=== PATIENT | female | born 1990 | race Caucasian/White ===

== ENCOUNTER 2016-12-23 19:40 | Emergency (ER) | payer OTHER ==
[2016-12-23 19:43] VITALS: BP 126/73; PULSE 89; RESP 18; TEMP 98.2
[2016-12-23] MEDS ORDERED: IBUPROFEN 600 MG TAB PO STA (19:48)
--- NOTE | 2016-12-23 19:53 | ED ---
Lower Extremity Injury HPI - General Chief Complaint: Extremity Injury, Lower Stated Complaint: lt foot injury Time Seen by Provider: 12/23/16 19:42 Source: patient, RN notes reviewed Mode of arrival: wheelchair Limitations: no limitations - History of Present Illness Initial Comments: Patient is a 26-year-old female presents to the emergency room for evaluation of left foot pain. Patient states she was moving a TV speaker and the corner of it hit the top of her left foot. Patient states she had immediate pain. Patient states that she has been applying ice over the area with no relief of symptoms. Patient denies taking anything for pain. Patient states her left dorsal foot is very tender to touch and she cannot put weight on it without pain. Patient states the lateral portion of her dorsal foot feels numb. Patient denies ankle pain. Patient denies any other injuries. - Related Data Home Medications Medication Instructions Recorded Confirmed Loratadine [Claritin] 10 mg PO DAILY PRN 11/04/16 12/23/16 clonazePAM [KlonoPIN] 0.5 mg PO DAILY PRN 11/04/16 12/23/16 Acetaminophen-Codeine 300-30mg 1 tab PO DAILY PRN 12/23/16 12/23/16 [Tylenol #3] Albuterol Inhaler [Ventolin Hfa 1 - 2 puff INHALATION RT-Q6H PRN 12/23/16 Inhaler] Pnv with Ca,No.72/Iron/FA 1 tab PO DAILY 12/23/16 12/23/16 [ Plus Tablet] Allergies Allergy/AdvReac Type Severity Reaction Status Date / Time buspirone HCl [From BuSpar] Allergy Rash/Hives Verified 12/23/16 19:58 latex Allergy Rash/Hives Verified 12/23/16 19:58 Latex, Natural Rubber Allergy Rash/Hives Verified 12/23/16 19:58 morphine Allergy Anaphylaxis Verified 12/23/16 19:58 tramadol Allergy Rash/Hives Verified 12/23/16 19:58 venom-honey bee Allergy Swelling Verified 12/23/16 19:58 [bee venom (honey bee)] Review of Systems ROS Statement: Those systems with pertinent positive or pertinent negative responses have been documented in the HPI. ROS Other: All systems not noted in ROS Statement are negative. Past Medical History Past Medical History: Asthma, Fibromyalgia, Seizure Disorder Additional Past Medical History / Comment(s): scoliosis and arthritis; back pain , "Stress Seziures" History of Any Multi-Drug Resistant Organisms: None Reported Past Surgical History: Appendectomy, Section Additional Past Surgical History / Comment(s): d & c Past Anesthesia/Blood Transfusion Reactions: No Reported Reaction Past Psychological History: ADD/ADHD, Bipolar Smoking Status: Never smoker Past Alcohol Use History: None Reported Past Drug Use History: None Reported, Marijuana Additional Drug Use History / Comment(s): Patient states no current use, but approximately 10 months ago was smoking marijuana - Past Family History Mother Family Medical History: Fibromyalgia General Exam - General Exam Comments Initial Comments: Sitting in exam room in no acute distress. Limitations: no limitations General appearance: alert, in no apparent distress Head exam: Present: atraumatic, normocephalic, normal inspection Eye exam: Present: normal appearance ENT exam: Present: normal exam Neck exam: Present: normal inspection Respiratory exam: Absent: respiratory distress Left Foot/Toe exam: Present: normal inspection, tenderness (Mid dorsal portion of the foot between the third and fourth metatarsal bones). Absent: swelling, abrasion, ecchymosis, deformity, crepitus Neurovascular tendon exam: Present: no vascular compromise. Absent: pulse deficit (2+ dorsal pedal posterior tibial pulses), abnormal cap refill ( Capillary refill less than 2 seconds) Back exam: Present: normal inspection Neurological exam: Present: alert, oriented X3, CN II-XII intact, normal gait Psychiatric exam: Present: normal affect, normal mood Skin exam: Present: warm, dry, intact, normal color. Absent: rash Course Vital Signs 12/23/16 19:41 Temperature 98.2 F Pulse Rate 89 Respiratory 18 Rate Blood Pressure 126/73 O2 Sat by Pulse 99 Oximetry Medical Decision Making - Medical Decision Making Patient is a 26-year-old female presents to the emergency room for evaluation of left foot pain. Left foot x-ray shows no acute fractures or dislocations. Patient also states she's experiencing some numbness on top of her foot where the injury happened. Discussed with patient that this is temporary. Discussed with patient that if symptoms do not improve in 7-10 days to follow-up with her primary care provider. Patient states she understands everything that was discussed with her. Return parameters discussed. Case discussed with Dr. Farias. - Radiology Data Radiology results: report reviewed, image reviewed Disposition Clinical Impression: Contusion of left foot Disposition: HOME SELF-CARE Condition: Good Instructions: Foot Contusion (ED), Neurapraxia (ED) Additional Instructions: Rest, elevate and ice on and off for 10-15 minutes for the next 24-48 hours. Take ibuprofen as needed for pain. Please follow-up with primary care provider if symptoms are not improving in 7-10 days. If new symptoms develop or symptoms worsen, please return to the ER. Referrals: Lizzy Edwards MD [Primary Care Provider] - 1-2 days Time of Disposition: 20:07
--- NOTE | 2016-12-23 19:59 | XR ---
EXAMINATION TYPE: XR foot complete LT DATE OF EXAM: 12/23/2016 7:55 PM COMPARISON: NONE HISTORY: Metatarsal pain TECHNIQUE: 3 views FINDINGS: I see no fracture nor dislocation. Metatarsals appear intact. Joint spaces are normal. IMPRESSION: Negative left foot exam.
== END 2016-12-23 20:24 | disposition home or self-care (01) ==
LOC: EC 19:40
DX: S90.32XA Contusion of left foot, initial encounter (principal); S94.92XA Injury of unspecified nerve at ankle and foot level, left leg, initial encounter; J45.909 Unspecified asthma, uncomplicated; M79.7 Fibromyalgia; G40.909 Epilepsy, unspecified, not intractable, without status epilepticus; Z79.899 Other long term (current) drug therapy; Z91.040 Latex allergy status; Z88.5 Allergy status to narcotic agent; Z91.030 Bee allergy status; Z88.6 Allergy status to analgesic agent; Z88.8 Allergy status to other drugs, medicaments and biological substances; W22.8XXA Striking against or struck by other objects, initial encounter; Y93.89 Activity, other specified
CPT/HCPCS: 99283

== ENCOUNTER 2016-12-26 22:06 | Emergency (ER) | payer OTHER ==
[2016-12-26 23:36] VITALS: RESP 18
--- NOTE | 2016-12-26 23:40 | ED ---
General Adult HPI - General Chief complaint: Seizure Stated complaint: Seizure Time Seen by Provider: 12/26/16 23:03 Source: patient, RN notes reviewed Mode of arrival: wheelchair Limitations: no limitations - History of Present Illness Initial comments: This is a 26-year-old female who states she had a seizure today. Patient states she had a flu shot around 9:45 AM and was feeling tired after this. Patient states around 10 PM this evening she had a seizure. Patient describes her seizures with shaking and jerking movements. Patient states the seizure lasted a few minutes. Patient has history of grand mal seizures. Patient takes Klonopin for her seizures. Patient states she feels tired and has headaches after seizures and feels back to baseline now. Patient states she has a history of seizures and the last one was about 6 months ago. Patient states she had another smaller seizure around 11 PM today. Patient also complains of a mild cough that is dry that started today. Patient has never had seizures after vaccinations before. Patient is taking Motrin for her headache today. Patient states her headache symptoms are normal for her after she has a seizure. Patient is unsure if she could be . Patient denies any recent fever, chills, shortness breath, chest pain, abdominal pain, nausea/ vomiting/diarrhea, back pain, numbness, tingling, hematuria, or visual changes , or any other complaints. - Related Data Home Medications Medication Instructions Recorded Confirmed Loratadine [Claritin] 10 mg PO DAILY PRN 11/04/16 12/26/16 clonazePAM [KlonoPIN] 0.5 mg PO DAILY PRN 11/04/16 12/26/16 Acetaminophen-Codeine 300-30mg 1 tab PO DAILY PRN 12/23/16 12/26/16 [Tylenol #3] Albuterol Inhaler [Ventolin Hfa 1 - 2 puff INHALATION RT-Q6H PRN 12/23/16 Inhaler] Pnv with Ca,No.72/Iron/FA 1 tab PO DAILY 12/23/16 12/26/16 [ Plus Tablet] Allergies Allergy/AdvReac Type Severity Reaction Status Date / Time buspirone HCl [From BuSpar] Allergy Rash/Hives Verified 12/26/16 22:58 latex Allergy Rash/Hives Verified 12/26/16 22:58 Latex, Natural Rubber Allergy Rash/Hives Verified 12/26/16 22:58 morphine Allergy Anaphylaxis Verified 12/26/16 22:58 tramadol Allergy Rash/Hives Verified 12/26/16 22:58 venom-honey bee Allergy Swelling Verified 12/26/16 22:58 [bee venom (honey bee)] Review of Systems ROS Statement: Those systems with pertinent positive or pertinent negative responses have been documented in the HPI. ROS Other: All systems not noted in ROS Statement are negative. Past Medical History Past Medical History: Asthma, Fibromyalgia, Seizure Disorder Additional Past Medical History / Comment(s): scoliosis and arthritis; back pain , "Stress Seziures" History of Any Multi-Drug Resistant Organisms: None Reported Past Surgical History: Appendectomy, Section Additional Past Surgical History / Comment(s): d & c Past Anesthesia/Blood Transfusion Reactions: No Reported Reaction Past Psychological History: ADD/ADHD, Anxiety, Bipolar, Depression Smoking Status: Never smoker Past Alcohol Use History: None Reported Past Drug Use History: None Reported Additional Drug Use History / Comment(s): Patient states no current use, but approximately 10 months ago was smoking marijuana - Past Family History Mother Family Medical History: Fibromyalgia General Exam - General Exam Comments Initial Comments: General: The patient is awake and alert, in no distress, and does not appear acutely ill. Eye: Pupils are equal, round and reactive to light, extra-ocular movements are intact. No nystagmus. There is normal conjunctiva bilaterally. No signs of icterus. Ears: TMs pink and pearly with intact cone of light bilaterally. Normal external ear canals Nose: Nasal turbinates pink and moist Mouth and throat: There are moist mucous membranes and no oral lesions. Neck: The neck is supple, there is no tenderness or JVD. Cardiovascular: There is a regular rate and rhythm. No murmur, rub or gallop is appreciated. Respiratory: Lungs are clear to auscultation, respirations are non-labored, breath sounds are equal. No wheezes, stridor, rales, or rhonchi. No cough during exam. Musculoskeletal: Normal ROM, no tenderness. Strength 5/5. Sensation intact. Radial pulses equal bilaterally 2+. Neurological: A&O x 3. CN II-XII intact, There are no obvious motor or sensory deficits. Coordination appears grossly intact. Speech is normal. Skin: Skin is warm and dry and no rashes or lesions are noted. Psychiatric: Cooperative, appropriate mood & affect, normal judgment. Limitations: no limitations Course Vital Signs 12/26/16 12/26/16 12/27/16 22:36 23:34 01:34 Temperature 97.9 F 98.5 F 98.4 F Pulse Rate 89 66 84 Respiratory 20 18 18 Rate Blood Pressure 144/80 118/66 127/72 O2 Sat by Pulse 98 100 99 Oximetry Medical Decision Making - Medical Decision Making This is a 26-year-old female presents after a seizure around 10 PM tonight. Patient complains of headache and tiredness but states these are her normal symptoms after her seizures. On physical exam patient is neurologically intact. Patient is back to baseline. Lungs are clear to auscultation bilaterally. Patient is afebrile in the EC. Urine test was done and came back negative. Basic labs were drawn and reviewed. A drug screen came back negative. I discussed the results with patient. Discussed return parameters. Discussed that patient should not drive for the next 6 months. I discussed the patient should follow-up with her neurologist and primary care physician in the next 1-2 days or return to the EC for any worsening symptoms or for any further concerns. I discussed this case with attending physician Dr. Crowder who agrees with plan as stated above. - Lab Data Result diagrams: 12/27/16 00:25 12/27/16 00:25 Lab Results 12/26/16 12/26/16 12/26/16 Range/Units 23:38 23:38 23:38 WBC (3.8-10.6) k/uL RBC (3.80-5.40) m/uL Hgb (11.4-16.0) gm/dL Hct (34.0-46.0) % MCV (80.0-100.0) fL MCH (25.0-35.0) pg MCHC (31.0-37.0) g/dL RDW (11.5-15.5) % Plt Count (150-450) k/uL Neutrophils % % Lymphocytes % % Monocytes % % Eosinophils % % Basophils % % Neutrophils # (1.3-7.7) k/uL Lymphocytes # (1.0-4.8) k/uL Monocytes # (0-1.0) k/uL Eosinophils # (0-0.7) k/uL Basophils # (0-0.2) k/uL Sodium (137-145) mmol/L Potassium (3.5-5.1) mmol/L Chloride (98-107) mmol/L Carbon Dioxide (22-30) mmol/L Anion Gap mmol/L BUN (7-17) mg/dL Creatinine (0.52-1.04) mg/dL Est GFR (MDRD) Af Amer (>60 ml/min/1.73 sqM) Est GFR (MDRD) Non-Af (>60 ml/min/1.73 sqM) Glucose (74-99) mg/dL Calcium (8.4-10.2) mg/dL Total Bilirubin (0.2-1.3) mg/dL AST (14-36) U/L ALT (9-52) U/L Alkaline Phosphatase (38-126) U/L Total Protein (6.3-8.2) g/dL Albumin (3.5-5.0) g/dL Urine Color Yellow Urine Appearance Cloudy H (Clear) Urine pH 7.0 (5.0-8.0) Ur Specific [place] 1.012 (1.001-1.035) Urine Protein Negative (Negative) Urine Glucose (UA) Negative (Negative) Urine Ketones Negative (Negative) Urine Blood Trace H (Negative) Urine Nitrate Negative (Negative) Urine Bilirubin Negative (Negative) Urine Urobilinogen <2.0 (<2.0) mg/dL Ur Leukocyte Esterase Negative (Negative) Urine RBC 1 (0-5) /hpf Urine WBC 3 (0-5) /hpf Ur Squamous Epith Cells 12 H (0-4) /hpf Urine Bacteria Rare H (None) /hpf Urine Mucus Rare H (None) /hpf Urine HCG, Qual Not Detected (Not Detectd) Urine Opiates Screen Not Detected (NotDetected) Ur Oxycodone Screen Not Detected (NotDetected) Urine Methadone Screen Not Detected (NotDetected) Ur Propoxyphene Screen Not Detected (NotDetected) Ur Barbiturates Screen Not Detected (NotDetected) U Tricyclic Antidepress Not Detected (NotDetected) Ur Phencyclidine Scrn Not Detected (NotDetected) Ur Amphetamines Screen Not Detected (NotDetected) U Methamphetamines Scrn Not Detected (NotDetected) U Benzodiazepines Scrn Not Detected (NotDetected) Urine Cocaine Screen Not Detected (NotDetected) U Marijuana (THC) Screen Not Detected (NotDetected) 12/27/16 12/27/16 Range/Units 00:25 00:25 WBC 6.5 (3.8-10.6) k/uL RBC 4.38 (3.80-5.40) m/uL Hgb 12.0 (11.4-16.0) gm/dL Hct 36.8 (34.0-46.0) % MCV 84.0 (80.0-100.0) fL MCH 27.4 (25.0-35.0) pg MCHC 32.6 (31.0-37.0) g/dL RDW 15.3 (11.5-15.5) % Plt Count 253 (150-450) k/uL Neutrophils % 73 % Lymphocytes % 15 % Monocytes % 4 % Eosinophils % 6 % Basophils % 1 % Neutrophils # 4.8 (1.3-7.7) k/uL Lymphocytes # 0.9 L (1.0-4.8) k/uL Monocytes # 0.3 (0-1.0) k/uL Eosinophils # 0.4 (0-0.7) k/uL Basophils # 0.0 (0-0.2) k/uL Sodium 140 (137-145) mmol/L Potassium 4.4 (3.5-5.1) mmol/L Chloride 104 (98-107) mmol/L Carbon Dioxide 25 (22-30) mmol/L Anion Gap 11 mmol/L BUN 14 (7-17) mg/dL Creatinine 0.70 (0.52-1.04) mg/dL Est GFR (MDRD) Af Amer >60 (>60 ml/min/1.73 sqM) Est GFR (MDRD) Non-Af >60 (>60 ml/min/1.73 sqM) Glucose 89 (74-99) mg/dL Calcium 9.4 (8.4-10.2) mg/dL Total Bilirubin 0.6 (0.2-1.3) mg/dL AST 24 (14-36) U/L ALT 35 (9-52) U/L Alkaline Phosphatase 59 (38-126) U/L Total Protein 6.3 (6.3-8.2) g/dL Albumin 3.6 (3.5-5.0) g/dL Urine Color Urine Appearance (Clear) Urine pH (5.0-8.0) Ur Specific [place] (1.001-1.035) Urine Protein (Negative) Urine Glucose (UA) (Negative) Urine Ketones (Negative) Urine Blood (Negative) Urine Nitrate (Negative) Urine Bilirubin (Negative) Urine Urobilinogen (<2.0) mg/dL Ur Leukocyte Esterase (Negative) Urine RBC (0-5) /hpf Urine WBC (0-5) /hpf Ur Squamous Epith Cells (0-4) /hpf Urine Bacteria (None) /hpf Urine Mucus (None) /hpf Urine HCG, Qual (Not Detectd) Urine Opiates Screen (NotDetected) Ur Oxycodone Screen (NotDetected) Urine Methadone Screen (NotDetected) Ur Propoxyphene Screen (NotDetected) Ur Barbiturates Screen (NotDetected) U Tricyclic Antidepress (NotDetected) Ur Phencyclidine Scrn (NotDetected) Ur Amphetamines Screen (NotDetected) U Methamphetamines Scrn (NotDetected) U Benzodiazepines Scrn (NotDetected) Urine Cocaine Screen (NotDetected) U Marijuana (THC) Screen (NotDetected) Disposition Clinical Impression: Seizure Disposition: HOME SELF-CARE Condition: Good Instructions: Epilepsy (ED) Additional Instructions: Please do not drive. Please continue your normal seizure medications. Please follow-up with your neurologist and her primary care physician in the next 1-2 days. Please return to the EC for any worsening symptoms or for any further concerns. Referrals: Lizzy Edwards MD [Primary Care Provider] - 1-2 days Time of Disposition: 01:36
[2016-12-26 23:58] LABS: Appearance,Urine Cloudy (Clear); Bacteria,Urine Rare /hpf; Bilirubin,Urine Negative (Negative); Glucose,Urine (UA) Negative (Negative); Ketones,Urine Negative (Negative); Leukocyte Esterase,Urine Negative (Negative); Mucus,Urine Rare /hpf; Nitrite,Urine Negative (Negative); Particle Count 5909; Protein,Urine Negative (Negative); RBC,Urine 1 /hpf (0-5); Specific Gravity,Urine 1.012 (1.001-1.035); Squamous Epithelial Cell,Urine 12 /hpf (0-4); UA Billing (MACRO vs. MICRO) MICRO; Urobilinogen,Urine <2.0 mg/dL (<2.0); WBC,Urine 3 /hpf (0-5)
[2016-12-27 00:44] LABS: Basophils % (A) 1 %; CH 28.2; CHCM 33.6; Eosinophils # (A) 0.4 k/uL (0-0.7); Eosinophils % (A) 6 %; HCT 36.8 % (34.0-46.0); HDW 3.21; Luc # (Auto) 0.12; Luc % (Auto) 2; Lymphocytes # (A) 0.9 k/uL (1.0-4.8); Lymphocytes % (A) 15 %; MCH 27.4 pg (25.0-35.0); MCHC 32.6 g/dL (31.0-37.0); Mean Platelet Volume 7.1; Monocytes # (A) 0.3 k/uL (0-1.0); Monocytes % (A) 4 %; Neutrophils # (A) 4.8 k/uL (1.3-7.7); Neutrophils % (A) 73 %; RBC 4.38 m/uL (3.80-5.40); RDW 15.3 % (11.5-15.5); WBC 6.5 k/uL (3.8-10.6); WBC (Perox) 6.67
[2016-12-27 00:55] LABS: ALT 35 U/L (9-52); AST 24 U/L (14-36); Alkaline Phosphatase 59 U/L (38-126); Anion Gap 11 mmol/L; Blood Urea Nitrogen 14 mg/dL (7-17); Calcium 9.4 mg/dL (8.4-10.2); Carbon Dioxide 25 mmol/L (22-30); Chloride 104 mmol/L (98-107); Glucose 89 mg/dL (74-99); Non-African American GFR(MDRD) >60 (>60 ml/min/1.73 sqM); Potassium 4.4 mmol/L (3.5-5.1); Sodium 140 mmol/L (137-145); Total Bilirubin 0.6 mg/dL (0.2-1.3); Total Protein 6.3 g/dL (6.3-8.2)
[2016-12-27 01:35] VITALS: BP 127/72; PULSE 84; TEMP 98.4
== END 2016-12-27 01:47 | disposition home or self-care (01) ==
LOC: EC 22:06
DX: G40.909 Epilepsy, unspecified, not intractable, without status epilepticus (principal); J45.909 Unspecified asthma, uncomplicated; Z88.8 Allergy status to other drugs, medicaments and biological substances; Z88.0 Allergy status to penicillin; Z91.030 Bee allergy status; Z91.040 Latex allergy status; Z88.5 Allergy status to narcotic agent; Z79.899 Other long term (current) drug therapy
CPT/HCPCS: 36415; 80053; 80306; 81001; 81025; 85025; 87077; 87086; 87186; 99284

== ENCOUNTER 2017-01-15 17:35 | Emergency (ER) | payer OTHER ==
[2017-01-15 18:26] VITALS: RESP 18
--- NOTE | 2017-01-15 19:15 | ED ---
General Adult HPI - General Chief complaint: Extremity Injury, Lower Stated complaint: Shoulder injury Time Seen by Provider: 01/15/17 18:54 Source: patient, RN notes reviewed Mode of arrival: ambulatory Limitations: no limitations - History of Present Illness Initial comments: 26-year-old female presents emergency Department chief complaint of right shoulder. Patient states she has a history of seizures. Patient states that she did have a seizure yesterday. Patient states she woke up this morning with some right shoulder pain and some limited range of motion. Patient states that it hurts when you touch the back of the shoulder. Patient states she is able to move it but only so far. Patient states any fever chills cough cold runny nose. They were concerned due to the continued pain so she thought that she should be evaluated. Patient states her seizures were very mild much like her typical seizures. Patient states that she is not currently having any other problems.Patient denies any recent fever, chills, shortness of breath, chest pain, back pain, abdominal pain, nausea vomiting, numbness or tingling, dysuria or hematuria, constipation or diarrhea, headaches or visual changes, or any other current symptoms. - Related Data Home Medications Medication Instructions Recorded Confirmed clonazePAM [KlonoPIN] 0.5 mg PO DAILY PRN 11/04/16 01/15/17 Acetaminophen-Codeine 300-30mg 1 tab PO DAILY PRN 12/23/16 01/15/17 [Tylenol #3] Albuterol Inhaler [Ventolin Hfa 1 - 2 puff INHALATION RT-Q6H PRN 12/23/16 Inhaler] Pnv with Ca,No.72/Iron/FA 1 tab PO DAILY 12/23/16 01/15/17 [ Plus Tablet] Allergies Allergy/AdvReac Type Severity Reaction Status Date / Time buspirone HCl [From BuSpar] Allergy Rash/Hives Verified 12/26/16 22:58 latex Allergy Rash/Hives Verified 12/26/16 22:58 Latex, Natural Rubber Allergy Rash/Hives Verified 12/26/16 22:58 morphine Allergy Anaphylaxis Verified 12/26/16 22:58 tramadol Allergy Rash/Hives Verified 12/26/16 22:58 venom-honey bee Allergy Swelling Verified 12/26/16 22:58 [bee venom (honey bee)] Review of Systems ROS Statement: Those systems with pertinent positive or pertinent negative responses have been documented in the HPI. ROS Other: All systems not noted in ROS Statement are negative. Past Medical History Past Medical History: Asthma, Fibromyalgia, Seizure Disorder Additional Past Medical History / Comment(s): scoliosis and arthritis; back pain , "Stress Seziures" History of Any Multi-Drug Resistant Organisms: None Reported Past Surgical History: Appendectomy, Section Additional Past Surgical History / Comment(s): d & c Past Anesthesia/Blood Transfusion Reactions: No Reported Reaction Past Psychological History: ADD/ADHD, Anxiety, Bipolar, Depression Smoking Status: Never smoker Past Alcohol Use History: None Reported Past Drug Use History: None Reported Additional Drug Use History / Comment(s): Patient states no current use, but approximately 10 months ago was smoking marijuana - Past Family History Mother Family Medical History: Fibromyalgia General Exam - General Exam Comments Initial Comments: General: The patient is awake and alert, in no distress, and does not appear acutely ill. Neck: The neck is supple, there is no tenderness. Cardiovascular: There is a regular rate and rhythm. No murmur, rub or gallop is appreciated. Respiratory: Lungs are clear to auscultation, respirations are non-labored, breath sounds are equal. No wheezes, stridor, rales, or rhonchi. Musculoskeletal: Sensation to have a 2+ pulses that her upper joint. Full range of motion of the right elbow and wrist. Patient has pain on extremes of range of motion of the right shoulder will not abduct more than 90. There is suspicion posterior aspect of the shoulder. Neurological: CN II-XII intact, There are no obvious motor or sensory deficits. Coordination appears grossly intact. Speech is normal. Skin: Skin is warm and dry and no rashes or lesions are noted. Psychiatric: Normal mood and affect. Limitations: no limitations Course Vital Signs 01/15/17 18:22 Temperature 97.0 F L Pulse Rate 99 Respiratory 18 Rate Blood Pressure 141/81 O2 Sat by Pulse 99 Oximetry Procedures - Orthopedic Splinting/Casting Injury #1 Side: right Upper Extremity Injury Location: shoulder Upper Extremity Immobilizer: sling/shoulder immobilizer Medical Decision Making - Medical Decision Making 26 patricia fe male presents emergency Department chief complaint of right shoulder pain. Patient x-ray was concerning for some mild subluxation. Patient did have changes in range of motion to the shoulder. Patient was given pain medication and range of motion was performed and the patient is feeling better. Patient has full range of motion however pain on extremes still. This time patient most likely has a right shoulder sprain due to the fact that she does have full range of motion. We did discuss will place her and explained to for follow-up towards. She was given information. Patient stated that she understood since she has seen and plan options have been answered. She will be discharged. Disposition Clinical Impression: Sprain of right shoulder Disposition: HOME SELF-CARE Condition: Stable Instructions: Shoulder Sprain (ED) Additional Instructions: Please use medication as discussed. Please follow up with family doctor if symptoms have not improved over the next two days. Please return to the emergency room if your symptoms increase or worsen or for any other concerns. You receive Dilaudid and Valium injections here in the emergency department. Referrals: Lizzy Edwards MD [Primary Care Provider] - 1-2 days Monty Petersen DO [Doctor of Osteopathic Medicine] - 1-2 days Time of Disposition: 20:45
--- NOTE | 2017-01-15 19:50 | XR ---
EXAMINATION TYPE: XR shoulder complete RT DATE OF EXAM: 01/15/2017 7:21 PM COMPARISON: NONE HISTORY: Pain after seizure TECHNIQUE: 3 views FINDINGS: The glenohumeral joint appears widened on the AP view, and the humeral head is centered mor e posteriorLY than expected on the scapular Y view. These findings suggest the possibility of posteri or subluxation of the humeral head with respect to the bony glenoid. Would therefore recommend either CT imaging or additional x-ray transaxillary shoulder view. Would advise the former if there is high clinical suspicion for dislocation/injury, and the latter if there is not. The bones and joints and soft tissues are otherwise unremarkable. No incidental findings. IMPRESSION: FINDINGS SUSPICIOUS FOR POSTERIOR SUBLUXATION OF THE HUMERAL HEAD, DISCUSSED.
[2017-01-15] MEDS ORDERED: HYDROmorphone 1 MG/ML 1 ML SYRINGE IM STA (20:12)
[2017-01-15] MEDS ORDERED: DIAZEPAM 5 MG/ML 2 ML SYRINGE IM ONE (20:13)
[2017-01-15 20:54] VITALS: BP 138/93; PULSE 62; TEMP 98
== END 2017-01-15 20:54 | disposition home or self-care (01) ==
LOC: EC 17:35
DX: S43.401A Unspecified sprain of right shoulder joint, initial encounter (principal); Z79.899 Other long term (current) drug therapy; Z91.040 Latex allergy status; Z88.5 Allergy status to narcotic agent; Z88.6 Allergy status to analgesic agent; Z91.030 Bee allergy status; Z88.8 Allergy status to other drugs, medicaments and biological substances; W19.XXXA Unspecified fall, initial encounter
CPT/HCPCS: 73030; 99283; 96372 ×2; J3360; J1170

== ENCOUNTER 2017-02-04 19:07 | Emergency (ER) | payer OTHER ==
[2017-02-04 19:32] VITALS: RESP 18
[2017-02-04] MEDS ORDERED: clonazePAM 0.5 MG TAB PO STA (19:47)
[2017-02-04] MEDS ORDERED: SODIUM CHLORIDE 0.9% 1,000 ML IV ONE (19:47)
[2017-02-04] MEDS ORDERED: levETIRAcetam IV 1,500 MG in SALINE 1 100ML.BAG IVPB STA (19:47)
--- NOTE | 2017-02-04 19:47 | ED ---
General Adult HPI - General Chief complaint: Seizure Stated complaint: Seizure Time Seen by Provider: 02/04/17 19:37 Source: patient, RN notes reviewed, old records reviewed Mode of arrival: wheelchair Limitations: no limitations - History of Present Illness Initial comments: 26-year-old female with history of seizures presenting for seizure. Patient states she currently takes Klonopin for seizures. She states she ran out of this medication yesterday. She states she had a small seizure last evening that she does not remember. She also states she had a seizure just prior to arrival. She does not remember this. She states she is having headache at this time. She does state she has previously been on medications such as Keppra but is no longer taking these. She has not recently followed up with her primary doctor or neurologist regarding her seizures. She does state that she was recommended to have any EEG which she has not had done yet. She denies any nausea or vomiting. She denies any fevers or chills. - Related Data Home Medications Medication Instructions Recorded Confirmed clonazePAM [KlonoPIN] 0.5 mg PO DAILY PRN 11/04/16 02/04/17 Albuterol Inhaler [Ventolin Hfa 1 - 2 puff INHALATION RT-Q6H PRN 12/23/16 Inhaler] Fluticasone Nasal [place] [Flonase 2 spr EA NOSTRIL DAILY PRN 02/04/17 02/04/17 Nasal [place]] Loratadine [Claritin] 10 mg PO DAILY PRN 02/04/17 02/04/17 [id number] Acid 1 cap PO DAILY 02/04/17 02/04/17 [-U Capsule (formulary)] Previous Rx's Medication Instructions Recorded Ibuprofen [Motrin] 800 mg PO Q8HR PRN #21 tab 02/04/17 Prochlorperazine [Compazine] 10 mg PO Q8H PRN #12 tab 02/04/17 diphenhydrAMINE [Benadryl] 25 mg PO TID PRN #12 capsule 02/04/17 levETIRAcetam [Keppra] 500 mg PO Q12HR 30 Days 02/04/17 Allergies Allergy/AdvReac Type Severity Reaction Status Date / Time buspirone HCl [From BuSpar] Allergy Rash/Hives Verified 02/04/17 20:57 Latex, Natural Rubber Allergy Rash/Hives Verified 02/04/17 20:57 morphine Allergy Anaphylaxis Verified 02/04/17 20:57 tramadol Allergy Rash/Hives Verified 02/04/17 20:57 venom-honey bee Allergy Swelling Verified 02/04/17 20:57 [bee venom (honey bee)] Review of Systems ROS Statement: Those systems with pertinent positive or pertinent negative responses have been documented in the HPI. ROS Other: All systems not noted in ROS Statement are negative. Past Medical History Past Medical History: Asthma, Fibromyalgia, Seizure Disorder Additional Past Medical History / Comment(s): scoliosis and arthritis; back pain , "Stress Seziures" History of Any Multi-Drug Resistant Organisms: None Reported Past Surgical History: Appendectomy, Section Additional Past Surgical History / Comment(s): d & c Past Anesthesia/Blood Transfusion Reactions: No Reported Reaction Past Psychological History: ADD/ADHD, Anxiety, Bipolar, Depression Smoking Status: Never smoker Past Alcohol Use History: None Reported Past Drug Use History: None Reported Additional Drug Use History / Comment(s): Patient states no current use, but approximately 10 months ago was smoking marijuana - Past Family History Mother Family Medical History: Fibromyalgia General Exam - General Exam Comments Initial Comments: General: Awake and Alert. No acute distress. Does not appear acutely ill. Obese. Eyes: MARY ANNE, EOM intact. No nystagmus. No scleral icterus. HENT: Atraumatic, normocephalic. Mucous membranes moist. Trachea midline. Neck: The neck is supple, there is no tenderness or JVD. Cardiovascular: Regular rate and rhythm. No murmur, rub, or gallop is appreciated. Distal pulses intact. Respiratory: Lungs are clear to auscultation bilaterally. No wheezes, rales, rhonchi. No respiratory distress. Gastrointestinal: Soft, Nontender. No rebound or guarding. Non-distended. No masses or organomegaly noted. No CVA tenderness. Musculoskeletal: No tenderness. Normal ROM. No gross deformity. No strength deficits. Neurological: A&Ox3. CN II-XII grossly intact, There are no obvious motor or sensory deficits. Coordination appears grossly intact. Speech is normal. Skin: Skin is warm and dry and no rashes or lesions are noted. Psychiatric: Cooperative, appropriate mood & affect, normal judgment. Limitations: no limitations Course Vital Signs 02/04/17 19:30 Temperature 100.4 F H Pulse Rate 80 Respiratory 18 Rate Blood Pressure 135/77 O2 Sat by Pulse 98 Oximetry EKG Findings - EKG Comments: EKG Findings:: 21:24. Normal sinus rhythm. Rate 61. MA 154. QRS 90. QT/QTc 418/420. Normal axis. No STEMI. Normal EKG. Medical Decision Making - Medical Decision Making 26-year-old female presenting for seizures. On initial exam patient appears mildly postictal. Had discussion about her medication. Patient is previously been on antiepileptics, but is currently only on Klonopin. Patient has had multiple seizures over the past few months. She is currently poorly compliant with medications and outpatient follow-up. She states that she had a change in her neurologist and is uncertain who it is. On initial exam patient appears stable with no focal neurological deficits. Medication ordered for headache. Lab workup grossly stable. UA without infection, negative. Patient was loaded with IV Keppra in the ED. on reevaluation she remained stable. No further seizures during course in the ED after several hour observation. was able to come to the ED and can take her home. Discussed recommendation to continue this medication and Rx provided. Discussed absolute importance of neurology follow-up for further management of her seizures. Patient does have a refill of her Klonopin which she has not filled yet. Discussed filling this medication and continuing it. Discussed concerning signs symptoms or may return to the ED. Patient and are agreeable with plan discharge home. - Lab Data Result diagrams: 02/04/17 20:15 02/04/17 20:15 Lab Results 02/04/17 02/04/17 02/04/17 Range/Units 20:05 20:05 20:15 WBC (3.8-10.6) k/uL RBC (3.80-5.40) m/uL Hgb (11.4-16.0) gm/dL Hct (34.0-46.0) % MCV (80.0-100.0) fL MCH (25.0-35.0) pg MCHC (31.0-37.0) g/dL RDW (11.5-15.5) % Plt Count (150-450) k/uL Neutrophils % % Lymphocytes % % Monocytes % % Eosinophils % % Basophils % % Neutrophils # (1.3-7.7) k/uL Lymphocytes # (1.0-4.8) k/uL Monocytes # (0-1.0) k/uL Eosinophils # (0-0.7) k/uL Basophils # (0-0.2) k/uL Sodium 140 (137-145) mmol/L Potassium 4.1 (3.5-5.1) mmol/L Chloride 105 (98-107) mmol/L Carbon Dioxide 24 (22-30) mmol/L Anion Gap 11 mmol/L BUN 12 (7-17) mg/dL Creatinine 0.70 (0.52-1.04) mg/dL Est GFR (MDRD) Af Amer >60 (>60 ml/min/1.73 sqM) Est GFR (MDRD) Non-Af >60 (>60 ml/min/1.73 sqM) Glucose 80 (74-99) mg/dL Plasma Lactic Acid [place] (0.7-2.0) mmol/L Calcium 9.3 (8.4-10.2) mg/dL Creatine Kinase 65 (30-135) U/L Urine Color Light Yellow Urine Appearance Clear (Clear) Urine pH 5.5 (5.0-8.0) Ur Specific [place] 1.008 (1.001-1.035) Urine Protein Negative (Negative) Urine Glucose (UA) Negative (Negative) Urine Ketones Negative (Negative) Urine Blood Negative (Negative) Urine Nitrite Negative (Negative) Urine Bilirubin Negative (Negative) Urine Urobilinogen <2.0 (<2.0) mg/dL Ur Leukocyte Esterase Negative (Negative) Urine HCG, Qual Not Detected (Not Detectd) 02/04/17 02/04/17 Range/Units 20:15 20:15 WBC 9.2 (3.8-10.6) k/uL RBC 4.82 (3.80-5.40) m/uL Hgb 13.6 (11.4-16.0) gm/dL Hct 40.8 (34.0-46.0) % MCV 84.6 (80.0-100.0) fL MCH 28.2 (25.0-35.0) pg MCHC 33.3 (31.0-37.0) g/dL RDW 15.6 H (11.5-15.5) % Plt Count 302 (150-450) k/uL Neutrophils % 66 % Lymphocytes % 23 % Monocytes % 4 % Eosinophils % 4 % Basophils % 1 % Neutrophils # 6.1 (1.3-7.7) k/uL Lymphocytes # 2.2 (1.0-4.8) k/uL Monocytes # 0.4 (0-1.0) k/uL Eosinophils # 0.4 (0-0.7) k/uL Basophils # 0.1 (0-0.2) k/uL Sodium (137-145) mmol/L Potassium (3.5-5.1) mmol/L Chloride (98-107) mmol/L Carbon Dioxide (22-30) mmol/L Anion Gap mmol/L BUN (7-17) mg/dL Creatinine (0.52-1.04) mg/dL Est GFR (MDRD) Af Amer (>60 ml/min/1.73 sqM) Est GFR (MDRD) Non-Af (>60 ml/min/1.73 sqM) Glucose (74-99) mg/dL Plasma Lactic Acid [place] 1.0 (0.7-2.0) mmol/L Calcium (8.4-10.2) mg/dL Creatine Kinase (30-135) U/L Urine Color Urine Appearance (Clear) Urine pH (5.0-8.0) Ur Specific [place] (1.001-1.035) Urine Protein (Negative) Urine Glucose (UA) (Negative) Urine Ketones (Negative) Urine Blood (Negative) Urine Nitrite (Negative) Urine Bilirubin (Negative) Urine Urobilinogen (<2.0) mg/dL Ur Leukocyte Esterase (Negative) Urine HCG, Qual (Not Detectd) - EKG Data -: EKG Interpreted by Al EKG shows normal: sinus rhythm Rate: normal Disposition Clinical Impression: Seizure, Headache Disposition: HOME SELF-CARE Condition: Stable Instructions: Recurrent Seizures in Adults (ED), Acute Headache (ED) Additional Instructions: Please take Keppra and follow up with Neurology as soon as possible. Prescriptions: Ibuprofen [Motrin] 800 mg PO Q8HR PRN #21 tab PRN Reason: Pain Prochlorperazine [Compazine] 10 mg PO Q8H PRN #12 tab PRN Reason: with benadryl for headache diphenhydrAMINE [Benadryl] 25 mg PO TID PRN #12 capsule PRN Reason: with compazine for headache levETIRAcetam [Keppra] 500 mg PO Q12HR 30 Days Referrals: Lizzy Edwards MD [Primary Care Provider] - 1-2 days Kentrell Jefferson MD [STAFF PHYSICIAN] - 1-2 days Time of Disposition: 22:30
[2017-02-04 20:34] LABS: Appearance,Urine Clear (Clear); Bilirubin,Urine Negative (Negative); Glucose,Urine (UA) Negative (Negative); Ketones,Urine Negative (Negative); Leukocyte Esterase,Urine Negative (Negative); Nitrite,Urine Negative (Negative); PH, Urine 5.5 (5.0-8.0); Protein,Urine Negative (Negative); Specific Gravity,Urine 1.008 (1.001-1.035); UA Billing (MACRO vs. MICRO) CHEM; Urobilinogen,Urine <2.0 mg/dL (<2.0)
[2017-02-04 20:41] LABS: Basophils # (A) 0.1 k/uL (0-0.2); Basophils % (A) 1 %; CH 28.5; CHCM 33.8; Eosinophils # (A) 0.4 k/uL (0-0.7); Eosinophils % (A) 4 %; HCT 40.8 % (34.0-46.0); HGB 13.6 gm/dL (11.4-16.0); Luc # (Auto) 0.22; Luc % (Auto) 2; Lymphocytes # (A) 2.2 k/uL (1.0-4.8); Lymphocytes % (A) 23 %; MCH 28.2 pg (25.0-35.0); MCHC 33.3 g/dL (31.0-37.0); MCV 84.6 fL (80.0-100.0); Mean Platelet Volume 6.5; Monocytes # (A) 0.4 k/uL (0-1.0); Monocytes % (A) 4 %; Neutrophils # (A) 6.1 k/uL (1.3-7.7); Neutrophils % (A) 66 %; RBC 4.82 m/uL (3.80-5.40); RDW 15.6 % (11.5-15.5); WBC 9.2 k/uL (3.8-10.6); WBC (Perox) 9.33
[2017-02-04 20:56] LABS: Anion Gap 11 mmol/L; Blood Urea Nitrogen 12 mg/dL (7-17); Calcium 9.3 mg/dL (8.4-10.2); Carbon Dioxide 24 mmol/L (22-30); Chloride 105 mmol/L (98-107); Creatine Kinase 65 U/L (30-135); Glucose 80 mg/dL (74-99); Non-African American GFR(MDRD) >60 (>60 ml/min/1.73 sqM); Potassium 4.1 mmol/L (3.5-5.1); Sodium 140 mmol/L (137-145)
[2017-02-04] MEDS ORDERED: KETOROLAC 30 MG/ML 1 ML VIAL IVP STA (20:57)
[2017-02-04] MEDS ORDERED: diphenhydrAMINE 50 MG/ML 1 ML VIAL IVP STA (21:56)
[2017-02-04] MEDS ORDERED: PROMETHAZINE INJ 25 MG in SODIUM CHLORIDE 0.9% 50 ML IVPB STA (21:56)
[2017-02-04 23:05] VITALS: BP 111/55; PULSE 60; TEMP 97.8
== END 2017-02-04 23:07 | disposition home or self-care (01) ==
LOC: EC 19:07
DX: R56.9 Unspecified convulsions (principal); R51 Headache; E66.9 Obesity, unspecified; Z68.34 Body mass index [BMI] 34.0-34.9, adult; Z79.899 Other long term (current) drug therapy; Z88.5 Allergy status to narcotic agent; Z91.030 Bee allergy status; Z91.040 Latex allergy status; Z88.8 Allergy status to other drugs, medicaments and biological substances; Z88.6 Allergy status to analgesic agent
CPT/HCPCS: 36415; 93005; 80048; 82550; 83605; 85025; 81003; 81025; 99284; 96365; 96366; 96368; J1200; J2550; J1885; J1953

== ENCOUNTER 2017-02-10 17:07 | Emergency (ER) | payer OTHER ==
--- NOTE | 2017-02-10 17:29 | ED ---
General Adult HPI - General Chief complaint: Abdominal Pain Stated complaint: Abd Pain Time Seen by Provider: 02/10/17 17:19 Source: patient, RN notes reviewed Mode of arrival: wheelchair Limitations: no limitations - History of Present Illness Initial comments: Patient was 27-year-old female who presents emergency room today with a chief complaint of lower abdominal pain. She does admit that she is on her menstrual cycle. She states that pain is sharper than usual. She states she is concerned about possible miscarriage. Describes sharp pain in the lower abdomen midline. States friend gave her one Chester yesterday, which did relieve her symptoms. States pain came back today. Patient denies any other complaints or symptoms at this time. Patient denies any recent fever, chills, shortness of breath, chest pain, back pain, abdominal pain, nausea or vomiting, numbness or tingling, dysuria or hematuria, constipation or diarrhea, headaches or visual changes, or any other complaints. - Related Data Home Medications Medication Instructions Recorded Confirmed clonazePAM [KlonoPIN] 0.5 mg PO DAILY PRN 11/04/16 02/10/17 Vfa-Afza-Trxqz Acid 1 cap PO DAILY 02/04/17 02/10/17 [-U Capsule (formulary)] Acetaminophen [Tylenol] 325 mg PO Q4H PRN 02/10/17 02/10/17 Cetirizine HCl 10 mg PO DAILY 02/10/17 02/10/17 [place] Unknown Strength 1 tab PO DAILY PRN 02/10/17 02/10/17 Sertraline [Zoloft] 50 mg PO HS 02/10/17 02/10/17 Previous Rx's Medication Instructions Recorded Ibuprofen [Motrin] 800 mg PO Q8HR PRN #21 tab 02/04/17 Prochlorperazine [Compazine] 10 mg PO Q8H PRN #12 tab 02/04/17 diphenhydrAMINE [Benadryl] 25 mg PO TID PRN #12 capsule 02/04/17 levETIRAcetam [Keppra] 500 mg PO Q12HR 30 Days 02/04/17 Allergies Allergy/AdvReac Type Severity Reaction Status Date / Time buspirone HCl [From BuSpar] Allergy Rash/Hives Verified 02/10/17 17:28 Latex, Natural Rubber Allergy Rash/Hives Verified 02/10/17 17:28 morphine Allergy Anaphylaxis Verified 02/10/17 17:28 tramadol Allergy Rash/Hives Verified 02/10/17 17:28 venom-honey bee Allergy Swelling Verified 02/10/17 17:28 [bee venom (honey bee)] Review of Systems ROS Statement: Those systems with pertinent positive or pertinent negative responses have been documented in the HPI. ROS Other: All systems not noted in ROS Statement are negative. Past Medical History Past Medical History: Asthma, Fibromyalgia, Seizure Disorder Additional Past Medical History / Comment(s): scoliosis and arthritis; back pain , "Stress Seziures". Headaches History of Any Multi-Drug Resistant Organisms: None Reported Past Surgical History: Appendectomy, Section Additional Past Surgical History / Comment(s): d & c Past Anesthesia/Blood Transfusion Reactions: No Reported Reaction Past Psychological History: ADD/ADHD, Anxiety, Bipolar, Depression Smoking Status: Never smoker Past Alcohol Use History: None Reported Past Drug Use History: None Reported Additional Drug Use History / Comment(s): Patient states no current use, but approximately 10 months ago was smoking marijuana - Past Family History Mother Family Medical History: Fibromyalgia General Exam - General Exam Comments Initial Comments: General: The patient is awake and alert, in no distress, and does not appear acutely ill. Eye: Pupils are equal, round and reactive to light, extra-ocular movements are intact. No nystagmus. There is normal conjunctiva bilaterally. No signs of icterus. Ears, nose, mouth and throat: There are moist mucous membranes and no oral lesions. Neck: The neck is supple, there is no tenderness or JVD. Cardiovascular: There is a regular rate and rhythm. No murmur, rub or gallop is appreciated. Respiratory: Lungs are clear to auscultation, respirations are non-labored, breath sounds are equal. No wheezes, stridor, rales, or rhonchi. Gastrointestinal: Normal appearance abdomen. Normal bowel sounds. Abdomen soft on palpation. Patient does have tenderness midline suprapubic over the bladder. No Rebound tenderness. No guarding. No CVA tenderness. Musculoskeletal: Normal ROM, no tenderness. Strength 5/5. Sensation intact. Pulses equal bilaterally 2+. Neurological: A&O x 3. CN II-XII intact, There are no obvious motor or sensory deficits. Coordination appears grossly intact. Speech is normal. Skin: Skin is warm and dry and no rashes or lesions are noted. Psychiatric: Cooperative, appropriate mood & affect, normal judgment. Limitations: no limitations External exam: Present: normal external exam ([employer] Nicolas present for exam. ) Speculum exam: Present: normal speculum exam, vaginal bleeding (Mild vaginal bleeding (patient on menstrual cycle)) Course Vital Signs 02/10/17 02/10/17 17:13 17:56 Temperature 98.1 F 98.2 F Pulse Rate 90 Respiratory 20 Rate Blood Pressure 113/65 O2 Sat by Pulse 97 Oximetry Medical Decision Making - Medical Decision Making His vital stable here in emergency room. Patient does admit to menstrual cycle. Her urinalysis is negative for any sign of infection. Negative test. Patient did have pelvic exam cultures currently pending. Patient complaining about tooth pain as well to the left upper tooth #14. She states she's been ongoing over the last 4 months. There is no sign of abscess. Patient is advised follow-up dentist given information of the [employer] [facility] to follow-up with that she states that her dentist locally that she's been able to get into. Patient requesting repeatedly for Chester. At this time patient is advised that pain is due to her menstrual cycle we will not prescribe a narcotic for this that it would have to come from family doctor. Patient is advised follow-up the family physician. Advised return if any symptoms increase or worsen. - Lab Data Lab Results 02/10/17 02/10/17 Range/Units 17:40 17:40 Urine Color Yellow Urine Appearance Clear (Clear) Urine pH 5.0 (5.0-8.0) Ur Specific [place] 1.020 (1.001-1.035) Urine Protein Negative (Negative) Urine Glucose (UA) Negative (Negative) Urine Ketones Negative (Negative) Urine Blood Negative (Negative) Urine Nitrite Negative (Negative) Urine Bilirubin Negative (Negative) Urine Urobilinogen <2.0 (<2.0) mg/dL Ur Leukocyte Esterase Negative (Negative) Urine HCG, Qual Not Detected (Not Detectd) Disposition Clinical Impression: Dysmenorrhea Disposition: HOME SELF-CARE Condition: Good Instructions: Dysmenorrhea (ED) Additional Instructions: Please use medication as discussed. Please follow-up with family doctor in the next 2 days of symptoms have not improved. Please return to emergency room if the symptoms increase or worsen or for any other concerns. Time of Disposition: 18:22
[2017-02-10 17:57] VITALS: TEMP 98.2
[2017-02-10 18:05] LABS: Appearance,Urine Clear (Clear); Bilirubin,Urine Negative (Negative); Glucose,Urine (UA) Negative (Negative); Ketones,Urine Negative (Negative); Leukocyte Esterase,Urine Negative (Negative); Nitrite,Urine Negative (Negative); Protein,Urine Negative (Negative); UA Billing (MACRO vs. MICRO) CHEM; Urobilinogen,Urine <2.0 mg/dL (<2.0)
[2017-02-10 18:47] VITALS: BP 116/68; PULSE 87; RESP 18
== END 2017-02-10 18:46 | disposition home or self-care (01) ==
LOC: EC 17:07
DX: N94.6 Dysmenorrhea, unspecified (principal); K08.89 Other specified disorders of teeth and supporting structures; G40.909 Epilepsy, unspecified, not intractable, without status epilepticus; F41.9 Anxiety disorder, unspecified; F32.9 Major depressive disorder, single episode, unspecified; Z87.891 Personal history of nicotine dependence; Z79.899 Other long term (current) drug therapy; Z88.5 Allergy status to narcotic agent; Z88.6 Allergy status to analgesic agent; Z88.8 Allergy status to other drugs, medicaments and biological substances; Z91.030 Bee allergy status; Z91.040 Latex allergy status; Z90.49 Acquired absence of other specified parts of digestive tract
CPT/HCPCS: 81003; 81025; 87070; 87205; 87491; 87591; 87808; 99284

== ENCOUNTER 2017-03-14 15:56 | Emergency (ER) | payer OTHER ==
[2017-03-14 16:05] VITALS: TEMP 97.5
[2017-03-14] MEDS ORDERED: SODIUM CHLORIDE 0.9% 1,000 ML IV ONE (16:30)
--- NOTE | 2017-03-14 16:41 | ED ---
Female Urogenital HPI - General Chief complaint: Vaginal Bleeding Stated complaint: Female Time Seen by Provider: 03/14/17 16:07 Source: patient, RN notes reviewed, old records reviewed Mode of arrival: wheelchair Limitations: no limitations - History of Present Illness Initial comments: This is a 27-year-old female presents to emergency department with chief complaint of abnormal vaginal bleeding today. Patient reports that she has been on different control for the past month related to regulate her periods. Patient reports earlier today when she was removing a tampon she noticed a very large clot and is concerned that she may be miscarrying. She also reports that 2 days ago she was evaluated at [facility] for possible seizure. She reports that she was feeling well and fine signs as lower abdominal pain and the vaginal bleeding. Patient denies any chest pain shortness breath, nausea or vomiting changes stool. She reports that she's had frequent urination and is concerned she may be dehydrated. - Related Data Home Medications Medication Instructions Recorded Confirmed clonazePAM [KlonoPIN] 0.5 mg PO DAILY PRN 11/04/16 03/14/17 Mem-Nbbe-Xtcon Acid 1 cap PO DAILY 02/04/17 03/14/17 [-U Capsule (formulary)] Sertraline [Zoloft] 50 mg PO HS 02/10/17 03/14/17 Acetaminophen-Codeine 300-30mg 1 tab PO DAILY PRN 03/14/17 03/14/17 [Tylenol #3] Albuterol Inhaler [Ventolin Hfa 2 puff INHALATION RT-Q6H PRN 03/14/17 03/14/17 Inhaler] Hydrocortisone Cream 1 applic TOPICAL TID PRN 03/14/17 03/14/17 [Hydrocortisone 1% Cream] Norgestimate-Ethinyl Estradiol 1 tab PO DAILY 03/14/17 03/14/17 [Sprintec 28 Day Tablet] diphenhydrAMINE [Benadryl] 25 mg PO TID PRN 03/14/17 03/14/17 Previous Rx's Medication Instructions Recorded Ibuprofen [Motrin] 800 mg PO Q8HR PRN #21 tab 02/04/17 levETIRAcetam [Keppra] 500 mg PO Q12HR 30 Days 02/04/17 Allergies Allergy/AdvReac Type Severity Reaction Status Date / Time buspirone HCl [From BuSpar] Allergy Rash/Hives Verified 03/14/17 17:20 Latex, Natural Rubber Allergy Rash/Hives Verified 03/14/17 17:20 morphine Allergy Anaphylaxis Verified 03/14/17 17:20 onion Allergy Anaphylaxis Verified 03/14/17 17:20 tramadol Allergy Rash/Hives Verified 03/14/17 17:20 venom-honey bee Allergy Swelling Verified 03/14/17 17:20 [bee venom (honey bee)] Review of Systems ROS Statement: Those systems with pertinent positive or pertinent negative responses have been documented in the HPI. ROS Other: All systems not noted in ROS Statement are negative. Past Medical History Past Medical History: Asthma, Fibromyalgia, Seizure Disorder Additional Past Medical History / Comment(s): scoliosis and arthritis; back pain , "Stress Seziures". Headaches History of Any Multi-Drug Resistant Organisms: None Reported Past Surgical History: Appendectomy, Section Additional Past Surgical History / Comment(s): d & c Past Anesthesia/Blood Transfusion Reactions: No Reported Reaction Past Psychological History: ADD/ADHD, Anxiety, Bipolar, Depression Smoking Status: Never smoker Past Alcohol Use History: None Reported Past Drug Use History: None Reported Additional Drug Use History / Comment(s): Patient states no current use, but approximately 10 months ago was smoking marijuana - Past Family History Mother Family Medical History: Fibromyalgia General Exam Limitations: no limitations General appearance: alert, in no apparent distress Head exam: Present: atraumatic, normocephalic, normal inspection Eye exam: Present: normal appearance, PERRL, EOMI. Absent: scleral icterus, conjunctival injection, periorbital swelling ENT exam: Present: normal exam, mucous membranes moist Neck exam: Present: normal inspection. Absent: tenderness, meningismus, lymphadenopathy Respiratory exam: Present: normal lung sounds bilaterally. Absent: respiratory distress, wheezes, rales, rhonchi, stridor Cardiovascular Exam: Present: regular rate, normal rhythm, normal heart sounds. Absent: systolic murmur, diastolic murmur, rubs, gallop, clicks GI/Abdominal exam: Present: soft, normal bowel sounds. Absent: distended, tenderness, guarding, rebound, rigid External exam: Present: normal external exam. Absent: erythema, swelling Speculum exam: Present: normal speculum exam, vaginal bleeding. Absent: erythema, vaginal discharge, cervical discharge By manual exam: Present: normal by manual exam. Absent: cervical motion tenderness, adnexal tenderness Extremities exam: Present: normal inspection, full ROM, normal capillary refill. Absent: tenderness, pedal edema, joint swelling, calf tenderness Back exam: Present: normal inspection Neurological exam: Present: alert, oriented X3, CN II-XII intact Psychiatric exam: Present: normal affect, normal mood Skin exam: Present: warm, dry, intact, normal color. Absent: rash Course Vital Signs 03/14/17 16:02 Temperature 97.5 F L Pulse Rate 74 Respiratory 20 Rate Blood Pressure 127/88 O2 Sat by Pulse 99 Oximetry Medical Decision Making - Medical Decision Making This is a 27-year-old female presents to emergency department with chief complaint of abnormal vaginal bleeding today. Patient reports that she has been on different control for the past month related to regulate her periods. Patient reports earlier today when she was removing a tampon she noticed a very large clot and is concerned that she may be miscarrying. She also reports that 2 days ago she was evaluated at [facility] for possible seizure. She reports that she was feeling well and fine signs as lower abdominal pain and the vaginal bleeding. Patient denies any chest pain shortness breath, nausea or vomiting changes stool. She reports that she's had frequent urination and is concerned she may be dehydrated. Laboratories are reviewed and is benign. Patient has a. Patient's vaginal bleeding that she has some vaginal bleeding. No significant clots. No cervical motion tenderness. Uterine size is within normal limits. Patient does test positive for Trichomonas. Patient will be treated with 2 g of Flagyl. With concern of other STDs and also treat the patient for Chlamydia and gonorrhea with Rocephin and azithromycin. Patient was informed of all these results. Was given IV fluids and Toradol. Patient reports her pain is diminished at this time. Patient will be discharged and advised follow-up with her primary care provider. Return parameters were discussed. - Lab Data Result diagrams: 03/14/17 16:40 03/14/17 16:40 Lab Results 03/14/17 03/14/17 03/14/17 Range/Units 16:40 16:40 16:40 WBC 5.0 (3.8-10.6) k/uL RBC 4.24 (3.80-5.40) m/uL Hgb 12.4 (11.4-16.0) gm/dL Hct 36.6 (34.0-46.0) % MCV 86.3 (80.0-100.0) fL MCH 29.3 (25.0-35.0) pg MCHC 33.9 (31.0-37.0) g/dL RDW 15.2 (11.5-15.5) % Plt Count 273 (150-450) k/uL Neutrophils % 52 % Lymphocytes % 32 % Monocytes % 6 % Eosinophils % 5 % Basophils % 0 % Neutrophils # 2.6 (1.3-7.7) k/uL Lymphocytes # 1.6 (1.0-4.8) k/uL Monocytes # 0.3 (0-1.0) k/uL Eosinophils # 0.3 (0-0.7) k/uL Basophils # 0.0 (0-0.2) k/uL Sodium 141 (137-145) mmol/L Potassium 4.2 (3.5-5.1) mmol/L Chloride 111 H (98-107) mmol/L Carbon Dioxide 22 (22-30) mmol/L Anion Gap 8 mmol/L BUN 12 (7-17) mg/dL Creatinine 0.70 (0.52-1.04) mg/dL Est GFR (MDRD) Af Amer >60 (>60 ml/min/1.73 sqM) Est GFR (MDRD) Non-Af >60 (>60 ml/min/1.73 sqM) Glucose 71 L (74-99) mg/dL Calcium 9.1 (8.4-10.2) mg/dL HCG, Quant <2.4 mIU/mL Urine Color Urine Appearance (Clear) Urine pH (5.0-8.0) Ur Specific [place] (1.001-1.035) Urine Protein (Negative) Urine Glucose (UA) (Negative) Urine Ketones (Negative) Urine Blood (Negative) Urine Nitrite (Negative) Urine Bilirubin (Negative) Urine Urobilinogen (<2.0) mg/dL Ur Leukocyte Esterase (Negative) Urine RBC (0-5) /hpf Urine WBC (0-5) /hpf Ur Squamous Epith Cells (0-4) /hpf Urine HCG, Qual Not Detected (Not Detectd) Trichomonas Ag (Rapid) (Negative) 03/14/17 03/14/17 Range/Units 16:40 16:46 WBC (3.8-10.6) k/uL RBC (3.80-5.40) m/uL Hgb (11.4-16.0) gm/dL Hct (34.0-46.0) % MCV (80.0-100.0) fL MCH (25.0-35.0) pg MCHC (31.0-37.0) g/dL RDW (11.5-15.5) % Plt Count (150-450) k/uL Neutrophils % % Lymphocytes % % Monocytes % % Eosinophils % % Basophils % % Neutrophils # (1.3-7.7) k/uL Lymphocytes # (1.0-4.8) k/uL Monocytes # (0-1.0) k/uL Eosinophils # (0-0.7) k/uL Basophils # (0-0.2) k/uL Sodium (137-145) mmol/L Potassium (3.5-5.1) mmol/L Chloride (98-107) mmol/L Carbon Dioxide (22-30) mmol/L Anion Gap mmol/L BUN (7-17) mg/dL Creatinine (0.52-1.04) mg/dL Est GFR (MDRD) Af Amer (>60 ml/min/1.73 sqM) Est GFR (MDRD) Non-Af (>60 ml/min/1.73 sqM) Glucose (74-99) mg/dL Calcium (8.4-10.2) mg/dL HCG, Quant mIU/mL Urine Color Yellow Urine Appearance Clear (Clear) Urine pH 5.5 (5.0-8.0) Ur Specific [place] 1.018 (1.001-1.035) Urine Protein Negative (Negative) Urine Glucose (UA) Negative (Negative) Urine Ketones Negative (Negative) Urine Blood Moderate H (Negative) Urine Nitrite Negative (Negative) Urine Bilirubin Negative (Negative) Urine Urobilinogen <2.0 (<2.0) mg/dL Ur Leukocyte Esterase Negative (Negative) Urine RBC 12 H (0-5) /hpf Urine WBC 4 (0-5) /hpf Ur Squamous Epith Cells 1 (0-4) /hpf Urine HCG, Qual (Not Detectd) Trichomonas Ag (Rapid) Positive H (Negative) Disposition Clinical Impression: Trichomonas infection Disposition: HOME SELF-CARE Condition: Good Instructions: Trichomoniasis (ED), Menstruation (ED) Additional Instructions: Patient advised to increase fluids. Follow with her primary care provider. Avoid sexual intercourse for the next 2 weeks. Referrals: Lizzy Edwards MD [Primary Care Provider] - 1-2 days Time of Disposition: 17:34
[2017-03-14] MEDS ORDERED: KETOROLAC 30 MG/ML 1 ML VIAL IVP STA (16:50)
[2017-03-14 17:02] LABS: Basophils % (A) 0 %; CH 29.2; Eosinophils # (A) 0.3 k/uL (0-0.7); Eosinophils % (A) 5 %; HCT 36.6 % (34.0-46.0); HDW 3.08; HGB 12.4 gm/dL (11.4-16.0); Luc # (Auto) 0.21; Luc % (Auto) 4; Lymphocytes # (A) 1.6 k/uL (1.0-4.8); Lymphocytes % (A) 32 %; MCH 29.3 pg (25.0-35.0); MCHC 33.9 g/dL (31.0-37.0); MCV 86.3 fL (80.0-100.0); Mean Platelet Volume 6.2; Monocytes # (A) 0.3 k/uL (0-1.0); Monocytes % (A) 6 %; Neutrophils # (A) 2.6 k/uL (1.3-7.7); Neutrophils % (A) 52 %; RBC 4.24 m/uL (3.80-5.40); RDW 15.2 % (11.5-15.5); WBC (Perox) 5.42
[2017-03-14 17:09] LABS: Anion Gap 8 mmol/L; Blood Urea Nitrogen 12 mg/dL (7-17); Calcium 9.1 mg/dL (8.4-10.2); Carbon Dioxide 22 mmol/L (22-30); Chloride 111 mmol/L (98-107); Glucose 71 mg/dL (74-99); Non-African American GFR(MDRD) >60 (>60 ml/min/1.73 sqM); Potassium 4.2 mmol/L (3.5-5.1); Sodium 141 mmol/L (137-145)
[2017-03-14 17:12] LABS: Appearance,Urine Clear (Clear); Bilirubin,Urine Negative (Negative); Glucose,Urine (UA) Negative (Negative); Ketones,Urine Negative (Negative); Leukocyte Esterase,Urine Negative (Negative); Nitrite,Urine Negative (Negative); PH, Urine 5.5 (5.0-8.0); Particle Count 919; Protein,Urine Negative (Negative); RBC,Urine 12 /hpf (0-5); Specific Gravity,Urine 1.018 (1.001-1.035); Squamous Epithelial Cell,Urine 1 /hpf (0-4); UA Billing (MACRO vs. MICRO) MICRO; Urobilinogen,Urine <2.0 mg/dL (<2.0); WBC,Urine 4 /hpf (0-5)
[2017-03-14 17:26] LABS: HCG,Quantitative Serum <2.4 mIU/mL
[2017-03-14] MEDS ORDERED: metroNIDAZOLE 500 MG TAB PO STA (17:31)
[2017-03-14] MEDS ORDERED: AZITHROMYCIN 500 MG TAB PO STA (17:33)
[2017-03-14] MEDS ORDERED: cefTRIAXone 250 MG VIAL IM STA (17:33)
[2017-03-14 18:32] VITALS: BP 131/70; PULSE 90; RESP 16
== END 2017-03-14 18:40 | disposition home or self-care (01) ==
LOC: EC 15:56
DX: A59.9 Trichomoniasis, unspecified (principal); R10.30 Lower abdominal pain, unspecified; N93.9 Abnormal uterine and vaginal bleeding, unspecified; F31.9 Bipolar disorder, unspecified; F41.9 Anxiety disorder, unspecified; Z79.3 Long term (current) use of hormonal contraceptives; Z79.899 Other long term (current) drug therapy; Z91.040 Latex allergy status; Z88.6 Allergy status to analgesic agent; Z91.018 Allergy to other foods; Z91.030 Bee allergy status; Z88.5 Allergy status to narcotic agent; Z88.8 Allergy status to other drugs, medicaments and biological substances
CPT/HCPCS: 99284; 96374; 96361; 96372; 36415; 80048; 87591; 87491; 85025; 81001; 81025; 84702; 87808; 87070; J0696; J1885; 87205

== ENCOUNTER 2017-04-02 15:01 | Emergency (ER) | payer OTHER ==
[2017-04-02 15:22] VITALS: BP 129/91; PULSE 83; RESP 20; TEMP 99
[2017-04-02] MEDS ORDERED: HYDROcodone/APAP 5-325MG 1 EACH TAB PO STA (15:54)
--- NOTE | 2017-04-02 15:55 | ED ---
Back Pain HPI - General Chief Complaint: Back Pain/Injury Stated Complaint: back & hip pain Time Seen by Provider: 04/02/17 15:43 Source: patient, RN notes reviewed Limitations: no limitations - History of Present Illness Initial Comments: 27-year-old female presents emergency Department chief complaint low back pain. Patient states she seen at the [facility] 2 days ago had a CAT scan which showed bulging disks L4-L5. Patient states she's not having trauma. Patient states she says low back pain worse with movement. Denies any bowel bladder incontinence or retention. Patient states that they also told her she had a urinary tract infection placed on antibiotics. She denies any flank pain denies fever or chills. She states she has no abdominal pain started no nausea vomiting. Patient states that the antibiotics occasionally make her nauseated but states not nauseated at this time. - Related Data Home Medications Medication Instructions Recorded Confirmed clonazePAM [KlonoPIN] 0.5 mg PO DAILY PRN 11/04/16 03/14/17 Txr-Bjhy-Tcsar Acid 1 cap PO DAILY 02/04/17 03/14/17 [-U Capsule (formulary)] Sertraline [Zoloft] 50 mg PO HS 02/10/17 03/14/17 Acetaminophen-Codeine 300-30mg 1 tab PO DAILY PRN 03/14/17 03/14/17 [Tylenol #3] Albuterol Inhaler [Ventolin Hfa 2 puff INHALATION RT-Q6H PRN 03/14/17 03/14/17 Inhaler] Hydrocortisone Cream 1 applic TOPICAL TID PRN 03/14/17 03/14/17 [Hydrocortisone 1% Cream] Norgestimate-Ethinyl Estradiol 1 tab PO DAILY 03/14/17 03/14/17 [Sprintec 28 Day Tablet] diphenhydrAMINE [Benadryl] 25 mg PO TID PRN 03/14/17 03/14/17 Previous Rx's Medication Instructions Recorded Ibuprofen [Motrin] 800 mg PO Q8HR PRN #21 tab 02/04/17 levETIRAcetam [Keppra] 500 mg PO Q12HR 30 Days 02/04/17 Hydrocodone/Acetaminophen [[place] 1 tab PO Q6HR PRN #15 tab 04/02/17 5-325] Methocarbamol [Robaxin] 500 mg PO TID PRN #15 tab 04/02/17 Ondansetron Odt [Zofran Odt] 4 mg PO Q8HR PRN #10 tab 04/02/17 Allergies Allergy/AdvReac Type Severity Reaction Status Date / Time buspirone HCl [From BuSpar] Allergy Rash/Hives Verified 04/02/17 15:22 Latex, Natural Rubber Allergy Rash/Hives Verified 04/02/17 15:22 morphine Allergy Anaphylaxis Verified 04/02/17 15:22 onion Allergy Anaphylaxis Verified 04/02/17 15:22 tramadol Allergy Rash/Hives Verified 04/02/17 15:22 venom-honey bee Allergy Swelling Verified 04/02/17 15:22 [bee venom (honey bee)] Review of Systems ROS Statement: Those systems with pertinent positive or pertinent negative responses have been documented in the HPI. ROS Other: All systems not noted in ROS Statement are negative. Past Medical History Past Medical History: Asthma, Fibromyalgia, Seizure Disorder Additional Past Medical History / Comment(s): scoliosis and arthritis; back pain , "Stress Seziures". Headaches History of Any Multi-Drug Resistant Organisms: None Reported Past Surgical History: Appendectomy, Section Additional Past Surgical History / Comment(s): d & c Past Anesthesia/Blood Transfusion Reactions: No Reported Reaction Past Psychological History: ADD/ADHD, Anxiety, Bipolar, Depression Smoking Status: Never smoker Past Alcohol Use History: None Reported Past Drug Use History: None Reported Additional Drug Use History / Comment(s): Patient states no current use, but approximately 10 months ago was smoking marijuana - Past Family History Mother Family Medical History: Fibromyalgia General Exam Limitations: no limitations General appearance: alert, in no apparent distress Head exam: Present: atraumatic, normocephalic, normal inspection Respiratory exam: Present: normal lung sounds bilaterally. Absent: respiratory distress, wheezes, rales, rhonchi, stridor Cardiovascular Exam: Present: regular rate, normal rhythm, normal heart sounds. Absent: systolic murmur, diastolic murmur, rubs, gallop, clicks GI/Abdominal exam: Present: soft, normal bowel sounds. Absent: distended, tenderness, guarding, rebound, rigid Extremities exam: Present: other (Lower extremity strength equal bilaterally neurovascular intact pedal pulses equal) Back exam: Present: full ROM (Mild discomfort with range of motion), tenderness (Tenderness of lumbar region [place] of the paraspinal), paraspinal tenderness, other (Normal straight leg raise). Absent: vertebral tenderness Neurological exam: Present: alert, oriented X3, CN II-XII intact, reflexes normal. Absent: motor sensory deficit Skin exam: Present: warm, dry, intact, normal color. Absent: rash Course Vital Signs 04/02/17 15:20 Temperature 99.0 F Pulse Rate 83 Respiratory 20 Rate Blood Pressure 129/91 O2 Sat by Pulse 98 Oximetry Medical Decision Making - Medical Decision Making 27-year-old female presented for low back pain. Patient had CAT scan 2 days ago showed L4-L5 disc bulge. Patient given pain medication as she states, Motrin is not helping. Patient also given muscle relaxers. we given Zofran because she states her antibiotics make her nauseated. Patient has no red flecks symptoms no other complaints. Disposition Clinical Impression: Strain of lumbar region, Lumbar back pain Disposition: HOME SELF-CARE Condition: Stable Instructions: Acute Low Back Pain (ED) Additional Instructions: Please return to the Emergency Department if symptoms worsen or any other concerns. Prescriptions: Hydrocodone/Acetaminophen [[place] 5-325] 1 tab PO Q6HR PRN #15 tab PRN Reason: Pain Methocarbamol [Robaxin] 500 mg PO TID PRN #15 tab PRN Reason: muscle spasms Ondansetron Odt [Zofran Odt] 4 mg PO Q8HR PRN #10 tab PRN Reason: Nausea Referrals: Lizzy Edwards MD [Primary Care Provider] - 1-2 days Time of Disposition: 15:55
== END 2017-04-02 16:04 | disposition home or self-care (01) ==
LOC: EC 15:01
DX: S39.012A Strain of muscle, fascia and tendon of lower back, initial encounter (principal); M51.26 Other intervertebral disc displacement, lumbar region; F32.9 Major depressive disorder, single episode, unspecified; F41.9 Anxiety disorder, unspecified; Z79.3 Long term (current) use of hormonal contraceptives; Z79.899 Other long term (current) drug therapy; Z88.5 Allergy status to narcotic agent; Z88.6 Allergy status to analgesic agent; Z88.8 Allergy status to other drugs, medicaments and biological substances; Z91.018 Allergy to other foods; Z91.030 Bee allergy status; Z91.040 Latex allergy status
CPT/HCPCS: 99283

== ENCOUNTER 2017-04-03 12:20 | Emergency (ER) | payer OTHER ==
[2017-04-03 13:02] VITALS: BP 134/84; PULSE 99; RESP 18; TEMP 98.8
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
== END 2017-04-03 13:58 | disposition home or self-care (01) ==
LOC: EC 12:20
DX: S93.402A Sprain of unspecified ligament of left ankle, initial encounter (principal); F32.9 Major depressive disorder, single episode, unspecified; F41.9 Anxiety disorder, unspecified; Z79.3 Long term (current) use of hormonal contraceptives; Z79.899 Other long term (current) drug therapy; Z88.5 Allergy status to narcotic agent; Z88.8 Allergy status to other drugs, medicaments and biological substances; Z91.018 Allergy to other foods; Z91.030 Bee allergy status; Z91.040 Latex allergy status; V19.88XA Pedal cyclist (driver) (passenger) injured in other specified transport accidents, initial encounter
CPT/HCPCS: 73610; 73630; 99283; L4350

== ENCOUNTER 2017-04-11 14:31 | Emergency (ER) | payer OTHER ==
[2017-04-11 14:54] VITALS: BP 123/86; PULSE 83; RESP 20; TEMP 98.4
--- NOTE | 2017-04-11 15:29 | ED ---
Back Pain HPI - General Chief Complaint: Back Pain/Injury Stated Complaint: Back pain Time Seen by Provider: 04/11/17 15:07 Source: patient Limitations: no limitations - History of Present Illness Initial Comments: Patient is a 27-year-old female presenting to the emergency department with lumbar back pain for greater than a month. Patient states she had a CAT scan of her spine in the lower month ago with evidence of bulging disc to L4 and L5. Patient was evaluated in the emergency department started on pain medication. Patient states she followed up with Dr. Edwards, who refused to provide patient with more pain medications per patient. Patient states that her lower back has not been any better and in fact her pain increased this morning. Patient states she rode her bike to the hospital as she had no other way of transportation. Patient denies recent fevers, chills, nausea, vomiting, shortness of breath, chest pain, abdominal pain, numbness or tingling. Patient denies urinary incontinence or fecal incontinence. Patient denies saddle anesthesia. Patient currently rates pain 8 out of 10, described as starting, exacerbated with movement, relieved with rest. Patient states she ran out of pain medication yesterday. - Related Data Home Medications Medication Instructions Recorded Confirmed clonazePAM [KlonoPIN] 0.5 mg PO DAILY PRN 11/04/16 04/11/17 Grp-Fiwn-Iynpr Acid 1 cap PO DAILY 02/04/17 04/11/17 [-U Capsule (formulary)] Sertraline [Zoloft] 50 mg PO HS 02/10/17 04/11/17 Acetaminophen-Codeine 300-30mg 1 tab PO DAILY PRN 03/14/17 04/11/17 [Tylenol #3] Albuterol Inhaler [Ventolin Hfa 2 puff INHALATION RT-Q6H PRN 03/14/17 04/11/17 Inhaler] Hydrocortisone Cream 1 applic TOPICAL TID PRN 03/14/17 04/11/17 [Hydrocortisone 1% Cream] Norgestimate-Ethinyl Estradiol 1 tab PO DAILY 03/14/17 04/11/17 [Sprintec 28 Day Tablet] diphenhydrAMINE [Benadryl] 25 mg PO TID PRN 03/14/17 04/11/17 Previous Rx's Medication Instructions Recorded Ibuprofen [Motrin] 800 mg PO Q8HR PRN #21 tab 02/04/17 levETIRAcetam [Keppra] 500 mg PO Q12HR 30 Days 02/04/17 Ondansetron Odt [Zofran Odt] 4 mg PO Q8HR PRN #10 tab 04/02/17 HYDROcodone/APAP 5-325MG [[place] 1 tab PO Q6HR PRN #20 tab 04/11/17 5-325] Methocarbamol [Robaxin] 500 mg PO TID PRN #15 tab 04/11/17 Allergies Allergy/AdvReac Type Severity Reaction Status Date / Time buspirone HCl [From BuSpar] Allergy Rash/Hives Verified 04/11/17 15:23 Latex, Natural Rubber Allergy Rash/Hives Verified 04/11/17 15:23 morphine Allergy Anaphylaxis Verified 04/11/17 15:23 onion Allergy Anaphylaxis Verified 04/11/17 15:23 tramadol Allergy Rash/Hives Verified 04/11/17 15:23 venom-honey bee Allergy Swelling Verified 04/11/17 15:23 [bee venom (honey bee)] Review of Systems ROS Statement: Those systems with pertinent positive or pertinent negative responses have been documented in the HPI. ROS Other: All systems not noted in ROS Statement are negative. Past Medical History Past Medical History: Asthma, Fibromyalgia, Seizure Disorder Additional Past Medical History / Comment(s): scoliosis and arthritis; back pain , "Stress Seziures". Headaches History of Any Multi-Drug Resistant Organisms: None Reported Past Surgical History: Appendectomy, Section Additional Past Surgical History / Comment(s): d & c Past Anesthesia/Blood Transfusion Reactions: No Reported Reaction Past Psychological History: ADD/ADHD, Anxiety, Bipolar, Depression Smoking Status: Never smoker Past Alcohol Use History: None Reported Past Drug Use History: None Reported - Past Family History Mother Family Medical History: Fibromyalgia General Exam - General Exam Comments Initial Comments: GENERAL: Pt awake and alert, well-appearing, well-nourished, and in no acute distress. HEAD: Atraumatic, normocephalic. EYES: Pupils equal, round, and reactive to light, extraocular movements intact, sclera anicteric, conjunctiva are normal. ENT: Moist mucous membranes. NECK:Normal range of motion, supple without lymphadenopathy. Full range of motion. No cervical tenderness. LUNGS: Breath sounds clear to auscultation bilaterally. No wheezes, rales, or rhonchi. HEART: Heart S1, S2, no S3 or S4. Regular rate and rhythm. No murmurs, rubs or gallops. ABDOMEN: Soft, nontender, nondistended, normoactive bowel sounds. No guarding, no rebound. No masses or organomegaly appreciated. BACK: Pain with range of motion of spine flexion and extension. Straight leg raise negative bilaterally. 5 out of 5 strength to hips, knees, and ankles. Arthralgic gait. Vertebral spine tender to palpation in lumbar region. No paraspinal tenderness. Sue test positive for lumbar pain. EXTREMITIES: 2+ peripheral pulses. No edema, clubbing or cyanosis. No calf tenderness. NEUROLOGICAL: Pt oriented x 3. No focal deficits noted. Strength and sensation grossly intact. PSYCH: Normal mood, normal affect. SKIN: Warm, dry, intact. Normal turgor. No rashes or lesions. Limitations: no limitations Course Vital Signs 04/11/17 14:52 Temperature 98.4 F Pulse Rate 83 Respiratory 20 Rate Blood Pressure 123/86 O2 Sat by Pulse 98 Oximetry Medical Decision Making - Medical Decision Making Acute on chronic back pain. Patient given short duration of pain medication. Patient started to follow-up with senior quality methods specialist. Patient agrees with treatment plan. Discharge instructions and return parameters reviewed. Disposition Clinical Impression: Back pain, lumbosacral Disposition: HOME SELF-CARE Condition: Good Instructions: Acute Low Back Pain (ED), Chronic Back Pain (ED) Additional Instructions: Follow-up with orthopedic service as directed. Follow-up with primary care physician as directed. Please return to the emergency department if symptoms do not improve or get worse. Prescriptions: HYDROcodone/APAP 5-325MG [[place] 5-325] 1 tab PO Q6HR PRN #20 tab PRN Reason: Pain Methocarbamol [Robaxin] 500 mg PO TID PRN #15 tab PRN Reason: muscle spasms Referrals: Lizzy Edwards MD [Primary Care Provider] - 1-2 days Caio Carmichael MD [Medical Doctor] - 1-2 days Time of Disposition: 15:29
[2017-04-11] MEDS ORDERED: HYDROcodone/APAP 5-325MG 1 EACH TAB PO STA (15:30)
== END 2017-04-11 15:45 | disposition home or self-care (01) ==
LOC: EC 14:31
DX: M54.5 Low back pain (principal); F31.9 Bipolar disorder, unspecified; Z91.040 Latex allergy status; Z88.5 Allergy status to narcotic agent; Z91.030 Bee allergy status; Z88.6 Allergy status to analgesic agent; Z88.8 Allergy status to other drugs, medicaments and biological substances; Z91.018 Allergy to other foods; Z79.899 Other long term (current) drug therapy
CPT/HCPCS: 99283

== ENCOUNTER 2017-04-30 10:47 | Emergency (ER) | payer OTHER ==
[2017-04-30] MEDS ORDERED: DIAZEPAM 5 MG TAB PO STA (12:05)
[2017-04-30] MEDS ORDERED: KETOROLAC 60 MG/2 ML VIAL IM STA (12:05)
--- NOTE | 2017-04-30 12:18 | ED ---
Back Pain HPI - General Chief Complaint: Back Pain/Injury Stated Complaint: Lower Back Pain Time Seen by Provider: 04/30/17 11:50 Source: patient Mode of arrival: wheelchair Limitations: no limitations - History of Present Illness Initial Comments: 12:07 PM Patient is a 27-year-old female who presents with a chief complaint of lower back pain. Patient states that this is been going on since November. She describes her pain as sharp and pressure, it is aggravated by movement specifically twisting and bending, and is alleviated by putting pressure on it. The patient has been seen for this numerous times, she was diagnosed with a slipped disc between L4 and L5. The patient states that she is currently trying to be seen by a neurologist however she has been unsuccessful with making an appointment. The patient states her pain has not changed in any way since onset in November. MD Complaint: back pain Onset/Timin -: month(s) Similar Symptoms Previously: Yes Radiation: left leg, right leg Severity: moderate Quality: sharp, dull Consistency: constant Improves With: other (Pressure) Worsens With: movement Context: turning/twisting Associated Symptoms: difficulty walking Treatments Prior to Arrival: prescription analgesics - Related Data Home Medications Medication Instructions Recorded Confirmed Qmm-Mwsa-Ohsmy Acid 1 cap PO DAILY 02/04/17 04/30/17 [-U Capsule (formulary)] Sertraline [Zoloft] 50 mg PO HS 02/10/17 04/30/17 Norgestimate-Ethinyl Estradiol 1 tab PO DAILY 03/14/17 04/30/17 [Sprintec 28 Day Tablet] Allergies Allergy/AdvReac Type Severity Reaction Status Date / Time buspirone HCl [From BuSpar] Allergy Rash/Hives Verified 04/30/17 11:39 Latex, Natural Rubber Allergy Rash/Hives Verified 04/30/17 11:39 morphine Allergy Anaphylaxis Verified 04/30/17 11:39 onion Allergy Anaphylaxis Verified 04/30/17 11:39 tramadol Allergy Rash/Hives Verified 04/30/17 11:39 venom-honey bee Allergy Swelling Verified 04/30/17 11:39 [bee venom (honey bee)] Review of Systems ROS Statement: Those systems with pertinent positive or pertinent negative responses have been documented in the HPI. ROS Other: All systems not noted in ROS Statement are negative. Neurological: Reports: abnormal gait Past Medical History Past Medical History: Asthma, Fibromyalgia, Seizure Disorder Additional Past Medical History / Comment(s): scoliosis and arthritis; back pain , "Stress Seziures". Headaches History of Any Multi-Drug Resistant Organisms: None Reported Past Surgical History: Appendectomy, Section Additional Past Surgical History / Comment(s): d & c Past Anesthesia/Blood Transfusion Reactions: No Reported Reaction Past Psychological History: ADD/ADHD, Anxiety, Bipolar, Depression Smoking Status: Never smoker Past Alcohol Use History: None Reported Past Drug Use History: None Reported - Past Family History Mother Family Medical History: Fibromyalgia General Exam Limitations: no limitations General appearance: alert, in no apparent distress Head exam: Present: atraumatic, normocephalic Eye exam: Present: normal appearance ENT exam: Present: mucous membranes moist Neck exam: Present: normal inspection Respiratory exam: Present: normal lung sounds bilaterally Cardiovascular Exam: Present: regular rate, normal rhythm GI/Abdominal exam: Present: soft (Nontender nondistended) Rectal exam: Present: deferred Extremities exam: Present: normal inspection, other (There is no asymmetric swelling, patient is able to move all limbs purposefully) Back exam: Present: tenderness (Tenderness over the lower lumbar spine) Neurological exam: Present: alert, oriented X3, other (Patellar and Achilles reflexes are within normal limits) Psychiatric exam: Present: normal affect Skin exam: Present: warm, dry, intact Course Vital Signs 04/30/17 10:54 Temperature 97 F L Pulse Rate 67 Respiratory 20 Rate Blood Pressure 147/95 O2 Sat by Pulse 99 Oximetry Medical Decision Making - Medical Decision Making Patient presents with chronic back pain. Patient clearly states that this pain is not changed since November, and that she has had no new or worsening symptoms. Patient states that she is unable to find neural follow-up and that she needs to be seen for back pain, and seizures. The patient asked several times for ED doses, and prescriptions for [place]. I explained to the patient that narcotic medications are not indicated at this time. I offered her a dose of Toradol, and Valium and she accepted. This time the patient is not showing any signs of spinal cord compression or other life-threatening etiology is of back pain. I will attempt to contact Dr. Jefferson to expedite a neurologic appointment for this patient. She'll be given other contact information for neurology. 12:22 PM I discussed this case with Dr. Jefferson who states that he will see the patient, and that she needs to call his office and say that he and I spoke and that he is going to see her. He expressed to me that the patient has missed her last 10 appointments and therefore was discharged from his practice. I discussed this follow-up plan with the patient, she is agreeable. Disposition Clinical Impression: Sciatica, Back pain of lumbar region with sciatica Disposition: HOME SELF-CARE Condition: Good Instructions: Chronic Back Pain (ED) Referrals: Lizzy Edwards MD [Primary Care Provider] - 1-2 days Kentrell Jefferson MD [STAFF PHYSICIAN] - 1-2 days Vanessa Rivera MD [STAFF PHYSICIAN] - 1-2 days
[2017-04-30 13:02] VITALS: BP 133/73; PULSE 56; RESP 16; TEMP 97.5
== END 2017-04-30 13:03 | disposition home or self-care (01) ==
LOC: EC 10:47
DX: M54.41 Lumbago with sciatica, right side (principal); M54.42 Lumbago with sciatica, left side; F32.9 Major depressive disorder, single episode, unspecified; F41.9 Anxiety disorder, unspecified; Z79.3 Long term (current) use of hormonal contraceptives; Z79.899 Other long term (current) drug therapy; Z88.5 Allergy status to narcotic agent; Z88.8 Allergy status to other drugs, medicaments and biological substances; Z91.018 Allergy to other foods; Z91.030 Bee allergy status; Z91.040 Latex allergy status; Z82.69 Family history of other diseases of the musculoskeletal system and connective tissue
CPT/HCPCS: 99283; 96372; J1885

== ENCOUNTER 2017-05-08 12:41 | Emergency (ER) | payer OTHER ==
[2017-05-08 12:47] VITALS: BP 116/68; PULSE 87; RESP 18; TEMP 98.6
[2017-05-08] MEDS ORDERED: HYDROcodone/APAP 5-325MG 1 EACH TAB PO STA (12:51)
--- NOTE | 2017-05-08 12:54 | ED ---
Back Pain HPI - General Chief Complaint: Back Pain/Injury Stated Complaint: Back Pain Time Seen by Provider: 05/08/17 12:41 Source: patient, RN notes reviewed Limitations: physical limitation - History of Present Illness Initial Comments: Patient is a 27-year-old female presents to the emergency room for evaluation of chronic back pain. Patient states she has a history of chronic low back pain. Patient states she has herniated disc between L4 and L5. Patient states this was diagnosed by MRI at [facility]. Patient denies any worsening back pain. Patient states that she works long hours and was given Flexeril by her primary care provider which is not working. Patient states that she wants [place] for her pain. Patient states she does have an appointment with her neurologist, Dr. Jefferson on 05/13/17. Patient denies paresthesias. Patient denies weakness or unilateral weakness. Patient denies fecal or urinary incontinence. Patient denies saddle anesthesia. Patient states she wants pain medication to last her until she can see her neurologist. Patient denies any recent injury or trauma to her low back. Patient states she called EMS because she thought riding her bike here would worsen her symptoms. - Related Data Home Medications Medication Instructions Recorded Confirmed Sertraline [Zoloft] 50 mg PO HS 02/10/17 05/08/17 Norgestimate-Ethinyl Estradiol 1 tab PO DAILY 03/14/17 05/08/17 [Sprintec 28 Day Tablet] Previous Rx's Medication Instructions Recorded HYDROcodone/APAP 5-325MG [[place] 1 tab PO Q6HR PRN #2 tab 05/08/17 5-325] Allergies Allergy/AdvReac Type Severity Reaction Status Date / Time buspirone HCl [From BuSpar] Allergy Rash/Hives Verified 05/08/17 12:47 Latex, Natural Rubber Allergy Rash/Hives Verified 05/08/17 12:47 morphine Allergy Anaphylaxis Verified 05/08/17 12:47 onion Allergy Anaphylaxis Verified 05/08/17 12:47 tramadol Allergy Rash/Hives Verified 05/08/17 12:47 venom-honey bee Allergy Swelling Verified 05/08/17 12:47 [bee venom (honey bee)] Review of Systems ROS Statement: Those systems with pertinent positive or pertinent negative responses have been documented in the HPI. ROS Other: All systems not noted in ROS Statement are negative. Past Medical History Past Medical History: Asthma, Fibromyalgia, Seizure Disorder Additional Past Medical History / Comment(s): scoliosis and arthritis; back pain , "Stress Seziures". Headaches History of Any Multi-Drug Resistant Organisms: None Reported Past Surgical History: Appendectomy, Section Additional Past Surgical History / Comment(s): d & c Past Anesthesia/Blood Transfusion Reactions: No Reported Reaction Past Psychological History: ADD/ADHD, Anxiety, Bipolar, Depression Smoking Status: Never smoker Past Alcohol Use History: None Reported Past Drug Use History: None Reported - Past Family History Mother Family Medical History: Fibromyalgia General Exam - General Exam Comments Initial Comments: Sitting in exam room, no acute distress. Limitations: physical limitation General appearance: alert, in no apparent distress Head exam: Present: atraumatic, normocephalic, normal inspection Eye exam: Present: normal appearance ENT exam: Present: normal exam Neck exam: Present: normal inspection Respiratory exam: Present: normal lung sounds bilaterally. Absent: respiratory distress Cardiovascular Exam: Present: regular rate, normal rhythm, normal heart sounds Extremities exam: Present: normal inspection Back exam: Present: normal inspection, vertebral tenderness (lumbosacral) Neurological exam: Present: alert, oriented X3, CN II-XII intact Psychiatric exam: Present: normal affect, normal mood Skin exam: Present: warm, dry, intact, normal color. Absent: rash Course Vital Signs 05/08/17 12:42 Temperature 98.6 F Pulse Rate 87 Respiratory 18 Rate Blood Pressure 116/68 O2 Sat by Pulse 98 Oximetry Medical Decision Making - Medical Decision Making Patient is a 27-year-old female presents to the emergency room for evaluation of chronic low back pain. Patient has no neuro deficits. Patient does not show any signs of spinal cord compression. Patient requesting [place]. Agreed to give patient [place] and send her home with a small dose of prescription [place]. I did explain to patient that we do not prescribe medications for chronic pain and that she needs to follow-up with her primary care provider or neurologist for future pain medications. Patient refused any other pain medications including Toradol. Return parameters discussed. Disposition Clinical Impression: Chronic back pain Disposition: HOME SELF-CARE Condition: Good Instructions: Chronic Back Pain (ED) Additional Instructions: Please follow up with primary care provider or neurologist. If any new symptom arises, symptoms worsen or fever develops return to ER as soon as possible. Prescriptions: HYDROcodone/APAP 5-325MG [[place] 5-325] 1 tab PO Q6HR PRN #2 tab PRN Reason: Pain Referrals: Lizzy Edwards MD [Primary Care Provider] - 1-2 days Time of Disposition: 12:53
== END 2017-05-08 13:11 | disposition home or self-care (01) ==
LOC: EC 12:41
DX: M54.5 Low back pain (principal); G89.29 Other chronic pain; F31.9 Bipolar disorder, unspecified; Z91.040 Latex allergy status; Z88.5 Allergy status to narcotic agent; Z91.030 Bee allergy status; Z88.6 Allergy status to analgesic agent; Z91.048 Other nonmedicinal substance allergy status; Z88.8 Allergy status to other drugs, medicaments and biological substances; Z91.018 Allergy to other foods; Z79.3 Long term (current) use of hormonal contraceptives; Z79.899 Other long term (current) drug therapy
CPT/HCPCS: 99283

== ENCOUNTER → 2017-05-16 | Outpatient (CLI) | payer OTHER ==
--- NOTE | 2017-05-16 13:06 | US ---
EXAMINATION TYPE: US pelvic complete DATE OF EXAM: 05/16/2017 COMPARISON: NONE CLINICAL HISTORY: R10.2 PELVIC PAIN,R31.9 HEMATURIA. TECHNIQUE: Transabdominal (TA) Date of LMP: irregular EXAM MEASUREMENTS: Uterus: 10.0 x 4.5 x 5.6 cm Endometrial Stripe: 0.4 cm Right Ovary: 3.4 x 2.1 x 2.2 cm Left Ovary: 3.7 x 2.2 x 2.6 cm 1. Uterus: Anteverted wnl 2. Endometrium: wnl 3. Right Ovary: wnl 4. Left Ovary: wnl 5. Bilateral Adnexa: wnl 6. Posterior cul-de-sac: none seen Unremarkable study. IMPRESSION: No significant finding is seen to account for patient's symptoms.
--- NOTE | 2017-05-16 13:08 | US ---
EXAMINATION TYPE: US kidneys/renal and bladder DATE OF EXAM: 05/16/2017 COMPARISON: NONE CLINICAL HISTORY: R10.2 PELVIC PAIN,R31.9 HEMATURIA. EXAM MEASUREMENTS: Right Kidney: 10.5 x 4.0 x 5.8 cm Left Kidney: 11.0 x 4.8 x 5.1 cm Right Kidney: wnl Left Kidney: wnl Bladder: wnl Bilateral Jets seen: no There is no evidence for hydronephrosis at this point in time. No nephrolithiasis is seen. No trini s are identified. The urinary bladder is anechoic. IMPRESSION: Unremarkable study.
== END ==
LOC: RADUSWWP 12:27
PROVIDERS: ATTEND Internal Medicine
DX: R10.2 Pelvic and perineal pain (principal); R31.9 Hematuria, unspecified
CPT/HCPCS: 76770; 76856

== ENCOUNTER 2017-05-23 21:25 | Emergency (ER) | payer OTHER ==
[2017-05-23] MEDS ORDERED: IBUPROFEN 600 MG STARTER PACK 4 TAB BTL PO STA (22:41)
--- NOTE | 2017-05-23 22:52 | ED ---
ENT HPI - General Chief complaint: ENT Stated complaint: throat pain Time Seen by Provider: 05/23/17 21:35 Source: patient, RN notes reviewed, old records reviewed Mode of arrival: ambulatory Limitations: no limitations - History of Present Illness Initial comments: 27-year-old female presents the ED chief complaint of throat pain for the past and half. Patient reports she's noticed a lesion over her uvula. She denies any specific fevers or chills. She was that she has a family contacts with strep throat. He denies any nausea or vomiting, chest pain, shortness breath, cough or other associated symptoms. She states that she's had cold sores in her mouth before. She reports she is concerned of the location of this. - Related Data Home Medications Medication Instructions Recorded Confirmed Norgestimate-Ethinyl Estradiol 1 tab PO DAILY 03/14/17 05/23/17 [Sprintec 28 Day Tablet] Cyclobenzaprine [Flexeril] 10 mg PO BID PRN 05/23/17 05/23/17 Meloxicam [Mobic] 15 mg PO DAILY 05/23/17 05/23/17 Psq-Uhgv-Edyoi Acid 1 cap PO DAILY 05/23/17 05/23/17 [-U Capsule (formulary)] Previous Rx's Medication Instructions Recorded Acyclovir 400 mg PO TID #21 tablet 05/23/17 Lidocaine Viscous [Xylocaine 10 ml MUCOUS MEM BID #1 bottle 05/23/17 Viscous 2%] Allergies Allergy/AdvReac Type Severity Reaction Status Date / Time buspirone HCl [From BuSpar] Allergy Rash/Hives Verified 05/23/17 21:35 Latex, Natural Rubber Allergy Rash/Hives Verified 05/23/17 21:35 morphine Allergy Anaphylaxis Verified 05/23/17 21:35 onion Allergy Anaphylaxis Verified 05/23/17 21:35 tramadol Allergy Rash/Hives Verified 05/23/17 21:35 venom-honey bee Allergy Swelling Verified 05/23/17 21:35 [bee venom (honey bee)] Review of Systems ROS Statement: Those systems with pertinent positive or pertinent negative responses have been documented in the HPI. ROS Other: All systems not noted in ROS Statement are negative. Past Medical History Past Medical History: Asthma, Fibromyalgia, Seizure Disorder Additional Past Medical History / Comment(s): scoliosis and arthritis; back pain , "Stress Seziures". Headaches History of Any Multi-Drug Resistant Organisms: None Reported Past Surgical History: Appendectomy, Section Additional Past Surgical History / Comment(s): d & c Past Anesthesia/Blood Transfusion Reactions: No Reported Reaction Past Psychological History: ADD/ADHD, Anxiety, Bipolar, Depression Smoking Status: Never smoker Past Alcohol Use History: None Reported Past Drug Use History: None Reported - Past Family History Mother Family Medical History: Fibromyalgia General Exam - General Exam Comments Initial Comments: 27-year-old female. No acute distress. Limitations: no limitations General appearance: alert, in no apparent distress Head exam: Present: atraumatic, normocephalic, normal inspection Eye exam: Present: normal appearance, PERRL, EOMI. Absent: scleral icterus, conjunctival injection, periorbital swelling ENT exam: Present: normal exam, mucous membranes moist. Absent: normal oropharynx (Patient has a 1 cm lesion over her uvula. The lesion is consistent with herpes.) Neck exam: Present: normal inspection. Absent: tenderness, meningismus, lymphadenopathy Respiratory exam: Present: normal lung sounds bilaterally. Absent: respiratory distress, wheezes, rales, rhonchi, stridor Cardiovascular Exam: Present: regular rate, normal rhythm, normal heart sounds. Absent: systolic murmur, diastolic murmur, rubs, gallop, clicks GI/Abdominal exam: Present: soft, normal bowel sounds. Absent: distended, tenderness, guarding, rebound, rigid Extremities exam: Present: normal inspection, full ROM, normal capillary refill. Absent: tenderness, pedal edema, joint swelling, calf tenderness Back exam: Present: normal inspection Neurological exam: Present: alert, oriented X3, CN II-XII intact Psychiatric exam: Present: normal affect, normal mood Skin exam: Present: warm, dry, intact, normal color. Absent: rash Course Vital Signs 05/23/17 05/23/17 21:25 23:03 Temperature 100.1 F H 97.9 F Pulse Rate 72 70 Respiratory 20 18 Rate Blood Pressure 133/88 131/90 O2 Sat by Pulse 99 98 Oximetry Medical Decision Making - Medical Decision Making 27-year-old female 1 day of throat sore throat. Patient has a 1 cm lesion over her uvula consistent with herpetic lesion. Discussed that her rapid strep is negative. Discussed that over the patient on Valtrex if she states concerned. Discussed that will heal over time. Patient agrees to treatment plan will comply. Patient also be discharged with Magic mouthwash. - Lab Data Lab Results 05/23/17 Range/Units 22:20 Group A Strep Rapid Negative (Negative) Disposition Clinical Impression: Oral herpes simplex infection Disposition: HOME SELF-CARE Condition: Good Instructions: Oral Herpes Simplex Virus Infections (ED) Additional Instructions: denies a take medications as prescribed. Follow-up with her primary care provider. Recommended doing Motrin Tylenol for pain. Patient can also do oral mouthwash rinses. Prescriptions: Acyclovir 400 mg PO TID #21 tablet Lidocaine Viscous [Xylocaine Viscous 2%] 10 ml MUCOUS MEM BID #1 bottle Referrals: Lizzy Edwards MD [Primary Care Provider] - 1-2 days Time of Disposition: 22:47
[2017-05-23 23:06] VITALS: BP 131/90; PULSE 70; RESP 18; TEMP 97.9
== END 2017-05-23 23:03 | disposition home or self-care (01) ==
LOC: EC 21:25
DX: B00.9 Herpesviral infection, unspecified (principal); M19.90 Unspecified osteoarthritis, unspecified site; Z91.040 Latex allergy status; Z88.5 Allergy status to narcotic agent; Z88.6 Allergy status to analgesic agent; Z91.018 Allergy to other foods; Z91.030 Bee allergy status; Z91.048 Other nonmedicinal substance allergy status; Z88.8 Allergy status to other drugs, medicaments and biological substances; Z79.3 Long term (current) use of hormonal contraceptives; Z79.1 Long term (current) use of non-steroidal anti-inflammatories (NSAID); Z79.899 Other long term (current) drug therapy
CPT/HCPCS: 87081; 87430; 99283

== ENCOUNTER 2017-06-06 17:21 | Emergency (ER) | payer OTHER ==
--- NOTE | 2017-06-06 18:38 | ED ---
General Adult HPI - General Chief complaint: Recheck/Abnormal Lab/Rx Stated complaint: abd pain,foot numb Time Seen by Provider: 06/06/17 18:19 Source: patient, RN notes reviewed Mode of arrival: wheelchair Limitations: no limitations - History of Present Illness Initial comments: 27-year-old female presents to the emergency department with a chief complaint of concern for . Patient states she's had increased frequency of urination nausea she is concerned that she may be . Patient states she chronically gets migraine she's had migraines on and off throughout this time. As well. Patient states she does have broken to toes she's fine up with ortho in a few weeks she just didn't know if maybe we wanted to check those out as well. Patient states that she is more concerned about the dysuria. Patient denies any fever chills. Patient denies any recent fever, chills, shortness of breath, chest pain, back pain, abdominal pain, nausea vomiting, numbness or tingling, hematuria, constipation or diarrhea, headaches or visual changes, or any other current symptoms. - Related Data Home Medications Medication Instructions Recorded Confirmed Norgestimate-Ethinyl Estradiol 1 tab PO DAILY 03/14/17 05/23/17 [Sprintec 28 Day Tablet] Cyclobenzaprine [Flexeril] 10 mg PO BID PRN 05/23/17 05/23/17 Meloxicam [Mobic] 15 mg PO DAILY 05/23/17 05/23/17 Zgk-Cpzx-Mbnyh Acid 1 cap PO DAILY 05/23/17 05/23/17 [-U Capsule (formulary)] Previous Rx's Medication Instructions Recorded Acyclovir 400 mg PO TID #21 tablet 05/23/17 Lidocaine Viscous [Xylocaine 10 ml MUCOUS MEM BID #1 bottle 05/23/17 Viscous 2%] Acetaminophen Tab [Tylenol Tab] 325 mg PO Q4H #20 tablet 06/06/17 Ibuprofen [Motrin] 600 mg PO Q6HR PRN #20 tab 06/06/17 Allergies Allergy/AdvReac Type Severity Reaction Status Date / Time buspirone HCl [From BuSpar] Allergy Rash/Hives Verified 06/06/17 17:44 Latex, Natural Rubber Allergy Rash/Hives Verified 06/06/17 17:44 morphine Allergy Anaphylaxis Verified 06/06/17 17:44 onion Allergy Anaphylaxis Verified 06/06/17 17:44 tramadol Allergy Rash/Hives Verified 06/06/17 17:44 venom-honey bee Allergy Swelling Verified 06/06/17 17:44 [bee venom (honey bee)] Review of Systems ROS Statement: Those systems with pertinent positive or pertinent negative responses have been documented in the HPI. ROS Other: All systems not noted in ROS Statement are negative. Past Medical History Past Medical History: Asthma, Fibromyalgia, Seizure Disorder Additional Past Medical History / Comment(s): scoliosis and arthritis; back pain , "Stress Seziures". Headaches History of Any Multi-Drug Resistant Organisms: None Reported Past Surgical History: Appendectomy, Section Additional Past Surgical History / Comment(s): d & c Past Anesthesia/Blood Transfusion Reactions: No Reported Reaction Past Psychological History: ADD/ADHD, Anxiety, Bipolar, Depression Smoking Status: Never smoker Past Alcohol Use History: None Reported Past Drug Use History: None Reported - Past Family History Mother Family Medical History: Fibromyalgia General Exam Limitations: no limitations General appearance: alert, in no apparent distress Head exam: Present: atraumatic, normocephalic, normal inspection Eye exam: Present: normal appearance, PERRL, EOMI. Absent: scleral icterus, conjunctival injection, periorbital swelling Neck exam: Present: normal inspection. Absent: tenderness, meningismus, lymphadenopathy Respiratory exam: Present: normal lung sounds bilaterally. Absent: respiratory distress, wheezes, rales, rhonchi, stridor Cardiovascular Exam: Present: regular rate, normal rhythm, normal heart sounds. Absent: systolic murmur, diastolic murmur, rubs, gallop, clicks GI/Abdominal exam: Present: soft, normal bowel sounds. Absent: distended, tenderness, guarding, rebound, rigid Back exam: Present: normal inspection Neurological exam: Present: alert, oriented X3 Psychiatric exam: Present: normal affect, normal mood Course Vital Signs 06/06/17 17:43 Temperature 100.6 F H Pulse Rate 85 Respiratory 20 Rate Blood Pressure 131/79 O2 Sat by Pulse 98 Oximetry Medical Decision Making - Medical Decision Making 27-year-old female presents emergency Department chief complaint of dysuria.at this time patient's urinalysis is reviewed and negative. Patient is not . We discussed her nausea and headaches may just be from her typical migraines that she has. We will give her Motrin Tylenol for home to help with the headaches. We discussed return parameters. All questions. He stated he understood they are given plan. They will be discharged. - Lab Data Lab Results 06/06/17 06/06/17 Range/Units 18:39 18:39 Urine Color Light Yellow Urine Appearance Clear (Clear) Urine pH 6.5 (5.0-8.0) Ur Specific [place] 1.003 (1.001-1.035) Urine Protein Negative (Negative) Urine Glucose (UA) Negative (Negative) Urine Ketones Negative (Negative) Urine Blood Negative (Negative) Urine Nitrite Negative (Negative) Urine Bilirubin Negative (Negative) Urine Urobilinogen <2.0 (<2.0) mg/dL Ur Leukocyte Esterase Negative (Negative) Urine HCG, Qual Not Detected (Not Detectd) Disposition Clinical Impression: Headache, Hx of fracture of toe Disposition: HOME SELF-CARE Condition: Stable Instructions: Acute Headache (ED) Additional Instructions: Please use medication as discussed. Please follow up with family doctor if symptoms have not improved over the next two days. Please return to the emergency room if your symptoms increase or worsen or for any other concerns. Prescriptions: Acetaminophen Tab [Tylenol Tab] 325 mg PO Q4H #20 tablet Ibuprofen [Motrin] 600 mg PO Q6HR PRN #20 tab PRN Reason: Pain Referrals: Lizzy Edwards MD [Primary Care Provider] - 1-2 days Time of Disposition: 18:57
[2017-06-06 18:44] LABS: Appearance,Urine Clear (Clear); Bilirubin,Urine Negative (Negative); Glucose,Urine (UA) Negative (Negative); Ketones,Urine Negative (Negative); Leukocyte Esterase,Urine Negative (Negative); Nitrite,Urine Negative (Negative); PH, Urine 6.5 (5.0-8.0); Protein,Urine Negative (Negative); Specific Gravity,Urine 1.003 (1.001-1.035); UA Billing (MACRO vs. MICRO) CHEM; Urobilinogen,Urine <2.0 mg/dL (<2.0)
[2017-06-06 19:04] VITALS: BP 132/84; PULSE 79; RESP 16; TEMP 97.8
== END 2017-06-06 19:06 | disposition home or self-care (01) ==
LOC: EC 17:21
DX: R51 Headache (principal); S92.919D Unspecified fracture of unspecified toe(s), subsequent encounter for fracture with routine healing; R10.9 Unspecified abdominal pain; R35.0 Frequency of micturition; R11.0 Nausea; M19.90 Unspecified osteoarthritis, unspecified site; Z90.89 Acquired absence of other organs; Z86.69 Personal history of other diseases of the nervous system and sense organs; Z79.3 Long term (current) use of hormonal contraceptives; Z79.899 Other long term (current) drug therapy; Z88.5 Allergy status to narcotic agent; Z88.6 Allergy status to analgesic agent; Z88.8 Allergy status to other drugs, medicaments and biological substances; Z91.018 Allergy to other foods; Z91.030 Bee allergy status; Z91.040 Latex allergy status
CPT/HCPCS: 81003; 81025; 87086; 99284

== ENCOUNTER 2017-06-22 11:57 | Emergency (ER) | payer OTHER ==
[2017-06-22 12:06] VITALS: RESP 16; TEMP 97.9
--- NOTE | 2017-06-22 12:30 | ED ---
General Adult HPI - General Chief complaint: Abdominal Pain Stated complaint: ABDOMINAL, THROAT AND EAR PAIN Time Seen by Provider: 06/22/17 12:12 Source: patient, RN notes reviewed, old records reviewed Mode of arrival: ambulatory Limitations: no limitations - History of Present Illness Initial comments: This is a 27-year-old female presenting to the emergency department with multiple chief complaints. Patient reports that she's been having sore throat and feels like she is a swollen lymph node on the left side of her neck. Patient states that she is also noticeable sore throats seeming to cause her some left sided ear pain. She thinks she has an ear infection. Patient also reports that since she is [facility] from [facility] she had an abnormal menstrual cycle. She was off of her control for 10 days well in [facility], and then later had a 3 day. Compared to her normal week long menstrual cycle. Patient states that she is concerned she could possibly be . Patient reports that she has no specific fevers but does feel chilled sometimes. She also relates that she's been having increased urinary frequency. Patient denies any burning with urination. She relates that she was at [facility] [place] 2 days ago and was tested for STDs and urinary tract infection. She reports that they told her that she had no signs of infection in that she was not treated with any antibiotics. Patient relates that she was concerned that she may be and wanted ultrasound at that time but they refused to give it to her. - Related Data Home Medications Medication Instructions Recorded Confirmed Meloxicam [Mobic] 15 mg PO DAILY 05/23/17 06/22/17 HYDROcodone/APAP 5-325MG [[place] 1 tab PO Q6HR PRN 06/22/17 06/22/17 5-325] levETIRAcetam [Keppra] 75 mg PO BID 06/22/17 06/22/17 Previous Rx's Medication Instructions Recorded Acetaminophen Tab [Tylenol Tab] 325 mg PO Q4H #20 tablet 06/06/17 Ibuprofen [Motrin] 600 mg PO Q6HR PRN #20 tab 06/06/17 Azithromycin [Zithromax Z-pack] 250 mg PO DIRECTED #6 tab 06/22/17 metroNIDAZOLE [Flagyl] 500 mg PO BID #14 tab 06/22/17 Allergies Allergy/AdvReac Type Severity Reaction Status Date / Time buspirone HCl [From BuSpar] Allergy Rash/Hives Verified 06/22/17 12:06 Latex, Natural Rubber Allergy Rash/Hives Verified 06/22/17 12:06 morphine Allergy Anaphylaxis Verified 06/22/17 12:06 onion Allergy Anaphylaxis Verified 06/22/17 12:06 tramadol Allergy Rash/Hives Verified 06/22/17 12:06 venom-honey bee Allergy Swelling Verified 06/22/17 12:06 [bee venom (honey bee)] Review of Systems ROS Statement: Those systems with pertinent positive or pertinent negative responses have been documented in the HPI. ROS Other: All systems not noted in ROS Statement are negative. Past Medical History Past Medical History: Asthma, Fibromyalgia, Seizure Disorder Additional Past Medical History / Comment(s): scoliosis and arthritis; back pain , "Stress Seziures". Headaches History of Any Multi-Drug Resistant Organisms: None Reported Past Surgical History: Appendectomy, Section Additional Past Surgical History / Comment(s): d & c Past Anesthesia/Blood Transfusion Reactions: No Reported Reaction Past Psychological History: ADD/ADHD, Anxiety, Bipolar, Depression Smoking Status: Never smoker Past Alcohol Use History: None Reported Past Drug Use History: None Reported - Past Family History Mother Family Medical History: Fibromyalgia General Exam - General Exam Comments Initial Comments: This is a 27-year-old female. No acute distress. Limitations: no limitations General appearance: alert, in no apparent distress Head exam: Present: atraumatic Eye exam: Present: normal appearance, PERRL, EOMI. Absent: scleral icterus, conjunctival injection, periorbital swelling ENT exam: Present: normal exam, normal oropharynx, mucous membranes moist. Absent: TM's normal bilaterally (Erythematous and bulging left-sided TM.) Neck exam: Present: normal inspection. Absent: tenderness, meningismus, lymphadenopathy Respiratory exam: Present: normal lung sounds bilaterally. Absent: respiratory distress, wheezes, rales, rhonchi, stridor Cardiovascular Exam: Present: regular rate, normal rhythm, normal heart sounds. Absent: systolic murmur, diastolic murmur, rubs, gallop, clicks GI/Abdominal exam: Present: soft, normal bowel sounds. Absent: distended, tenderness, guarding, rebound, rigid External exam: Present: normal external exam Speculum exam: Present: vaginal discharge (thin white vaginal discharge. Odorous consistent with BV). Absent: normal speculum exam, cervical discharge, vaginal bleeding By manual exam: Present: normal by manual exam. Absent: cervical motion tenderness, adnexal tenderness Extremities exam: Present: normal inspection, full ROM, normal capillary refill. Absent: tenderness, pedal edema, joint swelling, calf tenderness Back exam: Present: normal inspection Neurological exam: Present: alert, oriented X3, CN II-XII intact Psychiatric exam: Present: normal affect, normal mood Skin exam: Present: warm, dry, intact, normal color. Absent: rash Course Vital Signs 06/22/17 12:03 Temperature 97.9 F Pulse Rate 66 Respiratory 16 Rate Blood Pressure 130/84 O2 Sat by Pulse 99 Oximetry Medical Decision Making - Medical Decision Making 27-year-old female to complain of frequency in urination, some slight vaginal discharge, and Bhanu Spero pain. Patient does have erythematous bulging left TM. She does have some anterior cervical lymphadenopathy. No fever at this time. Urine is negative for . Negative for signs of infection. Vaginal exam did show some scant vaginal discharge consistent with bacterial vaginosis. Patient be treated with Flagyl. Discussed close follow-up with primary care provider. Patient also she refers a thoracic for the ear infection. Discussed taking Mucinex DM or any kind of medication to remove the congestion. Discussed return to emergency room if any alarming signs or symptoms occur. - Lab Data Lab Results 06/22/17 06/22/17 Range/Units 12:30 12:30 Urine Color Light Yellow Urine Appearance Clear (Clear) Urine pH 6.5 (5.0-8.0) Ur Specific [place] 1.007 (1.001-1.035) Urine Protein Negative (Negative) Urine Glucose (UA) Negative (Negative) Urine Ketones Negative (Negative) Urine Blood Negative (Negative) Urine Nitrite Negative (Negative) Urine Bilirubin Negative (Negative) Urine Urobilinogen <2.0 (<2.0) mg/dL Ur Leukocyte Esterase Negative (Negative) Urine HCG, Qual Not Detected (Not Detectd) Disposition Clinical Impression: Bacterial vaginosis, Left otitis media Disposition: HOME SELF-CARE Condition: Good Instructions: Bacterial Vaginosis (ED), Otitis Media (ED) Additional Instructions: Patient has a take the medication as prescribed. Follow-up with your PCP. Return to emergency department if any alarming signs or symptoms occur. Prescriptions: Azithromycin [Zithromax Z-pack] 250 mg PO DIRECTED #6 tab metroNIDAZOLE [Flagyl] 500 mg PO BID #14 tab Referrals: Lizzy Edwards MD [Primary Care Provider] - 1-2 days Time of Disposition: 13:03
[2017-06-22 12:39] LABS: Appearance,Urine Clear (Clear); Bilirubin,Urine Negative (Negative); Glucose,Urine (UA) Negative (Negative); Ketones,Urine Negative (Negative); Leukocyte Esterase,Urine Negative (Negative); Nitrite,Urine Negative (Negative); PH, Urine 6.5 (5.0-8.0); Protein,Urine Negative (Negative); Specific Gravity,Urine 1.007 (1.001-1.035); UA Billing (MACRO vs. MICRO) CHEM; Urobilinogen,Urine <2.0 mg/dL (<2.0)
[2017-06-22 13:17] VITALS: BP 129/89; PULSE 63
[2017-06-25 11:45] LABS: Chlamydia/GC Source Vaginal
== END 2017-06-22 13:15 | disposition home or self-care (01) ==
LOC: EC 11:57
DX: N76.0 Acute vaginitis (principal); H66.92 Otitis media, unspecified, left ear; G40.909 Epilepsy, unspecified, not intractable, without status epilepticus; M19.90 Unspecified osteoarthritis, unspecified site; Z90.49 Acquired absence of other specified parts of digestive tract; Z88.8 Allergy status to other drugs, medicaments and biological substances; Z91.040 Latex allergy status; Z88.5 Allergy status to narcotic agent; Z91.030 Bee allergy status; Z91.048 Other nonmedicinal substance allergy status; Z88.6 Allergy status to analgesic agent; Z91.018 Allergy to other foods; Z79.1 Long term (current) use of non-steroidal anti-inflammatories (NSAID); Z79.899 Other long term (current) drug therapy
CPT/HCPCS: 81003; 81025; 87070; 87205; 87491; 87591; 87808; 99284

== ENCOUNTER 2017-06-27 16:24 | Emergency (ER) | payer OTHER ==
[2017-06-27 16:34] VITALS: TEMP 97.7
[2017-06-27] MEDS ORDERED: diphenhydrAMINE 50 MG/ML 1 ML VIAL IVP STA (16:39)
[2017-06-27] MEDS ORDERED: EPINEPHrine 1 MG/ML 1 ML AMP IM STA (16:39)
[2017-06-27] MEDS ORDERED: FAMOTIDINE 20 MG/2 ML VIAL IV STA (16:39)
[2017-06-27] MEDS ORDERED: methylPREDNISolone SOD SUCCI 125 MG/2 ML VIAL IV STA (16:39)
--- NOTE | 2017-06-27 16:49 | ED ---
Allergic Reaction HPI - General Chief complaint: Allergic Reaction Stated complaint: Bee Sting allergic Time Seen by Provider: 06/27/17 16:37 Source: patient Mode of arrival: ambulatory Limitations: no limitations - History of Present Illness Initial Comments: Patient is a 27-year-old female who presents to the emergency department for evaluation of ALLERGIC reaction to bee sting. Patient reports approximately 15 minutes prior to arrival to the emergency department she was down in the anterior neck by a bee. Patient reports that her chest feels tight, she feels like her heart is racing, she cannot catch her breath. She denies nausea or vomiting. Patient reports her last specialist to [facility] was when she was 14 years old. Patient states that she was stung by multiple bees at that time and that she became very swollen however had no airway involvement. Her mother did not take her to the emergency department that time. No history of anaphylaxis in the past. She does not have an EpiPen at home. - Related Data Home Medications Medication Instructions Recorded Confirmed Meloxicam [Mobic] 15 mg PO DAILY 05/23/17 06/27/17 HYDROcodone/APAP 5-325MG [[place] 1 tab PO BID PRN 06/22/17 06/27/17 5-325] Naproxen 500 mg PO BID PRN 06/27/17 06/27/17 levETIRAcetam 750 mg PO BID 06/27/17 06/27/17 Previous Rx's Medication Instructions Recorded metroNIDAZOLE [Flagyl] 500 mg PO BID #14 tab 06/22/17 Albuterol Inhaler [Ventolin Hfa 1 - 2 puff INHALATION Q6HR PRN #1 06/27/17 Inhaler] inhaler EPINEPHrine [Epipen 2-Vasile] 0.3 mg IM ONCE PRN #2 vial 06/27/17 Allergies Allergy/AdvReac Type Severity Reaction Status Date / Time buspirone HCl [From BuSpar] Allergy Rash/Hives Verified 06/27/17 17:27 Latex, Natural Rubber Allergy Rash/Hives Verified 06/27/17 17:27 morphine Allergy Anaphylaxis Verified 06/27/17 17:27 onion Allergy Anaphylaxis Verified 06/27/17 17:27 tramadol Allergy Rash/Hives Verified 06/27/17 17:27 venom-honey bee Allergy Swelling Verified 06/27/17 17:27 [bee venom (honey bee)] Review of Systems ROS Statement: Those systems with pertinent positive or pertinent negative responses have been documented in the HPI. ROS Other: All systems not noted in ROS Statement are negative. Constitutional: Denies: fever, chills ENT: Reports: other Respiratory: Reports: cough (Throat tightness), dyspnea Cardiovascular: Reports: palpitations Gastrointestinal: Denies: abdominal pain, nausea, vomiting Genitourinary: Denies: urgency, dysuria Musculoskeletal: Denies: back pain Skin: Reports: rash, other (Diffuse urticaria) Neurological: Denies: headache Psychiatric: Denies: anxiety, depression Hematological/Lymphatic: Denies: easy bleeding, easy bruising Past Medical History Past Medical History: Asthma, Fibromyalgia, Seizure Disorder Additional Past Medical History / Comment(s): scoliosis and arthritis; back pain , "Stress Seziures". Headaches History of Any Multi-Drug Resistant Organisms: None Reported Past Surgical History: Appendectomy, Section Additional Past Surgical History / Comment(s): d & c Past Anesthesia/Blood Transfusion Reactions: No Reported Reaction Past Psychological History: ADD/ADHD, Anxiety, Bipolar, Depression Smoking Status: Never smoker Past Alcohol Use History: None Reported Past Drug Use History: None Reported - Past Family History Mother Family Medical History: Fibromyalgia General Exam Limitations: no limitations General appearance: alert Head exam: Present: atraumatic, normocephalic, normal inspection Eye exam: Present: normal appearance, PERRL ENT exam: Present: normal exam, mucous membranes moist Neck exam: Present: normal inspection. Absent: tenderness, meningismus, lymphadenopathy Respiratory exam: Present: wheezes Cardiovascular Exam: Present: normal rhythm, tachycardia GI/Abdominal exam: Present: soft. Absent: distended, tenderness Rectal exam: Present: deferred Extremities exam: Present: normal inspection, full ROM, normal capillary refill. Absent: tenderness, pedal edema, joint swelling, calf tenderness Back exam: Present: normal inspection Neurological exam: Present: alert, oriented X3, CN II-XII intact Psychiatric exam: Present: anxious Skin exam: Present: warm, dry, urticaria Course Vital Signs 06/27/17 06/27/17 06/27/17 16:31 17:10 17:56 Temperature 97.7 F Pulse Rate 112 H 115 H 100 Respiratory 18 20 18 Rate Blood Pressure 138/91 153/82 149/71 O2 Sat by Pulse 100 100 100 Oximetry 06/27/17 19:21 Temperature Pulse Rate 86 Respiratory 16 Rate Blood Pressure 113/62 O2 Sat by Pulse 98 Oximetry - Reevaluation(s) Reevaluation #1: Patient was re-evaluated after medications, was noted to be making very loud upper airway noises. When asked to sit upright and take quiet deep breaths with an open mouth patient was able to breath clearly. HR has improved to 104, SpO2 remains 100% erythema of face has decreased. 06/27/17 17:01 Reevaluation #2: Short reevaluated, continues to sit comfortably in the emergency department. No further wheezing or upper airway sounds. Patient states she feels very thirsty. 06/27/17 17:39 Medical Decision Making - Medical Decision Making Patient was seen and evaluated immediately upon arrival to the emergency department History physical exam are concerning for an acute ALLERGIC reaction to a bee sting Physical exam reveals no stinger in place Medications ordered for ALLERGIC reaction Patient reevaluated after medications, facial flushing has reduced, swelling around the bee sting has reduce, patient's tachycardia has improved Patient continues to sat 100% on room air Patient noted to have some loud upper airway sounds, however when repositioned into a sitting upright position and advised to take slow deep breaths the patient has completely clear airways. Oropharynx is no edema noted I will Continue to observe the patient Patient was observed for 2 hours after administration of IM epinephrine. Patient's tachycardia improved patient had no further evidence of ALLERGIC reaction or anaphylaxis. Patient's only complaint upon reevaluation was that the bed was uncomfortable and her but was getting sore. I discussed with the patient that she seems to have had an ALLERGIC reaction to a bee sting and needs to carry an EpiPen with her at all times. I prescribed the patient to EpiPen's All questions pertaining to care were answered to the best of my ability and the patient was discharged home in stable condition. Disposition Clinical Impression: Allergic reaction Disposition: HOME SELF-CARE Condition: Good Instructions: Anaphylaxis (ED) Prescriptions: Albuterol Inhaler [Ventolin Hfa Inhaler] 1 - 2 puff INHALATION Q6HR PRN #1 inhaler PRN Reason: Wheezing EPINEPHrine [Epipen 2-Vasile] 0.3 mg IM ONCE PRN #2 vial PRN Reason: Allergic Reaction Referrals: Lizzy Edwards MD [Primary Care Provider] - 1-2 days Time of Disposition: 19:12
[2017-06-27 19:23] VITALS: BP 113/62; PULSE 86; RESP 16
== END 2017-06-27 19:21 | disposition home or self-care (01) ==
LOC: EC 16:24
DX: T63.441A Toxic effect of venom of bees, accidental (unintentional), initial encounter (principal); R07.89 Other chest pain; M79.7 Fibromyalgia; G40.909 Epilepsy, unspecified, not intractable, without status epilepticus; Z79.1 Long term (current) use of non-steroidal anti-inflammatories (NSAID); Z79.899 Other long term (current) drug therapy; Z88.5 Allergy status to narcotic agent; Z91.030 Bee allergy status; Z91.040 Latex allergy status; Z91.018 Allergy to other foods; Z88.8 Allergy status to other drugs, medicaments and biological substances
CPT/HCPCS: 99283; 96374; 96375 ×2; 96372; J0171; J1200; J2930

== ENCOUNTER 2017-07-02 15:33 | Emergency (ER) | payer OTHER ==
[2017-07-02] MEDS ORDERED: SODIUM CHLORIDE 0.9% 1,000 ML IV ONE (17:47)
--- NOTE | 2017-07-02 17:55 | ED ---
Abdominal Pain HPI - General Chief Complaint: Abdominal Pain Stated Complaint: sharp pains lower abd/poss preg Time Seen by Provider: 07/02/17 17:35 Source: patient Mode of arrival: wheelchair Limitations: no limitations - History of Present Illness Initial Comments: 27-year-old female patient with sensory emergency department today with complaints of right pelvic pain. Patient states that she went to her primary care physician today for evaluation of the abdominal pain and found that she was . Patient states that the pain started this morning around 10 AM, states it is sharp and constant. Patient states the pain is relieved when she draws her knees up to her chest however returns when she stretches back out. She denies any nausea or vomiting. Denies any hematuria, dysuria, or urinary urgency. Denies any vaginal bleeding or discharge. Patient states she has been having frequency of urination. Patient was seen here a few days ago and diagnosed with a yeast infection. Patient denies any recent fever, chills, shortness breath, chest pain, abdominal pain, diarrhea, constipation, back pain , numbness, tingling, weakness, headache, visual changes, or any other complaints. Patient is a A4. Patient has had miscarriages very early in and as far along as 16 weeks. Patient's last menstrual period lasted only 3 days and was around June 11. - Related Data Home Medications Medication Instructions Recorded Confirmed HYDROcodone/APAP 5-325MG [[place] 1 tab PO BID PRN 06/22/17 07/02/17 5-325] Naproxen 500 mg PO BID PRN 06/27/17 07/02/17 levETIRAcetam 750 mg PO BID 06/27/17 07/02/17 Albuterol Inhaler [Ventolin Hfa 1 - 2 puff INHALATION RT-Q6H PRN 07/02/17 Inhaler] EPINEPHrine [Epipen 2-Vasile] 0.3 mg IM ONCE PRN 07/02/17 07/02/17 Norgestimate-Ethinyl Estradiol 1 tab PO DAILY 07/02/17 07/02/17 [Sprintec 28 Day Tablet] Sertraline HCl [Zoloft] 100 mg PO HS 07/02/17 07/02/17 Allergies Allergy/AdvReac Type Severity Reaction Status Date / Time buspirone HCl [From BuSpar] Allergy Rash/Hives Verified 07/02/17 18:34 Latex, Natural Rubber Allergy Rash/Hives Verified 07/02/17 18:34 morphine Allergy Anaphylaxis Verified 07/02/17 18:34 onion Allergy Anaphylaxis Verified 07/02/17 18:34 tramadol Allergy Rash/Hives Verified 07/02/17 18:34 venom-honey bee Allergy Swelling Verified 07/02/17 18:34 [bee venom (honey bee)] Review of Systems ROS Statement: Those systems with pertinent positive or pertinent negative responses have been documented in the HPI. ROS Other: All systems not noted in ROS Statement are negative. Past Medical History Past Medical History: Asthma, Fibromyalgia, Seizure Disorder Additional Past Medical History / Comment(s): scoliosis and arthritis; back pain , "Stress Seziures". Headaches History of Any Multi-Drug Resistant Organisms: None Reported Past Surgical History: Appendectomy, Section Additional Past Surgical History / Comment(s): d & c Past Anesthesia/Blood Transfusion Reactions: No Reported Reaction Past Psychological History: ADD/ADHD, Anxiety, Bipolar, Depression Smoking Status: Never smoker Past Alcohol Use History: None Reported Past Drug Use History: None Reported - Past Family History Mother Family Medical History: Fibromyalgia General Exam Limitations: no limitations General appearance: alert, in no apparent distress Eye exam: Present: normal appearance, PERRL, EOMI. Absent: scleral icterus, conjunctival injection, periorbital swelling ENT exam: Present: normal exam, normal oropharynx, mucous membranes moist Neck exam: Present: normal inspection. Absent: tenderness, meningismus, lymphadenopathy Respiratory exam: Present: normal lung sounds bilaterally. Absent: respiratory distress, wheezes, rales, rhonchi, stridor Cardiovascular Exam: Present: regular rate, normal rhythm, normal heart sounds. Absent: systolic murmur, diastolic murmur, rubs, gallop, clicks GI/Abdominal exam: Present: soft, normal bowel sounds. Absent: distended, tenderness, guarding, rebound, rigid Extremities exam: Present: normal inspection, full ROM, normal capillary refill. Absent: tenderness, pedal edema, joint swelling, calf tenderness Back exam: Present: normal inspection. Absent: CVA tenderness (R), CVA tenderness (L) Neurological exam: Present: alert, oriented X3, CN II-XII intact Psychiatric exam: Present: normal affect, normal mood Skin exam: Present: warm, dry, intact, normal color. Absent: rash Course Vital Signs 07/02/17 07/02/17 15:40 18:17 Temperature 98.5 F 98.9 F Pulse Rate 100 89 Respiratory 20 20 Rate Blood Pressure 133/92 139/71 O2 Sat by Pulse 100 98 Oximetry Medical Decision Making - Medical Decision Making 27 year-old female patient with onset emergency permit today for evaluation of right-sided pelvic pain. Patient did have a positive test at her doctor's office today so she presented here for further evaluation. Blood work was unremarkable did show a elevated hCG level. Transabdominal ultrasound did show a large right ovarian cyst however is too early to see a gestational sac at this time. Patient was seen here on 06/27/2017 and diagnosed with a yeast infection, growth came back as C. glabrata. Pelvic exam did have some right adnexal tenderness. Patient will be discharged home to follow-up with her OB/ [facility] as soon as possible. She is instructed to complete a course of vaginal nystatin, do realize that this is not the best treatment for C. glabrata infection however as patient is we will start with this. She is instructed to return immediately for any new, worsening, or concerning symptoms. Patient verbalizes understanding and agrees this plan. - Lab Data Result diagrams: 07/02/17 18:00 07/02/17 18:00 Lab Results 07/02/17 07/02/17 07/02/17 Range/Units 18:00 18:00 18:00 WBC 9.7 (3.8-10.6) k/uL RBC 4.41 (3.80-5.40) m/uL Hgb 13.1 (11.4-16.0) gm/dL Hct 38.1 (34.0-46.0) % MCV 86.4 (80.0-100.0) fL MCH 29.8 (25.0-35.0) pg MCHC 34.5 (31.0-37.0) g/dL RDW 13.5 (11.5-15.5) % Plt Count 294 (150-450) k/uL Neutrophils % 68 % Lymphocytes % 21 % Monocytes % 6 % Eosinophils % 3 % Basophils % 1 % Neutrophils # 6.6 (1.3-7.7) k/uL Lymphocytes # 2.1 (1.0-4.8) k/uL Monocytes # 0.6 (0-1.0) k/uL Eosinophils # 0.3 (0-0.7) k/uL Basophils # 0.1 (0-0.2) k/uL Sodium 137 (137-145) mmol/L Potassium 3.9 (3.5-5.1) mmol/L Chloride 105 (98-107) mmol/L Carbon Dioxide 23 (22-30) mmol/L Anion Gap 9 mmol/L BUN 12 (7-17) mg/dL Creatinine 0.70 (0.52-1.04) mg/dL Est GFR (MDRD) Af Amer >60 (>60 ml/min/1.73 sqM) Est GFR (MDRD) Non-Af >60 (>60 ml/min/1.73 sqM) Glucose 81 (74-99) mg/dL Calcium 9.0 (8.4-10.2) mg/dL Total Bilirubin 0.3 (0.2-1.3) mg/dL AST 21 (14-36) U/L ALT 38 (9-52) U/L Alkaline Phosphatase 66 (38-126) U/L Total Protein 6.6 (6.3-8.2) g/dL Albumin 3.8 (3.5-5.0) g/dL Amylase 43 (30-110) U/L Lipase 29 (23-300) U/L HCG, Quant 24.2 mIU/mL Urine Color Urine Appearance (Clear) Urine pH (5.0-8.0) Ur Specific [place] (1.001-1.035) Urine Protein (Negative) Urine Glucose (UA) (Negative) Urine Ketones (Negative) Urine Blood (Negative) Urine Nitrite (Negative) Urine Bilirubin (Negative) Urine Urobilinogen (<2.0) mg/dL Ur Leukocyte Esterase (Negative) Blood Type O Positive Blood Type Recheck No 07/02/17 Range/Units 18:00 WBC (3.8-10.6) k/uL RBC (3.80-5.40) m/uL Hgb (11.4-16.0) gm/dL Hct (34.0-46.0) % MCV (80.0-100.0) fL MCH (25.0-35.0) pg MCHC (31.0-37.0) g/dL RDW (11.5-15.5) % Plt Count (150-450) k/uL Neutrophils % % Lymphocytes % % Monocytes % % Eosinophils % % Basophils % % Neutrophils # (1.3-7.7) k/uL Lymphocytes # (1.0-4.8) k/uL Monocytes # (0-1.0) k/uL Eosinophils # (0-0.7) k/uL Basophils # (0-0.2) k/uL Sodium (137-145) mmol/L Potassium (3.5-5.1) mmol/L Chloride (98-107) mmol/L Carbon Dioxide (22-30) mmol/L Anion Gap mmol/L BUN (7-17) mg/dL Creatinine (0.52-1.04) mg/dL Est GFR (MDRD) Af Amer (>60 ml/min/1.73 sqM) Est GFR (MDRD) Non-Af (>60 ml/min/1.73 sqM) Glucose (74-99) mg/dL Calcium (8.4-10.2) mg/dL Total Bilirubin (0.2-1.3) mg/dL AST (14-36) U/L ALT (9-52) U/L Alkaline Phosphatase (38-126) U/L Total Protein (6.3-8.2) g/dL Albumin (3.5-5.0) g/dL Amylase (30-110) U/L Lipase (23-300) U/L HCG, Quant mIU/mL Urine Color Yellow Urine Appearance Clear (Clear) Urine pH 5.5 (5.0-8.0) Ur Specific [place] 1.014 (1.001-1.035) Urine Protein Negative (Negative) Urine Glucose (UA) Negative (Negative) Urine Ketones Negative (Negative) Urine Blood Negative (Negative) Urine Nitrite Negative (Negative) Urine Bilirubin Negative (Negative) Urine Urobilinogen <2.0 (<2.0) mg/dL Ur Leukocyte Esterase Negative (Negative) Blood Type Blood Type Recheck - Radiology Data Radiology results: report reviewed, image reviewed Transabdominal ultrasound impression by Dr. Purcell shows normal uterus and endometrium. No evidence of a gestational sac as it is too early. Large right ovarian cyst measuring 4.1 x 3.4 x 4.1 cm. Disposition Clinical Impression: Ovarian cyst, Pelvic pain during Disposition: HOME SELF-CARE Condition: Good Instructions: (ED), Ovarian Cyst (ED), Pelvic Pain in Women (ED) Additional Instructions: Increase fluids. Take Tylenol for pain control. Complete nystatin prescription in full. Follow up with [facility] as soon as possible. Return immediately for any new, worsening, or concerning symptoms. Referrals: Lizzy Edwards MD [Primary Care Provider] - 1-2 days Barbara Thomas DO [Doctor of Osteopathic Medicine] - 1-2 days Time of Disposition: 20:15
[2017-07-02 18:20] LABS: Appearance,Urine Clear (Clear); Bilirubin,Urine Negative (Negative); Glucose,Urine (UA) Negative (Negative); Ketones,Urine Negative (Negative); Leukocyte Esterase,Urine Negative (Negative); Nitrite,Urine Negative (Negative); PH, Urine 5.5 (5.0-8.0); Protein,Urine Negative (Negative); Specific Gravity,Urine 1.014 (1.001-1.035); UA Billing (MACRO vs. MICRO) CHEM; Urobilinogen,Urine <2.0 mg/dL (<2.0)
[2017-07-02 18:28] LABS: ALT 38 U/L (9-52); AST 21 U/L (14-36); Alkaline Phosphatase 66 U/L (38-126); Amylase 43 U/L (30-110); Anion Gap 9 mmol/L; Blood Urea Nitrogen 12 mg/dL (7-17); Carbon Dioxide 23 mmol/L (22-30); Chloride 105 mmol/L (98-107); Glucose 81 mg/dL (74-99); Non-African American GFR(MDRD) >60 (>60 ml/min/1.73 sqM); Potassium 3.9 mmol/L (3.5-5.1); Sodium 137 mmol/L (137-145); Total Bilirubin 0.3 mg/dL (0.2-1.3); Total Protein 6.6 g/dL (6.3-8.2)
[2017-07-02 18:30] LABS: Basophils # (A) 0.1 k/uL (0-0.2); Basophils % (A) 1 %; CH 31.4; CHCM 36.5; Eosinophils # (A) 0.3 k/uL (0-0.7); Eosinophils % (A) 3 %; HCT 38.1 % (34.0-46.0); HDW 3.21; HGB 13.1 gm/dL (11.4-16.0); Luc # (Auto) 0.18; Luc % (Auto) 2; Lymphocytes # (A) 2.1 k/uL (1.0-4.8); Lymphocytes % (A) 21 %; MCH 29.8 pg (25.0-35.0); MCHC 34.5 g/dL (31.0-37.0); MCV 86.4 fL (80.0-100.0); Mean Platelet Volume 6.9; Monocytes # (A) 0.6 k/uL (0-1.0); Monocytes % (A) 6 %; Neutrophils # (A) 6.6 k/uL (1.3-7.7); Neutrophils % (A) 68 %; RBC 4.41 m/uL (3.80-5.40); RDW 13.5 % (11.5-15.5); WBC 9.7 k/uL (3.8-10.6); WBC (Perox) 9.38
--- NOTE | 2017-07-02 19:58 | US ---
EXAMINATION TYPE: US OB <=14 wks fetus DATE OF EXAM: 07/02/2017 COMPARISON: NONE CLINICAL HISTORY: Pain. RLQ pain EXAM PERFORMED: Transabdominal (TA) EXAM MEASUREMENTS: GESTATIONAL AGE / DATING Physician Established: Not established Dates by LMP: (2 weeks/6 days) EDC: 03/19/2018 Dates by First Scan: This is first scan Dates by Current Scan for: (2 weeks/6 days) EDC: 03/19/2018 MATERNAL ANATOMY Uterus: 10.5 x 4.1 x 5.2 cm Right Ovary: 5.0 x 3.7 x 4.9 cm Left Ovary: 2.6 x 1.7 x 1.4 cm Post CDS / Adnexa: wnl Presence of free fluid: no Presence of corpus luteal cyst: yes Presence of subchorionic bleed: no GESTATION / SURVEY Too early not seen Date of LMP: 06/12/2017 Beta HcG (if available): Not available Right ovarian cyst seen measuring 4.1 x 3.4 x 4.1. No gestational sac visualized too early. IMPRESSION: Normal uterus and endometrium. No evidence of a gestational sac. Large right ovarian cyst. MTDD
[2017-07-02 20:38] VITALS: BP 103/56; PULSE 70; RESP 16; TEMP 97.8
== END 2017-07-02 20:37 | disposition home or self-care (01) ==
LOC: EC 15:33
DX: O99.89 Other specified diseases and conditions complicating pregnancy, childbirth and the puerperium (principal); R10.2 Pelvic and perineal pain; O34.81 Maternal care for other abnormalities of pelvic organs, first trimester; N83.201 Unspecified ovarian cyst, right side; O99.351 Diseases of the nervous system complicating pregnancy, first trimester; G40.909 Epilepsy, unspecified, not intractable, without status epilepticus; O99.341 Other mental disorders complicating pregnancy, first trimester; F31.9 Bipolar disorder, unspecified; F41.9 Anxiety disorder, unspecified; Z98.890 Other specified postprocedural states; Z91.040 Latex allergy status; Z88.5 Allergy status to narcotic agent; Z88.6 Allergy status to analgesic agent; Z88.8 Allergy status to other drugs, medicaments and biological substances; Z91.030 Bee allergy status; Z91.018 Allergy to other foods; Z79.3 Long term (current) use of hormonal contraceptives; Z90.49 Acquired absence of other specified parts of digestive tract; Z3A.01 Less than 8 weeks gestation of pregnancy; Z79.899 Other long term (current) drug therapy
CPT/HCPCS: 36415; 76801; 76817; 80053; 81003; 82150; 83690; 84702; 85025; 86900; 86901; 96360; 96361; 99284

== ENCOUNTER 2017-07-04 16:10 | Emergency (ER) | payer OTHER ==
[2017-07-04] MEDS ORDERED: SODIUM CHLORIDE 0.9% 1,000 ML IV STA (17:05)
--- NOTE | 2017-07-04 17:16 | ED ---
General Adult HPI - General Chief complaint: Seizure Stated complaint: poss siezure Time Seen by Provider: 07/04/17 16:48 Source: patient, EMS, RN notes reviewed, old records reviewed Mode of arrival: EMS Limitations: no limitations - History of Present Illness Initial comments: Patient 27-year-old female who presents emergency room today with multiple complaints. She does admit that she was at court earlier today. She states that over the last day she's been feeling increased nausea. States that she did find a reason that she is . She states off the last menstrual cycle and she is approximately 3 weeks . Patient denies any vaginal bleeding or discharge. Denies any abdominal pain. Does admit that she's had some stuffy nose with some rhinorrhea. Denies any cough or sputum production. Patient does admit that she has had nausea today has felt shaky. She is worried that she may have a seizure. States that she does have history of seizures and takes Keppra. Patient has low-grade fever at triage 100.3F. States did have chills when she was in the room. She does admit that she was feeling lightheaded yesterday. States she did take pain medication [place] that she has for a herniated disc. She denies any other complaints or symptoms. Patient denies any recent fever, chills, shortness of breath, chest pain, numbness or tingling, dysuria or hematuria, constipation or diarrhea, headaches or visual changes, or any other complaints. - Related Data Home Medications Medication Instructions Recorded Confirmed HYDROcodone/APAP 5-325MG [[place] 1 tab PO BID PRN 06/22/17 07/04/17 5-325] Naproxen 500 mg PO BID PRN 06/27/17 07/04/17 levETIRAcetam 750 mg PO BID 06/27/17 07/04/17 Albuterol Inhaler [Ventolin Hfa 1 - 2 puff INHALATION RT-Q6H PRN 07/02/17 Inhaler] EPINEPHrine [Epipen 2-Vasile] 0.3 mg IM ONCE PRN 07/02/17 07/04/17 Norgestimate-Ethinyl Estradiol 1 tab PO DAILY 07/02/17 07/04/17 [Sprintec 28 Day Tablet] Sertraline HCl [Zoloft] 100 mg PO HS 07/02/17 07/04/17 Vqz-[id number]-Hjpkf Acid 1 cap PO DAILY 07/04/17 07/04/17 [-U Capsule (formulary)] Previous Rx's Medication Instructions Recorded Metoclopramide HCl [Reglan] 10 mg PO Q6HR PRN #5 day 07/04/17 Allergies Allergy/AdvReac Type Severity Reaction Status Date / Time buspirone HCl [From BuSpar] Allergy Rash/Hives Verified 07/04/17 16:53 Latex, Natural Rubber Allergy Rash/Hives Verified 07/04/17 16:53 morphine Allergy Anaphylaxis Verified 07/04/17 16:53 onion Allergy Anaphylaxis Verified 07/04/17 16:53 tramadol Allergy Rash/Hives Verified 07/04/17 16:53 venom-honey bee Allergy Swelling Verified 07/04/17 16:53 [bee venom (honey bee)] Review of Systems ROS Statement: Those systems with pertinent positive or pertinent negative responses have been documented in the HPI. ROS Other: All systems not noted in ROS Statement are negative. Past Medical History Past Medical History: Asthma, Fibromyalgia, Seizure Disorder Additional Past Medical History / Comment(s): scoliosis and arthritis; back pain , "Stress Seziures". Headaches History of Any Multi-Drug Resistant Organisms: None Reported Past Surgical History: Appendectomy, Section Additional Past Surgical History / Comment(s): d & c Past Anesthesia/Blood Transfusion Reactions: No Reported Reaction Past Psychological History: ADD/ADHD, Anxiety, Bipolar, Depression Smoking Status: Never smoker Past Alcohol Use History: None Reported Past Drug Use History: None Reported - Past Family History Mother Family Medical History: Fibromyalgia General Exam - General Exam Comments Initial Comments: General: The patient is awake and alert, anxious. Eye: Pupils are equal, round and reactive to light, extra-ocular movements are intact. No nystagmus. There is normal conjunctiva bilaterally. No signs of icterus. Ears, nose, mouth and throat: There are moist mucous membranes and no oral lesions. Neck: The neck is supple, there is no tenderness or JVD. Cardiovascular: There is a regular rate and rhythm. No murmur, rub or gallop is appreciated. Respiratory: Lungs are clear to auscultation, respirations are non-labored, breath sounds are equal. No wheezes, stridor, rales, or rhonchi. Gastrointestinal: Soft, non-distended, non-tender abdomen without masses or organomegaly noted. There is no rebound or guarding present. No CVA tenderness. Bowel sounds are unremarkable. Musculoskeletal: Normal ROM, no tenderness. Strength 5/5. Sensation intact. Pulses equal bilaterally 2+. Neurological: A&O x 3. CN II-XII intact, There are no obvious motor or sensory deficits. Coordination appears grossly intact. Speech is normal. Skin: Skin is warm and dry and no rashes or lesions are noted. Psychiatric: Cooperative, appropriate mood & affect, normal judgment. Limitations: no limitations Course Vital Signs 07/04/17 16:23 Temperature 100.3 F H Pulse Rate 112 H Respiratory 18 Rate Blood Pressure 150/96 O2 Sat by Pulse 98 Oximetry Medical Decision Making - Medical Decision Making Case discussed in detail with attending physician Dr. Farias. Patient reexamined at this time shows no signs of distress resting comfortably. Patient 's repeat temperature is 99F. Patient patient has been reviewed no elevated white count. Her analysis is negative for any sign of infection. Cultures pending. Patient's beta hCG is 68 days was compared to previous labs which was reports 2 days ago. It is doubling as normal. She denies any abdominal pain, vaginal bleeding or discharge. Patient did have ultrasound done 2 days ago did show a right-sided ovarian cyst. No sign of gestational sac at this time. As patient's beta hCG is 68 this is to be expected. She denies any pain. She'll be charged advised follow-up in [facility]. She does have vitamins. She has discontinued her control. Patient does but that she's been under a lot of stress with being at court dealing with family issues. She is feeling better here in emergency room. She will be given nausea medication of Reglan to go home with. Advised return if any symptoms increase or worsen. - Lab Data Result diagrams: 07/04/17 17:20 07/04/17 17:20 Lab Results 07/04/17 07/04/17 07/04/17 Range/Units 17:20 17:20 18:10 WBC 9.9 (3.8-10.6) k/uL RBC 4.83 (3.80-5.40) m/uL Hgb 14.7 (11.4-16.0) gm/dL Hct 41.5 (34.0-46.0) % MCV 86.0 (80.0-100.0) fL MCH 30.4 (25.0-35.0) pg MCHC 35.4 (31.0-37.0) g/dL RDW 13.0 (11.5-15.5) % Plt Count 311 (150-450) k/uL Neutrophils % 81 % Lymphocytes % 12 % Monocytes % 4 % Eosinophils % 2 % Basophils % 0 % Neutrophils # 8.0 H (1.3-7.7) k/uL Lymphocytes # 1.2 (1.0-4.8) k/uL Monocytes # 0.4 (0-1.0) k/uL Eosinophils # 0.2 (0-0.7) k/uL Basophils # 0.0 (0-0.2) k/uL Sodium 138 (137-145) mmol/L Potassium 4.0 (3.5-5.1) mmol/L Chloride 107 (98-107) mmol/L Carbon Dioxide 21 L (22-30) mmol/L Anion Gap 10 mmol/L BUN 6 L (7-17) mg/dL Creatinine 0.60 (0.52-1.04) mg/dL Est GFR (MDRD) Af Amer >60 (>60 ml/min/1.73 sqM) Est GFR (MDRD) Non-Af >60 (>60 ml/min/1.73 sqM) Glucose 92 (74-99) mg/dL Calcium 9.7 (8.4-10.2) mg/dL Total Bilirubin 0.4 (0.2-1.3) mg/dL AST 21 (14-36) U/L ALT 34 (9-52) U/L Alkaline Phosphatase 80 (38-126) U/L Total Protein 7.2 (6.3-8.2) g/dL Albumin 4.2 (3.5-5.0) g/dL HCG, Quant 68.9 mIU/mL Urine Color Yellow Urine Appearance Clear (Clear) Urine pH 6.0 (5.0-8.0) Ur Specific [place] 1.011 (1.001-1.035) Urine Protein Negative (Negative) Urine Glucose (UA) Negative (Negative) Urine Ketones Negative (Negative) Urine Blood Negative (Negative) Urine Nitrite Negative (Negative) Urine Bilirubin Negative (Negative) Urine Urobilinogen <2.0 (<2.0) mg/dL Ur Leukocyte Esterase Negative (Negative) Disposition Clinical Impression: Hyperemesis gravidarum, History of seizure Disposition: HOME SELF-CARE Condition: Good Instructions: Recurrent Seizures in Adults (ED) Additional Instructions: Please use medication as discussed. Please follow-up with [facility]/family doctor in the next 2 days. Please return to emergency room if the symptoms increase or worsen or for any other concerns. Prescriptions: Metoclopramide HCl [Reglan] 10 mg PO Q6HR PRN #5 day PRN Reason: Nausea Referrals: Lizzy Edwards MD [Primary Care Provider] - 1-2 days Time of Disposition: 18:44
[2017-07-04 17:37] LABS: Basophils % (A) 0 %; CH 30.7; CHCM 35.9; Eosinophils # (A) 0.2 k/uL (0-0.7); Eosinophils % (A) 2 %; HCT 41.5 % (34.0-46.0); HDW 3.29; HGB 14.7 gm/dL (11.4-16.0); Luc # (Auto) 0.13; Luc % (Auto) 1; Lymphocytes # (A) 1.2 k/uL (1.0-4.8); Lymphocytes % (A) 12 %; MCH 30.4 pg (25.0-35.0); MCHC 35.4 g/dL (31.0-37.0); Mean Platelet Volume 6.6; Monocytes # (A) 0.4 k/uL (0-1.0); Monocytes % (A) 4 %; Neutrophils % (A) 81 %; RBC 4.83 m/uL (3.80-5.40); WBC 9.9 k/uL (3.8-10.6); WBC (Perox) 10.55
[2017-07-04 17:46] LABS: ALT 34 U/L (9-52); AST 21 U/L (14-36); Alkaline Phosphatase 80 U/L (38-126); Anion Gap 10 mmol/L; Blood Urea Nitrogen 6 mg/dL (7-17); Calcium 9.7 mg/dL (8.4-10.2); Carbon Dioxide 21 mmol/L (22-30); Chloride 107 mmol/L (98-107); Glucose 92 mg/dL (74-99); Non-African American GFR(MDRD) >60 (>60 ml/min/1.73 sqM); Sodium 138 mmol/L (137-145); Total Bilirubin 0.4 mg/dL (0.2-1.3); Total Protein 7.2 g/dL (6.3-8.2)
[2017-07-04 18:24] LABS: Appearance,Urine Clear (Clear); Bilirubin,Urine Negative (Negative); Glucose,Urine (UA) Negative (Negative); Ketones,Urine Negative (Negative); Leukocyte Esterase,Urine Negative (Negative); Nitrite,Urine Negative (Negative); Protein,Urine Negative (Negative); Specific Gravity,Urine 1.011 (1.001-1.035); UA Billing (MACRO vs. MICRO) CHEM; Urobilinogen,Urine <2.0 mg/dL (<2.0)
[2017-07-04 18:59] VITALS: BP 144/81; PULSE 82; RESP 16; TEMP 99.4
== END 2017-07-04 19:03 | disposition home or self-care (01) ==
LOC: EC 16:10
DX: O21.0 Mild hyperemesis gravidarum (principal); O26.891 Other specified pregnancy related conditions, first trimester; R56.9 Unspecified convulsions; O99.341 Other mental disorders complicating pregnancy, first trimester; F32.9 Major depressive disorder, single episode, unspecified; F41.9 Anxiety disorder, unspecified; Z79.3 Long term (current) use of hormonal contraceptives; Z79.899 Other long term (current) drug therapy; Z88.5 Allergy status to narcotic agent; Z88.6 Allergy status to analgesic agent; Z88.8 Allergy status to other drugs, medicaments and biological substances; Z91.040 Latex allergy status; Z91.030 Bee allergy status; Z91.018 Allergy to other foods; Z3A.01 Less than 8 weeks gestation of pregnancy
CPT/HCPCS: 36415; 80053; 80177; 81003; 84702; 85025; 87086; 96360; 99285

== ENCOUNTER 2017-07-19 20:08 | Emergency (ER) | payer OTHER ==
[2017-07-19 20:15] VITALS: BP 131/81; PULSE 88; RESP 18; TEMP 97.1
[2017-07-19] MEDS ORDERED: SODIUM CHLORIDE 0.9% 1,000 ML IV ONE (21:06)
[2017-07-19] MEDS ORDERED: ACETAMINOPHEN TAB 500 MG TAB PO STA (21:06)
[2017-07-19 21:34] LABS: Basophils # (A) 0.1 k/uL (0-0.2); Basophils % (A) 1 %; CH 31.7; CHCM 35.6; Eosinophils # (A) 0.3 k/uL (0-0.7); Eosinophils % (A) 4 %; HCT 41.9 % (34.0-46.0); HDW 2.92; Luc # (Auto) 0.13; Luc % (Auto) 2; Lymphocytes % (A) 25 %; MCH 29.9 pg (25.0-35.0); MCHC 33.4 g/dL (31.0-37.0); MCV 89.5 fL (80.0-100.0); Mean Platelet Volume 7.1; Monocytes # (A) 0.3 k/uL (0-1.0); Monocytes % (A) 4 %; Neutrophils # (A) 5.1 k/uL (1.3-7.7); Neutrophils % (A) 65 %; RBC 4.68 m/uL (3.80-5.40); RDW 14.2 % (11.5-15.5); WBC 7.9 k/uL (3.8-10.6); WBC (Perox) 8.12
[2017-07-19 21:39] LABS: Appearance,Urine Clear (Clear); Bilirubin,Urine Negative (Negative); Glucose,Urine (UA) Negative (Negative); Ketones,Urine Negative (Negative); Leukocyte Esterase,Urine Negative (Negative); Nitrite,Urine Negative (Negative); Protein,Urine Negative (Negative); Specific Gravity,Urine 1.013 (1.001-1.035); UA Billing (MACRO vs. MICRO) CHEM; Urobilinogen,Urine <2.0 mg/dL (<2.0)
[2017-07-19 21:48] LABS: ALT 33 U/L (9-52); AST 23 U/L (14-36); Alkaline Phosphatase 71 U/L (38-126); Amylase 38 U/L (30-110); Anion Gap 10 mmol/L; Blood Urea Nitrogen 6 mg/dL (7-17); Carbon Dioxide 24 mmol/L (22-30); Chloride 104 mmol/L (98-107); Glucose 77 mg/dL (74-99); Non-African American GFR(MDRD) >60 (>60 ml/min/1.73 sqM); Sodium 138 mmol/L (137-145); Total Bilirubin 0.3 mg/dL (0.2-1.3); Total Protein 6.9 g/dL (6.3-8.2)
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
[2017-07-19] MEDS ORDERED: diphenhydrAMINE 50 MG/ML 1 ML VIAL IVP STA (22:55)
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
== END 2017-07-19 23:45 | disposition home or self-care (01) ==
LOC: EC 20:08
DX: O34.81 Maternal care for other abnormalities of pelvic organs, first trimester (principal); N83.201 Unspecified ovarian cyst, right side; O99.89 Other specified diseases and conditions complicating pregnancy, childbirth and the puerperium; R51 Headache; N64.4 Mastodynia; O99.351 Diseases of the nervous system complicating pregnancy, first trimester; G40.909 Epilepsy, unspecified, not intractable, without status epilepticus; Z3A.01 Less than 8 weeks gestation of pregnancy; Z90.49 Acquired absence of other specified parts of digestive tract; Z88.5 Allergy status to narcotic agent; Z88.8 Allergy status to other drugs, medicaments and biological substances; Z91.018 Allergy to other foods; Z91.030 Bee allergy status; Z91.040 Latex allergy status; Z79.899 Other long term (current) drug therapy
CPT/HCPCS: 99284; 96374; 96361 ×2; 36415; 80053; 87591; 87491; 82150; 83690; 85025; 81003; 84702; 87808; 87070; 87205; 76801; 76817; J1200

== ENCOUNTER 2017-08-06 19:59 | Emergency (ER) | payer OTHER ==
[2017-08-06 20:05] VITALS: BP 121/70; PULSE 69; RESP 18; TEMP 99.1
[2017-08-06] MEDS ORDERED: diphenhydrAMINE 50 MG CAP PO STA (20:13)
--- NOTE | 2017-08-06 20:41 | ED ---
Allergic Reaction HPI - General Chief complaint: Allergic Reaction Stated complaint: Allergic reaction(7 wks preg) Time Seen by Provider: 08/06/17 20:22 Source: patient, RN notes reviewed Mode of arrival: ambulatory Limitations: no limitations - History of Present Illness Initial Comments: This is a 27-year-old female at 7 weeks gestation who presents to the emergency department with chief complaint of allergic reaction. She complains of a mild generalized rash. Patient states that she has a latex allergy. She reports that she bought a new stress ball and was using it this evening. Her chest and face began to feel itchy and she realized that the stress ball was made of latex. Patient did not take any medication prior to arrival. Denies fever, chills, chest pain, shortness of breath, abdominal pain, nausea or vomiting, constipation or diarrhea, dysuria or hematuria, numbness or tingling, headache or vision changes. - Related Data Home Medications Medication Instructions Recorded Confirmed levETIRAcetam 750 mg PO BID 06/27/17 08/06/17 Albuterol Inhaler [Ventolin Hfa 1 - 2 puff INHALATION RT-Q6H PRN 07/02/17 Inhaler] EPINEPHrine [Epipen 2-Vasile] 0.3 mg IM ONCE PRN 07/02/17 08/06/17 Kqv-Kqny-Mfvrx Acid 1 cap PO HS 07/04/17 08/06/17 [-U Capsule (formulary)] Previous Rx's Medication Instructions Recorded Acetaminophen [Tylenol] 650 mg PO Q6H #30 tab 07/19/17 Triamcinolone 0.1% Cream [Kenalog] 1 applicatio TOPICAL BID #1 tube 08/06/17 diphenhydrAMINE [Benadryl] 25 mg PO BID PRN #10 capsule 08/06/17 Allergies Allergy/AdvReac Type Severity Reaction Status Date / Time buspirone HCl [From BuSpar] Allergy Rash/Hives Verified 08/06/17 20:02 Latex, Natural Rubber Allergy Rash/Hives Verified 08/06/17 20:02 morphine Allergy Anaphylaxis Verified 08/06/17 20:02 onion Allergy Anaphylaxis Verified 08/06/17 20:02 tramadol Allergy Rash/Hives Verified 08/06/17 20:02 venom-honey bee Allergy Swelling Verified 08/06/17 20:02 [bee venom (honey bee)] Review of Systems ROS Statement: Those systems with pertinent positive or pertinent negative responses have been documented in the HPI. ROS Other: All systems not noted in ROS Statement are negative. Past Medical History Past Medical History: Asthma, Fibromyalgia, Seizure Disorder Additional Past Medical History / Comment(s): scoliosis and arthritis; back pain , "Stress Seziures". Headaches History of Any Multi-Drug Resistant Organisms: None Reported Past Surgical History: Appendectomy, Section Additional Past Surgical History / Comment(s): d & c Past Anesthesia/Blood Transfusion Reactions: No Reported Reaction Past Psychological History: ADD/ADHD, Anxiety, Bipolar, Depression Smoking Status: Never smoker Past Alcohol Use History: None Reported Past Drug Use History: None Reported - Past Family History Mother Family Medical History: Fibromyalgia General Exam - General Exam Comments Initial Comments: General: Awake and alert, well-developed; in no apparent distress. HEENT: Head atraumatic, normocephalic. Pupils are equal, round and reactive to light. Extraocular movements intact. Oropharynx moist without erythema or exudate. Neck: Supple. Normal ROM. Cardiovascular: Regular rate and rhythm. No murmurs, rubs or gallops. Chest symmetrical. Respiratory: Lungs clear to auscultation bilaterally. No wheezes, rales or rhonchi. Normal respiratory effort with no use of accessory muscles. Skin: [place], warm and dry with mild erythema on upper chest, upper arms and face. No urticaria noted. Neurological: Alert and oriented x3. CN II-XII grossly intact. Speech is fluent and answers are appropriate. No focal neuro deficits. Psychiatric: Normal mood and affect. No overt signs of depression or anxiety noted. Limitations: no limitations Course Vital Signs 08/06/17 20:02 Temperature 99.1 F Pulse Rate 69 Respiratory 18 Rate Blood Pressure 121/70 O2 Sat by Pulse 98 Oximetry Medical Decision Making - Medical Decision Making This is a 27-year-old female who presents with complaint of allergic reaction to latex. There is mild generalized erythema on the upper chest, cheeks and upper arms. Patient is in no acute distress at this time and states the itchiness has gone down. She'll be discharged home with recommendations to take Benadryl daily as well as a prescription for triamcinolone cream. She was informed to return to the ED if she develops any breathing difficulty. Patient is in agreement to the plan and voiced understanding. All questions were answered. Disposition Clinical Impression: Allergic reaction to latex Disposition: HOME SELF-CARE Condition: Good Instructions: General Allergic Reaction (ED) Additional Instructions: Please take medications as prescribed. Please follow up with primary care provider within 1-2 days. Return to emergency department if symptoms should worsen or any concerns arise. Prescriptions: diphenhydrAMINE [Benadryl] 25 mg PO BID PRN #10 capsule PRN Reason: Allergic Reaction Triamcinolone 0.1% Cream [Kenalog] 1 applicatio TOPICAL BID #1 tube Referrals: Lizzy Edwards MD [Primary Care Provider] - 1-2 days Time of Disposition: 20:46
== END 2017-08-06 20:52 | disposition home or self-care (01) ==
LOC: EC 19:59
DX: O9A.211 Injury, poisoning and certain other consequences of external causes complicating pregnancy, first trimester (principal); T78.49XA Other allergy, initial encounter; O99.351 Diseases of the nervous system complicating pregnancy, first trimester; G40.909 Epilepsy, unspecified, not intractable, without status epilepticus; Z3A.01 Less than 8 weeks gestation of pregnancy; Z88.5 Allergy status to narcotic agent; Z88.8 Allergy status to other drugs, medicaments and biological substances; Z91.018 Allergy to other foods; Z91.030 Bee allergy status; Z91.040 Latex allergy status; Z79.899 Other long term (current) drug therapy
CPT/HCPCS: 99283

== ENCOUNTER 2017-08-13 21:02 | Emergency (ER) | payer OTHER ==
[2017-08-13 21:17] VITALS: RESP 18
--- NOTE | 2017-08-13 21:45 | XR ---
EXAMINATION TYPE: XR chest 2V DATE OF EXAM: 08/13/2017 COMPARISON: 08/01/2015 HISTORY: Rib pain TECHNIQUE: Frontal and lateral views of the chest are obtained. FINDINGS: Heart and mediastinum are normal. Lungs are clear. Diaphragm is normal. Bony thorax is int act. IMPRESSION: Normal chest. No change.
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
[2017-08-13 22:58] VITALS: BP 118/72; PULSE 60; TEMP 98.7
--- NOTE | 2017-08-13 23:22 | US ---
EXAMINATION TYPE: US abdomen limited DATE OF EXAM: 08/13/2017 COMPARISON: NONE CLINICAL HISTORY: Pain. EXAM MEASUREMENTS: Liver Length: 15.2 cm Gallbladder Wall: 0.38 cm CBD: 0.34 cm Right Kidney: 9.9 x 4.1 x 4.0 cm Pancreas: Tail obscured by overlying bowel gas Liver: wnl Gallbladder: anechoic appears slightly contracted l Evidence for sonographic Huitron's sign: No CBD: wnl Right Kidney: No hydronephrosis or masses seen IMPRESSION: Negative right upper quadrant abdominal sonogram. No gallstones or dilated ducts.
== END 2017-08-13 23:45 | disposition home or self-care (01) ==
LOC: EC 21:02
DX: R10.9 Unspecified abdominal pain (principal); R07.81 Pleurodynia; G40.509 Epileptic seizures related to external causes, not intractable, without status epilepticus; Z79.899 Other long term (current) drug therapy; Z88.5 Allergy status to narcotic agent; Z88.8 Allergy status to other drugs, medicaments and biological substances; Z91.018 Allergy to other foods; Z91.030 Bee allergy status; Z91.040 Latex allergy status; V13.4XXA Pedal cycle driver injured in collision with car, pick-up truck or van in traffic accident, initial encounter; Y92.410 Unspecified street and highway as the place of occurrence of the external cause; Y93.89 Activity, other specified
CPT/HCPCS: 71020; 76705; 99285

== ENCOUNTER 2017-08-31 09:24 | Emergency (ER) | payer OTHER ==
[2017-08-31 09:29] VITALS: TEMP 98.6
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
[2017-08-31 10:23] LABS: Appearance,Urine Clear (Clear); Bilirubin,Urine Negative (Negative); Glucose,Urine (UA) Negative (Negative); Ketones,Urine Negative (Negative); Leukocyte Esterase,Urine Negative (Negative); Nitrite,Urine Negative (Negative); PH, Urine 6.5 (5.0-8.0); Protein,Urine Negative (Negative); Specific Gravity,Urine 1.011 (1.001-1.035); UA Billing (MACRO vs. MICRO) CHEM; Urobilinogen,Urine <2.0 mg/dL (<2.0)
--- NOTE | 2017-08-31 10:38 | US ---
EXAMINATION TYPE: US OB <=14 wks DATE OF EXAM: 08/31/2017 COMPARISON: US 07/19/2017 CLINICAL HISTORY: Pain. EXAM PERFORMED: Transabdominal (TA) EXAM MEASUREMENTS: GESTATIONAL AGE / DATING Physician Established: Not yet established Dates by LMP: (11 weeks/3 days) EDC: 03/19/2018 Dates by First Scan: (12 weeks/ 2 days) EDC: 03/13/2018 Dates by Current Scan for: (12 weeks/5 days) EDC: 03/10/2018 MATERNAL ANATOMY Uterus: 15.7 x 6.4 x 11.3 cm Right Ovary: 4.3 x 3.8 x 3.5 cm Left Ovary: 2.6 x 1.6 x 2.1 cm Post CDS / Adnexa: wnl Presence of free fluid: No Presence of corpus luteal cyst: Cyst visualized right ovary measuring 3.4 x 3.1 x 3.0 cm. This has de creased in size compared to previous ultrasound on 07/19/2017. Presence of subchorionic bleed: No GESTATION / SURVEY CRL: 6.30 cm (12 weeks/5 days) Heart Rate: 168 bpm Rhythm: Normal IUP: Viable IUP Date of LMP: 06/12/2017 Beta HcG (if available): Not available Viable IUP with an DAVON of 03/10/2018. Right ovarian cyst. IMPRESSION: VIABLE INTRAUTERINE GESTATION WITH A GESTATIONAL AGE OF 12 WEEKS 5 DAYS +/- 7 DAYS. ESTIMATED DATE OF CONFINEMENT BASED ON THIS EXAMINATION IS 03/10/2018.
[2017-08-31 10:58] VITALS: BP 114/64; PULSE 74; RESP 16
== END 2017-08-31 10:57 | disposition home or self-care (01) ==
LOC: EC 09:24
DX: O9A.211 Injury, poisoning and certain other consequences of external causes complicating pregnancy, first trimester (principal); S50.02XA Contusion of left elbow, initial encounter; S70.02XA Contusion of left hip, initial encounter; O99.351 Diseases of the nervous system complicating pregnancy, first trimester; G40.909 Epilepsy, unspecified, not intractable, without status epilepticus; Z3A.12 12 weeks gestation of pregnancy; Z79.899 Other long term (current) drug therapy; Z91.040 Latex allergy status; Z91.030 Bee allergy status; Z91.018 Allergy to other foods; Z88.8 Allergy status to other drugs, medicaments and biological substances; Z88.5 Allergy status to narcotic agent; Z88.6 Allergy status to analgesic agent; V19.9XXA Pedal cyclist (driver) (passenger) injured in unspecified traffic accident, initial encounter; Y92.89 Other specified places as the place of occurrence of the external cause
CPT/HCPCS: 76801; 81003; 87086; 99284

== ENCOUNTER 2017-09-07 09:24 | Emergency (ER) | payer OTHER ==
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
[2017-09-07] MEDS ORDERED: diphenhydrAMINE 50 MG CAP PO STA (10:28)
[2017-09-07] MEDS ORDERED: ACETAMINOPHEN TAB 500 MG TAB PO STA (10:28)
[2017-09-07 10:29] VITALS: BP 122/73; PULSE 72; RESP 15; TEMP 97.1
== END 2017-09-07 10:32 | disposition home or self-care (01) ==
LOC: EC 09:24
DX: O99.89 Other specified diseases and conditions complicating pregnancy, childbirth and the puerperium (principal); R51 Headache; O99.340 Other mental disorders complicating pregnancy, unspecified trimester; F41.9 Anxiety disorder, unspecified; O99.350 Diseases of the nervous system complicating pregnancy, unspecified trimester; G40.909 Epilepsy, unspecified, not intractable, without status epilepticus; Z3A.00 Weeks of gestation of pregnancy not specified; Z79.899 Other long term (current) drug therapy; Z91.030 Bee allergy status; Z91.040 Latex allergy status; Z88.5 Allergy status to narcotic agent; Z88.6 Allergy status to analgesic agent; Z88.8 Allergy status to other drugs, medicaments and biological substances; Z91.018 Allergy to other foods
CPT/HCPCS: 99284

== ENCOUNTER 2017-09-08 08:28 | Emergency (ER) | payer OTHER ==
[2017-09-08 08:33] VITALS: RESP 18
[2017-09-08 09:09] LABS: Basophils % (A) 0 %; CH 31.7; CHCM 36.4; Eosinophils # (A) 0.2 k/uL (0-0.7); Eosinophils % (A) 3 %; HCT 34.7 % (34.0-46.0); HGB 12.2 gm/dL (11.4-16.0); Luc # (Auto) 0.11; Luc % (Auto) 1; Lymphocytes # (A) 1.2 k/uL (1.0-4.8); Lymphocytes % (A) 15 %; MCH 30.8 pg (25.0-35.0); MCHC 35.2 g/dL (31.0-37.0); MCV 87.4 fL (80.0-100.0); Mean Platelet Volume 6.4; Monocytes # (A) 0.3 k/uL (0-1.0); Monocytes % (A) 4 %; Neutrophils # (A) 6.5 k/uL (1.3-7.7); Neutrophils % (A) 78 %; RBC 3.97 m/uL (3.80-5.40); RDW 13.9 % (11.5-15.5); WBC 8.4 k/uL (3.8-10.6); WBC (Perox) 8.44
[2017-09-08 09:10] LABS: Appearance,Urine Clear (Clear); Bilirubin,Urine Negative (Negative); Glucose,Urine (UA) Negative (Negative); Ketones,Urine Negative (Negative); Leukocyte Esterase,Urine Negative (Negative); Nitrite,Urine Negative (Negative); PH, Urine 6.5 (5.0-8.0); Protein,Urine Trace (Negative); Specific Gravity,Urine 1.021 (1.001-1.035); UA Billing (MACRO vs. MICRO) CHEM
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
[2017-09-08 09:20] LABS: ALT 23 U/L (9-52); AST 14 U/L (14-36); Alkaline Phosphatase 48 U/L (38-126); Anion Gap 7 mmol/L; Blood Urea Nitrogen 6 mg/dL (7-17); Calcium 9.5 mg/dL (8.4-10.2); Carbon Dioxide 23 mmol/L (22-30); Chloride 107 mmol/L (98-107); Glucose 69 mg/dL (74-99); Non-African American GFR(MDRD) >60 (>60 ml/min/1.73 sqM); Potassium 4.3 mmol/L (3.5-5.1); Sodium 137 mmol/L (137-145); Total Bilirubin 0.7 mg/dL (0.2-1.3); Total Protein 6.4 g/dL (6.3-8.2)
--- NOTE | 2017-09-08 10:25 | US ---
EXAMINATION TYPE: US OB limited DATE OF EXAM: 09/08/2017 COMPARISON: Previous study dated 08/31/2017. CLINICAL HISTORY: HR. EXAM PERFORMED: Transabdominal (TA) GESTATIONAL AGE / DATING Physician Established: (12 weeks/4 days) EDC: 03/19/2018 Dates by Current Scan: (13 weeks/3 days) EDC: 03/13/2018 No growth performed on today?s study per ordering physician SURVEY PLACENTA: Anterior PREVIA: Marginal Ultrasound evidence of abruption? No MARILEE: 9.9 cm Normal Ultrasound evidence of premature rupture of membranes? No CERVICAL LENGTH (transabdominal: norm > 3.0cm): 3.9 cm CERVICAL LENGTH (transvaginal: norm> 2.5cm): Patient refused Ultrasound evidence of cervical incompetence? No PRESENTATION: Variable LIE: Transverse with head maternal R HEART RATE: 155 bpm RHYTHM: Normal Limited due to pt bladder fill, bowel gas, and patient refusing transvaginal to better visualize posi tion of placenta in correlation to cervix. IMPRESSION: FLORES FETUS PRESENT IN VARIABLE LIE WITH A GESTATIONAL AGE OF 13 WEEKS 3 DAYS +/- 7 DAYS. ESTIMAT ED DATE OF CONFINEMENT BASED ON THIS EXAMINATION IS 03/13/2018. THE PLACENTA IS MARGINAL ON TODAY'S EXAMINATION. FURTHER IMAGING IN THE THIRD TRIMESTER WOULD BE RON CHIRINOS TO ASSESS PLACENTAL POSITIONING.
[2017-09-08 10:56] VITALS: BP 110/56; PULSE 63; TEMP 98.5
== END 2017-09-08 10:51 | disposition home or self-care (01) ==
LOC: EC 08:28
DX: O26.891 Other specified pregnancy related conditions, first trimester (principal); R25.8 Other abnormal involuntary movements; Z86.69 Personal history of other diseases of the nervous system and sense organs; Z79.899 Other long term (current) drug therapy; Z88.8 Allergy status to other drugs, medicaments and biological substances; Z91.040 Latex allergy status; Z88.5 Allergy status to narcotic agent; Z88.6 Allergy status to analgesic agent; Z91.030 Bee allergy status; Z91.018 Allergy to other foods; Z3A.13 13 weeks gestation of pregnancy
CPT/HCPCS: 36415; 76815; 80053; 80177; 80306; 81003; 85025; 93005; 99284

== ENCOUNTER 2017-09-18 12:47 | Emergency (ER) | payer OTHER ==
[2017-09-18 13:07] VITALS: RESP 18
--- NOTE | 2017-09-18 14:05 | ED ---
Female Urogenital HPI - General Chief complaint: Urogenital Stated complaint: 15 weeks preg, pressure/pain Time Seen by Provider: 09/18/17 13:46 Source: patient, RN notes reviewed Mode of arrival: wheelchair Limitations: no limitations - History of Present Illness Initial comments: 27-year-old female presents emergency Department chief complaint of left groin pain, vaginal discharge. Patient states that she is currently 15 weeks . Patient states that she is having increased discharge and pain during sexual intercourse. She is concerned that she may have an STD. Patient also states that she will onto her left hip leading throughout pain with range of motion to left hip. She denies any falls. Patient denies any dysuria or hematuria. - Related Data Home Medications Medication Instructions Recorded Confirmed levETIRAcetam 750 mg PO BID 06/27/17 09/18/17 EPINEPHrine [Epipen 2-Vasile] 0.3 mg IM ONCE PRN 07/02/17 09/18/17 Acetaminophen [Tylenol] 325 - 650 mg PO Q6H PRN 08/13/17 09/18/17 Pnv,Calcium 72/Iron/Folic Acid 1 tab PO HS 09/08/17 09/18/17 [ Plus Tablet] Allergies Allergy/AdvReac Type Severity Reaction Status Date / Time buspirone HCl [From BuSpar] Allergy Rash/Hives Verified 09/18/17 13:29 Latex, Natural Rubber Allergy Rash/Hives Verified 09/18/17 13:29 morphine Allergy Anaphylaxis Verified 09/18/17 13:29 onion Allergy Anaphylaxis Verified 09/18/17 13:29 tramadol Allergy Rash/Hives Verified 09/18/17 13:29 venom-honey bee Allergy Swelling Verified 09/18/17 13:29 [bee venom (honey bee)] Review of Systems ROS Statement: Those systems with pertinent positive or pertinent negative responses have been documented in the HPI. ROS Other: All systems not noted in ROS Statement are negative. Past Medical History Past Medical History: Asthma, Fibromyalgia, Seizure Disorder Additional Past Medical History / Comment(s): scoliosis and arthritis; back pain , "Stress Seziures". Headaches History of Any Multi-Drug Resistant Organisms: None Reported Past Surgical History: Appendectomy, Section Additional Past Surgical History / Comment(s): d & c Past Anesthesia/Blood Transfusion Reactions: No Reported Reaction Past Psychological History: ADD/ADHD, Anxiety, Bipolar, Depression Smoking Status: Never smoker Past Alcohol Use History: None Reported Past Drug Use History: None Reported - Past Family History Mother Family Medical History: Fibromyalgia General Exam Limitations: no limitations General appearance: alert, in no apparent distress Head exam: Present: atraumatic, normocephalic, normal inspection Respiratory exam: Present: normal lung sounds bilaterally. Absent: respiratory distress, wheezes, rales, rhonchi, stridor Cardiovascular Exam: Present: regular rate, normal rhythm, normal heart sounds. Absent: systolic murmur, diastolic murmur, rubs, gallop, clicks GI/Abdominal exam: Present: soft, normal bowel sounds. Absent: distended, tenderness, guarding, rebound, rigid External exam: Present: normal external exam, other (Exam performed with female nurse aide) Speculum exam: Present: vaginal discharge (Minimal white thin) By manual exam: Present: normal by manual exam Extremities exam: Present: normal inspection, full ROM, normal capillary refill. Absent: tenderness, pedal edema, joint swelling, calf tenderness Back exam: Absent: CVA tenderness (R), CVA tenderness (L) Skin exam: Present: warm, dry, intact, normal color. Absent: rash Course Vital Signs 09/18/17 13:06 Temperature 98.9 F Pulse Rate 80 Respiratory 18 Rate Blood Pressure 114/70 O2 Sat by Pulse 98 Oximetry - Reevaluation(s) Reevaluation #1: 09/18/17 15:02 Date on comes were unable to be obtained by nurse from labor and delivery. I did personally do heart tones the heart rate of 155. Medical Decision Making - Medical Decision Making 27-year-old female presented for left hip pain, and vaginal discharge. Patient does have mild white thin discharge which appears to be normal leukorrhea. Patient's urinalysis is unremarkable. I did obtain a pelvic cultures and heart tones Labadie. Patient be discharged with follow-up with [facility] [employer] APPLICATOR. - Lab Data Lab Results 09/18/17 09/18/17 Range/Units 13:35 14:28 Urine Color Yellow Urine Appearance Cloudy H (Clear) Urine pH 6.5 (5.0-8.0) Ur Specific [place] 1.007 (1.001-1.035) Urine Protein Negative (Negative) Urine Glucose (UA) Negative (Negative) Urine Ketones Negative (Negative) Urine Blood Negative (Negative) Urine Nitrite Negative (Negative) Urine Bilirubin Negative (Negative) Urine Urobilinogen <2.0 (<2.0) mg/dL Ur Leukocyte Esterase Negative (Negative) Urine WBC 2 (0-5) /hpf Ur Squamous Epith Cells 16 H (0-4) /hpf Urine Bacteria Occasional H (None) /hpf Urine Mucus Rare H (None) /hpf Trichomonas Ag (Rapid) Negative (Negative) Disposition Clinical Impression: Left hip pain, Vaginal discharge, Disposition: HOME SELF-CARE Condition: Stable Instructions: Vaginal Discharge (ED) Additional Instructions: Please return to the Emergency Department if symptoms worsen or any other concerns. Referrals: Lizzy Edwards MD [Primary Care Provider] - 1-2 days Time of Disposition: 15:04
[2017-09-18 14:13] LABS: Appearance,Urine Cloudy (Clear); Bacteria,Urine Occasional /hpf; Bilirubin,Urine Negative (Negative); Glucose,Urine (UA) Negative (Negative); Ketones,Urine Negative (Negative); Leukocyte Esterase,Urine Negative (Negative); Mucus,Urine Rare /hpf; Nitrite,Urine Negative (Negative); PH, Urine 6.5 (5.0-8.0); Particle Count 6888; Protein,Urine Negative (Negative); Specific Gravity,Urine 1.007 (1.001-1.035); Squamous Epithelial Cell,Urine 16 /hpf (0-4); UA Billing (MACRO vs. MICRO) MICRO; Urobilinogen,Urine <2.0 mg/dL (<2.0); WBC,Urine 2 /hpf (0-5)
[2017-09-18 15:15] VITALS: BP 118/78; PULSE 85; TEMP 98.4
== END 2017-09-18 15:15 | disposition home or self-care (01) ==
LOC: EC 12:47
DX: O99.89 Other specified diseases and conditions complicating pregnancy, childbirth and the puerperium (principal); M25.552 Pain in left hip; N89.8 Other specified noninflammatory disorders of vagina; O26.892 Other specified pregnancy related conditions, second trimester; R10.32 Left lower quadrant pain; Z86.69 Personal history of other diseases of the nervous system and sense organs; Z90.49 Acquired absence of other specified parts of digestive tract; Z79.899 Other long term (current) drug therapy; Z88.8 Allergy status to other drugs, medicaments and biological substances; Z91.040 Latex allergy status; Z88.5 Allergy status to narcotic agent; Z91.018 Allergy to other foods; Z88.6 Allergy status to analgesic agent; Z91.030 Bee allergy status; Z3A.15 15 weeks gestation of pregnancy
CPT/HCPCS: 81001; 87070; 87086; 87205; 87491; 87591; 87808; 99283

== ENCOUNTER 2017-09-21 17:10 | Emergency (ER) | payer OTHER ==
[2017-09-21 17:18] VITALS: BP 127/77; PULSE 84; RESP 18; TEMP 98
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
== END 2017-09-21 18:12 | disposition home or self-care (01) ==
LOC: EC 17:10
DX: O99.89 Other specified diseases and conditions complicating pregnancy, childbirth and the puerperium (principal); M25.552 Pain in left hip; Z79.899 Other long term (current) drug therapy; Z86.69 Personal history of other diseases of the nervous system and sense organs; Z88.8 Allergy status to other drugs, medicaments and biological substances; Z91.040 Latex allergy status; Z88.5 Allergy status to narcotic agent; Z88.6 Allergy status to analgesic agent; Z91.030 Bee allergy status; Z91.018 Allergy to other foods; V18.9XXD Unspecified pedal cyclist injured in noncollision transport accident in traffic accident, subsequent encounter; Z3A.15 15 weeks gestation of pregnancy
CPT/HCPCS: 99283

== ENCOUNTER 2017-10-17 13:50 | Emergency (ER) | payer OTHER ==
[2017-10-17 15:09] LABS: Appearance,Urine Clear (Clear); Bilirubin,Urine Negative (Negative); Glucose,Urine (UA) Negative (Negative); Ketones,Urine 2+ (Negative); Leukocyte Esterase,Urine Negative (Negative); Nitrite,Urine Negative (Negative); PH, Urine 7.5 (5.0-8.0); Protein,Urine Negative (Negative); UA Billing (MACRO vs. MICRO) CHEM; Urobilinogen,Urine <2.0 mg/dL (<2.0)
--- NOTE | 2017-10-17 15:34 | ED ---
General Adult HPI - General Chief complaint: Abdominal Pain Stated complaint: abdominal pain/19 wks preg Time Seen by Provider: 10/17/17 14:45 Source: patient, RN notes reviewed, old records reviewed Mode of arrival: wheelchair Limitations: no limitations - History of Present Illness Initial comments: Female to the ER for evaluation of bowel pain. Patient is 19 weeks normal medical history no surgical history. Patient states his abdominal pain will most for complaints of . Denies any bleeding denies any pain in her abdomen, patient states her pain is right upper quadrant. Upper quadrant with radiation to her right flank radiation to her back. Mild nausea no vomiting no fevers. No history of history no diarrhea. Patient denies painful urination and again has no bleeding or loss fluid vaginal - Related Data Home Medications Medication Instructions Recorded Confirmed levETIRAcetam 750 mg PO BID 06/27/17 10/17/17 EPINEPHrine [Epipen 2-Vasile] 0.3 mg IM ONCE PRN 07/02/17 10/17/17 diphenhydrAMINE [Benadryl] 25 mg PO DAILY PRN 10/13/17 10/17/17 Previous Rx's Medication Instructions Recorded Acetaminophen Tab [Tylenol Tab] 500 mg PO Q4-6H PRN #30 tablet 09/21/17 Acetaminophen Tab [Tylenol Tab] 500 mg PO Q6H #50 tablet 10/13/17 Allergies Allergy/AdvReac Type Severity Reaction Status Date / Time buspirone HCl [From BuSpar] Allergy Rash/Hives Verified 10/17/17 15:12 Latex, Natural Rubber Allergy Rash/Hives Verified 10/17/17 15:12 morphine Allergy Anaphylaxis Verified 10/17/17 15:12 onion Allergy Anaphylaxis Verified 10/17/17 15:12 tramadol Allergy Rash/Hives Verified 10/17/17 15:12 venom-honey bee Allergy Swelling Verified 10/17/17 15:12 [bee venom (honey bee)] Review of Systems ROS Statement: Those systems with pertinent positive or pertinent negative responses have been documented in the HPI. ROS Other: All systems not noted in ROS Statement are negative. Past Medical History Past Medical History: Asthma, Fibromyalgia, Osteoarthritis (OA), Seizure Disorder Additional Past Medical History / Comment(s): scoliosis and arthritis; back pain , "Stress Seziures". Headaches History of Any Multi-Drug Resistant Organisms: None Reported Past Surgical History: Appendectomy, Section Additional Past Surgical History / Comment(s): d & c Past Anesthesia/Blood Transfusion Reactions: No Reported Reaction Past Psychological History: ADD/ADHD, Anxiety, Bipolar, Depression Smoking Status: Never smoker Past Alcohol Use History: None Reported Past Drug Use History: None Reported - Past Family History Mother Family Medical History: Fibromyalgia General Exam - General Exam Comments Initial Comments: Gravid uterus, no tenderness Limitations: no limitations General appearance: alert, in no apparent distress Head exam: Present: atraumatic, normocephalic, normal inspection Eye exam: Present: normal appearance, PERRL, EOMI. Absent: scleral icterus, conjunctival injection, periorbital swelling ENT exam: Present: normal exam, mucous membranes moist Neck exam: Present: normal inspection. Absent: tenderness, meningismus, lymphadenopathy Respiratory exam: Present: normal lung sounds bilaterally. Absent: respiratory distress, wheezes, rales, rhonchi, stridor Cardiovascular Exam: Present: regular rate, normal rhythm, normal heart sounds. Absent: systolic murmur, diastolic murmur, rubs, gallop, clicks GI/Abdominal exam: Present: soft, normal bowel sounds. Absent: distended, tenderness, guarding, rebound, rigid Extremities exam: Present: normal inspection, full ROM, normal capillary refill. Absent: tenderness, pedal edema, joint swelling, calf tenderness Back exam: Present: normal inspection Neurological exam: Present: alert, oriented X3, CN II-XII intact Psychiatric exam: Present: normal affect, normal mood Skin exam: Present: warm, dry, intact, normal color. Absent: rash Course Vital Signs 10/17/17 10/17/17 14:08 16:34 Temperature 98.7 F Pulse Rate 89 78 Respiratory 20 16 Rate Blood Pressure 150/76 119/71 O2 Sat by Pulse 99 99 Oximetry - Reevaluation(s) Reevaluation #1: 10/17/17 17:01 Patient is in no distress, able to tolerate oral fluids Medical Decision Making - Medical Decision Making 27 female DEL with nonspecific abdominal pain of . Patient will follow up with patient's OB as directed, patient to continue fluid hydration, at this time without fever, without abdominal tenderness. - Lab Data Lab Results 10/17/17 Range/Units 14:48 Urine Color Yellow Urine Appearance Clear (Clear) Urine pH 7.5 (5.0-8.0) Ur Specific [place] 1.010 (1.001-1.035) Urine Protein Negative (Negative) Urine Glucose (UA) Negative (Negative) Urine Ketones 2+ H (Negative) Urine Blood Negative (Negative) Urine Nitrite Negative (Negative) Urine Bilirubin Negative (Negative) Urine Urobilinogen <2.0 (<2.0) mg/dL Ur Leukocyte Esterase Negative (Negative) - Radiology Data Radiology results: report reviewed (Ultrasound gallbladder renal some bladder, negative for acute disease), image reviewed Disposition Clinical Impression: Abdominal pain during Disposition: HOME SELF-CARE Condition: Good Instructions: Abdominal Pain in (ED) Referrals: Aparna Liriano DO [Primary Care Provider] - 1-2 days
[2017-10-17 16:35] VITALS: RESP 16
--- NOTE | 2017-10-17 16:35 | US ---
EXAMINATION TYPE: US abd limited kidneys/bladder DATE OF EXAM: 10/17/2017 COMPARISON: None CLINICAL HISTORY: 27-year-old female with Pain. RUQ and back pain x couple weeks, gets worse after ea ting, patient is 19 weeks TECHNIQUE: Multiple sonographic images of the right upper quadrant, kidneys, and bladder are obtained . FINDINGS: EXAM MEASUREMENTS: Liver Length: 14.4 cm Gallbladder Wall: 0.2 cm CBD: 0.4 cm Right Kidney: 9.9 x 5.2 x 4.8 cm Left Kidney: 10.5 x 5.1 x 4.8 cm Pancreas: Only the pancreatic head and neck are seen. Remainder is obscured by bowel gas shadowing. Liver: Normal size with homogeneous echotexture. No focal lesion. Gallbladder: wnl CBD: visualized portions wnl, limited by overlying bowel gas Right Kidney: No hydronephrosis Left Kidney: No hydronephrosis Bladder: not fully distended, wnl as seen Bilateral Jets Seen yes IMPRESSION: Suboptimal visualization of the pancreas. Otherwise, unremarkable sonographic examination. No hydrone phrosis or liver abnormality.
[2017-10-17 17:24] VITALS: BP 131/59; PULSE 62; TEMP 98.5
== END 2017-10-17 17:31 | disposition home or self-care (01) ==
LOC: EC 13:50
DX: O99.89 Other specified diseases and conditions complicating pregnancy, childbirth and the puerperium (principal); R10.11 Right upper quadrant pain; R11.0 Nausea; O99.352 Diseases of the nervous system complicating pregnancy, second trimester; G40.909 Epilepsy, unspecified, not intractable, without status epilepticus; Z91.040 Latex allergy status; Z91.048 Other nonmedicinal substance allergy status; Z88.5 Allergy status to narcotic agent; Z88.6 Allergy status to analgesic agent; Z3A.19 19 weeks gestation of pregnancy; Z91.030 Bee allergy status; Z88.8 Allergy status to other drugs, medicaments and biological substances; Z91.018 Allergy to other foods; Z79.899 Other long term (current) drug therapy
CPT/HCPCS: 76705; 76770; 81003; 87086; 99284

== ENCOUNTER 2017-12-09 16:20 | Emergency (ER) | payer OTHER ==
[2017-12-09 17:15] VITALS: RESP 18
[2017-12-09] MEDS ORDERED: ACETAMINOPHEN TAB 500 MG TAB PO STA (18:43)
--- NOTE | 2017-12-09 18:47 | ED ---
General Adult HPI - General Chief complaint: Headache Stated complaint: Headache, Sinus Issues, 25 wks preg Time Seen by Provider: 12/09/17 18:24 Source: patient Mode of arrival: ambulatory Limitations: no limitations - History of Present Illness Initial comments: This is a 27 year old female who presents with a chief complaint of cough, congestion and sinus pressure which began 4 days ago. She began having migraine symptoms today and was concerned that it would trigger a seizure. She also complains of tender lymph nodes on her left neck. The patient states that Tylenol and Honey throat lozenges seemed to alleviate the symptoms. However, the patient is concerned because she began having a productive cough with green phlegm and green nasal discharge. She states she had a mild episode of vomiting , but it appeared to be just phlegm. She denies fever. The patient was cleared by mother/baby prior to coming to the ED. - Related Data Home Medications Medication Instructions Recorded Confirmed EPINEPHrine [Epipen 2-Vasile] 0.3 mg IM ONCE PRN 07/02/17 12/09/17 Albuterol Inhaler [Ventolin Hfa 2 puff INHALATION RT-Q6H PRN 12/09/17 12/09/17 Inhaler] levETIRAcetam [Keppra] 1,000 mg PO Q12HR 12/09/17 12/09/17 Previous Rx's Medication Instructions Recorded Acetaminophen Tab [Tylenol Tab] 500 mg PO Q4-6H PRN #30 tablet 09/21/17 Acetaminophen [Tylenol Extra 500 mg PO Q6HR #30 tablet 12/09/17 Strength] Amoxicillin 500 mg PO Q8H #30 capsule 12/09/17 Allergies Allergy/AdvReac Type Severity Reaction Status Date / Time buspirone HCl [From BuSpar] Allergy Rash/Hives Verified 12/09/17 18:49 Latex, Natural Rubber Allergy Rash/Hives Verified 12/09/17 18:49 morphine Allergy Anaphylaxis Verified 12/09/17 18:49 onion Allergy Anaphylaxis Verified 12/09/17 18:49 tramadol Allergy Rash/Hives Verified 12/09/17 18:49 venom-honey bee Allergy Swelling Verified 12/09/17 18:49 [bee venom (honey bee)] Review of Systems ROS Statement: Those systems with pertinent positive or pertinent negative responses have been documented in the HPI. ROS Other: All systems not noted in ROS Statement are negative. Past Medical History Past Medical History: Asthma, Fibromyalgia, Osteoarthritis (OA), Seizure Disorder Additional Past Medical History / Comment(s): scoliosis and arthritis; back pain , "Stress Seziures". Headaches History of Any Multi-Drug Resistant Organisms: None Reported Past Surgical History: Appendectomy, Section Additional Past Surgical History / Comment(s): d & c Past Anesthesia/Blood Transfusion Reactions: No Reported Reaction Past Psychological History: ADD/ADHD, Anxiety, Bipolar, Depression Smoking Status: Never smoker Past Alcohol Use History: None Reported Past Drug Use History: None Reported - Past Family History Mother Family Medical History: Fibromyalgia General Exam Limitations: no limitations General appearance: alert, in no apparent distress Head exam: Present: atraumatic, normocephalic, normal inspection Eye exam: Present: normal appearance, PERRL, EOMI. Absent: scleral icterus, conjunctival injection, periorbital swelling ENT exam: Present: normal exam, mucous membranes moist Neck exam: Present: normal inspection, other (Tender left tonsillar lymphadenopathy). Absent: tenderness, meningismus Respiratory exam: Present: normal lung sounds bilaterally. Absent: respiratory distress, wheezes, rales, rhonchi, stridor Cardiovascular Exam: Present: regular rate, normal rhythm, normal heart sounds. Absent: systolic murmur, diastolic murmur, rubs, gallop, clicks Extremities exam: Present: normal inspection, full ROM, normal capillary refill. Absent: tenderness, pedal edema, joint swelling, calf tenderness Back exam: Present: normal inspection Neurological exam: Present: alert, oriented X3, CN II-XII intact Psychiatric exam: Present: normal affect, normal mood Skin exam: Present: warm, dry, intact, normal color. Absent: rash Course Vital Signs 12/09/17 17:12 Temperature 99.2 F Pulse Rate 93 Respiratory 18 Rate Blood Pressure 124/59 O2 Sat by Pulse 99 Oximetry Medical Decision Making - Medical Decision Making This is a 27 year old female patient who presented to the ED with common cold symptoms of congestion, cough and headache. She was given Tylenol while in the ED to alleviate the symptoms. Physical exam findings revealed an acute sinusitis and common cold. Findings were discussed with the patient. She was given a 10 day course of Amoxicillin and instructed to take Tylenol every 6 hours as needed. heart tones were auscultated due to the patient did not have them auscultated by mother/baby prior to coming to the ED. Disposition Clinical Impression: Acute sinusitis, Cough Disposition: HOME SELF-CARE Condition: Stable Instructions: Sinusitis (ED), Upper Respiratory Infection (ED), Cold Symptoms ( ED) Additional Instructions: Please return to the Emergency Department if experiencing new or worsening symptoms. Prescriptions: Acetaminophen [Tylenol Extra Strength] 500 mg PO Q6HR #30 tablet Amoxicillin 500 mg PO Q8H #30 capsule Referrals: Aparna Liriano DO [Primary Care Provider] - 1-2 days Time of Disposition: 18:53
[2017-12-09 19:32] VITALS: BP 125/55; PULSE 78; TEMP 98.4
== END 2017-12-09 19:31 | disposition home or self-care (01) ==
LOC: EC 16:20
DX: O99.512 Diseases of the respiratory system complicating pregnancy, second trimester (principal); J01.90 Acute sinusitis, unspecified; R05 Cough; R09.81 Nasal congestion; O99.89 Other specified diseases and conditions complicating pregnancy, childbirth and the puerperium; M54.2 Cervicalgia; O99.352 Diseases of the nervous system complicating pregnancy, second trimester; G40.909 Epilepsy, unspecified, not intractable, without status epilepticus; Z3A.25 25 weeks gestation of pregnancy; Z79.899 Other long term (current) drug therapy; Z88.5 Allergy status to narcotic agent; Z91.018 Allergy to other foods; Z91.030 Bee allergy status; Z88.6 Allergy status to analgesic agent; Z91.040 Latex allergy status; Z88.8 Allergy status to other drugs, medicaments and biological substances
CPT/HCPCS: 99283

== ENCOUNTER 2017-12-23 20:25 | Outpatient (CLI) | payer OTHER ==
[2017-12-23] MEDS ORDERED: LACTATED RINGERS 1,000 ML IV SCH (20:45)
--- NOTE | 2018-01-13 10:42 | P.MSEPDOC ---
Presenting Problems - Arrival Data Date of Arrival on Unit: 12/23/17 Time of Arrival on Unit: 20:25 Mode of Transport: EMS - Complaint OB-Reason for Admission/Chief Complaint: Possible Onset of Labor Medical History - Information : 7 Para: 2 Term: 2 : 0 Abortions: Spontaneous or Elective: 4 Number of Living Children: 2 - Gestational Age Gestational Age by DAVON (wks/days): 27 Weeks and 4 Days - History Comment: Dr Ferrell pt Disposition - Disposition OB Disposition: Discharge to home ( labor precautions, increase stress at home noted) Discharge Date: 12/23/17 Discharge Time: 21:40 I agree with the RN Medical Screening Exam: Yes Risk & Benefit of care provided described in d/c instruction: Yes Diagnosis: FALSE LABOR BEFORE 37 COMPLETED WEEKS OF GEST, THIRD TRI
== END 2017-12-23 21:40 | disposition home or self-care (01) ==
LOC: FBPOP 20:25
PROVIDERS: ATTEND Obstetrics & Gynecology Obstetrics
DX: O47.03 False labor before 37 completed weeks of gestation, third trimester (principal); Z3A.27 27 weeks gestation of pregnancy
CPT/HCPCS: 96360; G0463; 99213; 99214

== ENCOUNTER → 2017-12-24 | Outpatient (CLI) | payer OTHER ==
--- NOTE | 2017-12-25 08:15 | US ---
EXAMINATION TYPE: US OB >= 14 wk fetus DATE OF EXAM: 12/24/2017 COMPARISON: None CLINICAL HISTORY: Z34.80 supervision of ,O99.352 Growth TECHNIQUE: Transabdominal (TA) GESTATIONAL AGE / DATING Dates by LMP: (27 weeks/6 days) EDC: 03/19/2018 Dates by Current Scan: (26 weeks/3 days) EDC: 03/29/2018 SURVEY IUP: Single PLACENTA: Anterior PREVIA: No Previa MARILEE: 12.4 cm Normal CERVICAL LENGTH (transabdominal: norm > 3.0cm): 4.8 cm BIOMETRY PRESENTATION: Vertex BPD: 6.3 cm 25 weeks / 3 days HC: 24.6 cm 26 weeks / 5 days AC: 24.1 cm 28 weeks / 3 days FL: 5.0 cm 26 weeks / 6 days ESTIMATED WEIGHT IN GRAMS: 1086 grams ESTIMATED WEIGHT IN LBS/OZ: 2 lbs. 6 oz. WEIGHT PERCENTAGE BASED ON ESTABLISHED DATES: 25.1% HC/AC: 1.0 Abnormal FL/AC: 20.8 Normal HEART RATE: 162 bpm RHYTHM: Normal Live single IUP measuring 26 weeks 3 days. Cephalic index is 69.7 which is slightly below the normal of 70.0 for a fetus this age. IMPRESSION: 1. Single intrauterine gestation estimated at 26 weeks 3 days gestation based on the current ultrasou nd measurements. This would have a calculated EDC of 03/29/2018. 2. Cardiac activity measures 162 bpm. 3. There are abnormal ratios of the head circumference to abdominal circumference likely related to m ild cephalic index measurement. Monitoring is recommended.
== END | disposition home or self-care (01) ==
LOC: RADUSWWP 15:48
PROVIDERS: ATTEND Obstetrics & Gynecology
DX: O99.352 Diseases of the nervous system complicating pregnancy, second trimester (principal); Z3A.26 26 weeks gestation of pregnancy
CPT/HCPCS: 76805

== ENCOUNTER → 2018-01-18 | Outpatient (CLI) | payer OTHER | LOC: LABWHC1 11:08 | PROVIDERS: ATTEND Psychiatry & Neurology Neurology | DX: G40.909 Epilepsy, unspecified, not intractable, without status epilepticus (principal) | CPT/HCPCS: 36415; 80177 ==

== ENCOUNTER → 2018-01-27 | Outpatient (CLI) | payer OTHER ==
--- NOTE | 2018-01-27 15:02 | US ---
EXAMINATION TYPE: US OB >= 14 wk fetus DATE OF EXAM: 01/27/2018 COMPARISON: US CLINICAL HISTORY: O99.353 NERVOUS SYSTEM DISEASE COMPLICATING PREG; patient stated having contraction s, taking anti seizure medication TECHNIQUE: Transabdominal (TA) GESTATIONAL AGE / DATING Physician Established: (32 weeks/5 days) EDC: 03/19/2018 Dates by LMP: (32 weeks/5 days) EDC: 03/19/2018 Dates by First Scan: (31 weeks/2 days) EDC: 03/29/2018 Dates by Current Scan: (30 weeks/4 days) EDC: 04/03/2018 Beta HCG (if available): NA SURVEY IUP: Single PLACENTA: Anterior PREVIA: No Previa MARILEE: 14.5 cm CERVICAL LENGTH (transabdominal: norm > 3.0cm): 3.7 cm BIOMETRY PRESENTATION: Vertex LIE: Longitudinal BPD: 7.4 cm 29 weeks / 6 days HC: 28.3 cm 31 weeks / 0 days AC: 28.7 cm 32 weeks / 5 days FL: 5.9 cm 30 weeks / 5 days ESTIMATED WEIGHT IN GRAMS: 1820.0 grams ESTIMATED WEIGHT IN LBS/OZ: 4 lbs. 0 oz. WEIGHT PERCENTAGE BASED ON ESTABLISHED DATES: 14.5% HC/AC: 0.99 Normal FL/AC: 20.49 Normal HEART RATE: 146 bpm RHYTHM: Normal IMPRESSION: Single viable intrauterine .
== END | disposition home or self-care (01) ==
LOC: RADUSWWP 14:03
PROVIDERS: ATTEND Obstetrics & Gynecology
DX: O99.353 Diseases of the nervous system complicating pregnancy, third trimester (principal); Z3A.30 30 weeks gestation of pregnancy
CPT/HCPCS: 76805

== ENCOUNTER → 2018-02-17 | Outpatient (CLI) | payer OTHER ==
--- NOTE | 2018-02-17 13:54 | US ---
EXAMINATION TYPE: US OB >= 14 wk fetus DATE OF EXAM: 02/17/2018 COMPARISON: US CLINICAL HISTORY: G40.909 Epilepsy unspecifiedGrowth, pt has epilepsy TECHNIQUE: Transabdominal (TA) GESTATIONAL AGE / DATING Physician Established: (35 weeks/5 days) EDC: 03/19/2018 Dates by LMP: (35 weeks/5 days) EDC: 03/19/2018 Dates by First Scan: (34 weeks/2 days) EDC: 03/29/2018 Dates by Current Scan: (33 weeks/3 days) EDC: 04/04/2018 SURVEY IUP: Single PLACENTA: Anterior PREVIA: No Previa MARILEE: 6.7 cm Oligohydramnios CERVICAL LENGTH (transabdominal: norm > 3.0cm): 3.1 cm BIOMETRY PRESENTATION: Vertex BPD: 8.2 cm 33 weeks / 0 days HC: 30.7 cm 34 weeks / 2 days AC: 31.4 cm 35 weeks / 2 days FL: 6.4 cm 33 weeks / 1 days ESTIMATED WEIGHT IN GRAMS: 2418 grams ESTIMATED WEIGHT IN LBS/OZ: 5 lbs. 5 oz. WEIGHT PERCENTAGE BASED ON ESTABLISHED DATES: 17% HC/AC: 0.98 Normal FL/AC: 20 Normal HEART RATE: 143 bpm RHYTHM: Normal Single, viable IUP, Growth parameters in 17th percentile, low MARILEE Results called to Madelyn at 's office at time of exam IMPRESSION: Single live intrauterine with a sonographic age of 33 weeks and 3 days and estimated date o f delivery of 04/04/2018, discordant with the physician established dates by menstrual age. Weight per centile based on established dates of 17% and oligohydramnios. Results called to Madelyn at [facility] at time of examby the combine inspector.
== END | disposition home or self-care (01) ==
LOC: RADUSWWP 13:11
PROVIDERS: ATTEND Obstetrics & Gynecology
DX: O99.353 Diseases of the nervous system complicating pregnancy, third trimester (principal); G40.909 Epilepsy, unspecified, not intractable, without status epilepticus; Z3A.33 33 weeks gestation of pregnancy
CPT/HCPCS: 76805

== ENCOUNTER → 2018-02-17 | Outpatient (CLI) | payer OTHER | END | disposition home or self-care (01) | LOC: LABWHC1 13:40 | PROVIDERS: ATTEND Psychiatry & Neurology Neurology | DX: G40.909 Epilepsy, unspecified, not intractable, without status epilepticus (principal) | CPT/HCPCS: 36415; 80177 ==

== ENCOUNTER → 2018-02-25 | Outpatient (CLI) | payer OTHER ==
--- NOTE | 2018-02-25 13:46 | US ---
EXAMINATION TYPE: US OB limited DATE OF EXAM: 02/25/2018 COMPARISON: 02/17/2018 CLINICAL HISTORY: 28-year-old female O99.353 Diseases Of The Nervous System; for MARILEE only today; EXAM PERFORMED: OB limited for MARILEE only FINDINGS: GESTATIONAL AGE / DATING Dates by Current Scan: (37 weeks/6 days)as verbalized by patient EDC: 03/12/2018 No growth performed on today?s study per ordering physician SURVEY PLACENTA: Anterior PREVIA: No Previa MARILEE: 9.7cm per [employer] Operator Technologist and 11.8cm per scanning technologist with average of 2 tech measures = 10.75cm. Ultrasound evidence of premature rupture of membranes? No CERVICAL LENGTH (transabdominal: norm > 3.0cm): 3.4 cm PRESENTATION: Vertex LIE: Longitudinal HEART RATE: 132 bpm RHYTHM: normal IMPRESSION: Exam performed only for MARILEE given the previously reported oligohydramnios (6.7 cm) on 02/17/2018. Curr ent measurement was 11.8 cm by the scanning technologist and repeated measurements by the supervisor unloading yielded 9.7 cm. Follow-up as clinically indicated.
== END | disposition home or self-care (01) ==
LOC: RADUSWWP 12:24
PROVIDERS: ATTEND Obstetrics & Gynecology
DX: O41.03X0 Oligohydramnios, third trimester, not applicable or unspecified (principal); Z3A.37 37 weeks gestation of pregnancy
CPT/HCPCS: 76815

== ENCOUNTER 2018-02-26 19:07 | Outpatient (CLI) | payer OTHER ==
[2018-02-26 20:48] VITALS: BP 115/63; PULSE 88; RESP 18; TEMP 98.5
--- NOTE | 2018-03-11 12:34 | P.MSEPDOC ---
Presenting Problems - Arrival Data Date of Arrival on Unit: 02/26/18 Time of Arrival on Unit: 19:07 Mode of Transport: Wheelchair - Complaint OB-Reason for Admission/Chief Complaint: Possible Onset of Labor, Pain Comment: pt states pain started around 1850, unsure if contractions Medical History - Information : 7 Para: 2 Term: 2 : 0 Abortions: Spontaneous or Elective: 4 Number of Living Children: 2 - Gestational Age Gestational Age by DAVON (wks/days): 36 Weeks and 6 Days - History Complications: Prior , Other Comment: pt DOM pt of dr lomeli. states baby's heart has an "arch" in it Review of Systems - Review of Systems Constitutional: No problems Breast: No problems ENT: No problems Cardiovascular: No problems Respiratory: No problems Gastrointestinal: No problems Genitourinary: No problems Musculoskeletal: No problems Neurological: No problems Skin: No problems Vital Signs - Temperature Temperature: 98.5 F Temperature Source: Temporal Artery Scan - Pulse Right Sitting Brachial Pulse Rate: 88 Pulse Assessment Method: Automatic Cuff - Respirations Respiratory Rate: 18 Oxygen Delivery Method: Room Air - Blood Pressure Right Arm Sitting Blood Pressure: 115/63 Blood Pressure Mean: 80 Blood Pressure Source: Automatic Cuff Medical Screen Scoring (Pre) - Cervical Exam Dilation: 0 cm = 0 Membranes: Intact - Uterine Contractions Frequency: > or = 36 weeks =2 Duration: > 40 seconds = 2 - Maternal Vital Signs Maternal Temperature: N/A Signs of Preeclampsia: N/A Maternal Respirations: N/A - Pain Assessment Pain Location and Character: Lower, Abdomen Pain Scale Used: Numeric (1 - 10) Pain Intensity: 10 Pain Management Goal: 3 Pain Description: Cramping, Sharp Pain Radiation Location: n/a Pain Frequency: Intermittent Pain Duration: 7 Pain Duration Units: Minutes Pain Behavior: Crying, Facial Grimacing, Moving Slowly, Vocalization Pain Aggravating Factors: Activity, Bending - Maternal Trauma Maternal Trauma: N/A - Assessment Baseline FHR: 130 Heart Rate - NICHD Category: Category I (Normal) = 0 NST: Reactive - Total Score Total Score (Pre): 4 - Level of Risk Level of Risk: Low (0-5) Physician Notification (Pre) - Physician Notified Physician Notified Date: 02/26/18 Physician Notified Time: 20:25 Physician/Practitioner Notifed:: azul Spoke With: azul New Order Received: Yes - Notification Comment Comment: d/c home, increase fluid, no intercourse, see dr lomeli tomorrow Disposition - Disposition OB Disposition: Discharge to home Discharge Date: 02/26/18 Discharge Time: 20:25 I agree with the RN Medical Screening Exam: Yes Risk & Benefit of care provided described in d/c instruction: Yes Diagnosis: FALSE LABOR BEFORE 37 COMPLETED WEEKS OF GEST, THIRD TRI
== END 2018-02-26 20:25 | disposition home or self-care (01) ==
LOC: FBPOP 19:07
PROVIDERS: ATTEND Obstetrics & Gynecology
DX: O47.03 False labor before 37 completed weeks of gestation, third trimester (principal); Z3A.36 36 weeks gestation of pregnancy
CPT/HCPCS: 59025; G0463; 99213

== ENCOUNTER → 2018-03-27 | Outpatient (CLI) | payer OTHER | END | disposition home or self-care (01) | LOC: LABWHC1 11:42 | PROVIDERS: ATTEND Psychiatry & Neurology Neurology | DX: G40.909 Epilepsy, unspecified, not intractable, without status epilepticus (principal) | CPT/HCPCS: 36415; 80177 ==

== ENCOUNTER 2018-05-14 09:50 | Emergency (ER) | payer OTHER ==
[2018-05-14] MEDS ORDERED: METOCLOPRAMIDE 5 MG/ML 2 ML VIAL IVP STA (10:22)
[2018-05-14] MEDS ORDERED: diphenhydrAMINE 50 MG/ML 1 ML VIAL IVP STA (10:22)
[2018-05-14] MEDS ORDERED: SODIUM CHLORIDE 0.9% 1,000 ML IV STA (10:22)
[2018-05-14] MEDS ORDERED: ACETAMINOPHEN TAB 500 MG TAB PO STA (10:24)
--- NOTE | 2018-05-14 10:27 | ED ---
Headache HPI - General Chief Complaint: Headache Stated Complaint: Headache Time Seen by Provider: 05/14/18 10:00 Source: RN notes reviewed, old records reviewed Mode of arrival: wheelchair Limitations: no limitations - History of Present Illness Initial Comments: 20-year-old female presents emergency Department chief complaint of headache and seizure activity. Patient states that she is 2 months. Patient states that she was at work yesterday started to feel dizzy and lightheaded. She sat down. Proceeded to have "she describes as a mini seizure. Patient has had no fevers or chills. She states that today when she was getting up from going to the bathroom from a sitting to standing position she had a syncopal episode fell and hit her head. Patient with some headache on the left side as well as neck pain. Denies any fevers or chills. Denies any other symptoms. - Related Data Home Medications Medication Instructions Recorded Confirmed levETIRAcetam [Keppra] 1,000 mg PO Q12HR 12/09/17 05/14/18 Cariprazine HCl [Vraylar] 6 mg PO DAILY 05/14/18 05/14/18 Allergies Allergy/AdvReac Type Severity Reaction Status Date / Time buspirone HCl [From BuSpar] Allergy Rash/Hives Verified 05/14/18 10:45 Latex, Natural Rubber Allergy Rash/Hives Verified 05/14/18 10:45 morphine Allergy Anaphylaxis Verified 05/14/18 10:45 onion Allergy Anaphylaxis Verified 05/14/18 10:45 tramadol Allergy Rash/Hives Verified 05/14/18 10:45 venom-honey bee Allergy Swelling Verified 05/14/18 10:45 [bee venom (honey bee)] Review of Systems ROS Statement: Those systems with pertinent positive or pertinent negative responses have been documented in the HPI. ROS Other: All systems not noted in ROS Statement are negative. Past Medical History Past Medical History: Asthma, Fibromyalgia, Osteoarthritis (OA), Seizure Disorder Additional Past Medical History / Comment(s): scoliosis and arthritis; back pain , "Stress Seziures". Headaches History of Any Multi-Drug Resistant Organisms: None Reported Past Surgical History: Appendectomy, Section Additional Past Surgical History / Comment(s): d & c Past Anesthesia/Blood Transfusion Reactions: No Reported Reaction Past Psychological History: ADD/ADHD, Anxiety, Bipolar, Depression Smoking Status: Never smoker Past Alcohol Use History: None Reported Past Drug Use History: None Reported - Past Family History Mother Family Medical History: Fibromyalgia General Exam - General Exam Comments Initial Comments: This is a 28-year-old female. Alert and oriented. No significant distress. Limitations: no limitations General appearance: alert, in no apparent distress Head exam: Present: normocephalic, normal inspection. Absent: atraumatic ( Tenderness over the left parietal scalp.) Eye exam: Present: normal appearance, PERRL, EOMI. Absent: scleral icterus, conjunctival injection, periorbital swelling ENT exam: Present: normal exam, mucous membranes moist, TM's normal bilaterally Neck exam: Present: normal inspection. Absent: tenderness, meningismus, lymphadenopathy Respiratory exam: Present: normal lung sounds bilaterally. Absent: respiratory distress, wheezes, rales, rhonchi, stridor Cardiovascular Exam: Present: regular rate, normal rhythm, normal heart sounds. Absent: systolic murmur, diastolic murmur, rubs, gallop, clicks GI/Abdominal exam: Present: soft, normal bowel sounds. Absent: distended, tenderness, guarding, rebound, rigid Extremities exam: Present: normal inspection, full ROM, normal capillary refill. Absent: tenderness, pedal edema, joint swelling, calf tenderness Back exam: Present: normal inspection Neurological exam: Present: alert, oriented X3, CN II-XII intact Psychiatric exam: Present: normal affect, normal mood Skin exam: Present: warm, dry, intact, normal color. Absent: rash Course Vital Signs 05/14/18 09:54 Temperature 97.7 F Pulse Rate 78 Respiratory 20 Rate Blood Pressure 124/76 O2 Sat by Pulse 99 Oximetry Medical Decision Making - Medical Decision Making 20-year-old female presents for his from today chief complaint of possible seizure activity. Patient states that she's been taking her Keppra as prescribed. Patient states she had an episode she felt lightheaded and dizzy at work. She states that she went home. She had an episode where she had a syncopal episode after would've the bathroom today fell and hit her head. At this time CT brain and C-spine is negative for any acute process. They do report diverting he is suggesting cirrhosis." Physical exam and do not notice any significant strabismus. Patient labwork was reviewed and unremarkable. At this time I'll discharge the Patient follow-up with her neurologist. Given a note for work. Continuing her Keppra. All questions answered return parameters were discussed. - Lab Data Result diagrams: 05/14/18 10:30 05/14/18 10:30 Lab Results 05/14/18 05/14/18 05/14/18 Range/Units 10:30 10:30 10:30 WBC 5.2 (3.8-10.6) k/uL RBC 4.72 (3.80-5.40) m/uL Hgb 11.2 L (11.4-16.0) gm/dL Hct 36.1 (34.0-46.0) % MCV 76.4 L (80.0-100.0) fL MCH 23.7 L (25.0-35.0) pg MCHC 31.0 (31.0-37.0) g/dL RDW 15.6 H (11.5-15.5) % Plt Count 353 (150-450) k/uL Neutrophils % 64 % Lymphocytes % 23 % Monocytes % 6 % Eosinophils % 5 % Basophils % 1 % Neutrophils # 3.3 (1.3-7.7) k/uL Lymphocytes # 1.2 (1.0-4.8) k/uL Monocytes # 0.3 (0-1.0) k/uL Eosinophils # 0.3 (0-0.7) k/uL Basophils # 0.0 (0-0.2) k/uL Hypochromasia Moderate Microcytosis Slight Sodium 139 (137-145) mmol/L Potassium 4.1 (3.5-5.1) mmol/L Chloride 110 H (98-107) mmol/L Carbon Dioxide 20 L (22-30) mmol/L Anion Gap 9 mmol/L BUN 9 (7-17) mg/dL Creatinine 0.76 (0.52-1.04) mg/dL Est GFR (CKD-EPI)AfAm >90 (>60 ml/min/1.73 sqM) Est GFR (CKD-EPI)NonAf >90 (>60 ml/min/1.73 sqM) Glucose 77 (74-99) mg/dL Calcium 9.0 (8.4-10.2) mg/dL Total Bilirubin 1.1 (0.2-1.3) mg/dL AST 25 (14-36) U/L ALT 36 (9-52) U/L Alkaline Phosphatase 60 (38-126) U/L Total Protein 6.3 (6.3-8.2) g/dL Albumin 3.8 (3.5-5.0) g/dL Urine Color Urine Appearance (Clear) Urine pH (5.0-8.0) Ur Specific [place] (1.001-1.035) Urine Protein (Negative) Urine Glucose (UA) (Negative) Urine Ketones (Negative) Urine Blood (Negative) Urine Nitrite (Negative) Urine Bilirubin (Negative) Urine Urobilinogen (<2.0) mg/dL Ur Leukocyte Esterase (Negative) Urine RBC (0-5) /hpf Urine WBC (0-5) /hpf Ur Squamous Epith Cells (0-4) /hpf Urine Bacteria (None) /hpf Urine Opiates Screen Not Detected (NotDetected) Ur Oxycodone Screen Not Detected (NotDetected) Urine Methadone Screen Not Detected (NotDetected) Ur Propoxyphene Screen Not Detected (NotDetected) Ur Barbiturates Screen Not Detected (NotDetected) U Tricyclic Antidepress Not Detected (NotDetected) Ur Phencyclidine Scrn Not Detected (NotDetected) Ur Amphetamines Screen Not Detected (NotDetected) U Methamphetamines Scrn Not Detected (NotDetected) U Benzodiazepines Scrn Not Detected (NotDetected) Urine Cocaine Screen Not Detected (NotDetected) U Marijuana (THC) Screen Not Detected (NotDetected) 05/14/18 Range/Units 10:30 WBC (3.8-10.6) k/uL RBC (3.80-5.40) m/uL Hgb (11.4-16.0) gm/dL Hct (34.0-46.0) % MCV (80.0-100.0) fL MCH (25.0-35.0) pg MCHC (31.0-37.0) g/dL RDW (11.5-15.5) % Plt Count (150-450) k/uL Neutrophils % % Lymphocytes % % Monocytes % % Eosinophils % % Basophils % % Neutrophils # (1.3-7.7) k/uL Lymphocytes # (1.0-4.8) k/uL Monocytes # (0-1.0) k/uL Eosinophils # (0-0.7) k/uL Basophils # (0-0.2) k/uL Hypochromasia Microcytosis Sodium (137-145) mmol/L Potassium (3.5-5.1) mmol/L Chloride (98-107) mmol/L Carbon Dioxide (22-30) mmol/L Anion Gap mmol/L BUN (7-17) mg/dL Creatinine (0.52-1.04) mg/dL Est GFR (CKD-EPI)AfAm (>60 ml/min/1.73 sqM) Est GFR (CKD-EPI)NonAf (>60 ml/min/1.73 sqM) Glucose (74-99) mg/dL Calcium (8.4-10.2) mg/dL Total Bilirubin (0.2-1.3) mg/dL AST (14-36) U/L ALT (9-52) U/L Alkaline Phosphatase (38-126) U/L Total Protein (6.3-8.2) g/dL Albumin (3.5-5.0) g/dL Urine Color Light Yellow Urine Appearance Cloudy H (Clear) Urine pH 6.0 (5.0-8.0) Ur Specific [place] 1.006 (1.001-1.035) Urine Protein Negative (Negative) Urine Glucose (UA) Negative (Negative) Urine Ketones Negative (Negative) Urine Blood Negative (Negative) Urine Nitrite Negative (Negative) Urine Bilirubin Negative (Negative) Urine Urobilinogen <2.0 (<2.0) mg/dL Ur Leukocyte Esterase Negative (Negative) Urine RBC <1 (0-5) /hpf Urine WBC 1 (0-5) /hpf Ur Squamous Epith Cells 5 H (0-4) /hpf Urine Bacteria Rare H (None) /hpf Urine Opiates Screen (NotDetected) Ur Oxycodone Screen (NotDetected) Urine Methadone Screen (NotDetected) Ur Propoxyphene Screen (NotDetected) Ur Barbiturates Screen (NotDetected) U Tricyclic Antidepress (NotDetected) Ur Phencyclidine Scrn (NotDetected) Ur Amphetamines Screen (NotDetected) U Methamphetamines Scrn (NotDetected) U Benzodiazepines Scrn (NotDetected) Urine Cocaine Screen (NotDetected) U Marijuana (THC) Screen (NotDetected) - Radiology Data Radiology results: report reviewed No acute cranial abnormality. No acute fracture melena cervical spine. Moderate chronic ethmoid and sphenoid sinus. Eversion suggesting overlying strabismus. Disposition Clinical Impression: Syncopal episodes, History of seizure, Migraine Disposition: HOME SELF-CARE Condition: Good Instructions: Acute Headache (ED) Additional Instructions: Patient advised to have close follow-up with primary care physician and neurologist. Continue Keppra. Make sure he stay hydrated. Return to the emergency department if any alarming signs or symptoms occur. Is patient prescribed a controlled substance at d/c from ED?: No When asked, does pt state using other controlled substances?: No If prescribed controlled substance>3 days was MAPS reviewed?: No If opioid is for acute pain is fill amount 7 days or less?: No If Rx opioid, was Start Talking consent form obtained?: No Referrals: Aparna Liriano DO [Primary Care Provider] - 1-2 days Time of Disposition: 12:34
[2018-05-14 10:45] LABS: Basophils % (A) 1 %; Eosinophils # (A) 0.3 k/uL (0-0.7); Eosinophils % (A) 5 %; HCT 36.1 % (34.0-46.0); HGB 11.2 gm/dL (11.4-16.0); Hypochromasia Moderate; Lymphocytes # (A) 1.2 k/uL (1.0-4.8); Lymphocytes % (A) 23 %; MCH 23.7 pg (25.0-35.0); MCV 76.4 fL (80.0-100.0); Mean Platelet Volume 6.2; Microcytosis Slight; Monocytes # (A) 0.3 k/uL (0-1.0); Monocytes % (A) 6 %; Neutrophils # (A) 3.3 k/uL (1.3-7.7); Neutrophils % (A) 64 %; Platelet Count 353 k/uL (150-450); RBC 4.72 m/uL (3.80-5.40); RDW 15.6 % (11.5-15.5); WBC 5.2 k/uL (3.8-10.6)
[2018-05-14 10:56] LABS: ALT 36 U/L (9-52); AST 25 U/L (14-36); Albumin 3.8 g/dL (3.5-5.0); Alkaline Phosphatase 60 U/L (38-126); Anion Gap 9 mmol/L; Appearance,Urine Cloudy (Clear); Bacteria,Urine Rare /hpf; Bilirubin,Urine Negative (Negative); Blood Urea Nitrogen 9 mg/dL (7-17); Blood,Urine Negative (Negative); Carbon Dioxide 20 mmol/L (22-30); Chloride 110 mmol/L (98-107); Color,Urine Light Yellow; Glucose 77 mg/dL (74-99); Glucose,Urine (UA) Negative (Negative); Ketones,Urine Negative (Negative); Leukocyte Esterase,Urine Negative (Negative); Nitrite,Urine Negative (Negative); Potassium 4.1 mmol/L (3.5-5.1); Protein,Urine Negative (Negative); RBC,Urine <1 /hpf (0-5); Sodium 139 mmol/L (137-145); Specific Gravity,Urine 1.006 (1.001-1.035); Squamous Epithelial Cell,Urine 5 /hpf (0-4); Total Bilirubin 1.1 mg/dL (0.2-1.3); Total Protein 6.3 g/dL (6.3-8.2); Urobilinogen,Urine <2.0 mg/dL (<2.0); WBC,Urine 1 /hpf (0-5)
[2018-05-14 11:09] LABS: Amphetamine Screen,Urine Not Detected (NotDetected); Barbiturate Screen,Urine Not Detected (NotDetected); Benzodiazepines Screen,Urine Not Detected (NotDetected); Cocaine Screen,Urine Not Detected (NotDetected); Methadone Screen, Urine Not Detected (NotDetected); Opiate Screen,Urine Not Detected (NotDetected); Oxycodone Screen, Urine Not Detected (NotDetected); Phencyclidine Screen,Urine Not Detected (NotDetected); Tricyclic Antidepressant,Urine Not Detected (NotDetected); Urn Cannabinoid Scrn Not Detected (NotDetected)
--- NOTE | 2018-05-14 12:31 | CT ---
EXAMINATION TYPE: CT brain marya wo con DATE OF EXAM: 05/14/2018 COMPARISON: 06/22/2011 HISTORY: 28-year-old female headache for 1 day, fall CT DLP: Brain (1029.90) and C-spine (439.20) mGycm Automated exposure control for dose reduction was used. Technique: Examination of the head was done in axial plane without intravenous contrast. Coronal and sagittal reconstructions performed. CT of the cervical spine was obtained in axial plane without intravenous injection of contrast mater ial. Coronal and sagittal reformatted images were obtained from the axial views for evaluation of f ractures, spinal alignment and canal. FINDINGS: Head: There is no evidence of acute intracranial hemorrhage, acute ischemic changes, mass, mass-effect, or extra-axial fluid collection. There is no effacement of cerebral sulci or basal subarachnoid cister ns. There is no hydrocephalus. There is no midline shift. Hazel-white matter distinction is preserv ed. Moderate mucosal thickening ethmoid air cells. Mild mucosal thickening within the sphenoid sinuses. M astoid air cells well pneumatized. Patient's gaze is divergent suggesting underlying strabismus. Cervical spine: The alignment of the cervical spine is normal on coronal and reformatted images. There is no cranial vertebral abnormality. Fracture of the cervical spine is not seen. Assessment of the spinal canal fro m C5 and below is limited due to artifact from the patient's shoulders. No significant neuroforaminal stenosis. Left palatine tonsil calcification suggests sequela of prior infection. Sagittal and coronal reformatted images confirm above findings. COMBINED IMPRESSION: 1. No acute intracranial abnormality seen. 2. No acute fracture or malalignment of the cervical spine. 3. Moderate chronic ethmoid and sphenoid sinus disease. 4. Divergent gaze suggests underlying strabismus.
[2018-05-14 12:35] VITALS: BP 116/58; PULSE 67; RESP 18
[2018-05-14 12:57] VITALS: TEMP 98.3
== END 2018-05-14 12:45 | disposition home or self-care (01) ==
LOC: EC 09:50
DX: R55 Syncope and collapse (principal); G40.909 Epilepsy, unspecified, not intractable, without status epilepticus; G43.909 Migraine, unspecified, not intractable, without status migrainosus; J45.909 Unspecified asthma, uncomplicated; F31.9 Bipolar disorder, unspecified; F90.9 Attention-deficit hyperactivity disorder, unspecified type; F41.9 Anxiety disorder, unspecified; Z79.899 Other long term (current) drug therapy; Z88.5 Allergy status to narcotic agent; Z91.018 Allergy to other foods; Z91.030 Bee allergy status; Z88.8 Allergy status to other drugs, medicaments and biological substances
CPT/HCPCS: 36415; 80053; 80177; 85025; 81001; 80306; 72125; 70450; 99284; 96374; 96375; 96361; J1200; J2765

== ENCOUNTER → 2018-06-03 | Outpatient (CLI) | payer OTHER ==
--- NOTE | 2018-06-03 14:56 | CT ---
EXAMINATION TYPE: CT abdomen pelvis w con DATE OF EXAM: 06/03/2018 HISTORY: Left sided abdominal pain with bloody stools. CT DLP: 1301mGycm Automated Exposure Control for Dose Reduction was Utilized. CONTRAST: CT scan of the abdomen and pelvis is performed with oral and with IV Contrast, patient injected with 100 mL of Isovue M300. COMPARISON: CT abdomen and pelvis March 25, 2014 FINDINGS: LUNG BASES: No significant abnormality is appreciated. LIVER/GB: No significant abnormality is appreciated. PANCREAS: No significant abnormality is seen. SPLEEN: No significant abnormality is seen. ADRENALS: No significant abnormality is seen. KIDNEYS: No significant abnormality is seen. BOWEL: Oral contrast reaches level of splenic flexure. There is no suspicious small or large bowel di latation identified. There is some redundancy of the sigmoid colon. No suspicious wall thickening is seen. UTERUS/ADNEXA: Anteverted uterus is present. Both ovaries are seen in the adnexa. Occasional right pe lvic phlebolith is present. LYMPH NODES: No greater than 1cm abdominal or pelvic lymph nodes are appreciated. OSSEOUS STRUCTURES: No significant abnormality is seen. OTHER: Stable small fat-containing umbilical hernia is noted. IMPRESSION: No significant finding is seen to account for patient's clinical symptoms of left-sided p ain and bloody stools. No significant change from prior.
== END | disposition home or self-care (01) ==
LOC: RADCTMAIN 12:31
PROVIDERS: ATTEND Family Medicine
DX: K92.1 Melena (principal); R10.84 Generalized abdominal pain
CPT/HCPCS: 74177; Q9967

== ENCOUNTER 2018-06-06 04:16 | Emergency (ER) | payer OTHER ==
[2018-06-06 04:25] VITALS: RESP 18
[2018-06-06] MEDS ORDERED: SODIUM CHLORIDE 0.9% 1,000 ML IV STA (04:36)
[2018-06-06] MEDS ORDERED: levETIRAcetam 500 MG TAB PO STA (04:38)
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
[2018-06-06 05:05] LABS: Appearance,Urine Clear (Clear); Basophils % (A) 0 %; Bilirubin,Urine Negative (Negative); Blood,Urine Negative (Negative); Color,Urine Light Yellow; Eosinophils # (A) 0.3 k/uL (0-0.7); Eosinophils % (A) 4 %; Glucose,Urine (UA) Negative (Negative); HCT 32.6 % (34.0-46.0); HGB 10.6 gm/dL (11.4-16.0); Hypochromasia Slight; Ketones,Urine Negative (Negative); Leukocyte Esterase,Urine Negative (Negative); Lymphocytes # (A) 1.4 k/uL (1.0-4.8); Lymphocytes % (A) 18 %; MCHC 32.4 g/dL (31.0-37.0); MCV 74.1 fL (80.0-100.0); Mean Platelet Volume 6.4; Microcytosis Slight; Monocytes # (A) 0.4 k/uL (0-1.0); Monocytes % (A) 5 %; Neutrophils # (A) 5.5 k/uL (1.3-7.7); Neutrophils % (A) 72 %; Nitrite,Urine Negative (Negative); PH, Urine 5.5 (5.0-8.0); Platelet Count 269 k/uL (150-450); Protein,Urine Negative (Negative); RDW 15.3 % (11.5-15.5); Specific Gravity,Urine 1.007 (1.001-1.035); Urobilinogen,Urine <2.0 mg/dL (<2.0); WBC 7.6 k/uL (3.8-10.6)
[2018-06-06 05:14] LABS: Amphetamine Screen,Urine Not Detected (NotDetected); Barbiturate Screen,Urine Not Detected (NotDetected); Benzodiazepines Screen,Urine Not Detected (NotDetected); Cocaine Screen,Urine Not Detected (NotDetected); Methadone Screen, Urine Not Detected (NotDetected); Opiate Screen,Urine Not Detected (NotDetected); Oxycodone Screen, Urine Not Detected (NotDetected); Phencyclidine Screen,Urine Not Detected (NotDetected); Tricyclic Antidepressant,Urine Not Detected (NotDetected); Urn Cannabinoid Scrn Not Detected (NotDetected)
[2018-06-06 05:17] LABS: ALT 46 U/L (9-52); AST 26 U/L (14-36); Albumin 3.7 g/dL (3.5-5.0); Alcohol <10 mg/dL; Alkaline Phosphatase 61 U/L (38-126); Anion Gap 8 mmol/L; Blood Urea Nitrogen 10 mg/dL (7-17); Calcium 9.1 mg/dL (8.4-10.2); Carbon Dioxide 22 mmol/L (22-30); Chloride 110 mmol/L (98-107); Glucose 99 mg/dL (74-99); Sodium 140 mmol/L (137-145); Total Bilirubin 0.4 mg/dL (0.2-1.3); Total Protein 6.4 g/dL (6.3-8.2)
[2018-06-06 05:24] LABS: Prothrombin Time 10.2 sec (9.0-12.0)
[2018-06-06 05:34] LABS: Creatine Kinase MB 0.8 ng/mL (0.0-2.4)
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
[2018-06-06 05:58] LABS: Partial Thromboplastin Time 19.2 sec (22.0-30.0)
[2018-06-06 06:57] VITALS: BP 128/65; PULSE 85; TEMP 97.6
[2018-06-06] MEDS ORDERED: levETIRAcetam 500 MG TAB PO SCH (21:00)
== END 2018-06-06 06:56 | disposition home or self-care (01) ==
LOC: EC 04:16
DX: S61.411A Laceration without foreign body of right hand, initial encounter (principal); S01.319A Laceration without foreign body of unspecified ear, initial encounter; G40.909 Epilepsy, unspecified, not intractable, without status epilepticus; F31.9 Bipolar disorder, unspecified; F90.9 Attention-deficit hyperactivity disorder, unspecified type; F41.9 Anxiety disorder, unspecified; Z79.899 Other long term (current) drug therapy; Z91.040 Latex allergy status; Z91.030 Bee allergy status; Z91.018 Allergy to other foods; Z88.5 Allergy status to narcotic agent; Z88.8 Allergy status to other drugs, medicaments and biological substances; Y04.0XXA Assault by unarmed brawl or fight, initial encounter; Y92.009 Unspecified place in unspecified non-institutional (private) residence as the place of occurrence of the external cause
CPT/HCPCS: 36415; 70450; 72125; 80053; 80306; 80320; 81003; 81025; 82550; 82553; 83605; 85025; 85610; 85730; 96360; 99285

== ENCOUNTER 2018-06-11 17:18 | Emergency (ER) | payer OTHER ==
[2018-06-11] MEDS ORDERED: SODIUM CHLORIDE 0.9% 1,000 ML IV STA (17:57)
[2018-06-11] MEDS ORDERED: KETOROLAC 30 MG/ML 1 ML VIAL IVP STA (18:10)
[2018-06-11] MEDS ORDERED: PANTOPRAZOLE 40 MG/10 ML VIAL IVP STA (18:10)
[2018-06-11] MEDS ORDERED: DICYCLOMINE 10 MG/ML 2 ML AMP IM STA (18:10)
[2018-06-11 18:47] LABS: Basophils % (A) 1 %; Eosinophils # (A) 0.2 k/uL (0-0.7); Eosinophils % (A) 3 %; HCT 35.9 % (34.0-46.0); HGB 11.5 gm/dL (11.4-16.0); Hypochromasia Moderate; Lymphocytes # (A) 1.5 k/uL (1.0-4.8); Lymphocytes % (A) 23 %; MCH 24.1 pg (25.0-35.0); MCHC 31.9 g/dL (31.0-37.0); MCV 75.6 fL (80.0-100.0); Mean Platelet Volume 6.5; Microcytosis Slight; Monocytes # (A) 0.4 k/uL (0-1.0); Monocytes % (A) 6 %; Neutrophils # (A) 4.3 k/uL (1.3-7.7); Neutrophils % (A) 66 %; Platelet Count 298 k/uL (150-450); RBC 4.76 m/uL (3.80-5.40); RDW 15.9 % (11.5-15.5); WBC 6.5 k/uL (3.8-10.6)
[2018-06-11 18:50] LABS: Appearance,Urine Clear (Clear); Bacteria,Urine Rare /hpf; Bilirubin,Urine Negative (Negative); Blood,Urine Negative (Negative); Color,Urine Light Yellow; Glucose,Urine (UA) Negative (Negative); Ketones,Urine Negative (Negative); Leukocyte Esterase,Urine Trace (Negative); Nitrite,Urine Negative (Negative); PH, Urine 5.5 (5.0-8.0); Protein,Urine Negative (Negative); RBC,Urine <1 /hpf (0-5); Specific Gravity,Urine 1.017 (1.001-1.035); Squamous Epithelial Cell,Urine 5 /hpf (0-4); Urobilinogen,Urine <2.0 mg/dL (<2.0); WBC,Urine 8 /hpf (0-5)
[2018-06-11 18:59] LABS: ALT 42 U/L (9-52); AST 26 U/L (14-36); Albumin 4.2 g/dL (3.5-5.0); Alkaline Phosphatase 57 U/L (38-126); Amylase 67 U/L (30-110); Anion Gap 7 mmol/L; Blood Urea Nitrogen 19 mg/dL (7-17); Calcium 9.4 mg/dL (8.4-10.2); Carbon Dioxide 23 mmol/L (22-30); Chloride 109 mmol/L (98-107); Glucose 78 mg/dL (74-99); Lipase 37 U/L (23-300); Potassium 4.2 mmol/L (3.5-5.1); Sodium 139 mmol/L (137-145); Total Bilirubin 0.6 mg/dL (0.2-1.3); Total Protein 6.9 g/dL (6.3-8.2)
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
[2018-06-11 19:37] VITALS: BP 130/71; PULSE 89; RESP 18; TEMP 99
[2018-06-13 14:35] LABS: C. trachomatis,PCR Negative (Neg,Equiv); Chlamydia trachomatis Source Urine; N. gonorrhoeae,PCR Negative (Neg,Equiv); Neisseria Source Urine
== END 2018-06-11 19:36 | disposition home or self-care (01) ==
LOC: EC 17:18
DX: K58.9 Irritable bowel syndrome, unspecified (principal); N39.0 Urinary tract infection, site not specified; G40.909 Epilepsy, unspecified, not intractable, without status epilepticus; F31.9 Bipolar disorder, unspecified; Z90.49 Acquired absence of other specified parts of digestive tract; Z79.899 Other long term (current) drug therapy; Z88.8 Allergy status to other drugs, medicaments and biological substances; Z91.040 Latex allergy status; Z88.5 Allergy status to narcotic agent; Z91.018 Allergy to other foods; Z88.6 Allergy status to analgesic agent; Z91.030 Bee allergy status
CPT/HCPCS: 99284; 96374; 96375; 96361; 96372; 36415; 80053; 82150; 83690; 85025; 81001; 81025; 87491; 87591; 87086; J0500; J1885; C9113

== ENCOUNTER 2018-06-18 12:52 | Emergency (ER) | payer OTHER ==
--- NOTE | 2018-06-18 13:02 | ED ---
Upper Extremity HPI - General Stated Complaint: Shoulder Injury Time Seen by Provider: 06/18/18 13:01 - History of Present Illness Initial Comments: This a 28-year-old female with past medical history of seizure disorder who presents today for chief complaint of left shoulder pain 2 days. Patient stated this morning she woke up with anterior left shoulder pain. She states that the pain is better 6 out of 10 aching pain localized to the left shoulder without movement and increases to 10/10 sharp pain with any motion at the left shoulder. Patient is tender to palpation over the left anterior shoulder, this appears to be AC joint when she points to the area of pain. Patient states that work she has been doing more pulling than usual, and the other day she was holding down part tightly with her left arm, and states that this could possibly be a cause that she cannot think of any distinct times when she noticed sudden onset of the pain. She also stated that this could've been caused by sleeping wrong. She is unsure of how she obtained this. Patient denies any falls or trauma to the left shoulder, patient denies seizing upon the left shoulder. Patient denies a previous injury of the left shoulder. Patient denies any numbness, tingling, loss sensation, muscle weakness, paresthesias, coolness of the extremity, pale of the extremity, loss of sensation. Patient did not take any medication for the pain. Patient presents today to emergency department to see what was going on. Remainder ROS negative. - Related Data Home Medications Medication Instructions Recorded Confirmed levETIRAcetam [Keppra] 1,000 mg PO Q12HR 12/09/17 06/11/18 Cariprazine HCl [Vraylar] 6 mg PO DAILY 05/14/18 06/11/18 Acetaminophen [Tylenol] 650 mg PO Q4H PRN 06/11/18 06/11/18 Sucralfate [Carafate] 1 gm PO BID 06/11/18 06/11/18 Previous Rx's Medication Instructions Recorded Amoxicillin/Potassium Clav 1 tab PO Q12HR #20 tab 06/06/18 [Augmentin 875-125 Tablet] Dicyclomine [Bentyl] 20 mg PO TID #30 tablet 06/11/18 Sulfamethox-Tmp 800-160Mg [Bactrim 1 each PO Q12HR #10 tab 06/11/18 Ds] Allergies Allergy/AdvReac Type Severity Reaction Status Date / Time buspirone HCl [From BuSpar] Allergy Rash/Hives Verified 06/11/18 18:27 Latex, Natural Rubber Allergy Rash/Hives Verified 06/11/18 18:27 morphine Allergy Anaphylaxis Verified 06/11/18 18:27 onion Allergy Anaphylaxis Verified 06/11/18 18:27 tramadol Allergy Rash/Hives Verified 06/11/18 18:27 venom-honey bee Allergy Swelling Verified 06/11/18 18:27 [bee venom (honey bee)] Review of Systems ROS Statement: Those systems with pertinent positive or pertinent negative responses have been documented in the HPI. ROS Other: All systems not noted in ROS Statement are negative. Constitutional: Denies: fever, chills, night sweats Respiratory: Denies: cough, dyspnea, wheezes, hemoptysis, stridor Cardiovascular: Denies: chest pain, palpitations, edema Gastrointestinal: Denies: abdominal pain, nausea, vomiting Genitourinary: Denies: urgency, dysuria, frequency, hematuria Musculoskeletal: Reports: arthralgia. Denies: myalgia Skin: Denies: rash, lesions Neurological: Denies: headache, weakness, numbness, paresthesias, confusion, abnormal gait Past Medical History Past Medical History: Asthma, Fibromyalgia, Osteoarthritis (OA), Seizure Disorder Additional Past Medical History / Comment(s): scoliosis and arthritis; back pain , "Stress Seziures". Headaches History of Any Multi-Drug Resistant Organisms: None Reported Past Surgical History: Appendectomy, Section Additional Past Surgical History / Comment(s): d & c Past Anesthesia/Blood Transfusion Reactions: No Reported Reaction Past Psychological History: ADD/ADHD, Anxiety, Bipolar, Depression Smoking Status: Never smoker Past Alcohol Use History: None Reported Past Drug Use History: None Reported - Past Family History Mother Family Medical History: Fibromyalgia General Exam - General Exam Comments Initial Comments: General: The patient is awake and alert, in no distress, and does not appear acutely ill. Eye: Pupils are equal, round and reactive to light, extra-ocular movements are intact. No nystagmus. There is normal conjunctiva bilaterally. No signs of icterus. Ears, nose, mouth and throat: There are moist mucous membranes and no oral lesions. Neck: The neck is supple, there is no tenderness or JVD. No tenderness midline to palpation of cervical spine, or paravertebral tenderness. Patient is able to fully range C-spine without difficulty or pain. Cardiovascular: There is a regular rate and rhythm. No murmur, rub or gallop is appreciated. Respiratory: Lungs are clear to auscultation, respirations are non-labored, breath sounds are equal. No wheezes, stridor, rales, or rhonchi. Musculoskeletal: Upon inspection of the left shoulder there is no obvious deformities or palpable step-offs. No overlying erythema, lesions, rashes or masses. Full ROM with flexion, hyperextension, internal and external rotation at the shoulder joint, however patient admits to pain with all movements. There is crepitus noticed upon forward flexion of the left shoulder. No fasciculations or muscle spasms palpated. Especially forward flexion. Positive AC cross testing of the left shoulder. Strength 5/5 at the shoulder, elbows and wrists equally b/l. Sensation intact of the UE equally b/l. Radial pulses equal bilaterally 2+. Capillary refill <2 seconds. Patient states that the okay fingers crossed thumbs-up, finger opposition and stop sign of the wrist bilaterally. Ulnar, median, radial nerve intact. Patient's full sensation of the hand. Compartments are soft and depressible. Neurological: A&O x 3. CN II-XII intact, There are no obvious motor or sensory deficits. Coordination appears grossly intact. Speech is normal. Skin: Skin is warm and dry and no rashes or lesions are noted. Psychiatric: Cooperative, appropriate mood & affect, normal judgment. Course Vital Signs 06/18/18 06/18/18 13:11 13:53 Temperature 98.6 F 98.6 F Pulse Rate 63 63 Respiratory 18 18 Rate Blood Pressure 108/60 108/60 O2 Sat by Pulse 99 99 Oximetry Medical Decision Making - Medical Decision Making X-ray left shoulder obtained revealing no acute fracture or dislocation. Joint spaces unremarkable. There does not appear to be AC joint separation. Patient is neurovascularly intact. Compartments are soft and compressible. At this time given no history of trauma, history of recent pulling motion and physical examination findings I feel patient has a AC joint sprain. Patient was educated on [facility] instructions, given prescription for anti-inflammatory and told to rest the left shoulder. Patient is instructed to follow-up with orthopedic surgery if symptoms persist for greater than a week. Patient verbalized understanding of plan. Patient denies questions at this time. Prior to discharge patient received a sling for left arm and a 30 mg IM injection of Toradol for pain management prior to d/c. Case discussed with Dr. Matta pt discharged in stable conditin. Disposition Clinical Impression: Pain in left acromioclavicular joint Disposition: HOME SELF-CARE Condition: Good Instructions: Shoulder Sprain (ED) Additional Instructions: Please use medication as discussed. Please follow-up with orthopedic surgery in the next week if symptom persist. Please return to emergency room if the symptoms increase or worsen or for any other concerns. Is patient prescribed a controlled substance at d/c from ED?: No Referrals: Aparna Liirano DO [Primary Care Provider] - 1-2 days Karthik Alejandra MD [STAFF PHYSICIAN] - 1-2 days Time of Disposition: 13:12
[2018-06-18 13:15] VITALS: BP 108/60; PULSE 63; RESP 18; TEMP 98.6
[2018-06-18] MEDS ORDERED: KETOROLAC 30 MG/ML 1 ML VIAL IM STA (13:25)
--- NOTE | 2018-06-18 13:35 | XR ---
Left shoulder HISTORY: Pain 3 views of the left shoulder Correlation prior exam 05/26/2012 No interval change. Bone mineralization, joint spaces and alignment are maintained. Impression: No acute fracture or dislocation.
== END 2018-06-18 13:53 | disposition home or self-care (01) ==
LOC: EC 12:52
DX: M25.512 Pain in left shoulder (principal); G40.909 Epilepsy, unspecified, not intractable, without status epilepticus; F31.9 Bipolar disorder, unspecified; Z79.899 Other long term (current) drug therapy; Z88.5 Allergy status to narcotic agent; Z88.8 Allergy status to other drugs, medicaments and biological substances; Z91.018 Allergy to other foods; Z91.030 Bee allergy status; Z91.040 Latex allergy status; Z82.69 Family history of other diseases of the musculoskeletal system and connective tissue
CPT/HCPCS: 73030; 99283; 96372; J1885

== ENCOUNTER → 2019-10-05 | Outpatient (CLI) | payer OTHER | END | disposition home or self-care (01) | LOC: LABWHC1 08:55 | PROVIDERS: ATTEND Psychiatry & Neurology Neurology | DX: R56.9 Unspecified convulsions (principal) | CPT/HCPCS: 36415; 80177 ==

== ENCOUNTER → 2019-10-19 | Outpatient (CLI) | payer OTHER ==
--- NOTE | 2019-10-19 15:43 | US ---
EXAMINATION TYPE: US transvaginal DATE OF EXAM: 10/19/2019 COMPARISON: Pelvic ultrasound dated 05/16/2017 CLINICAL HISTORY: N92.1 METRORRHAGIA. Pt states miscarriage in August, just started bleeding today TECHNIQUE: Transvaginal (TV). Transvaginal sonographic images of the pelvis were acquired. Date of LMP: 10/19/19 EXAM MEASUREMENTS: Uterus: 8.5 x 4.7 x 4.4 cm Endometrial Stripe: 0.4 cm Right Ovary: 3.5 x 2.6 x 3.5 cm 1. Uterus: Anteverted Heterogeneous, difficult to penetrate/visualize fundus 2. Endometrium: wnl 3. Right Ovary: Anechoic cyst is seen measuring 2.4 x 1.9 x 2.7 cm 4. Left Ovary: Obscured by overlying bowel gas Spectral, color visualized within right ovary 5. Bilateral Adnexa: wnl 6. Posterior cul-de-sac: wnl IMPRESSION: 1. Heterogenous myometrium is seen however no discrete lesion is identified. Small leiomyomas are pos sible. 2. Obscuration of the left ovary due to overlying bowel gas. 3. Simple appearing 2.4 cm right ovarian cyst, likely functional.
== END | disposition home or self-care (01) ==
LOC: RADUSWWP 14:11
PROVIDERS: ATTEND Obstetrics & Gynecology
DX: N83.201 Unspecified ovarian cyst, right side (principal); R14.3 Flatulence
CPT/HCPCS: 76830

== ENCOUNTER 2019-11-08 09:57 | Emergency (ER) | payer OTHER ==
[2019-11-08 10:05] VITALS: RESP 16
[2019-11-08] MEDS ORDERED: ONDANSETRON 4 MG/2 ML VIAL IVP STA (10:26)
[2019-11-08] MEDS ORDERED: SODIUM CHLORIDE 0.9% 1,000 ML IV STA (10:26)
[2019-11-08] MEDS ORDERED: PANTOPRAZOLE 40 MG/10 ML VIAL IVP STA (10:26)
[2019-11-08 10:43] LABS: Appearance,Urine Cloudy (Clear); Bacteria,Urine Rare /hpf; Bilirubin,Urine Negative (Negative); Blood,Urine Trace (Negative); Color,Urine Yellow; Glucose,Urine (UA) Negative (Negative); Ketones,Urine Negative (Negative); Leukocyte Esterase,Urine Small (Negative); Mucus,Urine Rare /hpf; Nitrite,Urine Negative (Negative); Protein,Urine Negative (Negative); RBC,Urine 1 /hpf (0-5); Specific Gravity,Urine 1.014 (1.001-1.035); Squamous Epithelial Cell,Urine 13 /hpf (0-4); Urobilinogen,Urine <2.0 mg/dL (<2.0); WBC,Urine 3 /hpf (0-5)
[2019-11-08 10:52] LABS: Basophils # (A) 0.1 k/uL (0-0.2); Basophils % (A) 1 %; Eosinophils # (A) 0.3 k/uL (0-0.7); Eosinophils % (A) 4 %; HCT 38.3 % (34.0-46.0); HGB 12.4 gm/dL (11.4-16.0); Lymphocytes # (A) 1.6 k/uL (1.0-4.8); Lymphocytes % (A) 24 %; MCH 25.7 pg (25.0-35.0); MCHC 32.4 g/dL (31.0-37.0); MCV 79.2 fL (80.0-100.0); Mean Platelet Volume 7.1; Monocytes # (A) 0.3 k/uL (0-1.0); Monocytes % (A) 5 %; Neutrophils # (A) 4.3 k/uL (1.3-7.7); Neutrophils % (A) 65 %; Platelet Count 256 k/uL (150-450); RBC 4.83 m/uL (3.80-5.40); RDW 14.7 % (11.5-15.5); WBC 6.7 k/uL (3.8-10.6)
[2019-11-08 11:01] LABS: ALT 16 U/L (4-34); AST 23 U/L (14-36); African American GFR (CKD) >90 (>60 ml/min/1.73 sqM); Albumin 3.7 g/dL (3.5-5.0); Alkaline Phosphatase 76 U/L (38-126); Anion Gap 5 mmol/L; Blood Urea Nitrogen 9 mg/dL (7-17); Calcium 9.1 mg/dL (8.4-10.2); Carbon Dioxide 27 mmol/L (22-30); Chloride 107 mmol/L (98-107); Glucose 89 mg/dL (74-99); Non-African American GFR(CKD) >90 (>60 ml/min/1.73 sqM); Potassium 4.2 mmol/L (3.5-5.1); Sodium 139 mmol/L (137-145); Total Bilirubin 0.5 mg/dL (0.2-1.3); Total Protein 6.6 g/dL (6.3-8.2)
--- NOTE | 2019-11-08 11:52 | XR ---
EXAMINATION TYPE: XR chest 2V DATE OF EXAM: 11/08/2019 HISTORY: cough. REFERENCE: Previous study dated 08/13/2017. FINDINGS: The lungs are clear. Pleural space are clear. The heart is not enlarged. IMPRESSION: NORMAL CHEST.
--- NOTE | 2019-11-08 11:54 | ED ---
Nausea/Vomiting/Diarrhea HPI - General Chief complaint: Nausea/Vomiting/Diarrhea Stated complaint: heartburn x3 days Time Seen by Provider: 11/08/19 10:14 Source: patient Mode of arrival: ambulatory Limitations: no limitations - History of Present Illness Initial comments: Patient is a 29-year-old female presenting to the emergency Department with complaints of nausea, vomiting, heartburn x 3 days. Patient states she has had heartburn in the past when she was and is concerned that might be the reason she is having this now. She denies any chest pain, just the burning, no shortness of breath however states she's had a cough for the past week. She denies any fever, abdominal pain, urinary complaints. She has no other complaints at this time. Upon arrival to ER, her vital signs are stable. - Related Data Home Medications Medication Instructions Recorded Confirmed levETIRAcetam [Keppra] 1,000 mg PO Q12HR 12/09/17 06/11/18 Cariprazine HCl [Vraylar] 6 mg PO DAILY 05/14/18 06/11/18 Acetaminophen [Tylenol] 650 mg PO Q4H PRN 06/11/18 06/11/18 Sucralfate [Carafate] 1 gm PO BID 06/11/18 06/11/18 Previous Rx's Medication Instructions Recorded Amoxicillin/Potassium Clav 1 tab PO Q12HR #20 tab 06/06/18 [Augmentin 875-125 Tablet] Dicyclomine [Bentyl] 20 mg PO TID #30 tablet 06/11/18 Sulfamethox-Tmp 800-160Mg [Bactrim 1 each PO Q12HR #10 tab 06/11/18 Ds] Omeprazole 40 mg PO DAILY 14 Days #14 11/08/19 capsule. Ondansetron Odt [Zofran Odt] 4 mg PO Q8HR PRN #10 tab 11/08/19 Allergies Allergy/AdvReac Type Severity Reaction Status Date / Time buspirone HCl [From BuSpar] Allergy Rash/Hives Verified 11/08/19 10:05 Latex, Natural Rubber Allergy Rash/Hives Verified 11/08/19 10:05 morphine Allergy Anaphylaxis Verified 11/08/19 10:05 onion Allergy Anaphylaxis Verified 11/08/19 10:05 tramadol Allergy Rash/Hives Verified 11/08/19 10:05 venom-honey bee Allergy Swelling Verified 11/08/19 10:05 [bee venom (honey bee)] Review of Systems ROS Statement: Those systems with pertinent positive or pertinent negative responses have been documented in the HPI. ROS Other: All systems not noted in ROS Statement are negative. Past Medical History Past Medical History: Asthma, Fibromyalgia, Osteoarthritis (OA), Seizure Disorder Additional Past Medical History / Comment(s): scoliosis and arthritis; back pain, "Stress Seziures". Headaches History of Any Multi-Drug Resistant Organisms: None Reported Past Surgical History: Appendectomy, Section Additional Past Surgical History / Comment(s): d & c Past Anesthesia/Blood Transfusion Reactions: No Reported Reaction Past Psychological History: ADD/ADHD, Anxiety, Bipolar, Depression Smoking Status: Never smoker Past Alcohol Use History: None Reported Past Drug Use History: None Reported - Past Family History Mother Family Medical History: Fibromyalgia General Exam - General Exam Comments Initial Comments: GENERAL: Well-appearing, well-nourished and in no acute distress. HEAD: Atraumatic, normocephalic. EYES: Pupils equal round and reactive to light, extraocular movements intact, sclera anicteric, conjunctiva are normal. ENT: TMs normal, nares patent, oropharynx clear without exudates. Moist mucous membranes. NECK: Normal range of motion, supple without lymphadenopathy or JVD. LUNGS: Breath sounds clear to auscultation bilaterally and equal. No wheezes rales or rhonchi. HEART: Regular rate and rhythm without murmurs, rubs or gallops. ABDOMEN: Mild epigastric tenderness. Soft, normoactive bowel sounds. No guarding, no rebound. No masses appreciated. : Deferred EXTREMITIES: Normal range of motion, no pitting or edema. No clubbing or cyanosis. NEUROLOGICAL: Normal speech, normal gait. PSYCH: Normal mood, normal affect. SKIN: Warm, Dry, normal turgor, no rashes or lesions noted. Limitations: no limitations Course Vital Signs 11/08/19 11/08/19 10:02 12:22 Temperature 98 F 97.9 F Pulse Rate 74 91 Respiratory 16 16 Rate Blood Pressure 127/79 131/74 O2 Sat by Pulse 98 98 Oximetry Medical Decision Making - Medical Decision Making Patient is a 29-year-old female presenting with nausea, vomiting, heartburn 3 days. Vital signs are stable. Lab work shows no acute abnormalities. Urine is normal, not . Troponin is normal EKG is normal. Chest x-ray shows no acute abnormalities. Discussed these findings with the patient. Patient will be started on omeprazole for her heartburn and given Zofran to take as needed f or additional nausea. We discussed decreasing the amount of juice and pop she drinks. Patient will follow up with her PCP if this continues. Return parameters were discussed with the patient she verbalized understanding. - Lab Data Result diagrams: 11/08/19 10:44 11/08/19 10:44 Lab Results 11/08/19 11/08/19 11/08/19 Range/Units 10:25 10:25 10:44 WBC 6.7 (3.8-10.6) k/uL RBC 4.83 (3.80-5.40) m/uL Hgb 12.4 (11.4-16.0) gm/dL Hct 38.3 (34.0-46.0) % MCV 79.2 L (80.0-100.0) fL MCH 25.7 (25.0-35.0) pg MCHC 32.4 (31.0-37.0) g/dL RDW 14.7 (11.5-15.5) % Plt Count 256 (150-450) k/uL Neutrophils % 65 % Lymphocytes % 24 % Monocytes % 5 % Eosinophils % 4 % Basophils % 1 % Neutrophils # 4.3 (1.3-7.7) k/uL Lymphocytes # 1.6 (1.0-4.8) k/uL Monocytes # 0.3 (0-1.0) k/uL Eosinophils # 0.3 (0-0.7) k/uL Basophils # 0.1 (0-0.2) k/uL Sodium (137-145) mmol/L Potassium (3.5-5.1) mmol/L Chloride (98-107) mmol/L Carbon Dioxide (22-30) mmol/L Anion Gap mmol/L BUN (7-17) mg/dL Creatinine (0.52-1.04) mg/dL Est GFR (CKD-EPI)AfAm (>60 ml/min/1.73 sqM) Est GFR (CKD-EPI)NonAf (>60 ml/min/1.73 sqM) Glucose (74-99) mg/dL Calcium (8.4-10.2) mg/dL Total Bilirubin (0.2-1.3) mg/dL AST (14-36) U/L ALT (4-34) U/L Alkaline Phosphatase (38-126) U/L Troponin I (0.000-0.034) ng/mL Total Protein (6.3-8.2) g/dL Albumin (3.5-5.0) g/dL Urine Color Yellow Urine Appearance Cloudy H (Clear) Urine pH 7.0 (5.0-8.0) Ur Specific [place] 1.014 (1.001-1.035) Urine Protein Negative (Negative) Urine Glucose (UA) Negative (Negative) Urine Ketones Negative (Negative) Urine Blood Trace H (Negative) Urine Nitrite Negative (Negative) Urine Bilirubin Negative (Negative) Urine Urobilinogen <2.0 (<2.0) mg/dL Ur Leukocyte Esterase Small H (Negative) Urine RBC 1 (0-5) /hpf Urine WBC 3 (0-5) /hpf Ur Squamous Epith Cells 13 H (0-4) /hpf Urine Bacteria Rare H (None) /hpf Urine Mucus Rare H (None) /hpf Urine HCG, Qual Not Detected (Not Detectd) 11/08/19 11/08/19 Range/Units 10:44 10:44 WBC (3.8-10.6) k/uL RBC (3.80-5.40) m/uL Hgb (11.4-16.0) gm/dL Hct (34.0-46.0) % MCV (80.0-100.0) fL MCH (25.0-35.0) pg MCHC (31.0-37.0) g/dL RDW (11.5-15.5) % Plt Count (150-450) k/uL Neutrophils % % Lymphocytes % % Monocytes % % Eosinophils % % Basophils % % Neutrophils # (1.3-7.7) k/uL Lymphocytes # (1.0-4.8) k/uL Monocytes # (0-1.0) k/uL Eosinophils # (0-0.7) k/uL Basophils # (0-0.2) k/uL Sodium 139 (137-145) mmol/L Potassium 4.2 (3.5-5.1) mmol/L Chloride 107 (98-107) mmol/L Carbon Dioxide 27 (22-30) mmol/L Anion Gap 5 mmol/L BUN 9 (7-17) mg/dL Creatinine 0.73 (0.52-1.04) mg/dL Est GFR (CKD-EPI)AfAm >90 (>60 ml/min/1.73 sqM) Est GFR (CKD-EPI)NonAf >90 (>60 ml/min/1.73 sqM) Glucose 89 (74-99) mg/dL Calcium 9.1 (8.4-10.2) mg/dL Total Bilirubin 0.5 (0.2-1.3) mg/dL AST 23 (14-36) U/L ALT 16 (4-34) U/L Alkaline Phosphatase 76 (38-126) U/L Troponin I <0.012 (0.000-0.034) ng/mL Total Protein 6.6 (6.3-8.2) g/dL Albumin 3.7 (3.5-5.0) g/dL Urine Color Urine Appearance (Clear) Urine pH (5.0-8.0) Ur Specific [place] (1.001-1.035) Urine Protein (Negative) Urine Glucose (UA) (Negative) Urine Ketones (Negative) Urine Blood (Negative) Urine Nitrite (Negative) Urine Bilirubin (Negative) Urine Urobilinogen (<2.0) mg/dL Ur Leukocyte Esterase (Negative) Urine RBC (0-5) /hpf Urine WBC (0-5) /hpf Ur Squamous Epith Cells (0-4) /hpf Urine Bacteria (None) /hpf Urine Mucus (None) /hpf Urine HCG, Qual (Not Detectd) - EKG Data EKG Comments: Ventricular rate 66, MT interval 166, QTC 421. Sinus rhythm with marked arrhythmia. No acute ST segment changes. Similar to previous EKG in 2017. Disposition Clinical Impression: Nausea & vomiting, GERD (gastroesophageal reflux disease) Disposition: HOME SELF-CARE Condition: Stable Instructions (If sedation given, give patient instructions): Gastroesophageal Reflux Disease (ED) Additional Instructions: Please return to the Emergency Department if symptoms worsen or any other concerns. May use Zofran as needed for nausea. Limited juice and pop intake as well as acidic foods. Follow-up with PCP. Prescriptions: Omeprazole 40 mg PO DAILY 14 Days #14 capsule.dr Ondansetron Odt [Zofran Odt] 4 mg PO Q8HR PRN #10 tab PRN Reason: Nausea Is patient prescribed a controlled substance at d/c from ED?: No Referrals: Aparna Liriano DO [Primary Care Provider] - 1-2 days
[2019-11-08 12:25] VITALS: BP 131/74; PULSE 91; TEMP 97.9
== END 2019-11-08 12:22 | disposition home or self-care (01) ==
LOC: EC 09:57
DX: K21.9 Gastro-esophageal reflux disease without esophagitis (principal); R11.2 Nausea with vomiting, unspecified; R19.7 Diarrhea, unspecified; M79.7 Fibromyalgia; G40.909 Epilepsy, unspecified, not intractable, without status epilepticus; F31.9 Bipolar disorder, unspecified; Z79.899 Other long term (current) drug therapy; Z88.8 Allergy status to other drugs, medicaments and biological substances; Z91.040 Latex allergy status; Z88.5 Allergy status to narcotic agent; Z91.018 Allergy to other foods; Z91.030 Bee allergy status
CPT/HCPCS: 36415; 93005; 80053; 84484; 85025; 81001; 81025; 71046; 99284; 96374; 96375; 96361; J2405; C9113

== ENCOUNTER → 2020-03-22 | Outpatient (CLI) | payer OTHER | END | disposition home or self-care (01) | LOC: LABWHC1 10:41 | PROVIDERS: ATTEND Family Medicine | DX: N91.2 Amenorrhea, unspecified (principal) | CPT/HCPCS: 36415; 84702 ==

== ENCOUNTER → 2020-03-23 | Outpatient (CLI) | payer OTHER | END | disposition home or self-care (01) | LOC: LABWHC1 14:21 | PROVIDERS: ATTEND Surgery | DX: Z11.59 Encounter for screening for other viral diseases (principal) ==

== ENCOUNTER 2020-03-25 09:25 | Day surgery (SDC) | payer OTHER ==
[2020-03-23 12:58] VITALS: BMI 40.6
[~2020-03-25 09:25] MED LIST: LACTATED RINGERS 1,000 ML IV SCH
[2020-03-25 10:05] VITALS: RESP 16; TEMP 97
--- NOTE | 2020-03-25 10:30 | P.GSHP ---
History of Present Illness H&P Date: 03/25/20 Chief Complaint: Nausea, epigastric pain This a 30-year-old female who presents today for EGD. She's had complete of nausea and epigastric pain. Past Medical History Past Medical History: Asthma, Fibromyalgia, GERD/Reflux, Memory Impairment, Osteoarthritis (OA), Seizure Disorder Additional Past Medical History / Comment(s): scoliosis and arthritis; back pain, "Stress Seziures". Headaches History of Any Multi-Drug Resistant Organisms: None Reported Past Surgical History: Appendectomy, Section Additional Past Surgical History / Comment(s): d & c. C-SEC X 3 Past Anesthesia/Blood Transfusion Reactions: No Reported Reaction Smoking Status: Current every day smoker - Past Family History Mother Family Medical History: Fibromyalgia Medications and Allergies Home Medications Medication Instructions Recorded Confirmed Type levETIRAcetam [Keppra] 1,000 mg PO Q12HR 12/09/17 03/23/20 History Cariprazine HCl [Vraylar] 6 mg PO DAILY 05/14/18 03/23/20 History HYDROcodone/APAP 7.5-325MG [[place] 1 tab PO Q6HR PRN 03/23/20 03/23/20 History 7.5-325] Amantadine HCl [Amantadine] 100 mg PO BID 03/25/20 03/25/20 History Atenolol 25 mg PO HS 03/25/20 03/25/20 History Doxepin [SINEquan] 10 mg PO HS 03/25/20 03/25/20 History Prazosin HCl [Minipress] 6 mg PO HS 03/25/20 03/25/20 History Vortioxetine Hydrobromide 5 mg PO HS 03/25/20 03/25/20 History [Trintellix] Allergies Allergy/AdvReac Type Severity Reaction Status Date / Time buspirone HCl [From BuSpar] Allergy Rash/Hives Verified 03/25/20 10:02 Latex, Natural Rubber Allergy Rash/Hives Verified 03/25/20 10:02 morphine Allergy Anaphylaxis Verified 03/25/20 10:02 onion Allergy Anaphylaxis Verified 03/25/20 10:02 tramadol Allergy Rash/Hives Verified 03/25/20 10:02 venom-honey bee Allergy Swelling Verified 03/25/20 10:02 [bee venom (honey bee)] Surgical - Exam Vital Signs Temp Pulse Resp BP Pulse Ox 97.0 F L 86 16 107/59 95 03/25/20 10:04 03/25/20 10:04 03/25/20 10:04 03/25/20 10:03/25/20 10:04 - General well developed, well nourished, no distress - Eyes PERRL - ENT normal pinna - Neck no masses - Respiratory normal expansion - Cardiovascular Rhythm: regular - Abdomen Abdomen: soft, non tender Assessment and Plan Assessment: Nausea, epigastric pain. We'll perform EGD.
[2020-03-25] MEDS ORDERED: PROPOFOL 10 MG/ML 20 ML VIAL IV ONE (10:31)
[2020-03-25] MEDS ORDERED: LIDOCAINE 1% INJ 10MG/ML (20 ML MDV) ONE (10:31)
--- NOTE | 2020-03-25 10:42 | P.OP ---
Date of Procedure: 03/25/20 Preoperative Diagnosis: Epigastric pain, nausea Postoperative Diagnosis: Mild antral gastritis Procedure(s) Performed: EGD Anesthesia: MAC Surgeon: Charly Hicks Pathology: other (Duodenum, antrum) Condition: stable Disposition: PACU Description of Procedure: The patient's placed on the endoscopy table lateral position. She received IV sedation. The gastroscope placed oropharynx passed in the esophagus into the stomach. Scope some placed through the pylorus. The first and second portion of duodenum appeared normal. The patient's family history of celiac random biopsy duodenum was performed. The duodenum appeared normal. Scope was brought back the antrum a spinal inflamed. A biopsies performed. The scope was unretroflexed and remainder stomach appeared normal. There was no hiatal hernia. The GE junction was at 40 cm. The distal esophagus appeared normal proximal esophagus appeared normal. Scope was withdrawn for patient. Patient was scheduled for a HIDA scan to evaluate for biliary dysfunction
[2020-03-25 10:46] VITALS: PULSE 72
[2020-03-25 11:03] VITALS: BP 104/57
== END 2020-03-25 11:44 | disposition home or self-care (01) ==
LOC: ORWHC2ENDO 09:25
PROVIDERS: ATTEND Surgery
DX: K29.50 Unspecified chronic gastritis without bleeding (principal); K90.0 Celiac disease; K21.9 Gastro-esophageal reflux disease without esophagitis; J45.909 Unspecified asthma, uncomplicated; M79.7 Fibromyalgia; R41.3 Other amnesia; M19.90 Unspecified osteoarthritis, unspecified site; M41.9 Scoliosis, unspecified; M46.90 Unspecified inflammatory spondylopathy, site unspecified; Z98.890 Other specified postprocedural states; Z97.2 Presence of dental prosthetic device (complete) (partial); F17.200 Nicotine dependence, unspecified, uncomplicated; Z82.69 Family history of other diseases of the musculoskeletal system and connective tissue; G40.509 Epileptic seizures related to external causes, not intractable, without status epilepticus; Z79.891 Long term (current) use of opiate analgesic; Z79.899 Other long term (current) drug therapy; Z91.030 Bee allergy status; Z91.040 Latex allergy status; Z88.5 Allergy status to narcotic agent; Z88.8 Allergy status to other drugs, medicaments and biological substances; Z91.018 Allergy to other foods
CPT/HCPCS: 81025; 88305; 43239; J2001; J2704

== ENCOUNTER → 2020-03-30 | Outpatient (CLI) | payer OTHER ==
--- NOTE | 2020-03-30 09:42 | NM ---
EXAMINATION TYPE: NM hepatobiliary w CCK DATE OF EXAM: 03/30/2020 COMPARISON: NONE HISTORY: Biliary dysfunction TECHNIQUE: After the intravenous administration of 4.4 mCi Tc 99m Mebrofenin hepatobiliary scintigrap hy is performed. Immediate images post injection. FINDINGS: There is satisfactory initial accumulation of tracer by the liver. The gallbladder is visualized on immediate images. The small bowel activity is noted within 30 minutes. At one hour CCK was administ ered, patient was injected with 2.1 mcg of Kinevac, and gallbladder ejection fraction is calculated a t 93 %, above the upper limit of the normal range. Therefore there is no scintigraphic evidence of c ystic or common bile duct obstruction to suggest acute cholecystitis. IMPRESSION: Findings could represent hyperdynamic gallbladder
== END | disposition home or self-care (01) ==
LOC: RADNMMAIN 07:07
PROVIDERS: ATTEND Surgery
DX: K83.8 Other specified diseases of biliary tract (principal)
CPT/HCPCS: 78227; A9537; J2805

== ENCOUNTER → 2020-04-06 | Day surgery (SDC) | payer OTHER ==
[2020-04-05 08:35] VITALS: BMI 41.7
[~2020-04-06] MED LIST changes: +ACETAMINOPHEN TAB 500 MG TAB PO ONE; +BUPIVACAIN-EPI 0.25%-1:200,000 30 ML VIAL SQ ONE; +DEXAMETHASONE SOD PHOSPHATE 10 MG/ML 1 ML VIAL IV ONE; +GLYCOPYRROLATE 0.2 MG/ML 2 ML VIAL ONE; +HEPARIN SODIUM,PORCINE 5,000 UNIT/ML 1 ML VIAL SQ ONE; +HYDROcodone/APAP 5-325MG 1 EACH TAB PO ONE; +HYDROmorphone (PF) 1 MG/ML ONE; +HYDROmorphone 0.5 MG/0.5 ML SYRINGE IVP PRN; +LIDOCAINE 1% (10MG/ML) FOR IV START INTRADERMA ONE; +LIDOCAINE 1% INJ 10MG/ML (20 ML MDV) ONE; +MIDAZOLAM 2 MG/2 ML VIAL ONE; +NEOSTIGMINE 1 MG/ML 10 ML VIAL ONE; +ONDANSETRON 4 MG/2 ML VIAL IVP ONE; +PROPOFOL 10 MG/ML 20 ML VIAL IV ONE; +ROCURONIUM BROMIDE 10 MG/ML 5 ML VIAL IV ONE; +SCOPOLAMINE 1.5MG/72HR PATCH TRANSDERM ONE; +SUCCINYLCHOLINE CHLORIDE 100 MG/5 ML SYR IV ONE; +fentaNYL (PF) 50 MCG/ML 2 ML AMP IV PRN; +fentaNYL (PF) 50 MCG/ML 2 ML AMP ONE
[2020-04-06 07:56] LABS: HCT 40.6 % (34.0-46.0); HGB 13.2 gm/dL (11.4-16.0); MCHC 32.5 g/dL (31.0-37.0); MCV 83.3 fL (80.0-100.0); Mean Platelet Volume 6.9; Platelet Count 238 k/uL (150-450); RBC 4.88 m/uL (3.80-5.40); RDW 15.9 % (11.5-15.5); WBC 6.4 k/uL (3.8-10.6)
--- NOTE | 2020-04-06 08:44 | P.GSHP ---
History of Present Illness H&P Date: 04/06/20 Chief Complaint: Right upper quadrant pain The 30-year-old female centimeters right quadrant pain. Patient rents today for laparoscopic cholecystectomy. Her recent HIDA scan shows abnormal ejection fraction Past Medical History Past Medical History: Asthma, Fibromyalgia, Osteoarthritis (OA), Seizure Disorder Additional Past Medical History / Comment(s): scoliosis and arthritis; back pain, "Stress Seziures". Headaches History of Any Multi-Drug Resistant Organisms: None Reported Past Surgical History: Appendectomy, Section Additional Past Surgical History / Comment(s): d & c Past Anesthesia/Blood Transfusion Reactions: No Reported Reaction, Motion Sickness Smoking Status: Current every day smoker - Past Family History Mother Family Medical History: Fibromyalgia Medications and Allergies Home Medications Medication Instructions Recorded Confirmed Type levETIRAcetam [Keppra] 1,000 mg PO Q12HR 12/09/17 04/06/20 History Cariprazine HCl [Vraylar] 4.5 mg PO DAILY 05/14/18 04/06/20 History HYDROcodone/APAP 7.5-325MG [[place] 1 tab PO Q6HR PRN 03/23/20 04/06/20 History 7.5-325] Amantadine HCl [Amantadine] 100 mg PO BID 03/25/20 04/06/20 History Atenolol 25 mg PO HS 03/25/20 04/06/20 History Doxepin [SINEquan] 10 mg PO HS 03/25/20 04/06/20 History Prazosin HCl [Minipress] 6 mg PO HS 03/25/20 04/06/20 History Cyclobenzaprine [Flexeril] 5 mg PO HS 04/05/20 04/06/20 History Allergies Allergy/AdvReac Type Severity Reaction Status Date / Time buspirone HCl [From BuSpar] Allergy Rash/Hives Verified 04/06/20 07:40 Latex, Natural Rubber Allergy Rash/Hives Verified 04/06/20 07:40 morphine Allergy Anaphylaxis Verified 04/06/20 07:40 onion Allergy Anaphylaxis Verified 04/06/20 07:40 tramadol Allergy Rash/Hives Verified 04/06/20 07:40 venom-honey bee Allergy Swelling Verified 04/06/20 07:40 [bee venom (honey bee)] Surgical - Exam Vital Signs Temp Pulse Resp BP Pulse Ox 97.0 F L 69 18 114/66 96 04/06/20 07:35 04/06/20 07:35 04/06/20 07:35 04/06/20 07:35 04/06/20 07:35 - General well developed, well nourished, no distress - Eyes PERRL - ENT normal pinna - Neck no masses - Respiratory normal expansion - Cardiovascular Rhythm: regular - Abdomen Abdomen: soft, non tender Results - Labs 04/06/20 07:31 Abnormal Lab Results - Last 24 Hours (Table) 04/06/20 Range/Units 07:31 RDW 15.9 H (11.5-15.5) % Assessment and Plan Assessment: Right upper quadrant pain Chronic cholecystitis We'll perform laparoscopic cholecystectomy
--- NOTE | 2020-04-06 08:44 | P.OP ---
Date of Procedure: 04/06/20 Preoperative Diagnosis: Cholecystitis Postoperative Diagnosis: Cholecystitis Procedure(s) Performed: Laparoscopic cholecystectomy Anesthesia: NERY Surgeon: Charly Hicks Estimated Blood Loss (ml): 5 Pathology: other (Gallbladder) Condition: stable Disposition: PACU Description of Procedure: The patient was placed on the operating table. The patient received a general endotracheal tube anesthesia. The patients abdomen was prepped and draped in the usual sterile fashion. Through an infraumbilical stab incision, the fascia of the anterior abdominal wall was grasped with a pair of Kochers and then the Veress needle was placed in the peritoneal cavity. Position of the Veress needle was confirmed with positive drop test. The abdomen was then insufflated. After adequate insufflation, the 10 mm trocar was placed in the peritoneal cavity. Following this the laparoscope was placed in the peritoneal cavity. The patient was placed in the head-up, right side up position and then a 5 mm trocar was placed in the right lateral and right subcostal position under direct visualization. A 8 mm trocar was placed in the epigastric position. The gallbladder was grasped in the fundus and infundibulum. Traction on the gallbladder was placed in the lateral and the cephalad positions. The triangle of Calot was visualized.. The cystic duct was bluntly dissected until the union of the cystic duct and common bile duct was seen. A critical view of safety was achieved. The cystic duct was then divided and sealed with the Harmonic scissors. A PDS Endoloop was then placed throughout the cystic duct stump. The cystic artery divided and sealed with the Harmonic scissors. The gallbladder was then removed from the liver bed using Harmonic scissors. The gallbladder was then extracted through the epigastric port site. Operative field was checked for any bleeding spots and Harmonic scissors was used to coagulate the liver bed. The abdomen was irrigated. The trocars were removed. The skin was closed using interrupted 3-0 Vicryl suture. Dermabond dressing were applied. The patient tolerated the procedure well.
[2020-04-06 08:46] VITALS: TEMP 97.6
[2020-04-06 08:57] VITALS: RESP 16
[2020-04-06 10:08] VITALS: BP 103/55; PULSE 61
== END ==
LOC: OR 07:03
PROVIDERS: ATTEND Surgery
DX: K81.1 Chronic cholecystitis (principal); K76.0 Fatty (change of) liver, not elsewhere classified; M79.7 Fibromyalgia; M19.90 Unspecified osteoarthritis, unspecified site; G40.509 Epileptic seizures related to external causes, not intractable, without status epilepticus; M41.9 Scoliosis, unspecified; J44.9 Chronic obstructive pulmonary disease, unspecified; G47.33 Obstructive sleep apnea (adult) (pediatric); F17.290 Nicotine dependence, other tobacco product, uncomplicated; F41.9 Anxiety disorder, unspecified; F31.9 Bipolar disorder, unspecified; K21.9 Gastro-esophageal reflux disease without esophagitis; Z90.49 Acquired absence of other specified parts of digestive tract; Z98.890 Other specified postprocedural states; Z87.898 Personal history of other specified conditions; Z79.899 Other long term (current) drug therapy; Z79.891 Long term (current) use of opiate analgesic; Z88.8 Allergy status to other drugs, medicaments and biological substances; Z91.040 Latex allergy status; Z91.09 Other allergy status, other than to drugs and biological substances; Z88.5 Allergy status to narcotic agent; Z91.018 Allergy to other foods; Z91.030 Bee allergy status; Z82.69 Family history of other diseases of the musculoskeletal system and connective tissue
CPT/HCPCS: 81025; 88304; 85027; 47562; J2250; J1644; J1100; J2710; J0690; J2405; J2001; J3010; J1170; J0330; J2704

== ENCOUNTER 2020-05-13 17:47 | Emergency (ER) | payer OTHER ==
[2020-05-13 18:05] VITALS: RESP 18
[2020-05-13] MEDS ORDERED: SODIUM CHLORIDE 0.9% 1,000 ML IV STA ×2 (18:05)
[2020-05-13] MEDS ORDERED: levETIRAcetam IV 1,000 MG in SALINE 1 100ML.BAG IVPB STA (18:08)
[2020-05-13 18:33] LABS: Basophils % (A) 1 %; Eosinophils # (A) 0.2 k/uL (0-0.7); Eosinophils % (A) 3 %; HCT 41.9 % (34.0-46.0); HGB 13.9 gm/dL (11.4-16.0); Lymphocytes % (A) 20 %; MCH 27.8 pg (25.0-35.0); MCHC 33.2 g/dL (31.0-37.0); MCV 83.8 fL (80.0-100.0); Mean Platelet Volume 6.9; Monocytes # (A) 0.5 k/uL (0-1.0); Monocytes % (A) 5 %; Neutrophils # (A) 6.8 k/uL (1.3-7.7); Neutrophils % (A) 71 %; Platelet Count 236 k/uL (150-450); RDW 14.9 % (11.5-15.5); WBC 9.7 k/uL (3.8-10.6)
[2020-05-13 18:42] LABS: ALT 49 U/L (4-34); AST 40 U/L (14-36); African American GFR (CKD) >90 (>60 ml/min/1.73 sqM); Albumin 4.1 g/dL (3.5-5.0); Alkaline Phosphatase 79 U/L (38-126); Anion Gap 7 mmol/L; Blood Urea Nitrogen 10 mg/dL (7-17); Carbon Dioxide 22 mmol/L (22-30); Chloride 108 mmol/L (98-107); Glucose 90 mg/dL (74-99); Non-African American GFR(CKD) >90 (>60 ml/min/1.73 sqM); Potassium 3.9 mmol/L (3.5-5.1); Sodium 137 mmol/L (137-145); Total Bilirubin 0.4 mg/dL (0.2-1.3); Total Protein 6.9 g/dL (6.3-8.2)
[2020-05-13 18:57] LABS: Amorphous Sediment,Urine Occasional /hpf; Appearance,Urine Cloudy (Clear); Bacteria,Urine Rare /hpf; Bilirubin,Urine Negative (Negative); Blood,Urine Negative (Negative); Color,Urine Yellow; Glucose,Urine (UA) Negative (Negative); Hyaline Casts,Urine 5 /lpf (0-2); Ketones,Urine Negative (Negative); Leukocyte Esterase,Urine Negative (Negative); Mucus,Urine Rare /hpf; Nitrite,Urine Negative (Negative); Protein,Urine Trace (Negative); Specific Gravity,Urine 1.015 (1.001-1.035); Squamous Epithelial Cell,Urine 14 /hpf (0-4); Urobilinogen,Urine <2.0 mg/dL (<2.0); WBC,Urine 2 /hpf (0-5)
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
[2020-05-13 19:07] LABS: Amphetamine Screen,Urine Not Detected (NotDetected); Barbiturate Screen,Urine Not Detected (NotDetected); Benzodiazepines Screen,Urine Not Detected (NotDetected); Cocaine Screen,Urine Not Detected (NotDetected); Methadone Screen, Urine Not Detected (NotDetected); Opiate Screen,Urine Not Detected (NotDetected); Oxycodone Screen, Urine Not Detected (NotDetected); Phencyclidine Screen,Urine Not Detected (NotDetected); Tricyclic Antidepressant,Urine Not Detected (NotDetected); Urn Cannabinoid Scrn Not Detected (NotDetected)
--- NOTE | 2020-05-13 19:25 | CT ---
EXAMINATION TYPE: CT brain wo con DATE OF EXAM: 05/13/2020 COMPARISON: 06/06/2018 HISTORY: seizure, frontal head injury CT DLP: 1087.4 mGycm Automated exposure control for dose reduction was used. Ventricles and sulci appear normal. There is no mass effect nor midline shift. There is no sign of in tracranial hemorrhage. There is no evidence of cerebral edema. The calvarium is intact. Skull base is intact. There is normal aeration of the temporal bones. There is mild mucosal thickening in the ethm oid and sphenoid sinuses. IMPRESSION: Negative CT scan of the brain. Minimal sinusitis. Brain unchanged compared to old exam.
[2020-05-13 22:05] LABS: HCT 38.3 % (34.0-46.0); HGB 12.4 gm/dL (11.4-16.0); MCH 27.2 pg (25.0-35.0); MCHC 32.3 g/dL (31.0-37.0); MCV 84.3 fL (80.0-100.0); Platelet Count 220 k/uL (150-450); RBC 4.55 m/uL (3.80-5.40)
[2020-05-13 22:16] LABS: ALT 44 U/L (4-34); AST 35 U/L (14-36); African American GFR (CKD) >90 (>60 ml/min/1.73 sqM); Albumin 3.5 g/dL (3.5-5.0); Alkaline Phosphatase 69 U/L (38-126); Anion Gap 6 mmol/L; Blood Urea Nitrogen 9 mg/dL (7-17); Calcium 8.3 mg/dL (8.4-10.2); Carbon Dioxide 21 mmol/L (22-30); Chloride 109 mmol/L (98-107); Glucose 90 mg/dL (74-99); Non-African American GFR(CKD) >90 (>60 ml/min/1.73 sqM); Potassium 3.8 mmol/L (3.5-5.1); Sodium 136 mmol/L (137-145); Total Bilirubin 0.5 mg/dL (0.2-1.3)
[2020-05-14] MEDS ORDERED: ALPRAZolam 1 MG TAB PO STA (04:14)
[2020-05-14] MEDS ORDERED: NICOTINE 21MG/24HR PATCH TRANSDERM STA (04:54)
[2020-05-14 14:06] VITALS: BP 124/76; PULSE 78; TEMP 98.4
== END 2020-05-14 16:21 | disposition other institution (70) ==
LOC: EC 17:47
DX: F32.9 Major depressive disorder, single episode, unspecified (principal); S51.812A Laceration without foreign body of left forearm, initial encounter; G40.909 Epilepsy, unspecified, not intractable, without status epilepticus; Z91.14 Patient's other noncompliance with medication regimen; F90.9 Attention-deficit hyperactivity disorder, unspecified type; F41.9 Anxiety disorder, unspecified; Z79.899 Other long term (current) drug therapy; Z88.8 Allergy status to other drugs, medicaments and biological substances; Z91.040 Latex allergy status; Z91.048 Other nonmedicinal substance allergy status; Z88.5 Allergy status to narcotic agent; Z91.018 Allergy to other foods; Z91.030 Bee allergy status; X78.1XXA Intentional self-harm by knife, initial encounter
CPT/HCPCS: 99285; 12004; 82075; 36415; 93005; 80053; 85025; 85027; 81001; 81025; 80306; 70450; 96374; 96361 ×2; S4990; J1953

== ENCOUNTER 2020-06-18 14:18 | Emergency (ER) | payer OTHER ==
[2020-06-18 14:25] VITALS: BP 140/86; PULSE 91; TEMP 98.2
[2020-06-18 15:01] VITALS: RESP 18
--- NOTE | 2020-06-18 16:16 | ED ---
Lower Extremity Injury HPI - General Chief Complaint: Extremity Injury, Lower Stated Complaint: Fall Time Seen by Provider: 06/18/20 14:28 Source: patient Mode of arrival: wheelchair Limitations: no limitations - History of Present Illness Initial Comments: 30yo female presenting today for cc of right anterior thigh pain. Patient states 2 days ago she tripped over broken cement, Denies head or neck injury. Injury to the back or UE btu states she had left anterior thigh pain. She states that she has an xray of the hip but feels this did not catch the area of pain. Pateitn has been weight bearing and ambulating. Denies loss of sensation, admits to occasional tingling. Patient denies decreased ROM of knee or ankle. Denies weakness. Denies coolness or pallor of the extremity. Patient denies additional complaints or injuries. - Related Data Home Medications Medication Instructions Recorded Confirmed Cariprazine HCl [Vraylar] 4.5 mg PO DAILY 05/14/18 06/18/20 HYDROcodone/APAP 7.5-325MG [[place] 1 tab PO DAILY PRN 03/23/20 06/18/20 7.5-325] Doxepin [SINEquan] 10 mg PO HS 03/25/20 06/18/20 Prazosin HCl [Minipress] 6 mg PO HS 03/25/20 06/18/20 amantadine HCL [Amantadine] 100 mg PO BID 03/25/20 06/18/20 atenoloL [Atenolol] 25 mg PO HS 03/25/20 06/18/20 Estarylla 0.25-0.035 1 tab PO DAILY 05/13/20 06/18/20 Vortioxetine Hydrobromide 5 mg PO HS 05/13/20 06/18/20 [Trintellix] levETIRAcetam ORAL SOLN [Keppra 1,250 mg PO BID 05/13/20 06/18/20 Oral Soln] Cyclobenzaprine [Flexeril] 10 mg PO BID PRN 06/18/20 06/18/20 methylPREDNISolone [Medrol Dose See Taper PO DIRECTED 06/18/20 06/18/20 Pack] Allergies Allergy/AdvReac Type Severity Reaction Status Date / Time buspirone HCl [From BuSpar] Allergy Rash/Hives Verified 06/18/20 16:09 Latex, Natural Rubber Allergy Rash/Hives Verified 06/18/20 16:09 morphine Allergy Anaphylaxis Verified 06/18/20 16:09 onion Allergy Anaphylaxis Verified 06/18/20 16:09 tramadol Allergy Rash/Hives Verified 06/18/20 16:09 venom-honey bee Allergy Swelling Verified 06/18/20 16:09 [bee venom (honey bee)] Review of Systems ROS Statement: Those systems with pertinent positive or pertinent negative responses have been documented in the HPI. ROS Other: All systems not noted in ROS Statement are negative. Past Medical History Past Medical History: Asthma, Fibromyalgia, Osteoarthritis (OA), Seizure Disorder Additional Past Medical History / Comment(s): scoliosis and arthritis; back pain, "Stress Seziures". Headaches, History of Any Multi-Drug Resistant Organisms: None Reported Past Surgical History: Appendectomy, Section Additional Past Surgical History / Comment(s): d & c, Past Anesthesia/Blood Transfusion Reactions: No Reported Reaction, Motion Sickness Past Psychological History: ADD/ADHD, Anxiety, Bipolar, Depression Smoking Status: Current every day smoker Past Alcohol Use History: None Reported Past Drug Use History: Marijuana - Past Family History Mother Family Medical History: Fibromyalgia General Exam - General Exam Comments Initial Comments: General: The patient is awake and alert, in no distress, and does not appear acutely ill. Eye: Pupils are equal, round and reactive to light, extra-ocular movements are intact. No nystagmus. There is normal conjunctiva bilaterally. No signs of icterus. Cardiovascular: There is a regular rate and rhythm. No murmur, rub or gallop is appreciated. Respiratory: Lungs are clear to auscultation, respirations are non-labored, breath sounds are equal. No wheezes, stridor, rales, or rhonchi. Musculoskeletal: Normal inspection. Pain to palpation of anterior aspect of mid left thigh. Normal ROM, no tenderness at knee, ankles bl. Strength 5/5 of hips knees and ankles equal b/l. Sensation intact proximal and distal to injury site. DP pulses equal bilaterally 2+. Neurological: A&O x 3. CN II-XII intact grossly, There are no obvious motor or sensory deficits. Coordination appears grossly intact. Speech is normal. Skin: Skin is warm and dry and no rashes or lesions are noted. Psychiatric: Cooperative, appropriate mood & affect, normal judgment. Limitations: no limitations Course Vital Signs 06/18/20 06/18/20 14:19 15:00 Temperature 98.2 F Pulse Rate 91 Respiratory 16 18 Rate Blood Pressure 140/86 O2 Sat by Pulse 98 Oximetry Medical Decision Making - Medical Decision Making 30yo female presentin for left thigh pain after fall. XR hip (-) outpatient but states pain anterior thigh. XR femur (-). Neurovascular intact compartments soft and compressible. Able to weight-bear. Patient be discharged with those most likely muscle strain. Discussed [place] treatment importance of follow up with primary care provider for monitoring patient discharged appearing well agreeable to care plan. - Lab Data Lab Results 06/18/20 Range/Units 14:49 Urine HCG, Qual Not Detected (Not Detectd) Disposition Clinical Impression: Left thigh pain, Fall Disposition: HOME SELF-CARE Condition: Good Instructions (If sedation given, give patient instructions): Muscle Strain (ED) Additional Instructions: Please use medication as discussed. Please follow-up with family doctor in the next 2 days. Please return to emergency room if the symptoms increase or worsen or for any other concerns. Is patient prescribed a controlled substance at d/c from ED?: No Referrals: Aparna Liriano DO [Primary Care Provider] - 1-2 days Time of Disposition: 16:25
--- NOTE | 2020-06-18 16:23 | XR ---
EXAMINATION TYPE: XR femur LT DATE OF EXAM: 06/18/2020 COMPARISON: None HISTORY: Pain after fall TECHNIQUE: 2 view left femur FINDINGS: Femoral head articulates with the acetabulum. No acute fractures or dislocations are eviden t. Mild degenerative change may be at the left knee. IMPRESSION: 1. No acute osseous abnormality left femur
== END 2020-06-18 16:30 | disposition home or self-care (01) ==
LOC: EC 14:18
DX: S79.922A Unspecified injury of left thigh, initial encounter (principal); F41.9 Anxiety disorder, unspecified; F31.9 Bipolar disorder, unspecified; M79.7 Fibromyalgia; M19.90 Unspecified osteoarthritis, unspecified site; F17.200 Nicotine dependence, unspecified, uncomplicated; G40.909 Epilepsy, unspecified, not intractable, without status epilepticus; Z79.899 Other long term (current) drug therapy; Z88.8 Allergy status to other drugs, medicaments and biological substances; Z91.040 Latex allergy status; Z88.5 Allergy status to narcotic agent; Z91.018 Allergy to other foods; Z91.030 Bee allergy status; Z79.52 Long term (current) use of systemic steroids; W01.198A Fall on same level from slipping, tripping and stumbling with subsequent striking against other object, initial encounter
CPT/HCPCS: 81025; 99283

== ENCOUNTER 2020-07-20 13:54 | Emergency (ER) | payer OTHER ==
--- NOTE | 2020-07-20 14:32 | ED ---
Abdominal Pain HPI - General Source: patient Mode of arrival: ambulatory Limitations: no limitations <Ward Rivero - Last Filed: 07/20/20 22:33> <Zarina Hurtado - Last Filed: 07/20/20 23:41> - General Chief Complaint: Abdominal Pain Stated Complaint: Poss Preg Time Seen by Provider: 07/20/20 14:03 - History of Present Illness Initial Comments: Patient is a 30-year-old male presenting to emergency Department with a chief complaint of possible . Patient states she has not had a period since February and only occasional spotting. Patient reports she continues to get bigger in the abdomen. Patient states she "felt movement". Patient states she took multiple tests over the last few months that has been negative. She denies any urinary or vaginal symptoms. She does report occasional nausea vomiting but denies any diarrhea. States she has been trying to get . Denies chest pain or shortness of breath. (Ward Rivero) - Related Data Home Medications Medication Instructions Recorded Confirmed Cariprazine HCl [Vraylar] 4.5 mg PO DAILY 05/14/18 06/18/20 HYDROcodone/APAP 7.5-325MG [[place] 1 tab PO DAILY PRN 03/23/20 06/18/20 7.5-325] Doxepin [SINEquan] 10 mg PO HS 03/25/20 06/18/20 Prazosin HCl [Minipress] 6 mg PO HS 03/25/20 06/18/20 amantadine HCL [Amantadine] 100 mg PO BID 03/25/20 06/18/20 atenoloL [Atenolol] 25 mg PO HS 03/25/20 06/18/20 Estarylla 0.25-0.035 1 tab PO DAILY 05/13/20 06/18/20 Vortioxetine Hydrobromide 5 mg PO HS 05/13/20 06/18/20 [Trintellix] levETIRAcetam ORAL SOLN [Keppra 1,250 mg PO BID 05/13/20 06/18/20 Oral Soln] Cyclobenzaprine [Flexeril] 10 mg PO BID PRN 06/18/20 06/18/20 methylPREDNISolone [Medrol Dose See Taper PO DIRECTED 06/18/20 06/18/20 Pack] Allergies Allergy/AdvReac Type Severity Reaction Status Date / Time buspirone HCl [From BuSpar] Allergy Rash/Hives Verified 07/20/20 13:58 Latex, Natural Rubber Allergy Rash/Hives Verified 07/20/20 13:58 morphine Allergy Anaphylaxis Verified 07/20/20 13:58 onion Allergy Anaphylaxis Verified 07/20/20 13:58 tramadol Allergy Rash/Hives Verified 07/20/20 13:58 venom-honey bee Allergy Swelling Verified 07/20/20 13:58 [bee venom (honey bee)] Review of Systems ROS Other: All systems not noted in ROS Statement are negative. <Ward Rivero - Last Filed: 07/20/20 22:33> ROS Other: All systems not noted in ROS Statement are negative. <Zarina Hurtado - Last Filed: 07/20/20 23:41> ROS Statement: Those systems with pertinent positive or pertinent negative responses have been documented in the HPI. Past Medical History Past Medical History: Asthma, Fibromyalgia, Osteoarthritis (OA), Seizure Disorder Additional Past Medical History / Comment(s): scoliosis and arthritis; back pain, "Stress Seziures". Headaches, History of Any Multi-Drug Resistant Organisms: None Reported Past Surgical History: Appendectomy, Section Additional Past Surgical History / Comment(s): d & c, Past Anesthesia/Blood Transfusion Reactions: No Reported Reaction, Motion Sickness Past Psychological History: ADD/ADHD, Anxiety, Bipolar, Depression Smoking Status: Current every day smoker Past Alcohol Use History: None Reported Past Drug Use History: Marijuana - Past Family History Mother Family Medical History: Fibromyalgia <Ward Rivero - Last Filed: 07/20/20 22:33> General Exam Limitations: no limitations General appearance: alert, in no apparent distress, obese Head exam: Present: atraumatic, normocephalic, normal inspection Eye exam: Present: normal appearance, PERRL, EOMI Pupils: Present: normal accommodation ENT exam: Present: normal exam, normal oropharynx, mucous membranes moist, TM's normal bilaterally, normal external ear exam Neck exam: Present: normal inspection, full ROM. Absent: tenderness Respiratory exam: Present: normal lung sounds bilaterally. Absent: respiratory distress, wheezes, rales Cardiovascular Exam: Present: regular rate, normal rhythm, normal heart sounds GI/Abdominal exam: Present: soft. Absent: distended, tenderness, guarding, rebound, rigid Extremities exam: Present: normal inspection, full ROM, normal capillary refill, other (+2 dorsalis pedis and posterior tibials bilaterally.). Absent: tenderness Back exam: Present: normal inspection, full ROM. Absent: tenderness, CVA tenderness (R), CVA tenderness (L) Neurological exam: Present: alert, oriented X3, CN II-XII intact, normal gait Psychiatric exam: Present: normal affect, normal mood Skin exam: Present: warm, dry, intact, normal color <Ward Rivero - Last Filed: 07/20/20 22:33> Course Vital Signs 07/20/20 07/20/20 07/20/20 13:58 15:58 18:55 Temperature 99.0 F 98.1 F Pulse Rate 89 78 84 Respiratory 16 18 16 Rate Blood Pressure 126/82 116/59 129/81 O2 Sat by Pulse 97 98 99 Oximetry Medical Decision Making - Lab Data Result diagrams: 07/20/20 15:00 07/20/20 15:00 <Ward Rivero - Last Filed: 07/20/20 22:33> - Lab Data Result diagrams: 07/20/20 15:00 07/20/20 15:00 <Zarina Hurtado - Last Filed: 07/20/20 23:41> - Medical Decision Making Patient is a 30-year-old female presenting to emergency Department with chief complaint of possible . On physical examination, patient does appear to have a slightly distended abdomen but it is soft and nontender. UA is unremarkable. CBC CMP unremarkable. Patient is not based on urine testing. Patient was requesting abdominal ultrasound before CT because she was "feeling convinced" that she is . Ultrasound is negative for . CT of abdomen and pelvis reveals no acute findings. It could be that the patient is simply gaining weight. Strict return parameters were thoroughly discussed the patient was understanding and agreeable. She was advised to follow with primary care physician. Case discussed with physician. (Ward Rivero) I was available for consultation in the emergency department. The history and physical exam were done by the midlevel provider. I was consulted for this patients care. I reviewed the case with the midlevel provider and based on their presentation of the patient, I agree with the assessment, medical decision making and plan of care as documented. Chart was dictated using [employer] dictation software. Attempts were made to correct any dictation errors however some typographical errors may persist. Patient was seen during a national state of emergency due to the Covid-19 pandemic. (Zarina Hurtado) - Lab Data Lab Results 07/20/20 07/20/20 07/20/20 Range/Units 14:39 14:39 15:00 WBC 10.8 H (3.8-10.6) k/uL RBC 5.15 (3.80-5.40) m/uL Hgb 14.7 (11.4-16.0) gm/dL Hct 44.5 (34.0-46.0) % MCV 86.3 (80.0-100.0) fL MCH 28.5 (25.0-35.0) pg MCHC 33.0 (31.0-37.0) g/dL RDW 14.4 (11.5-15.5) % Plt Count 266 (150-450) k/uL Neutrophils % 68 % Lymphocytes % 23 % Monocytes % 5 % Eosinophils % 3 % Basophils % 1 % Neutrophils # 7.3 (1.3-7.7) k/uL Lymphocytes # 2.5 (1.0-4.8) k/uL Monocytes # 0.5 (0-1.0) k/uL Eosinophils # 0.3 (0-0.7) k/uL Basophils # 0.1 (0-0.2) k/uL Sodium (137-145) mmol/L Potassium (3.5-5.1) mmol/L Chloride (98-107) mmol/L Carbon Dioxide (22-30) mmol/L Anion Gap mmol/L BUN (7-17) mg/dL Creatinine (0.52-1.04) mg/dL Est GFR (CKD-EPI)AfAm (>60 ml/min/1.73 sqM) Est GFR (CKD-EPI)NonAf (>60 ml/min/1.73 sqM) Glucose (74-99) mg/dL Calcium (8.4-10.2) mg/dL Total Bilirubin (0.2-1.3) mg/dL AST (14-36) U/L ALT (4-34) U/L Alkaline Phosphatase (38-126) U/L Total Protein (6.3-8.2) g/dL Albumin (3.5-5.0) g/dL Urine Color Colorless Urine Appearance Clear (Clear) Urine pH 6.0 (5.0-8.0) Ur Specific [place] 1.006 (1.001-1.035) Urine Protein Negative (Negative) Urine Glucose (UA) Negative (Negative) Urine Ketones Negative (Negative) Urine Blood Negative (Negative) Urine Nitrite Negative (Negative) Urine Bilirubin Negative (Negative) Urine Urobilinogen <2.0 (<2.0) mg/dL Ur Leukocyte Esterase Negative (Negative) Urine HCG, Qual Not Detected (Not Detectd) 07/20/20 Range/Units 15:00 WBC (3.8-10.6) k/uL RBC (3.80-5.40) m/uL Hgb (11.4-16.0) gm/dL Hct (34.0-46.0) % MCV (80.0-100.0) fL MCH (25.0-35.0) pg MCHC (31.0-37.0) g/dL RDW (11.5-15.5) % Plt Count (150-450) k/uL Neutrophils % % Lymphocytes % % Monocytes % % Eosinophils % % Basophils % % Neutrophils # (1.3-7.7) k/uL Lymphocytes # (1.0-4.8) k/uL Monocytes # (0-1.0) k/uL Eosinophils # (0-0.7) k/uL Basophils # (0-0.2) k/uL Sodium 136 L (137-145) mmol/L Potassium 4.2 (3.5-5.1) mmol/L Chloride 105 (98-107) mmol/L Carbon Dioxide 26 (22-30) mmol/L Anion Gap 5 mmol/L BUN 12 (7-17) mg/dL Creatinine 0.61 (0.52-1.04) mg/dL Est GFR (CKD-EPI)AfAm >90 (>60 ml/min/1.73 sqM) Est GFR (CKD-EPI)NonAf >90 (>60 ml/min/1.73 sqM) Glucose 89 (74-99) mg/dL Calcium 9.4 (8.4-10.2) mg/dL Total Bilirubin 0.5 (0.2-1.3) mg/dL AST 22 (14-36) U/L ALT 24 (4-34) U/L Alkaline Phosphatase 80 (38-126) U/L Total Protein 6.7 (6.3-8.2) g/dL Albumin 4.0 (3.5-5.0) g/dL Urine Color Urine Appearance (Clear) Urine pH (5.0-8.0) Ur Specific [place] (1.001-1.035) Urine Protein (Negative) Urine Glucose (UA) (Negative) Urine Ketones (Negative) Urine Blood (Negative) Urine Nitrite (Negative) Urine Bilirubin (Negative) Urine Urobilinogen (<2.0) mg/dL Ur Leukocyte Esterase (Negative) Urine HCG, Qual (Not Detectd) Disposition Is patient prescribed a controlled substance at d/c from ED?: No Time of Disposition: 18:26 <Ward Rivero - Last Filed: 07/20/20 22:33> <Zarina Hurtado - Last Filed: 07/20/20 23:41> Clinical Impression: Abdominal discomfort Disposition: HOME SELF-CARE Condition: Stable Instructions (If sedation given, give patient instructions): Gas and Bloating (ED), Abdominal Pain (ED) Additional Instructions: Follow with her primary care physician. Return to emergency department if symptoms worsen. Referrals: Aparna Liriano DO [Primary Care Provider] - 1-2 days
[2020-07-20 14:55] LABS: Appearance,Urine Clear (Clear); Bilirubin,Urine Negative (Negative); Blood,Urine Negative (Negative); Color,Urine Colorless; Glucose,Urine (UA) Negative (Negative); Ketones,Urine Negative (Negative); Leukocyte Esterase,Urine Negative (Negative); Nitrite,Urine Negative (Negative); Protein,Urine Negative (Negative); Specific Gravity,Urine 1.006 (1.001-1.035); Urobilinogen,Urine <2.0 mg/dL (<2.0)
[2020-07-20 15:12] LABS: Basophils # (A) 0.1 k/uL (0-0.2); Basophils % (A) 1 %; Eosinophils # (A) 0.3 k/uL (0-0.7); Eosinophils % (A) 3 %; HCT 44.5 % (34.0-46.0); HGB 14.7 gm/dL (11.4-16.0); Lymphocytes # (A) 2.5 k/uL (1.0-4.8); Lymphocytes % (A) 23 %; MCH 28.5 pg (25.0-35.0); MCV 86.3 fL (80.0-100.0); Mean Platelet Volume 6.5; Monocytes # (A) 0.5 k/uL (0-1.0); Monocytes % (A) 5 %; Neutrophils # (A) 7.3 k/uL (1.3-7.7); Neutrophils % (A) 68 %; Platelet Count 266 k/uL (150-450); RBC 5.15 m/uL (3.80-5.40); RDW 14.4 % (11.5-15.5); WBC 10.8 k/uL (3.8-10.6)
[2020-07-20 15:27] LABS: ALT 24 U/L (4-34); AST 22 U/L (14-36); African American GFR (CKD) >90 (>60 ml/min/1.73 sqM); Alkaline Phosphatase 80 U/L (38-126); Anion Gap 5 mmol/L; Blood Urea Nitrogen 12 mg/dL (7-17); Calcium 9.4 mg/dL (8.4-10.2); Carbon Dioxide 26 mmol/L (22-30); Chloride 105 mmol/L (98-107); Glucose 89 mg/dL (74-99); Non-African American GFR(CKD) >90 (>60 ml/min/1.73 sqM); Potassium 4.2 mmol/L (3.5-5.1); Sodium 136 mmol/L (137-145); Total Bilirubin 0.5 mg/dL (0.2-1.3); Total Protein 6.7 g/dL (6.3-8.2)
--- NOTE | 2020-07-20 16:56 | US ---
EXAMINATION TYPE: US transvaginal DATE OF EXAM: 07/20/2020 COMPARISON: NONE CLINICAL HISTORY: Concern for . Pain patient says something moving in stomch HCG is negative . TECHNIQUE: Transvaginal (TV). EXAM MEASUREMENTS: Uterus: 8.8 x 4.5 x 5.0 cm Endometrial Stripe: .6 cm Left Ovary: 2.7 x 2.2 x 2.1 cm 1. Uterus: Anteverted wnl 2. Endometrium: wnl 3. Right Ovary: Obscured by overlying bowel gas 4. Left Ovary: wnl Spectral, color and waveform doppler imaging shows good arterial and venous flow within the left ov shonda; there is no evidence for ovarian torsion. 5. Bilateral Adnexa: wnl 6. Posterior cul-de-sac: wnl IMPRESSION: No adnexal mass or free fluid. No evidence of ovarian torsion. Normal uterus.
--- NOTE | 2020-07-20 17:54 | CT ---
EXAMINATION TYPE: CT abdomen pelvis w con DATE OF EXAM: 07/20/2020 COMPARISON: 06/03/2018 HISTORY: Abdominal distension and pain. CT DLP: 1861.6 mGycm Automated exposure control for dose reduction was used. CONTRAST: Performed with IV Contrast, patient injected with 100 mL of Isovue 300. Lung bases are clear. There is no pleural effusion. Heart size is normal. There is no pericardial eff usion. There is minimal fatty infiltration of the liver. Spleen is intact. Stomach is intact. There a re clips from cholecystectomy. Pancreas appears normal. There is no adrenal mass. Kidneys show satisfactory contrast opacification. There is no hydronephrosi s. Bladder distends smoothly. There is no inguinal hernia. There is no free fluid in the pelvis. Uter us is anteverted. Appendix is not seen. There is no sign of thickened appendix. There is no mesenteric edema. There is no ascites or free air. There is no bowel obstruction. Lumbar vertebra have fairly normal spacing and alignment. There is no compression fracture. The bony pelvis appears intact. Hip joints are intact. IMPRESSION: Negative CT scan abdomen and pelvis. Minimal fatty infiltration of the liver. There is overall no adv erse change compared to old exam.
[2020-07-20 18:57] VITALS: BP 129/81; PULSE 84; RESP 16; TEMP 98.1
== END 2020-07-20 18:57 | disposition home or self-care (01) ==
LOC: EC 13:54
DX: R10.9 Unspecified abdominal pain (principal); R11.2 Nausea with vomiting, unspecified; R14.0 Abdominal distension (gaseous); G40.909 Epilepsy, unspecified, not intractable, without status epilepticus; F17.200 Nicotine dependence, unspecified, uncomplicated; Z79.899 Other long term (current) drug therapy; Z91.040 Latex allergy status; Z88.5 Allergy status to narcotic agent; Z91.018 Allergy to other foods; Z91.030 Bee allergy status; Z88.8 Allergy status to other drugs, medicaments and biological substances
CPT/HCPCS: 36415; 80053; 85025; 81003; 81025; 93976; 76830; 74177; 99284; Q9967

== ENCOUNTER → 2020-09-20 | Outpatient (CLI) | payer OTHER ==
--- NOTE | 2020-09-20 15:25 | XR ---
Left ankle history: S 93.402A, pain 2 views of the left ankle Comparison previous exam 04/03/2017 Bone mineralization, joint spaces and alignment are maintained. Mobile spur noted at the anterior asp ect of the distal tibia and along the talar neck. No evident joint effusion. There is mild soft tissu e swelling. IMPRESSION: No acute fracture or dislocation is evident.
== END | disposition home or self-care (01) ==
LOC: RADXRMAIN 14:19
PROVIDERS: ATTEND Internal Medicine
DX: S93.402A Sprain of unspecified ligament of left ankle, initial encounter (principal)

== ENCOUNTER 2021-01-12 06:32 | Day surgery (SDC) | payer OTHER ==
[2021-01-10 12:09] VITALS: BMI 43.4
[~2021-01-12 06:32] MED LIST changes: -ACETAMINOPHEN TAB 500 MG TAB PO ONE; -BUPIVACAIN-EPI 0.25%-1:200,000 30 ML VIAL SQ ONE; -DEXAMETHASONE SOD PHOSPHATE 10 MG/ML 1 ML VIAL IV ONE; -GLYCOPYRROLATE 0.2 MG/ML 2 ML VIAL ONE; -HEPARIN SODIUM,PORCINE 5,000 UNIT/ML 1 ML VIAL SQ ONE; -HYDROcodone/APAP 5-325MG 1 EACH TAB PO ONE; -HYDROmorphone (PF) 1 MG/ML ONE; -HYDROmorphone 0.5 MG/0.5 ML SYRINGE IVP PRN; -LACTATED RINGERS 1,000 ML IV SCH; -LIDOCAINE 1% (10MG/ML) FOR IV START INTRADERMA ONE; +LIDOCAINE 1% (10MG/ML) FOR IV START INTRADERMA PRN; -LIDOCAINE 1% INJ 10MG/ML (20 ML MDV) ONE; -MIDAZOLAM 2 MG/2 ML VIAL ONE; -NEOSTIGMINE 1 MG/ML 10 ML VIAL ONE; -ONDANSETRON 4 MG/2 ML VIAL IVP ONE; -PROPOFOL 10 MG/ML 20 ML VIAL IV ONE; -ROCURONIUM BROMIDE 10 MG/ML 5 ML VIAL IV ONE; -SCOPOLAMINE 1.5MG/72HR PATCH TRANSDERM ONE; -SUCCINYLCHOLINE CHLORIDE 100 MG/5 ML SYR IV ONE; -fentaNYL (PF) 50 MCG/ML 2 ML AMP IV PRN; -fentaNYL (PF) 50 MCG/ML 2 ML AMP ONE
[2021-01-12 07:19] LABS: Glucose,Whole Blood 96 mg/dL (75-99)
[2021-01-12 07:24] VITALS: TEMP 97.3
[2021-01-12] MEDS: LACTATED RINGERS 1,000 ML IV SCH ×2 (07:35→08:08)
[2021-01-12] MEDS ORDERED: LIDOCAINE 1% INJ 10MG/ML (20 ML MDV) ONE (08:12)
[2021-01-12] MEDS ORDERED: PROPOFOL 10 MG/ML 20 ML VIAL IV ONE (08:12)
--- NOTE | 2021-01-12 08:17 | P.GSHP ---
History of Present Illness H&P Date: 01/12/21 Chief Complaint: GERD This is a 30-year-old female With of GERD. She presents today for EGD. Past Medical History Past Medical History: Asthma, Fibromyalgia, GERD/Reflux, Osteoarthritis (OA), Seizure Disorder Additional Past Medical History / Comment(s): scoliosis and arthritis; back pain, States Stress Seziures., last seizure 7 months ago., Headaches, states Hypertension & Chest Pain with stress., abnormal pap smear-following with her DrEthel, Loose stools since gallbladder removed., occasiona blood in stool. , urine leakage-wears pads. History of Any Multi-Drug Resistant Organisms: None Reported Past Surgical History: Appendectomy, Section, Cholecystectomy Additional Past Surgical History / Comment(s): d & c, Past Anesthesia/Blood Transfusion Reactions: No Reported Reaction, Motion Sickness Past Psychological History: ADD/ADHD, Anxiety, Bipolar, Depression Smoking Status: Current every day smoker Past Alcohol Use History: None Reported Additional Past Alcohol Use History / Comment(s): started smoking age 12, currently smokes 1/2 to 1 ppd. Past Drug Use History: Marijuana Additional Drug Use History / Comment(s): Patient states no current use. - Past Family History Mother Family Medical History: Fibromyalgia Medications and Allergies Home Medications Medication Instructions Recorded Confirmed Type HYDROcodone/APAP 7.5-325MG [[place] 1 tab PO DAILY PRN 03/23/20 01/12/21 History 7.5-325] Albuterol Sulfate [Albuterol 1 puff PO DIRECTED PRN 01/10/21 01/12/21 History Sulfate Hfa] Bismuth Subsalicylate 1 dose PO DIRECTED PRN 01/10/21 01/10/21 History [Pepto-Bismol] Calcium Carbonate [Tums] 500 mg PO DIRECTED PRN 01/10/21 01/12/21 History Citalopram Hydrobromide 5 mg PO DAILY 01/10/21 01/12/21 History [Citalopram HBr] Estarylla Control 1 tab PO DAILY 01/10/21 01/12/21 History Ibuprofen [Motrin] 600 mg PO DIRECTED PRN 01/10/21 01/10/21 History Montelukast [Singulair] 10 mg PO DAILY 01/10/21 01/10/21 History Topiramate [Topamax] 200 mg PO BID 01/10/21 01/12/21 History levETIRAcetam [Keppra] 1,000 mg PO Q12HR 01/10/21 01/12/21 History levETIRAcetam [Keppra] 250 mg PO Q12HR 01/10/21 01/12/21 History metFORMIN HCL [Glucophage] 500 mg PO BID 01/10/21 01/12/21 History Allergies Allergy/AdvReac Type Severity Reaction Status Date / Time buspirone HCl [From BuSpar] Allergy Rash/Hives Verified 01/12/21 07:22 Latex, Natural Rubber Allergy Rash/Hives Verified 01/12/21 07:22 morphine Allergy Anaphylaxis Verified 01/12/21 07:22 onion Allergy Anaphylaxis Verified 01/12/21 07:22 tramadol Allergy Rash/Hives Verified 01/12/21 07:22 venom-honey bee Allergy Swelling Verified 01/12/21 07:22 [bee venom (honey bee)] Surgical - Exam Vital Signs Temp Pulse Resp BP Pulse Ox 97.3 F L 79 16 140/62 97 01/12/21 07:23 01/12/21 07:23 01/12/21 07:23 01/12/21 07:23 01/12/21 07:23 - General well developed, well nourished, no distress - Eyes PERRL - ENT normal pinna - Neck no masses - Respiratory normal expansion - Cardiovascular Rhythm: regular - Abdomen Abdomen: soft, non tender Hernia: none Assessment and Plan Assessment: GERD Morbid obesity BMI 41 We'll perform EGD.
--- NOTE | 2021-01-12 08:24 | P.OP ---
Date of Procedure: 01/12/21 Preoperative Diagnosis: GERD Postoperative Diagnosis: Mild antral gastritis Mild esophagitis No significant hiatal hernia Procedure(s) Performed: EGD Anesthesia: MAC Surgeon: Charly Hicks Pathology: other (Antrum, esophagus) Condition: stable Disposition: PACU Description of Procedure: The patient's placed on the endoscopy table in the lateral position. She received IV sedation. The gastroscope placed oropharynx past esophagus and stomach. Scope was placed through the pylorus. The first and second portion of the duodenum appeared normal. Scope was then brought back the antrum and a biopsies performed. This is mildly inflamed. The scope was then retroflexed and the remainder of the stomach appeared normal. There was no significant hiatal hernia. The GE junction was at 40 cm. The distal esophagus appeared mildly inflamed a biopsies performed. The proximal esophagus appeared normal. Scope was withdrawn for patient.
[2021-01-12 08:41] VITALS: BP 122/72; PULSE 71; RESP 18
== END 2021-01-12 09:17 | disposition home or self-care (01) ==
LOC: ORWHC2ENDO 06:32
PROVIDERS: ATTEND Surgery
DX: K29.50 Unspecified chronic gastritis without bleeding (principal); K21.00 Gastro-esophageal reflux disease with esophagitis, without bleeding; J45.909 Unspecified asthma, uncomplicated; M79.7 Fibromyalgia; M19.90 Unspecified osteoarthritis, unspecified site; G40.909 Epilepsy, unspecified, not intractable, without status epilepticus; M41.9 Scoliosis, unspecified; I10 Essential (primary) hypertension; R87.619 Unspecified abnormal cytological findings in specimens from cervix uteri; R19.7 Diarrhea, unspecified; R32 Unspecified urinary incontinence; F90.9 Attention-deficit hyperactivity disorder, unspecified type; F41.9 Anxiety disorder, unspecified; F31.9 Bipolar disorder, unspecified; F17.210 Nicotine dependence, cigarettes, uncomplicated; E66.01 Morbid (severe) obesity due to excess calories; E11.9 Type 2 diabetes mellitus without complications; Z90.49 Acquired absence of other specified parts of digestive tract; Z98.890 Other specified postprocedural states; Z87.898 Personal history of other specified conditions; Z79.891 Long term (current) use of opiate analgesic; Z79.899 Other long term (current) drug therapy; Z79.3 Long term (current) use of hormonal contraceptives; Z79.1 Long term (current) use of non-steroidal anti-inflammatories (NSAID); Z79.84 Long term (current) use of oral hypoglycemic drugs; Z88.8 Allergy status to other drugs, medicaments and biological substances; Z91.040 Latex allergy status; Z88.5 Allergy status to narcotic agent; Z91.018 Allergy to other foods; Z91.030 Bee allergy status; Z68.41 Body mass index [BMI] 40.0-44.9, adult; Z82.69 Family history of other diseases of the musculoskeletal system and connective tissue
CPT/HCPCS: 81025; 88305; 43239; J2001; J2704

== ENCOUNTER 2021-01-16 13:08 | Emergency (ER) | payer OTHER ==
[2021-01-16] MEDS ORDERED: DEXAMETHASONE SOD PHOSPHATE 10 MG/ML 1 ML VIAL IV STA (13:20)
[2021-01-16] MEDS ORDERED: SODIUM CHLORIDE 0.9% 1,000 ML IV ONE (13:20)
[2021-01-16 13:22] VITALS: TEMP 98.1
--- NOTE | 2021-01-16 13:24 | ED ---
General Adult HPI - General Chief complaint: Upper Respiratory Infection Stated complaint: Migraine,cough Time Seen by Provider: 01/16/21 13:11 Source: patient, EMS, RN notes reviewed, old records reviewed Mode of arrival: EMS Limitations: altered mental status - History of Present Illness Initial comments: 30-year-old female presenting for evaluation of cough and dyspnea. History of diabetes, asthma. Patient states she has been sick for the past several days. She has headache, sore throat, myalgias. She has a nonproductive cough. She's had vomiting and diarrhea as well. Additionally patient reports headache with history of migraine headache. - Related Data Home Medications Medication Instructions Recorded Confirmed HYDROcodone/APAP 7.5-325MG [[place] 1 tab PO DAILY PRN 03/23/20 01/16/21 7.5-325] Estarylla Control 1 tab PO DAILY 01/10/21 01/16/21 Montelukast [Singulair] 10 mg PO DAILY 01/10/21 01/16/21 Topiramate [Topamax] 200 mg PO BID 01/10/21 01/16/21 levETIRAcetam [Keppra] 1,000 mg PO Q12HR 01/10/21 01/16/21 levETIRAcetam [Keppra] 250 mg PO Q12HR 01/10/21 01/16/21 metFORMIN HCL [Glucophage] 500 mg PO BID 01/10/21 01/16/21 EPINEPHrine (Auto Inject) [Epipen] 0.3 mg IM ONCE PRN 01/16/21 01/16/21 Escitalopram [Lexapro] 5 mg PO DAILY 01/16/21 01/16/21 Sucralfate [Carafate] 1 gm PO AC-TID 01/16/21 01/16/21 Previous Rx's Medication Instructions Recorded predniSONE 50 mg PO DAILY #5 tab 01/16/21 Allergies Allergy/AdvReac Type Severity Reaction Status Date / Time buspirone HCl [From BuSpar] Allergy Rash/Hives Verified 01/16/21 14:16 Latex, Natural Rubber Allergy Rash/Hives Verified 01/16/21 14:16 morphine Allergy Anaphylaxis Verified 01/16/21 14:16 onion Allergy Anaphylaxis Verified 01/16/21 14:16 tramadol Allergy Rash/Hives Verified 01/16/21 14:16 venom-honey bee Allergy Swelling Verified 01/16/21 14:16 [bee venom (honey bee)] Review of Systems ROS Statement: Those systems with pertinent positive or pertinent negative responses have been documented in the HPI. ROS Other: All systems not noted in ROS Statement are negative. Past Medical History Past Medical History: Asthma, Fibromyalgia, GERD/Reflux, Osteoarthritis (OA), Seizure Disorder Additional Past Medical History / Comment(s): scoliosis and arthritis; back pain, States Stress Seziures., last seizure 7 months ago., Headaches, states Hypertension & Chest Pain with stress., abnormal pap smear-following with her DrEthel, Loose stools since gallbladder removed., occasiona blood in stool. , urine leakage-wears pads. History of Any Multi-Drug Resistant Organisms: None Reported Past Surgical History: Appendectomy, Section, Cholecystectomy Additional Past Surgical History / Comment(s): d & c, Past Anesthesia/Blood Transfusion Reactions: No Reported Reaction, Motion Sickness Past Psychological History: ADD/ADHD, Anxiety, Bipolar, Depression Smoking Status: Current every day smoker Past Alcohol Use History: None Reported Past Drug Use History: None Reported - Past Family History Mother Family Medical History: Fibromyalgia General Exam Limitations: altered mental status General appearance: alert, in no apparent distress Head exam: Present: atraumatic, normocephalic Eye exam: Present: normal appearance, PERRL ENT exam: Present: mucous membranes dry Neck exam: Present: normal inspection Respiratory exam: Present: wheezes (spastic cough). Absent: respiratory distress Cardiovascular Exam: Present: regular rate, normal rhythm GI/Abdominal exam: Present: soft. Absent: distended, tenderness, guarding, rebound Extremities exam: Present: normal inspection, normal capillary refill. Absent: pedal edema, calf tenderness Neurological exam: Present: alert, oriented X3, CN II-XII intact. Absent: motor sensory deficit Psychiatric exam: Present: normal affect, normal mood Skin exam: Present: warm, dry, intact. Absent: cyanosis, diaphoretic Course Vital Signs 01/16/21 13:14 Temperature 98.1 F Pulse Rate 83 Respiratory 20 Rate Blood Pressure 133/71 O2 Sat by Pulse 99 Oximetry Medical Decision Making - Medical Decision Making 30-year-old female history of asthma presenting with cough dyspnea, URI symptoms as well as myalgias, headache. Patient well-appearing stable vitals. She has a bronchospastic cough. History of asthma. xr is clear. She has normal CBC, normal CMP, coronavirus is negative. Much better after IV fluids and steroids. She is reassured that she does not have coronavirus. She will be treated for an asthma exacerbation with oral steroids as well as albuterol inhaler which she carries. Return parameters discussed. - Lab Data Result diagrams: 01/16/21 13:53 01/16/21 13:53 Lab Results 01/16/21 01/16/21 01/16/21 Range/Units 13:53 13:53 13:53 WBC 7.9 (3.8-10.6) k/uL RBC 4.36 (3.80-5.40) m/uL Hgb 13.7 (11.4-16.0) gm/dL Hct 38.7 (34.0-46.0) % MCV 88.7 (80.0-100.0) fL MCH 31.4 (25.0-35.0) pg MCHC 35.4 (31.0-37.0) g/dL RDW 12.9 (11.5-15.5) % Plt Count 241 (150-450) k/uL MPV 6.7 Neutrophils % 74 % Lymphocytes % 18 % Monocytes % 4 % Eosinophils % 3 % Basophils % 0 % Neutrophils # 5.9 (1.3-7.7) k/uL Lymphocytes # 1.4 (1.0-4.8) k/uL Monocytes # 0.3 (0-1.0) k/uL Eosinophils # 0.2 (0-0.7) k/uL Basophils # 0.0 (0-0.2) k/uL Sodium 139 (137-145) mmol/L Potassium 3.9 (3.5-5.1) mmol/L Chloride 110 H (98-107) mmol/L Carbon Dioxide 25 (22-30) mmol/L Anion Gap 4 mmol/L BUN 8 (7-17) mg/dL Creatinine 0.74 (0.52-1.04) mg/dL Est GFR (CKD-EPI)AfAm >90 (>60 ml/min/1.73 sqM) Est GFR (CKD-EPI)NonAf >90 (>60 ml/min/1.73 sqM) Glucose 97 (74-99) mg/dL Plasma Lactic Acid [place] 1.1 (0.7-2.0) mmol/L Calcium 8.8 (8.4-10.2) mg/dL Magnesium 1.8 (1.6-2.3) mg/dL Total Bilirubin 0.3 (0.2-1.3) mg/dL AST 26 (14-36) U/L ALT 20 (4-34) U/L Alkaline Phosphatase 58 (38-126) U/L Total Protein 6.2 L (6.3-8.2) g/dL Albumin 3.6 (3.5-5.0) g/dL Coronavirus (PCR) (Not Detectd) 01/16/21 Range/Units 13:53 WBC (3.8-10.6) k/uL RBC (3.80-5.40) m/uL Hgb (11.4-16.0) gm/dL Hct (34.0-46.0) % MCV (80.0-100.0) fL MCH (25.0-35.0) pg MCHC (31.0-37.0) g/dL RDW (11.5-15.5) % Plt Count (150-450) k/uL MPV Neutrophils % % Lymphocytes % % Monocytes % % Eosinophils % % Basophils % % Neutrophils # (1.3-7.7) k/uL Lymphocytes # (1.0-4.8) k/uL Monocytes # (0-1.0) k/uL Eosinophils # (0-0.7) k/uL Basophils # (0-0.2) k/uL Sodium (137-145) mmol/L Potassium (3.5-5.1) mmol/L Chloride (98-107) mmol/L Carbon Dioxide (22-30) mmol/L Anion Gap mmol/L BUN (7-17) mg/dL Creatinine (0.52-1.04) mg/dL Est GFR (CKD-EPI)AfAm (>60 ml/min/1.73 sqM) Est GFR (CKD-EPI)NonAf (>60 ml/min/1.73 sqM) Glucose (74-99) mg/dL Plasma Lactic Acid [place] (0.7-2.0) mmol/L Calcium (8.4-10.2) mg/dL Magnesium (1.6-2.3) mg/dL Total Bilirubin (0.2-1.3) mg/dL AST (14-36) U/L ALT (4-34) U/L Alkaline Phosphatase (38-126) U/L Total Protein (6.3-8.2) g/dL Albumin (3.5-5.0) g/dL Coronavirus (PCR) Not Detected (Not Detectd) Disposition Clinical Impression: Asthmatic bronchitis Disposition: HOME SELF-CARE Condition: Good Instructions (If sedation given, give patient instructions): Upper Respiratory Infection (ED) Prescriptions: predniSONE 50 mg PO DAILY #5 tab Is patient prescribed a controlled substance at d/c from ED?: No Referrals: Aparna Liriano DO [Primary Care Provider] - 1-2 days Time of Disposition: 15:00
[2021-01-16 14:05] LABS: Basophils % (A) 0 %; Eosinophils # (A) 0.2 k/uL (0-0.7); Eosinophils % (A) 3 %; HCT 38.7 % (34.0-46.0); HGB 13.7 gm/dL (11.4-16.0); Lymphocytes # (A) 1.4 k/uL (1.0-4.8); Lymphocytes % (A) 18 %; MCH 31.4 pg (25.0-35.0); MCHC 35.4 g/dL (31.0-37.0); MCV 88.7 fL (80.0-100.0); Mean Platelet Volume 6.7; Monocytes # (A) 0.3 k/uL (0-1.0); Monocytes % (A) 4 %; Neutrophils # (A) 5.9 k/uL (1.3-7.7); Neutrophils % (A) 74 %; Platelet Count 241 k/uL (150-450); RBC 4.36 m/uL (3.80-5.40); RDW 12.9 % (11.5-15.5); WBC 7.9 k/uL (3.8-10.6)
[2021-01-16 14:11] LABS: ALT 20 U/L (4-34); AST 26 U/L (14-36); African American GFR (CKD) >90 (>60 ml/min/1.73 sqM); Albumin 3.6 g/dL (3.5-5.0); Alkaline Phosphatase 58 U/L (38-126); Anion Gap 4 mmol/L; Blood Urea Nitrogen 8 mg/dL (7-17); Calcium 8.8 mg/dL (8.4-10.2); Carbon Dioxide 25 mmol/L (22-30); Chloride 110 mmol/L (98-107); Glucose 97 mg/dL (74-99); Magnesium 1.8 mg/dL (1.6-2.3); Non-African American GFR(CKD) >90 (>60 ml/min/1.73 sqM); Potassium 3.9 mmol/L (3.5-5.1); Sodium 139 mmol/L (137-145); Total Bilirubin 0.3 mg/dL (0.2-1.3); Total Protein 6.2 g/dL (6.3-8.2)
[2021-01-16] MEDS ORDERED: KETOROLAC 15 MG/ML 1 ML VIAL IVP STA (14:40)
--- NOTE | 2021-01-16 14:49 | XR ---
EXAMINATION TYPE: XR chest 1V portable DATE OF EXAM: 01/16/2021 Comparison: 11/08/2019 Clinical History: 30-year-old female shortness of breath, difficulty in breathing. Findings: Limitations due to large body habitus and portable technique. This casts hazy densities over the surjit thoraces. No definite consolidation or pleural effusion. Heart normal size. Pulmonary vasculature wit hin normal limits. Impression: Portable exam further limited by large body habitus. No definite acute process.
[2021-01-16 15:32] VITALS: BP 131/79; PULSE 71; RESP 18
== END 2021-01-16 15:36 | disposition home or self-care (01) ==
LOC: EC 13:08
DX: J45.909 Unspecified asthma, uncomplicated (principal); I10 Essential (primary) hypertension; F17.200 Nicotine dependence, unspecified, uncomplicated; K21.9 Gastro-esophageal reflux disease without esophagitis; G40.909 Epilepsy, unspecified, not intractable, without status epilepticus; M79.7 Fibromyalgia; M19.90 Unspecified osteoarthritis, unspecified site; E11.9 Type 2 diabetes mellitus without complications; G43.909 Migraine, unspecified, not intractable, without status migrainosus; F32.9 Major depressive disorder, single episode, unspecified; F41.9 Anxiety disorder, unspecified; F90.9 Attention-deficit hyperactivity disorder, unspecified type; Z20.822 Contact with and (suspected) exposure to COVID-19; Z79.84 Long term (current) use of oral hypoglycemic drugs; Z79.52 Long term (current) use of systemic steroids; Z79.899 Other long term (current) drug therapy
CPT/HCPCS: 80053; 83605; 83735; 85025; 87635; 71045; 99285; 96374; 96375; 96361; J1100; J1885; 36415

== ENCOUNTER 2021-01-25 20:25 | Emergency (ER) | payer OTHER ==
[2021-01-25 22:24] VITALS: TEMP 98.3
--- NOTE | 2021-01-25 23:44 | ED ---
Recheck HPI - General Chief Complaint: Upper Respiratory Infection Stated Complaint: cough,fever Time Seen by Provider: 01/25/21 23:44 Source: patient Mode of arrival: ambulatory Limitations: no limitations - Related Data Home Medications Medication Instructions Recorded Confirmed HYDROcodone/APAP 7.5-325MG [[place] 1 tab PO DAILY PRN 03/23/20 01/16/21 7.5-325] Estarylla Control 1 tab PO DAILY 01/10/21 01/16/21 Montelukast [Singulair] 10 mg PO DAILY 01/10/21 01/16/21 Topiramate [Topamax] 200 mg PO BID 01/10/21 01/16/21 levETIRAcetam [Keppra] 1,000 mg PO Q12HR 01/10/21 01/16/21 levETIRAcetam [Keppra] 250 mg PO Q12HR 01/10/21 01/16/21 metFORMIN HCL [Glucophage] 500 mg PO BID 01/10/21 01/16/21 EPINEPHrine (Auto Inject) [Epipen] 0.3 mg IM ONCE PRN 01/16/21 01/16/21 Escitalopram [Lexapro] 5 mg PO DAILY 01/16/21 01/16/21 Sucralfate [Carafate] 1 gm PO AC-TID 01/16/21 01/16/21 Previous Rx's Medication Instructions Recorded predniSONE 50 mg PO DAILY #5 tab 01/16/21 Allergies Allergy/AdvReac Type Severity Reaction Status Date / Time buspirone HCl [From BuSpar] Allergy Rash/Hives Verified 01/25/21 22:25 Latex, Natural Rubber Allergy Rash/Hives Verified 01/25/21 22:25 morphine Allergy Anaphylaxis Verified 01/25/21 22:25 onion Allergy Anaphylaxis Verified 01/25/21 22:25 tramadol Allergy Rash/Hives Verified 01/25/21 22:25 venom-honey bee Allergy Swelling Verified 01/25/21 22:25 [bee venom (honey bee)] Review of Systems ROS Statement: Those systems with pertinent positive or pertinent negative responses have been documented in the HPI. ROS Other: All systems not noted in ROS Statement are negative. Past Medical History Past Medical History: Asthma, Fibromyalgia, GERD/Reflux, Osteoarthritis (OA), Seizure Disorder Additional Past Medical History / Comment(s): scoliosis and arthritis; back pain, States Stress Seziures., last seizure 7 months ago., Headaches, states Hypertension & Chest Pain with stress., abnormal pap smear-following with her DrEthel, Loose stools since gallbladder removed., occasiona blood in stool. , urine leakage-wears pads. History of Any Multi-Drug Resistant Organisms: None Reported Past Surgical History: Appendectomy, Section, Cholecystectomy Additional Past Surgical History / Comment(s): d & c, Past Anesthesia/Blood Transfusion Reactions: No Reported Reaction, Motion Sickness Past Psychological History: ADD/ADHD, Anxiety, Bipolar, Depression Smoking Status: Current every day smoker Past Alcohol Use History: None Reported Past Drug Use History: Marijuana - Past Family History Mother Family Medical History: Fibromyalgia General Exam Limitations: no limitations Course Vital Signs 01/25/21 22:19 Temperature 98.3 F Pulse Rate 87 Respiratory 18 Rate Blood Pressure 168/107 O2 Sat by Pulse 97 Oximetry Medical Decision Making - Lab Data Lab Results 01/25/21 Range/Units 22:48 Coronavirus (PCR) Not Detected (Not Detectd) Disposition Clinical Impression: Upper respiratory tract infection Disposition: HOME SELF-CARE Condition: Good Instructions (If sedation given, give patient instructions): Upper Respiratory Infection (ED) Is patient prescribed a controlled substance at d/c from ED?: No Referrals: Aparna Liriano DO [Primary Care Provider] - 1-2 days
[2021-01-25 23:59] VITALS: BP 121/75; PULSE 88; RESP 16
== END 2021-01-26 00:03 | disposition home or self-care (01) ==
LOC: EC 20:25
DX: J06.9 Acute upper respiratory infection, unspecified (principal); Z20.822 Contact with and (suspected) exposure to COVID-19; J45.909 Unspecified asthma, uncomplicated; K21.9 Gastro-esophageal reflux disease without esophagitis; M19.90 Unspecified osteoarthritis, unspecified site; F41.9 Anxiety disorder, unspecified; F32.9 Major depressive disorder, single episode, unspecified; F17.200 Nicotine dependence, unspecified, uncomplicated; F12.90 Cannabis use, unspecified, uncomplicated; I10 Essential (primary) hypertension
CPT/HCPCS: 87635; 99283

== ENCOUNTER → 2021-04-04 | Outpatient (CLI) | payer OTHER ==
--- NOTE | 2021-04-04 12:16 | MR ---
EXAMINATION TYPE: MR ankle RT wo con DATE OF EXAM: 04/04/2021 COMPARISON: 02/16/2021 HISTORY: Right ankle pain, swelling, and clicking for 5 months after twisting ankle. Standard multiplanar, multisequence MRI departmental protocol Multiplanar, multisequence images of the right ankle were acquired. Diffusion weighted imaging was pe rformed. FINDINGS: TENDONS: The distal Achilles tendon is intact. Fluid surrounds the intact posterior tibial tendon and peronea l tendons, most consistent with tendinopathy. LIGAMENTS: There is a tear of the anterior talofibular ligament. The posterior talofibular ligament and the ante rior and posterior tibiofibular ligaments are intact. The deltoid ligament is predominantly intact bu t edematous, most likely due to sprain. The calcaneofibular ligament is torn. SINUS TARSI: There is preservation of the normal T1 fatty signal in the sinus tarsi. SUBTALAR: Subtalar joint is grossly unremarkable. PLANTAR FASCIA: The plantar fascia is unremarkable. ANKLE JOINT: The articular cartilage of the ankle joint is grossly preserved. There is no osteochondral lesion kirk ntified. No ankle joint effusion. BONE MARROW: The bone marrow signal is unremarkable. MUSCLE: Musculature is unremarkable. IMPRESSION: 1. Tear of the anterior talofibular ligament and calcaneofibular ligament. 2. Sprain of the deltoid ligament. 3. Posterior tibial and peroneal tendinopathy.
== END | disposition home or self-care (01) ==
LOC: RADMRIMAIN 11:01
PROVIDERS: ATTEND Orthopaedic Surgery
DX: S93.411A Sprain of calcaneofibular ligament of right ankle, initial encounter (principal); S93.491A Sprain of other ligament of right ankle, initial encounter; M76.71 Peroneal tendinitis, right leg; M76.821 Posterior tibial tendinitis, right leg; X50.1XXA Overexertion from prolonged static or awkward postures, initial encounter; S93.421A Sprain of deltoid ligament of right ankle, initial encounter

== ENCOUNTER 2021-07-03 12:19 | Emergency (ER) | payer OTHER ==
[2021-07-03 12:27] VITALS: BP 116/74; PULSE 78; RESP 18; TEMP 98.2
--- NOTE | 2021-07-03 12:45 | ED ---
General Adult HPI - General Chief complaint: Back Pain/Injury Stated complaint: low back pain Time Seen by Provider: 07/03/21 12:31 Source: patient, RN notes reviewed Mode of arrival: wheelchair Limitations: no limitations - History of Present Illness Initial comments: Patient is a pleasant 31-year-old female presenting to the emergency Department with complaints of low back pain. Patient does have chronic low back pain over years. This has progressed over years. Patient has degenerative disc disease. Patient does see Dr. Wang for pain management. No incontinence or retention of bowel or bladder. No leg weakness. Discomfort is positional. Patient missed her last period and states it is possible she could be . - Related Data Home Medications Medication Instructions Recorded Confirmed HYDROcodone/APAP 7.5-325MG [[place] 1 tab PO DAILY PRN 03/23/20 01/16/21 7.5-325] Estarylla Control 1 tab PO DAILY 01/10/21 01/16/21 Montelukast [Singulair] 10 mg PO DAILY 01/10/21 01/16/21 Topiramate [Topamax] 200 mg PO BID 01/10/21 01/16/21 levETIRAcetam [Keppra] 1,000 mg PO Q12HR 01/10/21 01/16/21 levETIRAcetam [Keppra] 250 mg PO Q12HR 01/10/21 01/16/21 metFORMIN HCL [Glucophage] 500 mg PO BID 01/10/21 01/16/21 EPINEPHrine (Auto Inject) [Epipen] 0.3 mg IM ONCE PRN 01/16/21 01/16/21 Escitalopram [Lexapro] 5 mg PO DAILY 01/16/21 01/16/21 Sucralfate [Carafate] 1 gm PO AC-TID 01/16/21 01/16/21 Previous Rx's Medication Instructions Recorded predniSONE 50 mg PO DAILY #5 tab 01/16/21 predniSONE [Deltasone] 20 mg PO BID #10 tab 07/03/21 Allergies Allergy/AdvReac Type Severity Reaction Status Date / Time buspirone HCl [From BuSpar] Allergy Rash/Hives Verified 07/03/21 12:25 Latex, Natural Rubber Allergy Rash/Hives Verified 07/03/21 12:25 morphine Allergy Anaphylaxis Verified 07/03/21 12:25 onion Allergy Anaphylaxis Verified 07/03/21 12:25 tramadol Allergy Rash/Hives Verified 07/03/21 12:25 venom-honey bee Allergy Swelling Verified 07/03/21 12:25 [bee venom (honey bee)] Review of Systems ROS Statement: Those systems with pertinent positive or pertinent negative responses have been documented in the HPI. ROS Other: All systems not noted in ROS Statement are negative. Constitutional: Denies: fever Eyes: Denies: eye pain ENT: Denies: ear pain Respiratory: Denies: cough Cardiovascular: Denies: chest pain Endocrine: Denies: fatigue Gastrointestinal: Denies: abdominal pain Genitourinary: Denies: dysuria Musculoskeletal: Reports: as per HPI, back pain Skin: Denies: rash Neurological: Denies: weakness Past Medical History Past Medical History: Asthma, Fibromyalgia, GERD/Reflux, Osteoarthritis (OA), Seizure Disorder Additional Past Medical History / Comment(s): scoliosis and arthritis; back pain, States Stress Seziures., last seizure 7 months ago., Headaches, states Hypertension & Chest Pain with stress., abnormal pap smear-following with her DrEthel, Loose stools since gallbladder removed., occasiona blood in stool. , urine leakage-wears pads. History of Any Multi-Drug Resistant Organisms: None Reported Past Surgical History: Appendectomy, Section, Cholecystectomy Additional Past Surgical History / Comment(s): d & c, Past Anesthesia/Blood Transfusion Reactions: No Reported Reaction, Motion Sickness Past Psychological History: ADD/ADHD, Anxiety, Bipolar, Depression Smoking Status: Current every day smoker Past Alcohol Use History: None Reported Past Drug Use History: Marijuana - Past Family History Mother Family Medical History: Fibromyalgia General Exam Limitations: no limitations General appearance: alert, in no apparent distress Head exam: Present: normocephalic Eye exam: Present: normal appearance ENT exam: Present: normal oropharynx Neck exam: Present: normal inspection Respiratory exam: Present: normal lung sounds bilaterally Cardiovascular Exam: Present: regular rate, normal rhythm GI/Abdominal exam: Present: soft. Absent: distended, tenderness Extremities exam: Present: normal inspection Back exam: Present: vertebral tenderness (Mild diffuse vertebral tenderness) Neurological exam: Present: alert. Absent: motor sensory deficit Expanded Sensory exam: Lower Extremity Light Touch: Normal Motor strength exam: RLE: 5, LLE: 5 Psychiatric exam: Present: normal affect, normal mood Skin exam: Present: normal color Course Vital Signs 07/03/21 12:26 Temperature 98.2 F Pulse Rate 78 Respiratory 18 Rate Blood Pressure 116/74 O2 Sat by Pulse 97 Oximetry Medical Decision Making - Medical Decision Making Patient reevaluated and updated - Lab Data Lab Results 07/03/21 Range/Units 12:49 HCG, Quant <2.4 mIU/mL Disposition Clinical Impression: Low back pain Disposition: HOME SELF-CARE Condition: Stable Instructions (If sedation given, give patient instructions): Acute Low Back Pain (ED) Additional Instructions: Prescription for steroids been sent to your pharmacy. Please follow-up with primary care physician as well as pain doctor as well as back doctor in the next couple days for recheck. Return for weakness, loss of control of bowel or bladder, fever, worsening symptoms or change in symptoms or other concerns. Prescriptions: predniSONE [Deltasone] 20 mg PO BID #10 tab Is patient prescribed a controlled substance at d/c from ED?: No Referrals: Aparna Liriano DO [Primary Care Provider] - 1-2 days Horace Holguin DO [Doctor of Osteopathic Medicine] - 1-2 days Time of Disposition: 13:39
[2021-07-03] MEDS ORDERED: ACETAMINOPHEN TAB 325 MG TAB PO STA (12:59)
[2021-07-03] MEDS ORDERED: KETOROLAC 15 MG/ML 1 ML VIAL IM STA (13:40)
[2021-07-03] MEDS ORDERED: ORPHENADRINE 30 MG/ML 2 ML VIAL IM STA (13:40)
== END 2021-07-03 14:03 | disposition home or self-care (01) ==
LOC: EC 12:19
DX: M54.5 Low back pain (principal); J45.909 Unspecified asthma, uncomplicated; G40.909 Epilepsy, unspecified, not intractable, without status epilepticus; K21.9 Gastro-esophageal reflux disease without esophagitis; I10 Essential (primary) hypertension; F17.200 Nicotine dependence, unspecified, uncomplicated; Z79.899 Other long term (current) drug therapy; Z91.030 Bee allergy status; Z91.040 Latex allergy status; Z88.5 Allergy status to narcotic agent; Z88.8 Allergy status to other drugs, medicaments and biological substances; Z91.018 Allergy to other foods
CPT/HCPCS: 36415; 84702; 99283; 96372 ×2; J2360; J1885

== ENCOUNTER → 2021-07-19 | Outpatient (CLI) | payer OTHER ==
--- NOTE | 2021-07-20 08:41 | XR ---
Lumbar spine HISTORY: Low back pain 3 views of the lumbar spine correlated to prior exam 07/31/2013 There is no significant interval change. Lumbar vertebral bodies show preserved height, alignment is stable. Bone mineralization is normal. Disc spaces show some mild disc height loss at L1-L2. Some scl erosis noted in the posterior elements of the lower lumbar spine. There is mild spondylosis at L1-2. IMPRESSION: Mild degenerative disc change, facet arthropathy
== END | disposition home or self-care (01) ==
LOC: RADXRMAIN 15:58
PROVIDERS: ATTEND Physician Assistant
DX: M51.37 Other intervertebral disc degeneration, lumbosacral region (principal); M46.97 Unspecified inflammatory spondylopathy, lumbosacral region; Z88.6 Allergy status to analgesic agent; Z91.040 Latex allergy status; Z88.5 Allergy status to narcotic agent; Z91.018 Allergy to other foods
CPT/HCPCS: 72100

== ENCOUNTER 2021-09-29 08:48 | Emergency (ER) | payer OTHER ==
[2021-09-29 08:52] VITALS: TEMP 98.5
--- NOTE | 2021-09-29 09:31 | ED ---
General Adult HPI - General Chief complaint: Upper Respiratory Infection Stated complaint: LEISA, cough, chest pain Time Seen by Provider: 09/29/21 08:53 Source: patient, RN notes reviewed Mode of arrival: ambulatory Limitations: no limitations - History of Present Illness Initial comments: 31-year-old female with a past medical history of asthma, fibromyalgia, GERD presents to the emergency room for a chief complaint of cough. Patient has had a cough for several days now. States that her chest hurts when she coughs. Denies shortness of breath. Patient states that he employee's at her 's work have COVID-19. Patient denies fevers.Patient has no other complaints at this time including shortness of breath, abdominal pain, nausea or vomiting, headache, or visual changes. - Related Data Home Medications Medication Instructions Recorded Confirmed HYDROcodone/APAP 7.5-325MG [[place] 1 tab PO DAILY PRN 03/23/20 09/29/21 7.5-325] Montelukast [Singulair] 10 mg PO DAILY 01/10/21 09/29/21 Topiramate [Topamax] 200 mg PO BID 01/10/21 09/29/21 EPINEPHrine (Auto Inject) [Epipen] 0.3 mg IM ONCE PRN 01/16/21 09/29/21 Escitalopram [Lexapro] 5 mg PO DAILY 01/16/21 09/29/21 Cyclobenzaprine [Flexeril] 10 mg PO HS 09/29/21 09/29/21 Dulaglutide [Trulicity] 0.75 mg SQ TH 09/29/21 09/29/21 Nystatin 100,000 Unit/gm Oint 1 applic TOPICAL DAILY 09/29/21 09/29/21 [Mycostatin Oint] Omeprazole 40 mg PO DAILY 09/29/21 09/29/21 metroNIDAZOLE [Flagyl] 500 mg PO BID 09/29/21 09/29/21 Previous Rx's Medication Instructions Recorded Albuterol Inhaler [Ventolin Hfa 2 puff INHALATION RT-QID PRN #8 gm 09/29/21 Inhaler] predniSONE 50 mg PO DAILY #5 tablet 09/29/21 Allergies Allergy/AdvReac Type Severity Reaction Status Date / Time buspirone HCl [From BuSpar] Allergy Rash/Hives Verified 09/29/21 10:33 Latex, Natural Rubber Allergy Rash/Hives Verified 09/29/21 10:33 morphine Allergy Anaphylaxis Verified 09/29/21 10:33 onion Allergy Rash/Hives Verified 09/29/21 10:33 tramadol Allergy Rash/Hives Verified 09/29/21 10:33 venom-honey bee Allergy Anaphylaxis Verified 09/29/21 10:33 [bee venom (honey bee)] Review of Systems ROS Statement: Those systems with pertinent positive or pertinent negative responses have been documented in the HPI. ROS Other: All systems not noted in ROS Statement are negative. Past Medical History Past Medical History: Asthma, Fibromyalgia, GERD/Reflux, Osteoarthritis (OA), Seizure Disorder Additional Past Medical History / Comment(s): scoliosis and arthritis; back pain, States Stress Seziures., last seizure 7 months ago., Headaches, states Hypertension & Chest Pain with stress., abnormal pap smear-following with her DrEthel, Loose stools since gallbladder removed., occasiona blood in stool. , urine leakage-wears pads. History of Any Multi-Drug Resistant Organisms: None Reported Past Surgical History: Appendectomy, Section, Cholecystectomy Additional Past Surgical History / Comment(s): d & c, Past Anesthesia/Blood Transfusion Reactions: No Reported Reaction, Motion Sickness Past Psychological History: ADD/ADHD, Anxiety, Bipolar, Depression Smoking Status: Current every day smoker Past Alcohol Use History: None Reported Past Drug Use History: None Reported - Past Family History Mother Family Medical History: Fibromyalgia General Exam Limitations: no limitations General appearance: alert, in no apparent distress Head exam: Present: atraumatic Eye exam: Present: normal appearance, PERRL, EOMI. Absent: scleral icterus, conjunctival injection ENT exam: Present: normal exam, mucous membranes moist Neck exam: Present: normal inspection, full ROM. Absent: tenderness Respiratory exam: Present: normal lung sounds bilaterally, chest wall tenderness (anterior chest wall tenderness reproducible to palpation). Absent: respiratory distress, wheezes Cardiovascular Exam: Present: regular rate, normal rhythm, normal heart sounds GI/Abdominal exam: Present: soft, normal bowel sounds. Absent: distended, tenderness Course Vital Signs 09/29/21 09/29/21 08:49 09:47 Temperature 98.5 F Pulse Rate 100 Respiratory 19 20 Rate Blood Pressure 118/76 O2 Sat by Pulse 98 Oximetry Medical Decision Making - Medical Decision Making Vitals are stable. Patient is well appearing. No respiratory distress. HPI and physical exam as documented. She did have mild chest pain but only when coughing and palpating the chest wall consistent with costochondritis. COVID-19 negative. Chest x-ray shows no acute cardiopulmonary process. Patient likely having viral respiratory infection. Given his history of asthma and some slightly diminished lung sounds are a starter her on steroids. She lost her inhalers we will re-prescribe for this. She will follow-up with her doctor. She will return for any worsening symptoms. - Lab Data Lab Results 09/29/21 Range/Units 09:42 Coronavirus (PCR) Not Detected (Not Detectd) Disposition Clinical Impression: Cough Disposition: HOME SELF-CARE Condition: Good Instructions (If sedation given, give patient instructions): Upper Respiratory Infection (ED) Additional Instructions: Please take medications as directed. Follow-up with your doctor. Return to the emergency room for any worsening symptoms Prescriptions: predniSONE 50 mg PO DAILY #5 tablet Albuterol Inhaler [Ventolin Hfa Inhaler] 2 puff INHALATION RT-QID PRN #8 gm PRN Reason: Shortness Of Breath Is patient prescribed a controlled substance at d/c from ED?: No Referrals: Aparna Liriano DO [Primary Care Provider] - 1-2 days Time of Disposition: 11:26
--- NOTE | 2021-09-29 10:05 | XR ---
EXAMINATION TYPE: XR chest 2V DATE OF EXAM: 09/29/2021 COMPARISON: NONE HISTORY: Cough TECHNIQUE: Frontal and lateral views of the chest are obtained. FINDINGS: There is no focal air space opacity. No evidence for pneumothorax. No pleural effusion. The cardiac silhouette size is within normal limits. The osseous structures are grossly intact. IMPRESSION: 1. No acute cardiopulmonary process.
[2021-09-29] MEDS ORDERED: ALBUTEROL HFA INHALER INHALATION STA (10:20)
[2021-09-29] MEDS ORDERED: methylPREDNISolone SOD SUCCI 125 MG/2 ML VIAL IM STA (11:24)
[2021-09-29 11:49] VITALS: BP 132/91; PULSE 94; RESP 18
== END 2021-09-29 11:48 | disposition home or self-care (01) ==
LOC: EC 08:48
DX: R05.9 Cough, unspecified (principal); M94.0 Chondrocostal junction syndrome [Tietze]; F17.200 Nicotine dependence, unspecified, uncomplicated; K21.9 Gastro-esophageal reflux disease without esophagitis; J45.909 Unspecified asthma, uncomplicated; I10 Essential (primary) hypertension; Z88.8 Allergy status to other drugs, medicaments and biological substances; Z20.822 Contact with and (suspected) exposure to COVID-19; Z91.040 Latex allergy status; Z88.5 Allergy status to narcotic agent; Z91.018 Allergy to other foods; Z88.6 Allergy status to analgesic agent; Z91.030 Bee allergy status; Z79.899 Other long term (current) drug therapy
CPT/HCPCS: 94640; 87635; 71046; 99285; 96372; J2930

== ENCOUNTER 2021-10-10 06:40 | Day surgery (SDC) | payer OTHER ==
[2021-10-06 15:34] VITALS: BMI 38.9
[2021-10-10] MEDS ORDERED: LIDOCAINE 1% (10MG/ML) FOR IV START INTRADERMA PRN (07:03)
[2021-10-10] MEDS ORDERED: LACTATED RINGERS 1,000 ML IV SCH (07:03)
[2021-10-10 07:21] LABS: Glucose,Whole Blood 100 mg/dL (75-99)
[2021-10-10] MEDS ORDERED: LACTATED RINGERS 1,000 ML IV ONE (07:22)
[2021-10-10] MEDS ORDERED: PROPOFOL 10 MG/ML 20 ML VIAL IV ONE (07:28)
[2021-10-10 07:30] VITALS: TEMP 96.8
--- NOTE | 2021-10-10 07:42 | P.PCN ---
Date of Procedure: 10/10/21 Procedure(s) Performed: BRIEF HISTORY: Patient is a 31-year-old pleasant white female scheduled for an elective colonoscopy as a part of evaluation of intermittent rectal bleeding. PROCEDURE PERFORMED: Colonoscopy. PREOPERATIVE DIAGNOSIS: Intermittent rectal bleeding. IV sedation per Anesthesia. PROCEDURE: After informed consent was obtained, the patient, was brought into the endoscopy unit. IV sedation was administered by Anesthesia under continuous monitoring. Digital rectal examination was normal. Initially the Olympus CF-160 flexible video colonoscope was then inserted in the rectum, gradually advanced into the cecum without any difficulty. Careful examination was performed as the scope was gradually being withdrawn. Ileocecal valve and the appendiceal orifice were visualized and appeared normal. Prep was excellent. Mucosa of the cecum, ascending colon, transverse colon, descending colon, sigmoid colon, and rectum appeared normal. Retroflexion was performed in the rectum and small internal hemorrhoids were seen. The patient tolerated the procedure well. IMPRESSION: Normal-appearing colon from rectum to cecum with no evidence of colorectal neoplasia Small internal hemorrhoids . RECOMMENDATIONS: Findings of this examination were discussed with the patient as well as her family. She was advised to be a high-fiber diet and take fiber supplements a regular basis..
[2021-10-10 07:50] VITALS: RESP 16
[2021-10-10 08:06] VITALS: BP 115/83; PULSE 73
== END 2021-10-10 08:28 | disposition home or self-care (01) ==
LOC: ORWHC2ENDO 06:40
PROVIDERS: ATTEND Internal Medicine Gastroenterology
DX: K64.8 Other hemorrhoids (principal); K62.5 Hemorrhage of anus and rectum; K21.9 Gastro-esophageal reflux disease without esophagitis; E11.9 Type 2 diabetes mellitus without complications; I10 Essential (primary) hypertension; J45.909 Unspecified asthma, uncomplicated; M79.7 Fibromyalgia; F17.200 Nicotine dependence, unspecified, uncomplicated; F90.9 Attention-deficit hyperactivity disorder, unspecified type; F31.9 Bipolar disorder, unspecified; M19.90 Unspecified osteoarthritis, unspecified site; G43.909 Migraine, unspecified, not intractable, without status migrainosus; Z79.899 Other long term (current) drug therapy; Z79.891 Long term (current) use of opiate analgesic; Z88.8 Allergy status to other drugs, medicaments and biological substances; Z91.030 Bee allergy status; Z88.5 Allergy status to narcotic agent; Z91.040 Latex allergy status
CPT/HCPCS: 81025; 45378; J2704

== ENCOUNTER 2022-03-20 10:47 | Emergency (ER) | payer OTHER ==
[2022-03-20 10:58] VITALS: BP 120/69; PULSE 99; RESP 20; TEMP 98.6
[2022-03-20 13:14] LABS: Appearance,Urine Cloudy (Clear); Bacteria,Urine Occasional /hpf; Bilirubin,Urine Negative (Negative); Blood,Urine Negative (Negative); Color,Urine Light Yellow; Glucose,Urine (UA) Negative (Negative); Ketones,Urine Negative (Negative); Leukocyte Esterase,Urine Negative (Negative); Mucus,Urine Rare /hpf; Nitrite,Urine Negative (Negative); PH, Urine 6.5 (5.0-8.0); Protein,Urine Negative (Negative); RBC,Urine 1 /hpf (0-5); Specific Gravity,Urine 1.008 (1.001-1.035); Squamous Epithelial Cell,Urine 7 /hpf (0-4); Urobilinogen,Urine <2.0 mg/dL (<2.0); WBC,Urine <1 /hpf (0-5)
[2022-03-20] MEDS ORDERED: ACETAMINOPHEN TAB 500 MG TAB PO STA (13:34)
--- NOTE | 2022-03-20 13:39 | ED ---
General Adult HPI - General Chief complaint: Abdominal Pain Stated complaint: 14wks preg/abd pains Time Seen by Provider: 03/20/22 13:30 Source: patient, RN notes reviewed, old records reviewed Mode of arrival: ambulatory Limitations: no limitations - History of Present Illness Initial comments: This is a 32-year-old well-appearing female that presents ambulatory with complaints of pelvic pain. Patient states that she has had this pain for 14 weeks and is 14 weeks . She was unable to find an [employer] because she states that she is high risk. She has had an IUP diagnosed at 7 weeks by ultrasound. She denies any vaginal bleeding or dysuria. She denies any nausea vomiting diarrhea or fevers. She states pain is worse with movement especially when she reaches up she feels pulling in her lower abdomen. She is a . She is a pack-a-day smoker. History of asthma, diabetes, fibromyalgia, seizure disorder and hypertension. -: week(s) (14) Location: pelvis Quality: other (pulling) Improves with: none Worsens with: movement (pain worse when she reaches up or stretches) Associated Symptoms: shortness of breath Treatments Prior to Arrival: none - Related Data Home Medications Medication Instructions Recorded Confirmed HYDROcodone/APAP 7.5-325MG [[place] 1 tab PO DAILY PRN 03/23/20 10/06/21 7.5-325] Montelukast [Singulair] 10 mg PO DAILY 01/10/21 10/06/21 Topiramate [Topamax] 200 mg PO BID 01/10/21 10/06/21 EPINEPHrine (Auto Inject) [Epipen] 0.3 mg IM ONCE PRN 01/16/21 10/06/21 Escitalopram [Lexapro] 5 mg PO DAILY 01/16/21 10/06/21 Cyclobenzaprine [Flexeril] 10 mg PO HS 09/29/21 10/06/21 Dulaglutide [Trulicity] 0.75 mg SQ TH 09/29/21 10/06/21 Nystatin 100,000 Unit/gm Oint 1 applic TOPICAL DAILY 09/29/21 10/06/21 [Mycostatin Oint] Omeprazole 40 mg PO DAILY 09/29/21 10/06/21 Previous Rx's Medication Instructions Recorded Albuterol Inhaler [Ventolin Hfa 2 puff INHALATION RT-QID PRN #8 gm 09/29/21 Inhaler] Cephalexin [Keflex] 500 mg PO Q6HR 7 Days #28 cap 03/20/22 Allergies Allergy/AdvReac Type Severity Reaction Status Date / Time buspirone HCl [From BuSpar] Allergy Rash/Hives Verified 03/20/22 10:58 Latex, Natural Rubber Allergy Rash/Hives Verified 03/20/22 10:58 morphine Allergy Anaphylaxis Verified 03/20/22 10:58 onion Allergy Rash/Hives Verified 03/20/22 10:58 tramadol Allergy Rash/Hives Verified 03/20/22 10:58 venom-honey bee Allergy Anaphylaxis Verified 03/20/22 10:58 [bee venom (honey bee)] Review of Systems ROS Statement: Those systems with pertinent positive or pertinent negative responses have been documented in the HPI. ROS Other: All systems not noted in ROS Statement are negative. Past Medical History Past Medical History: Asthma, Diabetes Mellitus, Fibromyalgia, GERD/Reflux, Hypertension, Osteoarthritis (OA), Seizure Disorder Additional Past Medical History / Comment(s): scoliosis and arthritis; back pain, States Stress Seziures., last seizure ., migraines , states Hypertension & Chest Pain with stress., abnormal pap smear-following with her DrEthel, Loose stools since gallbladder removed., occasional blood in stool. , urine leakage-wears pads. History of Any Multi-Drug Resistant Organisms: None Reported Past Surgical History: Appendectomy, Section, Cholecystectomy Additional Past Surgical History / Comment(s): d & c, Past Anesthesia/Blood Transfusion Reactions: No Reported Reaction, Motion Sickness Past Psychological History: ADD/ADHD, Anxiety, Bipolar, Depression Smoking Status: Current every day smoker Past Alcohol Use History: None Reported Past Drug Use History: None Reported - Past Family History Mother Family Medical History: No Reported History, Fibromyalgia General Exam Limitations: no limitations General appearance: alert, in no apparent distress Head exam: Present: atraumatic Eye exam: Present: normal appearance. Absent: scleral icterus, conjunctival injection Respiratory exam: Present: normal lung sounds bilaterally. Absent: respiratory distress, accessory muscle use Cardiovascular Exam: Present: regular rate, normal rhythm GI/Abdominal exam: Present: soft, tenderness (Suprapubic). Absent: guarding, rebound, rigid Extremities exam: Present: normal inspection, normal capillary refill Neurological exam: Present: alert, oriented X3, normal gait Psychiatric exam: Present: normal affect, normal mood Skin exam: Present: warm, dry, normal color. Absent: cyanosis, diaphoretic, petechiae, pallor Course Vital Signs 03/20/22 10:55 Temperature 98.6 F Pulse Rate 99 Respiratory 20 Rate Blood Pressure 120/69 O2 Sat by Pulse 98 Oximetry Medical Decision Making - Medical Decision Making Patient presents with progressively worsening lower abdominal pain over the past 14 weeks. She denies any dysuria, no vaginal bleeding, no fevers. Vital signs are stable. Ultrasound shows a single live intrauterine measuring 14 weeks. Patient's urinalysis shows evidence of bacteria therefore she will be placed on Keflex. According to previous labs, her blood type is O+. This is her fourth . She was referred to follow up with an [employer] to obtain a belt to support her abdomen which is likely the cause of her abdominal pain that is worsening. Patient is agreeable to this plan of care. Case discussed with Dr. Hurtado. - Lab Data Lab Results 03/20/22 Range/Units 12:48 Urine Color Light Yellow Urine Appearance Cloudy H (Clear) Urine pH 6.5 (5.0-8.0) Ur Specific [place] 1.008 (1.001-1.035) Urine Protein Negative (Negative) Urine Glucose (UA) Negative (Negative) Urine Ketones Negative (Negative) Urine Blood Negative (Negative) Urine Nitrite Negative (Negative) Urine Bilirubin Negative (Negative) Urine Urobilinogen <2.0 (<2.0) mg/dL Ur Leukocyte Esterase Negative (Negative) Urine RBC 1 (0-5) /hpf Urine WBC <1 (0-5) /hpf Ur Squamous Epith Cells 7 H (0-4) /hpf Urine Bacteria Occasional H (None) /hpf Urine Mucus Rare H (None) /hpf Disposition Clinical Impression: UTI (urinary tract infection) during Disposition: HOME SELF-CARE Condition: Good Instructions (If sedation given, give patient instructions): Urinary Tract Infection in (ED) Additional Instructions: Increase your fluid intake. You can get a support belt to alleviate some of the lower abdominal pain. Follow-up with [employer] this week. Prescriptions: Cephalexin [Keflex] 500 mg PO Q6HR 7 Days #28 cap Is patient prescribed a controlled substance at d/c from ED?: No Referrals: Aparna Liriano DO [Primary Care Provider] - 1-2 days
--- NOTE | 2022-03-20 14:34 | US ---
EXAMINATION TYPE: Transabdominal DATE OF EXAM: 03/20/2022 2:16 PM COMPARISON: NONE CLINICAL HISTORY: pelvic pain 14 weeks preg. Positive beta hCG test. EXAM PERFORMED: Transabdominal (TA) EXAM MEASUREMENTS: GESTATIONAL AGE / DATING Physician Established: Not yet established Dates by LMP: LMP unknown Dates by First Scan: No previous this is first scan Dates by Current Scan for: (14 weeks/0 days) EDC: 09/18/22 MATERNAL ANATOMY Technically difficult, patient of large body habitus. Uterus: 15.3 x 7.0 x 9.1cm Right Ovary: obscured by overlying bowel gas, increased uterine size Left Ovary: simple appearing cyst measuring 2.3 x 2.4 x 2.2cm Post CDS / Adnexa: wnl GESTATION / SURVEY CRL: 7.9cm (14. weeks/0 days) Yolk Sac (normal less than 6mm): not seen Heart Rate: 149 bpm Rhythm: Normal IUP: Viable IUP Date of LMP: unknown Beta HcG (if available): Not available at this time Single live intrauterine gestation is present as there is pole and gestational sac seen. Yolk s ac not clearly identified. No free fluid in the pelvis. The amount of surrounding amniotic fluid on i mages saved appears less than desired. Left ovary is seen. Right ovary not clearly identified. Left ovary has 2.3 cm thin-walled cyst could reflect corpus luteal cyst . IMPRESSION: Suboptimal study. Single live intrauterine gestation is confirmed. Mean crown-rump length is 7.9 cm corresponding to 14 weeks 0 day old fetus. Advise continued beta hCG monitoring.
== END 2022-03-20 14:57 | disposition home or self-care (01) ==
LOC: EC 10:47
DX: O23.42 Unspecified infection of urinary tract in pregnancy, second trimester (principal); N39.0 Urinary tract infection, site not specified; O24.112 Pre-existing type 2 diabetes mellitus, in pregnancy, second trimester; O99.612 Diseases of the digestive system complicating pregnancy, second trimester; O99.512 Diseases of the respiratory system complicating pregnancy, second trimester; O10.912 Unspecified pre-existing hypertension complicating pregnancy, second trimester; O99.891 Other specified diseases and conditions complicating pregnancy; K21.9 Gastro-esophageal reflux disease without esophagitis; J45.909 Unspecified asthma, uncomplicated; M79.7 Fibromyalgia; M19.90 Unspecified osteoarthritis, unspecified site; Z3A.14 14 weeks gestation of pregnancy; Z67.40 Type O blood, Rh positive; Z91.030 Bee allergy status; Z88.6 Allergy status to analgesic agent; Z91.018 Allergy to other foods; Z91.040 Latex allergy status; Z88.8 Allergy status to other drugs, medicaments and biological substances; Z79.899 Other long term (current) drug therapy
CPT/HCPCS: 76801; 81001; 99284

== ENCOUNTER 2022-05-07 15:40 | Outpatient (CLI) | payer OTHER ==
[2022-05-07 16:59] VITALS: BP 108/51; PULSE 90; RESP 16; TEMP 97.3
--- NOTE | 2022-05-11 10:02 | P.MSEPDOC ---
Presenting Problems - Arrival Data Date of Arrival on Unit: 05/07/22 Time of Arrival on Unit: 15:40 Mode of Transport: EMS - Complaint OB-Reason for Admission/Chief Complaint: Pain Comment: low back pain, cramping, pelvic pressure Medical History - Information : 4 Para: 3 Term: 3 : 0 Abortions: Spontaneous or Elective: 0 Number of Living Children: 3 - Gestational Age Gestational Age by DAVON (wks/days): 21 Weeks and 5 Days - History Complications: No Care Review of Systems - Review of Systems Constitutional: No problems Breast: No problems ENT: No problems Cardiovascular: No problems Respiratory: No problems Gastrointestinal: No problems Genitourinary: No problems Musculoskeletal: No problems Neurological: No problems Skin: No problems Vital Signs - Temperature Temperature: 97.3 F Temperature Source: Temporal Artery Scan - Pulse Pulse Oximetery Pulse Rate: 90 Pulse Assessment Method: Pulse Oximetry - Respirations Respiratory Rate: 16 Oxygen Delivery Method: Room Air O2 Sat by Pulse Oximetry: 98 - Blood Pressure Right Arm Blood Pressure: 108/51 Blood Pressure Mean: 70 Blood Pressure Source: Automatic Cuff Medical Screen Scoring - Cervical Exam Dilation (cm): 0 Effacement (%): 0 Station: -3 Membranes: Intact - Assessment - Baby A Baseline FHR: 150 Physician Notification - Physician Notified Physician Notified Date: 05/07/22 Physician Notified Time: 16:25 Physician: Barbara Thomas New Order Received: Yes - Notification Comment Comment: Dr. Thomas called, report given on maternal and status, complaints of low. back pain, contractions, possible ROM, and pelvic pressure since 1430 today after. walking 2+ miles with little water to drink. Pt has had no care thus far other. than 2U/S at a clinic but denies any complications. No contractions via TOCO. or palpation and FHTs dopplered in the 150s. Orders for a SVE and d/c home if cervix is. closed. Maternal Triage Index - Maternal Triage Index Presenting for scheduled procedure w/no complaint: No - Stat/Priority 1 Stat Priority 1: No - Urgent/Priority 2 Urgent Priority 2: Yes Provider Notified: Barbara Thomas Provider Notified Time: 16:25 Criteria Met for Priority 2: 21 5/7 weeks, c/o cramping, back pain, pelvic press ure, possible ROM. Disposition - Disposition OB Disposition: Discharge to home Discharge Date: 05/07/22 Discharge Time: 16:45 I agree with the RN Medical Screening Exam: Yes Case reviewed; plan agreed upon as documented in EMR&OBIX.: Yes Diagnosis: RELATED CONDITIONS, UNSPECIFIED, SECOND TRIMESTER
== END 2022-05-07 16:45 | disposition home or self-care (01) ==
LOC: FBPOP 15:40
PROVIDERS: ATTEND Obstetrics & Gynecology Obstetrics
DX: O26.92 Pregnancy related conditions, unspecified, second trimester (principal); Z3A.21 21 weeks gestation of pregnancy
CPT/HCPCS: 84112; G0463; 99203

== ENCOUNTER 2022-05-21 16:58 | Outpatient (CLI) | payer OTHER ==
[2022-05-21 17:45] LABS: Appearance,Urine Clear (Clear); Bacteria,Urine Occasional /hpf; Bilirubin,Urine Negative (Negative); Blood,Urine Trace (Negative); Color,Urine Yellow; Glucose,Urine (UA) Negative (Negative); Hyaline Casts,Urine 1 /lpf (0-2); Ketones,Urine Negative (Negative); Leukocyte Esterase,Urine Negative (Negative); Mucus,Urine Rare /hpf; Nitrite,Urine Negative (Negative); Protein,Urine Negative (Negative); RBC,Urine 1 /hpf (0-5); Squamous Epithelial Cell,Urine 2 /hpf (0-4); Urobilinogen,Urine <2.0 mg/dL (<2.0); WBC,Urine 1 /hpf (0-5)
[2022-05-21 18:00] LABS: Amphetamine Screen,Urine Not Detected (NotDetected); Barbiturate Screen,Urine Not Detected (NotDetected); Benzodiazepines Screen,Urine Not Detected (NotDetected); Cocaine Screen,Urine Not Detected (NotDetected); Methadone Screen, Urine Not Detected (NotDetected); Opiate Screen,Urine Not Detected (NotDetected); Oxycodone Screen, Urine Not Detected (NotDetected); Phencyclidine Screen,Urine Not Detected (NotDetected); Tricyclic Antidepressant,Urine Not Detected (NotDetected); Urn Cannabinoid Scrn Not Detected (NotDetected)
[2022-05-21 18:05] VITALS: BP 139/75; PULSE 86; RESP 16; TEMP 98.5
--- NOTE | 2022-05-21 18:11 | P.MSEPDOC ---
Presenting Problems - Arrival Data Date of Arrival on Unit: 05/21/22 Time of Arrival on Unit: 16:58 Mode of Transport: Wheelchair - Complaint OB-Reason for Admission/Chief Complaint: Pain Comment: pelvic pain and pressure x2 days Medical History - Information : 4 Para: 3 Term: 3 : 0 Abortions: Spontaneous or Elective: 0 Number of Living Children: 3 - Gestational Age Gestational Age by DAVON (wks/days): 23 Weeks and 5 Days - History Complications: Prior Review of Systems - Review of Systems Constitutional: No problems Breast: No problems ENT: No problems Cardiovascular: No problems Respiratory: No problems Gastrointestinal: No problems Genitourinary: No problems Musculoskeletal: No problems Neurological: No problems Skin: No problems Vital Signs - Temperature Temperature: 98.5 F Temperature Source: Oral - Pulse Right Sitting Pulse Rate: 86 Pulse Assessment Method: Automatic Cuff - Respirations Respiratory Rate: 16 Oxygen Delivery Method: Room Air - Blood Pressure Right Arm Blood Pressure: 139/75 Blood Pressure Mean: 96 Blood Pressure Source: Automatic Cuff Medical Screen Scoring - Cervical Exam Dilation (cm): 0 Membranes: Intact Physician Notification - Physician Notified Physician Notified Date: 05/21/22 Physician Notified Time: 17:50 Physician: Radhames Fernández New Order Received: Yes (d/c home) Maternal Triage Index - Non-Urgent/Priority 4 Non-Urgent Priority 4: Yes Criteria Met for Priority 4: pelvic pain and pressure, 23 5/7, dopplered fht, no contractions, cervix closed. Disposition - Disposition OB Disposition: Discharge to home Discharge Date: 05/21/22 Discharge Time: 17:58 I agree with the RN Medical Screening Exam: Yes Case reviewed; plan agreed upon as documented in EMR&OBIX.: Yes Diagnosis: RELATED CONDITIONS, UNSPECIFIED, SECOND TRIMESTER
== END 2022-05-21 17:58 | disposition home or self-care (01) ==
LOC: FBPOP 16:58
PROVIDERS: ATTEND Obstetrics & Gynecology
DX: O26.92 Pregnancy related conditions, unspecified, second trimester (principal); Z3A.22 22 weeks gestation of pregnancy
CPT/HCPCS: 81001; 80306; G0463; 99213

== ENCOUNTER 2022-06-04 22:23 | Outpatient (CLI) | payer OTHER ==
[2022-06-04 23:30] LABS: Appearance,Urine Clear (Clear); Bilirubin,Urine Negative (Negative); Blood,Urine Negative (Negative); Color,Urine Colorless; Glucose,Urine (UA) Negative (Negative); Ketones,Urine Negative (Negative); Leukocyte Esterase,Urine Negative (Negative); Nitrite,Urine Negative (Negative); PH, Urine 6.5 (5.0-8.0); Protein,Urine Negative (Negative); Specific Gravity,Urine 1.003 (1.001-1.035); Urobilinogen,Urine <2.0 mg/dL (<2.0)
[2022-06-04 23:58] LABS: Amphetamine Screen,Urine Not Detected (NotDetected); Cocaine Screen,Urine Not Detected (NotDetected); Opiate Screen,Urine Not Detected (NotDetected); Phencyclidine Screen,Urine Not Detected (NotDetected); Urn Cannabinoid Scrn Not Detected (NotDetected)
[2022-06-04 23:59] LABS: Barbiturate Screen,Urine Not Detected (NotDetected); Benzodiazepines Screen,Urine Not Detected (NotDetected); Methadone Screen, Urine Not Detected (NotDetected); Oxycodone Screen, Urine Not Detected (NotDetected); Tricyclic Antidepressant,Urine Not Detected (NotDetected)
[2022-06-05 05:31] VITALS: BP 129/72; PULSE 80; RESP 16; TEMP 97.5
--- NOTE | 2022-06-05 08:50 | P.MSEPDOC ---
Presenting Problems - Arrival Data Date of Arrival on Unit: 06/04/22 Time of Arrival on Unit: 22:24 Mode of Transport: Ambulatory - Complaint OB-Reason for Admission/Chief Complaint: Possible Onset of Labor Comment: Patient presents to triage for lower back pain and pressure that has been going. on for 3 weeks. Patient also states that she bagan vomiting 2 hour prior to arrival to. triage. Medical History - Information : 4 Para: 3 Term: 3 : 0 Abortions: Spontaneous or Elective: 0 Number of Living Children: 3 - Gestational Age Gestational Age by DAVON (wks/days): 29 Weeks and 1 Days - History Complications: GDM Review of Systems - Review of Systems Constitutional: No problems Breast: No problems ENT: No problems Cardiovascular: No problems Respiratory: No problems Gastrointestinal: No problems Genitourinary: No problems Musculoskeletal: No problems Neurological: No problems Skin: No problems Vital Signs - Temperature Temperature: 97.5 F Temperature Source: Temporal Artery Scan - Pulse Right Brachial Pulse Rate: 80 Pulse Assessment Method: Automatic Cuff - Respirations Respiratory Rate: 16 Oxygen Delivery Method: Room Air O2 Sat by Pulse Oximetry: 98 - Blood Pressure Right Arm Blood Pressure: 129/72 Blood Pressure Mean: 91 Blood Pressure Source: Automatic Cuff Medical Screen Scoring - Assessment - Baby A Baseline FHR: 140 Heart Rate - NICHD Category: Category I (Normal) NST: Reactive Physician Notification - Physician Notified Physician Notified Date: 06/04/22 Physician Notified Time: 22:59 Physician: Giselle Schuster Order Received: Yes - Notification Comment Comment: [id number]- Dr. Schuster called with report on patient that is seen at [facility] for OB care. History reviewed. Patient has been having lower back pain and pressure for 3 weeks and. began vomiting 2 hours ago. NST not reactive only 1 Acel noted and moderate varibility. at a rate of 140bpm. U/A, cervical exam, FFN, and UDS ordered. [id number]- Dr. Schuster called with report on patients negative uds, negative u/a, cervical. exam of closed/thick/high, no contractions noted, and heart tones. Patient. approved for discharge. Patient to follow up with OB at [place]. Maternal Triage Index - Maternal Triage Index Presenting for scheduled procedure w/no complaint: No - Stat/Priority 1 Stat Priority 1: No - Urgent/Priority 2 Urgent Priority 2: Yes Provider Notified: Giselle Schuster Provider Notified Time: 22:59 Criteria Met for Priority 2: 29 0/7 contractions/lower back pain. Disposition - Disposition OB Disposition: Discharge to home Discharge Date: 06/05/22 Discharge Time: 00:10 I agree with the RN Medical Screening Exam: Yes Case reviewed; plan agreed upon as documented in EMR&OBIX.: Yes Diagnosis: RELATED CONDITIONS, UNSPECIFIED, THIRD TRIMESTER
== END 2022-06-05 00:10 | disposition home or self-care (01) ==
LOC: FBPOP 22:23
PROVIDERS: ATTEND Obstetrics & Gynecology
DX: O26.893 Other specified pregnancy related conditions, third trimester (principal); Z3A.29 29 weeks gestation of pregnancy
CPT/HCPCS: 59025; 81003; 80306; G0463; 99213

== ENCOUNTER 2022-06-15 15:35 | Outpatient (CLI) | payer OTHER ==
[2022-06-15 16:25] LABS: Appearance,Urine Clear (Clear); Bacteria,Urine Rare /hpf; Bilirubin,Urine Negative (Negative); Blood,Urine Small (Negative); Color,Urine Light Yellow; Glucose,Urine (UA) Negative (Negative); Ketones,Urine Trace (Negative); Leukocyte Esterase,Urine Negative (Negative); Mucus,Urine Rare /hpf; Nitrite,Urine Negative (Negative); Protein,Urine Negative (Negative); RBC,Urine 1 /hpf (0-5); Specific Gravity,Urine 1.011 (1.001-1.035); Squamous Epithelial Cell,Urine 2 /hpf (0-4); Urobilinogen,Urine <2.0 mg/dL (<2.0); WBC,Urine 1 /hpf (0-5)
[2022-06-15 18:06] VITALS: BP 133/76; PULSE 95; RESP 18; TEMP 96.1
--- NOTE | 2022-07-02 08:05 | P.MSEPDOC ---
Presenting Problems - Arrival Data Date of Arrival on Unit: 06/15/22 Time of Arrival on Unit: 15:35 Mode of Transport: Ambulatory - Complaint OB-Reason for Admission/Chief Complaint: Other Comment: pt presents to triage for dark brown discharge with an odor Medical History - Information : 4 Para: 3 Term: 3 : 0 Abortions: Spontaneous or Elective: 0 Number of Living Children: 3 - Gestational Age Gestational Age by DAVON (wks/days): 27 Weeks and 2 Days - History Complications: Prior , Placenta Previa Review of Systems - Review of Systems Constitutional: No problems Breast: No problems ENT: No problems Cardiovascular: No problems Respiratory: No problems Gastrointestinal: No problems Genitourinary: No problems Musculoskeletal: No problems Neurological: No problems Skin: No problems Vital Signs - Temperature Temperature: 96.1 F Temperature Source: Temporal Artery Scan - Pulse Right Brachial Pulse Rate: 95 Pulse Assessment Method: Automatic Cuff - Respirations Respiratory Rate: 18 Oxygen Delivery Method: Room Air O2 Sat by Pulse Oximetry: 100 - Blood Pressure Right Arm Blood Pressure: 133/76 Blood Pressure Mean: 95 Blood Pressure Source: Automatic Cuff Medical Screen Scoring - Assessment - Baby A Baseline FHR: 145 Heart Rate - NICHD Category: Category I (Normal) Physician Notification - Physician Notified Physician Notified Date: 06/15/22 Physician Notified Time: 16:20 Physician: Raisa Guzman Order Received: Yes - Notification Comment Comment: ua sent, wnl, dark brown discharge per pt with odor, no discharge noted per RN, no active bleeding, pt has appt with her OB in [facility] on 07/05, discussed with pt to go to [facility] with any concerns due to her placenta previa diagnosed yesterday at her appt Maternal Triage Index - Maternal Triage Index Presenting for scheduled procedure w/no complaint: No - Stat/Priority 1 Stat Priority 1: No - Urgent/Priority 2 Urgent Priority 2: No - Prompt/Priority 3 Prompt Priority 3: No - Non-Urgent/Priority 4 Non-Urgent Priority 4: Yes Criteria Met for Priority 4: pt presents to triage for dark brown discharge with an odor Disposition - Disposition OB Disposition: Triage, Discharge to home, Written follow up instructions reviewed Discharge Date: 06/15/22 Discharge Time: 17:00 I agree with the RN Medical Screening Exam: Yes Physician's MSE Comment: Pt hx sig for recent transvaginal US to diagnose placenta previa. No Bright red vaginal bleeding noted on exam. Bleeding and previa precautions reviewed. Case reviewed; plan agreed upon as documented in EMR&OBIX.: Yes Diagnosis: vaginal discharge
== END 2022-06-15 17:00 | disposition home or self-care (01) ==
LOC: FBPOP 15:35
PROVIDERS: ATTEND Obstetrics & Gynecology
DX: O26.892 Other specified pregnancy related conditions, second trimester (principal); N89.8 Other specified noninflammatory disorders of vagina; Z3A.27 27 weeks gestation of pregnancy
CPT/HCPCS: 81001; G0463; 99213

== ENCOUNTER 2022-06-18 16:51 | Outpatient (CLI) | payer OTHER ==
--- NOTE | 2022-06-18 17:48 | P.MSEPDOC ---
Presenting Problems - Arrival Data Date of Arrival on Unit: 06/18/22 Time of Arrival on Unit: 16:46 Mode of Transport: Wheelchair I agree with the RN Medical Screening Exam: Yes Case reviewed; plan agreed upon as documented in EMR&OBIX.: Yes Diagnosis: PAIN, UNSPECIFIED (This is one of multiple triage visits for this 32-year-old 4 para 3 female. Patient states that she gets her care at [facility] per maternal- medicine. Reviewing her records shows that she does come to this triage quite frequently most recently 3 days ago, 2 weeks ago, and one month ago. Patient complains of pelvic pain which she's had for what appears to be a long period of time. Patient is 27-5/7 weeks per her report however we do not have any records on her clinical care at [facility]. When she was here 3 days ago she reported that she has had 3 C-sections and a possible placenta previa. Patient denies any bleeding. Patient denies any contractions. heart monitoring shows her to be category 1 with no contractions. I did do a gentle pelvic examination and showed no blood in the cervix was closed and thick. Patient's vital signs are stable she is afebrile. I personally evaluated this patient and it appears that she is having normal discomfort of . She does report that she is a gestational diabetic however she did also states she had burritos earlier today. At this point there is no evidence of maternal or compromise. Patient was instructed to follow-up with her maternal- medicine physician at [facility]. I also did have a discussion with the patient and her significant other that although certainly there will go home at this facility, is in her best interests to follow-up with [facility] when she is having related problems. She understands that they have her records and understand her clinical condition the best. She did knowledge this and also she acknowledged the current treatment plan. 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
[2022-06-18 18:00] VITALS: BP 130/72; PULSE 89; RESP 20; TEMP 98.2
== END 2022-06-18 17:25 | disposition home or self-care (01) ==
LOC: FBPOP 16:51
PROVIDERS: ATTEND Obstetrics & Gynecology
DX: O26.892 Other specified pregnancy related conditions, second trimester (principal); R10.2 Pelvic and perineal pain; Z3A.27 27 weeks gestation of pregnancy; Z88.8 Allergy status to other drugs, medicaments and biological substances; Z88.5 Allergy status to narcotic agent; Z91.030 Bee allergy status; Z91.018 Allergy to other foods; Z91.040 Latex allergy status
CPT/HCPCS: 99213

== ENCOUNTER 2022-07-24 11:43 | Outpatient (CLI) | payer OTHER ==
[2022-07-24] MEDS ORDERED: LACTATED RINGERS 1,000 ML IV SCH (12:13)
--- NOTE | 2022-07-24 12:41 | P.HPOB ---
History of Present Illness H&P Date: 07/24/22 Chief Complaint: 32-6/7 weeks, placenta previa and accreta, elieser the patient is a 32-year-old 9 para 3053 who presents to the triage area by ambulance with complaints of contractions. heart tones are category 1 and contractions appeared to be approximately every 2-3 minutes. She does not complain of any bleeding at this time but does feel pressure. She has previously received betamethasone through her clinic at [facility] maternal medicine approximately 1-2 weeks ago. The plan has been to deliver her at approximately 35 weeks given the critical nature of her conditions. She was reportedly provided with Procardia to use at home as needed but has not been taking this. She additionally is a gestational diabetic which is unrelated to this presentation. Obstetrical history: 9 para 3053 with 3 term sections through [facility]. She additionally has had 5 reported miscarriages. record is not available to me so laboratory workup is unknown but the patient is known to [facility] as noted above. The remainder of the surgical history is as listed in history present illness. Gynecologic history: Unremarkable and noncontributory. Review of Systems review of systems is confined to history of present illness. Past Medical History Past Medical History: Asthma, Diabetes Mellitus, Fibromyalgia, GERD/Reflux, Hypertension, Osteoarthritis (OA), Seizure Disorder Additional Past Medical History / Comment(s): scoliosis and arthritis; back pain, States Stress Seziures., last seizure ., migraines , states Hypertension & Chest Pain with stress., abnormal pap smear-following with her DrEthel, Loose stools since gallbladder removed., occasional blood in stool. , urine leakage-wears pads. History of Any Multi-Drug Resistant Organisms: None Reported Past Surgical History: Appendectomy, Section, Cholecystectomy Additional Past Surgical History / Comment(s): d & c, Past Anesthesia/Blood Transfusion Reactions: No Reported Reaction, Motion Sickness Smoking Status: Current every day smoker - Past Family History Mother Family Medical History: No Reported History, Fibromyalgia Medications and Allergies Home Medications Medication Instructions Recorded Confirmed Type Albuterol Inhaler [Ventolin Hfa 2 puff INHALATION RT-QID PRN #8 gm 09/29/21 07/24/22 Rx Inhaler] Brexpiprazole [Rexulti] 2 mg PO DAILY 05/21/22 07/24/22 History DULoxetine HCL [Cymbalta] 60 mg PO DAILY 05/21/22 07/24/22 History Vit No.179/Iron/Folic 1 tab PO DAILY 05/21/22 07/24/22 History [ Tablet] Famotidine 20 mg PO DAILY 06/15/22 07/24/22 History Allergies Allergy/AdvReac Type Severity Reaction Status Date / Time buspirone HCl [From BuSpar] Allergy Rash/Hives Verified 07/24/22 12:05 Latex, Natural Rubber Allergy Rash/Hives Verified 07/24/22 12:05 morphine Allergy Anaphylaxis Verified 07/24/22 12:05 onion Allergy Rash/Hives Verified 07/24/22 12:05 tramadol Allergy Rash/Hives Verified 07/24/22 12:05 venom-honey bee Allergy Anaphylaxis Verified 07/24/22 12:05 [bee venom (honey bee)] Exam Intake and Output 07/23/22 07/24/22 07/24/22 22:59 06:59 14:59 Other: Weight 104.326 kg in general, this is an obese white female in some discomfort with contractions. Her heart has a regular rhythm and rate without murmur. Her lungs are clear to auscultation bilaterally in all chaves. Her abdomen is gravid, soft, nontender, without masses aside from the uterus. Contractions are palpable. Her extremities are without any cyanosis, clubbing, or edema and are nontender to palpation bilaterally. Digital cervical examination is deferred given her diagnosis of placenta previa. Assessment and Plan (1) 32 weeks gestation of Current Visit: Yes Status: Acute Code(s): Z3A.32 - 32 WEEKS GESTATION OF SNOMED Code(s): 7914631 (2) Placenta previa Current Visit: Yes Status: Acute Code(s): O44.00 - COMPLETE PLACENTA PREVIA NOS OR WITHOUT HEMOR, UNSP TRI SNOMED Code(s): 75780829 (3) Placenta accreta Current Visit: Yes Status: Acute Code(s): O43.219 - PLACENTA ACCRETA, UNSPECIFIED TRIMESTER SNOMED Code(s): 76246199 (4) Gestational diabetes Current Visit: Yes Status: Acute Code(s): O24.419 - GESTATIONAL DIABETES MELLITUS IN , UNSP CONTROL SNOMED Code(s): 64823693 Plan: the patient is well-known to the maternal medicine clinic at [facility]. She has had an IV bolus started for fluids and has been given Procardia 10 mg acutely. I have discussed the case with Dr. Lobo at [facility] who has accepted transfer. She has Garrett been given betamethasone. Arrangements are being made for transfer currently.
[2022-07-24] MEDS ORDERED: NIFEdipine 10 MG CAP PO SCH (12:45)
[2022-07-24 13:04] VITALS: BP 127/69; PULSE 98; RESP 18; TEMP 97.1
== END 2022-07-24 13:20 | disposition other institution (70) ==
LOC: FBPOP 11:43
PROVIDERS: ATTEND Obstetrics & Gynecology
DX: O24.419 Gestational diabetes mellitus in pregnancy, unspecified control (principal); Z3A.32 32 weeks gestation of pregnancy
CPT/HCPCS: 59025; 96360; G0463; 99214

== ENCOUNTER → 2023-05-03 | Outpatient (CLI) | payer OTHER ==
[2023-05-03 20:13] LABS: Basophils # (A) 0.02 X 10*3/uL (0.00-0.10); Basophils % (A) 0.3 %; Eosinophils # (A) 0.18 X 10*3/uL (0.04-0.35); Eosinophils % (A) 2.6 %; HCT 40.1 % (37.2-46.3); HGB 13.3 d/dL (12.0-15.0); Lymphocytes # (A) 1.51 X 10*3/uL (0.90-5.00); Lymphocytes % (A) 21.9 %; MCH 28.2 pg (27.0-32.0); MCHC 33.2 d/dL (32.0-37.0); MCV 85.1 FL (80.0-97.0); Mean Platelet Volume 8.8 FL (9.5-12.2); Monocytes # (A) 0.47 X 10*3/uL (0.20-1.00); Monocytes % (A) 6.8 %; NRBC Per 100 WBC 0 X 10*3/uL (0.00-0.01); Neutrophils # (A) 4.68 X 10*3/uL (1.80-7.70); Neutrophils % (A) 68.1 %; Platelet Count 239 X 10*3/uL (140-440); RBC 4.71 X 10*6/uL (4.10-5.20); RDW 13.3 % (11.5-14.5); WBC 6.88 X 10*3/uL (4.50-10.00)
== END | disposition home or self-care (01) ==
LOC: LABPAT 16:13
PROVIDERS: ATTEND Surgery
DX: Z01.812 Encounter for preprocedural laboratory examination (principal)
CPT/HCPCS: 85025

== ENCOUNTER 2023-05-06 05:34 | Day surgery (SDC) | payer OTHER ==
[~2023-05-06 05:34] MED LIST changes: +ACETAMINOPHEN TAB 500 MG TAB PO PRN; +HEPARIN SODIUM,PORCINE/PF 5,000 UNIT/0.5 ML SYRINGE SQ PRN; -LIDOCAINE 1% (10MG/ML) FOR IV START INTRADERMA PRN
[2023-05-06] MEDS ORDERED: HYDROmorphone 0.5 MG/0.5 ML SYRINGE IVP PRN (05:49)
[2023-05-06] MEDS ORDERED: LACTATED RINGERS 1,000 ML IV SCH (05:49)
[2023-05-06] MEDS ORDERED: LIDOCAINE 1% (10MG/ML) FOR IV START INTRADERMA PRN (05:49)
[2023-05-06] MEDS ORDERED: DEXAMETHASONE SOD PHOSPHATE 4 MG/ML 1 ML VIAL IV ONE (05:49)
[2023-05-06] MEDS ORDERED: droPERidol 5 MG/2 ML VIAL IVP ONE (05:49)
[2023-05-06] MEDS ORDERED: ONDANSETRON 4 MG/2 ML VIAL IVP PRN (05:49)
[2023-05-06 06:35] LABS: Glucose,Whole Blood 98 mg/dL (70-110)
[2023-05-06] MEDS ORDERED: NEOSTIGMINE 1 MG/ML 10 ML VIAL ONE (06:53)
[2023-05-06] MEDS ORDERED: SUCCINYLCHOLINE CHLORIDE 200 MG/10 ML VIAL IV ONE (06:53)
[2023-05-06] MEDS ORDERED: HYDROmorphone (PF) 1 MG/ML ONE (06:53)
[2023-05-06] MEDS ORDERED: PROPOFOL 10 MG/ML 20 ML VIAL IV ONE (06:53)
[2023-05-06] MEDS ORDERED: LIDOCAINE 2% INJ 20 MG/ML (2 ML VIAL) ONE (06:53)
[2023-05-06] MEDS ORDERED: MIDAZOLAM 2 MG/2 ML VIAL ONE (06:53)
[2023-05-06] MEDS ORDERED: GLYCOPYRROLATE 0.2 MG/ML 2 ML VIAL ONE (06:53)
[2023-05-06] MEDS ORDERED: fentaNYL (PF) 50 MCG/ML 2 ML AMP ONE (06:53)
[2023-05-06] MEDS ORDERED: ROCURONIUM 10 MG/ML (5 ML VIAL) IV ONE (06:53)
[2023-05-06] MEDS ORDERED: LACTATED RINGERS 1,000 ML IV ONE (07:50)
--- NOTE | 2023-05-06 08:10 | P.OP ---
Date of Procedure: 05/06/23 Preoperative Diagnosis: Incarcerated incisional hernia Postoperative Diagnosis: Incarcerated incisional hernia Procedure(s) Performed: Open repair of incarcerated incisional hernia with Prolene mesh Anesthesia: NERY Surgeon: Charly Hicks Estimated Blood Loss (ml): 5 Pathology: none sent Condition: stable Disposition: PACU Description of Procedure: The patient's placed on the operating table in the supine position where she received general endotracheal tube anesthesia. Her abdomen was prepped and draped usual sterile fashion. The patient a previous midline scar related to C- section. At this appeared portion of scar there was incisional hernia. The hernia appeared to be incarcerated. The skin was incised and using blunt and sharp dissection with cautery the subcutaneous tissue divided off of the fascia he hernia sac was opened. The hernia sac contained incarcerated omentum was placed back the pleural cavity. Hernia defect measured prostate 4 x 10 cm. The fascial defect was then closed using interrupted [id number] 0 Ethibond suture. After the fascial repair. A 6 x 6 Prolene mesh was cut to appropriate size and secured secure strap tacker. A NATALEE drains placed over top of the mesh repair and brought through separate stab incision. Nic's fascia close 0 Vicryl suture.. Skin was closed gil. Patient top she will was sent to recovery room in stable condition.
[2023-05-06 08:21] VITALS: TEMP 96.8
[2023-05-06 09:13] VITALS: RESP 18
[2023-05-06] MEDS ORDERED: ONDANSETRON 4 MG/2 ML VIAL ONE (09:19)
[2023-05-06] MEDS ORDERED: HYDROcodone/APAP 10-325MG 1 EACH TAB ONE (09:19)
[2023-05-06 09:52] VITALS: BP 147/78; PULSE 74
== END 2023-05-06 10:25 | disposition home or self-care (01) ==
LOC: OR 05:34
PROVIDERS: ATTEND Surgery
DX: K43.0 Incisional hernia with obstruction, without gangrene (principal); J45.909 Unspecified asthma, uncomplicated; Z90.89 Acquired absence of other organs; Z98.891 History of uterine scar from previous surgery; Z79.899 Other long term (current) drug therapy
CPT/HCPCS: 49592; C1781; J2250; J0330; J1100; J2710; J0690; J2405; J3010; J1170; J2704; J1644; J2001

== ENCOUNTER 2023-08-22 15:51 | Emergency (ER) | payer OTHER ==
[2023-08-22 16:47] VITALS: RESP 18; TEMP 98.8
[2023-08-22] MEDS ORDERED: fentaNYL (PF) 50 MCG/ML 2 ML AMP IVP STA (17:04)
[2023-08-22] MEDS ORDERED: HYDROcodone/APAP 10-325MG 1 EACH TAB PO ONE (17:13)
--- NOTE | 2023-08-22 17:26 | ED ---
Abdominal Pain HPI - General Chief Complaint: Abdominal Pain Stated Complaint: GI Bleed Time Seen by Provider: 08/22/23 16:05 Source: patient Mode of arrival: EMS Limitations: no limitations - History of Present Illness Initial Comments: 33-year-old female with past nuchal history of ventral wall hernia who presents to the emergency department reporting abdominal wall pain. States that she had a baby at the end of last year. In April of this year she had a ventral hernia repair completed by Dr. Hicks. Ever since she had the surgery she has had abdominal pain. The skin around her surgical incision is very tender and she has some decreased sensation in areas. Reports that the subcutaneous tissue is very indurated. She does have an appointment with Dr. Hicks on Saturday however doesn't want to wait any longer to get her symptoms addressed. She went into [facility] earlier today. She did receive 2 L of fluid and a dose of fentanyl. CT was performed which demonstrates a deep cystic mass anterior to the bladder and a fluid collection around the surgical incision which may represent abscess versus seroma. The patient does not of a white count. She denies any fevers. No warmth to the site. She denies any pain to deep palpation. Reports that her primary care ran blood work for tumor markers and completed a Pap smear. She was told that the cystic masses noncancerous. She follows with an OB out of [place]. Denies having any type of biopsy on the mass. She admits nausea without vomiting. Due to the consideration of possible abscess the patient was transported to our facility in order to consult with Dr. Hicks. No other alleviating, precipitating or modifying factors - Related Data Home Medications Medication Instructions Recorded Confirmed Ibuprofen [Motrin] 800 mg PO BID PRN 02/20/23 08/22/23 Omeprazole 20 mg PO BID 02/20/23 08/22/23 Dicyclomine [Bentyl] 10 mg PO TID 05/02/23 08/22/23 Montelukast [Singulair] 10 mg PO HS 05/02/23 08/22/23 cloNIDine HCL 0.2 mg PO HS 05/02/23 08/22/23 oxyBUTYnin chloride 5 mg PO DAILY 05/02/23 08/22/23 HYDROcodone/APAP 7.5-325MG [[place] 1 tab PO BID PRN 08/22/23 08/22/23 7.5-325] Liraglutide [Saxenda] 1.2 mg SQ DAILY 08/22/23 08/22/23 Loratadine [Claritin] 10 mg PO DAILY 08/22/23 08/22/23 Tobramycin 0.3% Ophth Soln [Tobrex 1 drop LEFT EYE 5XD 08/22/23 08/22/23 0.3% Ophth Soln] Vortioxetine Hydrobromide 20 mg PO DAILY 08/22/23 08/22/23 [Trintellix] fluPHENAZine HCl 2.5 mg PO HS 08/22/23 08/22/23 Previous Rx's Medication Instructions Recorded Albuterol Inhaler [Ventolin Hfa 2 puff INHALATION RT-QID PRN #8 gm 09/29/21 Inhaler] HYDROcodone/APAP 10-325MG [[place] 1 tab PO Q4HR PRN #15 tab 08/22/23 10-325] Allergies Allergy/AdvReac Type Severity Reaction Status Date / Time buspirone HCl [From BuSpar] Allergy Rash/Hives Verified 08/22/23 16:55 Latex, Natural Rubber Allergy Rash/Hives Verified 08/22/23 16:55 morphine Allergy Anaphylaxis Verified 08/22/23 16:55 onion Allergy Rash/Hives Verified 08/22/23 16:55 tramadol Allergy Rash/Hives Verified 08/22/23 16:55 venom-honey bee Allergy Anaphylaxis Verified 08/22/23 16:55 [bee venom (honey bee)] Review of Systems ROS Statement: Those systems with pertinent positive or pertinent negative responses have been documented in the HPI. ROS Other: All systems not noted in ROS Statement are negative. Past Medical History Past Medical History: Asthma, Fibromyalgia, GERD/Reflux, Osteoarthritis (OA), Seizure Disorder Additional Past Medical History / Comment(s): scoliosis and arthritis; back pain, States Stress Seziures., last seizure ., migraines , loss of bladder control, carpal tunnel chika. History of Any Multi-Drug Resistant Organisms: None Reported Past Surgical History: Appendectomy, Section, Cholecystectomy, Hysterectomy Additional Past Surgical History / Comment(s): d & c,. C-SEC X 4 Past Anesthesia/Blood Transfusion Reactions: No Reported Reaction, Motion Sickness Smoking Status: Former smoker, Vaper - Past Family History Mother Family Medical History: No Reported History, Fibromyalgia General Exam Limitations: no limitations General appearance: alert, in no apparent distress Head exam: Present: atraumatic, normocephalic, normal inspection Eye exam: Present: normal appearance, PERRL, EOMI. Absent: scleral icterus, conjunctival injection, periorbital swelling ENT exam: Present: normal exam, mucous membranes moist Neck exam: Present: normal inspection. Absent: tenderness, meningismus, lymphadenopathy Respiratory exam: Present: normal lung sounds bilaterally. Absent: respiratory distress, wheezes, rales, rhonchi, stridor Cardiovascular Exam: Present: regular rate, normal rhythm, normal heart sounds. Absent: systolic murmur, diastolic murmur, rubs, gallop, clicks GI/Abdominal exam: Present: tenderness (There is a midline surgical incision. The area around the incision is indurated with tenderness. No erythema), normal bowel sounds. Absent: distended, guarding, rebound, rigid Extremities exam: Present: normal inspection, full ROM, normal capillary refill. Absent: tenderness, pedal edema, joint swelling, calf tenderness Back exam: Present: normal inspection Neurological exam: Present: alert, oriented X3, CN II-XII intact Psychiatric exam: Present: normal affect, normal mood Skin exam: Present: warm, dry, intact, normal color. Absent: rash Course Vital Signs 08/22/23 08/22/23 16:01 18:05 Temperature 98.8 F Pulse Rate 72 78 Respiratory 18 18 Rate Blood Pressure 140/90 168/104 O2 Sat by Pulse 97 98 Oximetry Medical Decision Making - Medical Decision Making Was pt. sent in by a medical professional or institution (, PA, QUARTER SEAMER, urgent care, hospital, or chcf...) When possible be specific @ -Patient was sent over from [facility] Did you speak to anyone other than the patient for history (EMS, parent, family, police, friend...)? What history was obtained from this source @ -No Did you review nursing and triage notes (agree or disagree)? Why? @ -I reviewed and agree with nursing and triage notes Were old charts reviewed (outside hosp., previous admission, EMS record, old EKG, old radiological studies, urgent care reports/EKG's, chcf records)? Report findings @ -I reviewed the patient's chart from [facility] Differential Diagnosis (chest pain, altered mental status, abdominal pain women, abdominal pain men, vaginal bleeding, weakness, fever, dyspnea, syncope, headache, dizziness, GI bleed, back pain, seizure, CVA, palpatations, mental health, musculoskeletal)? @ -Differential Abdominal Pain Women: Appendicitis, Cholecystitis, diverticulosis, ischemic bowel, pancreatitis, hepatitis, UTI, gastroenteritis, AAA, incarcerated hernia, bowel obstruction, constipation, inflammatory bowel, hepatitis, peptic ulcer disease, splenic in farction, perforated viscus, vulvitis, ovarian torsion, PID, kidney stone, placenta abruption, this is not meant to be an all-inclusive list EKG interpreted by me (3pts min.). @ -Not completed X-rays interpreted by me (1pt min.). @ -not Completed CT interpreted by me (1pt min.). @ -None done U/S interpreted by me (1pt. min.). @ -None done What testing was considered but not performed or refused? (CT, X-rays, U/S, labs)? Why? @ -None What meds were considered but not given or refused? Why? @ -None Did you discuss the management of the patient with other professionals (professionals i.e. , PA, QUARTER SEAMER, lab, RT, psych nurse, social science professor, detail supervisor, teacher, civil preparedness training officer, family independence case manager)? Give summary @ -I spoke with Dr. Hicks in regards to the studies Was smoking cessation discussed for >3mins.? @ -No Was critical care preformed (if so, how long)? @ -No Were there social determinants of health that impacted care today? How? (Homelessness, low income, unemployed, alcoholism, drug addiction, transportation, low edu. Level, literacy, decrease access to med. care, usp, rehab)? @ -No Was there de-escalation of care discussed even if they declined (Discuss DNR or withdrawal of care, Hospice)? DNR status @ -No What co-morbidities impacted this encounter? (DM, HTN, Smoking, COPD, CAD, Cancer, CVA, ARF, Chemo, Hep., AIDS, mental health diagnosis, sleep apnea, morbid obesity)? @ -Obesity Was patient admitted / discharged? Hospital course, mention meds given and route, prescriptions, significant lab abnormalities, going to OR and other pertinent info. @ -Upon arrival patient was placed into room 2. Thorough history and physical exam is performed. I did review the patient's laboratory studies. She does not have a white count. I did review her CT. I did discuss that the patient needs to be seen by an OVAL OR CIRCULAR GLASS CUTTER because of her abnormal CT read. Patient will also have to follow up with Dr. Hicks. He agrees to pain control and will see the patient on Saturday. He believes that the patient has a seroma due to lack of white blood cell count and no fevers. Patient was agreeable to pain control. She will follow-up on Saturday. Instructed to return for any new or worsening symptoms. I do feel that the patient needs an evaluation by an OVAL OR CIRCULAR GLASS CUTTER in regards to the cystic mass in her abdomen which was previously seen in April. Patient was agreeable to this. Patient discharged in stable condition Undiagnosed new problem with uncertain prognosis? @ -Yes Drug Therapy requiring intensive monitoring for toxicity (Heparin, Nitro, Insulin, Cardizem)? @ -No Were any procedures done? @ -No Diagnosis/symptom? @ -Acute abdominal wall pain, suspected seroma, cystic pelvic mass Acute, or Chronic, or Acute on Chronic? @ -Subacute Uncomplicated (without systemic symptoms) or Complicated (systemic symptoms)? @ -Complicated Side effects of treatment? @ -No Exacerbation, Progression, or Severe Exacerbation? @ -No Poses a threat to life or bodily function? How? (Chest pain, [place], GA, pneumonia, PE, COPD, DKA, ARF, appy, cholecystitis, CVA, Diverticulitis, Homicidal, Suicidal, threat to staff... and all critical care pts) @ -No Disposition Clinical Impression: Seroma, Abdominal wall pain Disposition: HOME SELF-CARE Condition: Stable Instructions (If sedation given, give patient instructions): Abdominal Pain (ED) Additional Instructions: Please follow-up with Dr. Hicks at your scheduled appointment on Saturday. Take the pain medications as needed and return for any new or worsening symptoms Prescriptions: HYDROcodone/APAP 10-325MG [[place] 10-325] 1 tab PO Q4HR PRN #15 tab PRN Reason: pain Is patient prescribed a controlled substance at d/c from ED?: Yes When asked, does pt state using other controlled substances?: No If prescribed controlled substance>3 days was MAPS reviewed?: Prescribed <3 Days If opioid is for acute pain is fill amount 7 days or less?: Yes Referrals: Sandy Colon, PAC [Primary Care Provider] - 1-2 days Forms: Area PCPs Time of Disposition: 17:26
[2023-08-22 18:09] VITALS: BP 168/104; PULSE 78
== END 2023-08-22 18:05 | disposition home or self-care (01) ==
LOC: EC 15:51
DX: T14.8XXA Other injury of unspecified body region, initial encounter (principal); R10.9 Unspecified abdominal pain; J45.909 Unspecified asthma, uncomplicated; K21.9 Gastro-esophageal reflux disease without esophagitis; M19.90 Unspecified osteoarthritis, unspecified site; F17.200 Nicotine dependence, unspecified, uncomplicated; Z79.1 Long term (current) use of non-steroidal anti-inflammatories (NSAID); Z79.899 Other long term (current) drug therapy; Z91.040 Latex allergy status; Z88.5 Allergy status to narcotic agent; Z91.018 Allergy to other foods; Z91.030 Bee allergy status; Z88.8 Allergy status to other drugs, medicaments and biological substances; Z90.49 Acquired absence of other specified parts of digestive tract
CPT/HCPCS: 99285

== ENCOUNTER 2023-08-26 12:55 | Emergency (ER) | payer OTHER ==
[2023-08-26 13:18] VITALS: PULSE 87; TEMP 99.4
[2023-08-26] MEDS ORDERED: SODIUM CHLORIDE 0.9% 1,000 ML IV ONE (13:48)
[2023-08-26] MEDS ORDERED: HYDROcodone/APAP 10-325MG 1 EACH TAB PO ONE ×3 (13:50→16:14)
[2023-08-26 14:20] LABS: Basophils % (A) 0 %; Eosinophils # (A) 0.3 k/uL (0-0.7); Eosinophils % (A) 4 %; HGB 13.9 gm/dL (11.4-16.0); Lymphocytes % (A) 23 %; MCH 28.2 pg (25.0-35.0); MCHC 34.7 g/dL (31.0-37.0); MCV 81.1 fL (80.0-100.0); Mean Platelet Volume 6.7; Monocytes # (A) 0.4 k/uL (0-1.0); Monocytes % (A) 5 %; Neutrophils # (A) 5.7 k/uL (1.3-7.7); Neutrophils % (A) 67 %; Platelet Count 309 k/uL (150-450); RBC 4.93 m/uL (3.80-5.40); WBC 8.6 k/uL (3.8-10.6)
[2023-08-26 14:35] LABS: ALT 21 U/L (4-34); AST 22 U/L (14-36); African American GFR (CKD) >90 (>60 ml/min/1.73 sqM); Albumin 4.2 g/dL (3.5-5.0); Alkaline Phosphatase 87 U/L (38-126); Anion Gap 10 mmol/L; Blood Urea Nitrogen 10 mg/dL (7-17); Calcium 9.3 mg/dL (8.4-10.2); Carbon Dioxide 26 mmol/L (22-30); Chloride 102 mmol/L (98-107); Glucose 77 mg/dL (74-99); Non-African American GFR(CKD) >90 (>60 ml/min/1.73 sqM); Potassium 4.6 mmol/L (3.5-5.1); Sodium 138 mmol/L (137-145); Total Bilirubin 0.6 mg/dL (0.2-1.3); Total Protein 7.5 g/dL (6.3-8.2)
--- NOTE | 2023-08-26 14:40 | ED ---
General Adult HPI - General Chief complaint: Skin/Abscess/Foreign Body Stated complaint: infected abscess Time Seen by Provider: 08/26/23 13:32 Source: patient, RN notes reviewed Mode of arrival: ambulatory Limitations: no limitations - History of Present Illness Initial comments: 33-year-old female with a past medical history significant for chronic abdominal pain, abdominal hernia repair surgery presents the emergency department with a chief complaint of postop problem. Patient reports that she has initial umbilical hernia repair performed in April [address] Espinosa. She reports for persistent abdominal pain ever since. She reports over the last week increasing pain, redness, warmth to the incision site. She is also complaining of green purulent discharge from the site. She denies any known fevers. She reports she is supposed to see Dr. Espinosa tomorrow for follow-up however her pain symptoms have worsened. - Related Data Home Medications Medication Instructions Recorded Confirmed Ibuprofen [Motrin] 800 mg PO BID PRN 02/20/23 08/26/23 Omeprazole 20 mg PO BID 02/20/23 08/26/23 Dicyclomine [Bentyl] 10 mg PO TID 05/02/23 08/26/23 Montelukast [Singulair] 10 mg PO HS 05/02/23 08/26/23 cloNIDine HCL 0.2 mg PO HS 05/02/23 08/26/23 oxyBUTYnin chloride 5 mg PO DAILY 05/02/23 08/26/23 HYDROcodone/APAP 7.5-325MG [[place] 1 tab PO BID PRN 08/22/23 08/26/23 7.5-325] Liraglutide [Saxenda] 1.2 mg SQ DAILY 08/22/23 08/26/23 Loratadine [Claritin] 10 mg PO DAILY 08/22/23 08/26/23 Tobramycin 0.3% Ophth Soln [Tobrex 1 drop RIGHT EYE 5XD 08/22/23 08/26/23 0.3% Ophth Soln] Vortioxetine Hydrobromide 20 mg PO DAILY 08/22/23 08/26/23 [Trintellix] fluPHENAZine HCl 2.5 mg PO HS 08/22/23 08/26/23 HYDROcodone/APAP 10-325MG [[place] 1 tab PO DIRECTED PRN 08/26/23 08/26/23 10-325] Previous Rx's Medication Instructions Recorded Albuterol Inhaler [Ventolin Hfa 2 puff INHALATION RT-QID PRN #8 gm 09/29/21 Inhaler] Allergies Allergy/AdvReac Type Severity Reaction Status Date / Time buspirone HCl [From BuSpar] Allergy Rash/Hives Verified 08/26/23 15:15 Latex, Natural Rubber Allergy Rash/Hives Verified 08/26/23 15:15 morphine Allergy Anaphylaxis Verified 08/26/23 15:15 onion Allergy Rash/Hives Verified 08/26/23 15:15 tramadol Allergy Rash/Hives Verified 08/26/23 15:15 venom-honey bee Allergy Anaphylaxis Verified 08/26/23 15:15 [bee venom (honey bee)] Review of Systems ROS Statement: Those systems with pertinent positive or pertinent negative responses have been documented in the HPI. ROS Other: All systems not noted in ROS Statement are negative. Past Medical History Past Medical History: Asthma, Fibromyalgia, GERD/Reflux, Osteoarthritis (OA), Seizure Disorder Additional Past Medical History / Comment(s): scoliosis and arthritis; back pain, States Stress Seziures., last seizure ., migraines , loss of blad yuniel control, carpal tunnel chika. History of Any Multi-Drug Resistant Organisms: None Reported Past Surgical History: Appendectomy, Section, Cholecystectomy, Hysterectomy Additional Past Surgical History / Comment(s): d & c,. C-SEC X 4 Past Anesthesia/Blood Transfusion Reactions: No Reported Reaction, Motion Sickness Past Psychological History: ADD/ADHD, Anxiety, Bipolar, Depression Smoking Status: Former smoker, Vaper Past Alcohol Use History: None Reported Past Drug Use History: None Reported - Past Family History Mother Family Medical History: No Reported History, Fibromyalgia General Exam - General Exam Comments Initial Comments: General: Alert, in no acute distress Head: atraumatic normocephalic. Eyes PERRL, EOMI intact, mucous membranes moist Respiratory: Lungs clear to auscultation bilaterally Cardiovascular: Heart rate regular rate and rhythm Abdominal: Soft without guarding or rebound, exploratory laparotomy with 1.5cm x 1.5cm circular, fluctuant, tender lesion with warmth. Top of surgical scar. Otherwise appears well-healed. Markedly tender. Extremities: Normal inspection with full range of motion and normal capillary refill Neuroogic: alert and oriented 3, CN II-XII intact, able to ambulate with steady gait Skin: warm dry and intact with normal color Limitations: no limitations Course Vital Signs 08/26/23 13:09 Temperature 99.4 F Pulse Rate 87 Respiratory 17 Rate Blood Pressure 124/86 O2 Sat by Pulse 98 Oximetry - Reevaluation(s) Reevaluation #1: 08/26/23 14:[address] Espinosa who recommends giving patient antibiotics and having her follow up with him. Reevaluation #2: 08/26/23 17:30 Patient reevaluated. Antibiotics finished. Agreeable with the plan for discharge home. Medical Decision Making - Medical Decision Making Was pt. sent in by a medical professional or institution (, PA, DOCK SUPERINTENDENT, urgent care, hospital, or retirement...) When possible be specific @ -[No] Did you speak to anyone other than the patient for history (EMS, parent, family, police, friend...)? What history was obtained from this source @ -[No] Did you review nursing and triage notes (agree or disagree)? Why? @ -[I reviewed and agree with nursing and triage notes] Were old charts reviewed (outside hosp., previous admission, EMS record, old EKG, old radiological studies, urgent care reports/EKG's, retirement records)? Report findings @ -Charts reviewed from 08/22/2023 including [facility] report. Differential Diagnosis (chest pain, altered mental status, abdominal pain women, abdominal pain men, vaginal bleeding, weakness, fever, dyspnea, syncope, headache, dizziness, GI bleed, back pain, seizure, CVA, palpatations, mental health, musculoskeletal)? @ -[not applicable] EKG interpreted by me (3pts min.). @ -[As above] X-rays interpreted by me (1pt min.). @ -[None done] CT interpreted by me (1pt min.). @ -[None done] U/S interpreted by me (1pt. min.). @ -[None done] What testing was considered but not performed or refused? (CT, X-rays, U/S, labs)? Why? @ -[None] What meds were considered but not given or refused? Why? @ -[None] Did you discuss the management of the patient with other professionals (professionals i.e. , PA, DOCK SUPERINTENDENT, lab, RT, psych nurse, rn social work, hand engraver, teacher, industrial relations officer, lead case manager)? Give summary @ -Dr. Espinosa, who does not recommend repeat CT at this time. Requesting patient to have a antibiotics and follow up with his office tomorrow. Was smoking cessation discussed for >3mins.? @ -[No] Was critical care preformed (if so, how long)? @ -[No] Were there social determinants of health that impacted care today? How? (Homelessness, low income, unemployed, alcoholism, drug addiction, transportation, low edu. Level, literacy, decrease access to med. care, shelter, rehab)? @ -[No] Was there de-escalation of care discussed even if they declined (Discuss DNR or withdrawal of care, Hospice)? DNR status @ -[No] What co-morbidities impacted this encounter? (DM, HTN, Smoking, COPD, CAD, Cancer, CVA, ARF, Chemo, Hep., AIDS, mental health diagnosis, sleep apnea, morbid obesity)? @ -[None] Was patient admitted / discharged? Hospital course, mention meds given and route, prescriptions, significant lab abnormalities, going to OR and other pertinent info. @ Discharged. This is a 33-year-old female presents the emergency department with postop problem. Patient had a history and physical exam performed. Vital signs stable. Patient afebrile. Heart rate regular rate and rhythm, lungs clear to auscultation bilaterally abdomen soft and nontender. Patient has small area to the upper part of exploratory laparotomy scar with e rythema and tenderness. Laboratory studies unremarkable. Including WBCs 8.6 Case is discussed with Dr. Espinosa, who recommends giving the patient antibiotics having her follow-up with him tomorrow. Patient given Zosyn. Return precautions discussed. Case discussed Dr. bae, [facility] who agrees with plan of care Undiagnosed new problem with uncertain prognosis? @ -[No] Drug Therapy requiring intensive monitoring for toxicity (Heparin, Nitro, Insulin, Cardizem)? @ -[No] Were any procedures done? @ -[No] Diagnosis/symptom? @ -Post-op problem Acute, or Chronic, or Acute on Chronic? @ -Acute Uncomplicated (without systemic symptoms) or Complicated (systemic symptoms)? @ -Uncomplicated Side effects of treatment? @ -[No] Exacerbation, Progression, or Severe Exacerbation? @ -[No] Poses a threat to life or bodily function? How? (Chest pain, [place], [place], pneumonia, PE, COPD, DKA, ARF, appy, cholecystitis, CVA, Diverticulitis, Homicidal, Suicidal, threat to staff... and all critical care pts) @ -Low likelihood - Lab Data Result diagrams: 08/26/23 14:04 08/26/23 14:04 Lab Results 08/26/23 08/26/23 08/26/23 Range/Units 14:04 14:04 14:04 WBC 8.6 (3.8-10.6) k/uL RBC 4.93 (3.80-5.40) m/uL Hgb 13.9 (11.4-16.0) gm/dL Hct 40.0 (34.0-46.0) % MCV 81.1 (80.0-100.0) fL MCH 28.2 (25.0-35.0) pg MCHC 34.7 (31.0-37.0) g/dL RDW 14.0 (11.5-15.5) % Plt Count 309 (150-450) k/uL MPV 6.7 Neutrophils % 67 % Lymphocytes % 23 % Monocytes % 5 % Eosinophils % 4 % Basophils % 0 % Neutrophils # 5.7 (1.3-7.7) k/uL Lymphocytes # 2.0 (1.0-4.8) k/uL Monocytes # 0.4 (0-1.0) k/uL Eosinophils # 0.3 (0-0.7) k/uL Basophils # 0.0 (0-0.2) k/uL Sodium 138 (137-145) mmol/L Potassium 4.6 (3.5-5.1) mmol/L Chloride 102 (98-107) mmol/L Carbon Dioxide 26 (22-30) mmol/L Anion Gap 10 mmol/L BUN 10 (7-17) mg/dL Creatinine 0.69 (0.52-1.04) mg/dL Est GFR (CKD-EPI)AfAm >90 (>60 ml/min/1.73 sqM) Est GFR (CKD-EPI)NonAf >90 (>60 ml/min/1.73 sqM) Glucose 77 (74-99) mg/dL Plasma Lactic Acid [place] 1.0 (0.7-2.0) mmol/L Calcium 9.3 (8.4-10.2) mg/dL Total Bilirubin 0.6 (0.2-1.3) mg/dL AST 22 (14-36) U/L ALT 21 (4-34) U/L Alkaline Phosphatase 87 (38-126) U/L Total Protein 7.5 (6.3-8.2) g/dL Albumin 4.2 (3.5-5.0) g/dL Disposition Clinical Impression: Seroma, Post-op pain Disposition: HOME SELF-CARE Condition: Stable Instructions (If sedation given, give patient instructions): Abscess (ED), Abscess Incision and Drainage (DC) Additional Instructions: Please return to the nearest emergency department if worsening pain or high fever develop Is patient prescribed a controlled substance at d/c from ED?: No Referrals: Aparna Liriano DO [Primary Care Provider] - 1-2 days Charly Hicks MD [STAFF PHYSICIAN] - 08/27/23 1:40 pm Time of Disposition: 15:01
[2023-08-26] MEDS ORDERED: PIPERACILLIN-TAZOBACTAM 3.375 GM in SODIUM CHLORIDE 0.9% 100 ML IVPB STA (15:02)
[2023-08-26 17:52] VITALS: BP 128/70; RESP 18
== END 2023-08-26 17:39 | disposition home or self-care (01) ==
LOC: EC 12:55
DX: L76.34 Postprocedural seroma of skin and subcutaneous tissue following other procedure (principal); J45.909 Unspecified asthma, uncomplicated; K21.9 Gastro-esophageal reflux disease without esophagitis; M19.90 Unspecified osteoarthritis, unspecified site; F41.9 Anxiety disorder, unspecified; F31.9 Bipolar disorder, unspecified; F17.290 Nicotine dependence, other tobacco product, uncomplicated; Z79.899 Other long term (current) drug therapy; Z88.5 Allergy status to narcotic agent; Z88.8 Allergy status to other drugs, medicaments and biological substances; Z91.030 Bee allergy status; Z91.040 Latex allergy status; Z90.49 Acquired absence of other specified parts of digestive tract
CPT/HCPCS: 36415; 80053; 83605; 85025; 87040; 87070; 87205; 99283; 96365; 96366; 96361; J2543

== ENCOUNTER → 2024-04-03 | Outpatient (CLI) | payer OTHER | END | disposition home or self-care (01) | LOC: LABWHC1 11:54 | PROVIDERS: ATTEND Physician Assistant | DX: R19.7 Diarrhea, unspecified (principal) | CPT/HCPCS: 87045; 87046; 87324 ==

== ENCOUNTER → 2024-05-22 | Outpatient (CLI) | payer OTHER ==
[2024-05-22 11:47] LABS: Partial Thromboplastin Time 24.3 sec (22.0-30.0); Prothrombin Time 10.7 sec (10.0-12.5)
[2024-05-22 17:11] LABS: HCT 45.5 % (37.2-46.3); HGB 14.8 g/dL (12.0-15.0); MCH 28.4 pg (27.0-32.0); MCHC 32.5 g/dL (32.0-37.0); MCV 87.3 FL (80.0-97.0); Mean Platelet Volume 9.3 FL (9.5-12.2); NRBC Per 100 WBC 0 X 10*3/uL (0.00-0.01); Platelet Count 304 X 10*3/uL (140-440); RBC 5.21 X 10*6/uL (4.10-5.20); RDW 14.6 % (11.5-14.5); WBC 8.25 X 10*3/uL (4.50-10.00)
[2024-05-22 17:57] LABS: Chol/HDL Ratio 6.77 Ratio; Magnesium 1.8 mg/dL (1.5-2.4)
[2024-05-22 17:58] LABS: % Iron Saturation 34.25 (12.00-45.00); ALT 26 U/L (8-44); AST 24 U/L (13-35); Albumin 4.5 g/dL (3.8-4.9); Albumin/Globulin Ratio 1.67 Ratio (1.60-3.17); Alkaline Phosphatase 104 U/L (41-126); BUN/Creat Ratio 9.12 Ratio (12.00-20.00); Blood Urea Nitrogen 7.3 mg/dL (9.0-27.0); Calcium 9.8 mg/dL (8.7-10.3); Chloride 100 mmol/L (96-109); Globulin 2.7 g/dL (1.6-3.3); Glucose 118 mg/dL (70-110); Iron 150 UG/DL (50-170); LDL Cholesterol,Calculated 139.6 mg/dL (0.0-131.0); Potassium 3.9 mmol/L (3.5-5.5); Sodium 138 mmol/L (135-145); Total Bilirubin 0.9 mg/dL (0.3-1.2); Total Iron Binding Capacity 438 UG/DL (228-460); Total Protein 7.2 g/dL (6.2-8.2)
== END | disposition home or self-care (01) ==
LOC: LABWHC1 10:31
PROVIDERS: ATTEND Surgery Plastic and Reconstructive Surgery
DX: E66.01 Morbid (severe) obesity due to excess calories (principal); D50.8 Other iron deficiency anemias; I49.8 Other specified cardiac arrhythmias; K91.2 Postsurgical malabsorption, not elsewhere classified; E44.0 Moderate protein-calorie malnutrition; E45 Retarded development following protein-calorie malnutrition; E46 Unspecified protein-calorie malnutrition; E55.9 Vitamin D deficiency, unspecified; K74.1 Hepatic sclerosis; N19 Unspecified kidney failure; T56.894A Toxic effect of other metals, undetermined, initial encounter; K50.90 Crohn's disease, unspecified, without complications
CPT/HCPCS: 84255; 84134; 84425; 80061; 80053; 82607; 82525; 82746; 83540; 83550; 83735; 84100; 84443; 84590; 84630; 85027; 85610; 85730; 82306; 83970; 83036; 80307; 93005; 36415; G0480; 80323

== ENCOUNTER 2024-07-20 06:49 | Day surgery (SDC) | payer OTHER ==
[2024-06-30 13:13] VITALS: BMI 47.0
--- NOTE | 2024-07-20 05:28 | P.GSHP ---
History of Present Illness H&P Date: 07/20/24 CHIEF COMPLAINT: GERD and change in bowel habits. HISTORY OF PRESENT ILLNESS: The patient is a 34-year-old female who presents epigastric abdominal pain including nausea and vomiting. Separately she change in bowel habits. Upper and lower endoscopy was offered for further evaluation and management. PAST MEDICAL HISTORY: Please see list. PAST SURGICAL HISTORY: Please see list. MEDICATIONS: Please see list. ALLERGIES: Please see list. SOCIAL HISTORY: No illicit drug use FAMILY HISTORY: No reports of Crohn disease or ulcerative colitis. REVIEW OF ORGAN SYSTEMS: CONSTITUTIONAL: No reports of fevers or chills. PHYSICAL EXAM: VITAL SIGNS: Stable GENERAL: Well-developed pleasant female in no acute distress. HEENT: No scleral icterus. Extraocular movements grossly intact. Moist buccal mucosa. NECK: Supple without lymphadenopathy. CHEST: Unlabored respirations. Equal bilateral excursions. CARDIOVASCULAR: Regular rate and rhythm. Distal 2+ pulses. ABDOMEN: Soft, nontender, nondistended. MUSCULOSKELETAL: No clubbing, cyanosis, or edema. ASSESSMENT: 1. Gastroesophageal reflux disease. 2. Change in bowel habits with diarrhea. PLAN: 1. Recommend proceeding with an upper and lower endoscopy Past Medical History Past Medical History: Asthma, Fibromyalgia, GERD/Reflux, Hypertension, Musculoskeletal Disorder, Osteoarthritis (OA), Seizure Disorder Additional Past Medical History / Comment(s): Scoliosis, back pain, bilateral carpal tunnel. States Stress Seziures, last seizure JUL 2020. Migraines. Loss of bladder control. 07/16/24 Zit like spot under armpit- went to was was put on antibiotics but hasnt picked up- informed to call Dr. Mclean office. History of Any Multi-Drug Resistant Organisms: None Reported Past Surgical History: Appendectomy, Section, Cholecystectomy, Hysterectomy Additional Past Surgical History / Comment(s): D&C, SECTION X4. Past Anesthesia/Blood Transfusion Reactions: No Reported Reaction, Motion Sickness Smoking Status: Former smoker, Vaper - Past Family History Mother Family Medical History: Fibromyalgia Medications and Allergies Home Medications Medication Instructions Recorded Confirmed Type Albuterol Inhaler [Ventolin Hfa 2 puff INHALATION RT-QID PRN #8 gm 09/29/21 07/16/24 Rx Inhaler] Omeprazole 20 mg PO BID 02/20/23 07/16/24 History Montelukast [Singulair] 10 mg PO HS 05/02/23 07/16/24 History oxyBUTYnin chloride 5 mg PO DAILY 05/02/23 07/16/24 History Loratadine [Claritin] 10 mg PO DAILY 08/22/23 07/16/24 History DULoxetine HCL [Cymbalta] 60 mg PO QAM 05/20/24 07/16/24 History Naproxen [EC-Naproxen] 500 mg PO BID PRN 06/30/24 07/16/24 History cloNIDine HCL [Catapres] 0.3 mg PO HS 06/30/24 07/16/24 History lisinopriL 40 mg PO QAM 06/30/24 07/16/24 History EPINEPHrine (Auto Inject) [Epipen] 0.3 mg SQ DIRECTED PRN 07/16/24 07/16/24 History HYDROcodone/APAP 5-325MG [[place] 5 - 325 mg PO BID PRN 07/16/24 07/16/24 History 5-325] Ibuprofen [Motrin] 800 mg PO Q6H PRN 07/16/24 07/16/24 History Pregabalin [Lyrica] 150 mg PO BID 07/16/24 07/16/24 History hydroCHLOROthiazide 25 mg PO DAILY 07/16/24 07/16/24 History metFORMIN HCL 500 mg PO HS 07/16/24 07/16/24 History Allergies Allergy/AdvReac Type Severity Reaction Status Date / Time buspirone HCl [From BuSpar] Allergy Rash/Hives Verified 07/16/24 13:25 Latex, Natural Rubber Allergy Rash/Hives Verified 07/16/24 13:25 morphine Allergy Anaphylaxis Verified 07/16/24 13:25 onion Allergy Rash/Hives Verified 07/16/24 13:25 tramadol Allergy Rash/Hives Verified 07/16/24 13:25 venom-honey bee Allergy Anaphylaxis Verified 07/16/24 13:25 [bee venom (honey bee)]
[2024-07-20 07:19] VITALS: RESP 16; TEMP 97.1
[2024-07-20] MEDS: IV FLUID CONTINUATION 1,000 ML IV ONE (07:23)
[2024-07-20] MEDS: LACTATED RINGERS 1,000 ML IV SCH (07:23)
[2024-07-20] MEDS: LIDOCAINE 1% (10MG/ML) FOR IV START INTRADERMA PRN (07:23)
[2024-07-20 07:37] LABS: Glucose,Whole Blood 119 mg/dL (70-110)
[2024-07-20] MEDS ORDERED: PROPOFOL 10 MG/ML 20 ML VIAL IV ONE (07:38)
--- NOTE | 2024-07-20 07:53 | P.PCN ---
Date of Procedure: 07/20/24 Description of Procedure: PREOPERATIVE DIAGNOSIS: Gastroesophageal reflux disease. Morbid obesity. POSTOPERATIVE DIAGNOSIS: Gastroesophageal reflux disease. Morbid obesity. Gastritis. OPERATION: Esophagogastroduodenoscopy with biopsies along esophagus, antrum and duodenum SURGEON: Marium Marin MD ANESTHESIA: MAC. INDICATIONS: The patient is a 34-year-old female who presents with reflux disease. Benefits and risks of the procedure were described. Informed consent was obtained. DESCRIPTION: The patient was brought into the endoscopy suite and laid in the left lateral decubitus position. An Olympus gastroscope was passed along the posterior oropharynx down to the distal esophagus where the squamocolumnar junction was encountered at 40 cm from the incisors. The stomach was entered and no bile reflux was found. Additional findings are listed below. Biopsies with cold forceps were obtained of the antrum. The first through third portion of the duodenum was examined. Retroflexion of the scope confirmed Hill grade 1 lower esophageal valve. The squamocolumnar junction demonstrated LA grade A erosive esophagitis. The stomach was desufflated. The patient tolerated the procedure well. FINDINGS: Squamocolumnar junction 40 cm from the incisors. Diaphragmatic hiatus at 40 cm. Hill grade 2 lower esophageal valve. LA grade A erosive esophagitis. Biopsies obtained Biopsies obtained of the duodenum. Chronic gastritis with biopsies obtained. RECOMMENDATIONS: Upper endoscopy as needed. Plan - Discharge Summary Discharge Rx Participant: No New Discharge Prescriptions: Continue Albuterol Inhaler [Ventolin Hfa Inhaler] 2 puff INHALATION RT-QID PRN #8 gm PRN Reason: Shortness Of Breath DULoxetine HCL [Cymbalta] 60 mg PO QAM Naproxen [EC-Naproxen] 500 mg PO BID PRN PRN Reason: Pain lisinopriL 40 mg PO QAM Pregabalin [Lyrica] 150 mg PO BID hydroCHLOROthiazide 25 mg PO DAILY HYDROcodone/APAP 5-325MG [[place] 5-325] 5 - 325 mg PO BID PRN PRN Reason: Pain Omeprazole 20 mg PO BID oxyBUTYnin chloride 5 mg PO DAILY Montelukast [Singulair] 10 mg PO HS Loratadine [Claritin] 10 mg PO DAILY cloNIDine HCL [Catapres] 0.3 mg PO HS metFORMIN HCL 500 mg PO HS Ibuprofen [Motrin] 800 mg PO Q6H PRN PRN Reason: Pain EPINEPHrine (Auto Inject) [Epipen] 0.3 mg SQ DIRECTED PRN PRN Reason: Anaphylaxis Discharge Medication List Albuterol Inhaler [Ventolin Hfa Inhaler] 2 puff INHALATION RT-QID PRN #8 gm 09/29/21 [Rx] Omeprazole 20 mg PO BID 02/20/23 [History] Montelukast [Singulair] 10 mg PO HS 05/02/23 [History] oxyBUTYnin chloride 5 mg PO DAILY 05/02/23 [History] Loratadine [Claritin] 10 mg PO DAILY 08/22/23 [History] DULoxetine HCL [Cymbalta] 60 mg PO QAM 05/20/24 [History] Naproxen [EC-Naproxen] 500 mg PO BID PRN 06/30/24 [History] cloNIDine HCL [Catapres] 0.3 mg PO HS 06/30/24 [History] lisinopriL 40 mg PO QAM 06/30/24 [History] EPINEPHrine (Auto Inject) [Epipen] 0.3 mg SQ DIRECTED PRN 07/16/24 [History] HYDROcodone/APAP 5-325MG [[place] 5-325] 5 - 325 mg PO BID PRN 07/16/24 [History] Ibuprofen [Motrin] 800 mg PO Q6H PRN 07/16/24 [History] Pregabalin [Lyrica] 150 mg PO BID 07/16/24 [History] hydroCHLOROthiazide 25 mg PO DAILY 07/16/24 [History] metFORMIN HCL 500 mg PO HS 07/16/24 [History] [place] [facility]Ref[place] [facility] - 07/29/24 2:00 pm Patient Instructions/Handouts: Gastritis (DC) Discharge Disposition: HOME SELF-CARE
[2024-07-20 08:13] VITALS: BP 102/67; PULSE 89
== END 2024-07-20 08:31 | disposition home or self-care (01) ==
LOC: ORWHC2ENDO 06:49
PROVIDERS: ATTEND Surgery Plastic and Reconstructive Surgery
DX: K21.00 Gastro-esophageal reflux disease with esophagitis, without bleeding
CPT/HCPCS: 43239; 88305

== ENCOUNTER → 2024-07-29 | Outpatient (CLI) | payer OTHER ==
[2024-07-29 17:06] VITALS: BP 119/76; PULSE 102; RESP 16; TEMP 98.5; BMI 45.5
--- NOTE | 2024-07-29 17:09 | P.BASOAP ---
Subjective Progress Note Date: 07/29/24 She has celiac disease. She has nicotine. FU after nicotine abstinence. EGD ok. Labs reviewed. EKG normal. Objective - Vital Signs Vital signs: Vital Signs Temp 98.5 F 07/29/24 17:01 Pulse 102 H 07/29/24 17:01 Resp 16 07/29/24 17:01 BP 119/76 07/29/24 17:01 Pulse Ox FiO2 Intake & Output 07/28/24 07/29/24 07/29/24 18:59 06:59 18:59 Weight 109.316 kg Assessment/Plan Plan: Date: 07/29/24 Initial Weight: 112.037 kg Initial BMI: 46.6 Current Weight: 109.316 kg Current BMI: 45.5 Type of Surgery: Total Volume in Band: Previous Volume: Volume Removed: Volume Added: Band Size:
== END ==
LOC: BARWHC3 15:27
PROVIDERS: ATTEND Surgery Plastic and Reconstructive Surgery
DX: E66.01 Morbid (severe) obesity due to excess calories (principal); K90.0 Celiac disease; F17.200 Nicotine dependence, unspecified, uncomplicated; Z88.8 Allergy status to other drugs, medicaments and biological substances; Z91.040 Latex allergy status; Z88.5 Allergy status to narcotic agent; Z91.018 Allergy to other foods; Z91.030 Bee allergy status; Z68.42 Body mass index [BMI] 45.0-49.9, adult
CPT/HCPCS: 99211